=== PATIENT | female | born 1945 | race Caucasian/White ===

== ENCOUNTER → 2017-10-05 07:17 | Outpatient (CLI) | payer OTHER, SELFPAY ==
[2017-10-05 08:33] LABS: Cholesterol 180 mg/dL (200); High Density Lipoprotein 52 mg/dL; Triglycerides 68 mg/dL; Very Low Density Lipoprotein 14 mg/dL (5-40)
[2017-10-05 09:09] LABS: AST(SGOT) 21 U/L (15-37); Alanine Aminotransfer ALT/SGPT 16 U/L (13-56); Albumin, Serum 3.8 g/dL (3.2-5.0); Alkaline Phosphatase 104 U/L (45-117); Globulin 4.2 g/dL (2.2-4.2)
== END ==
PROVIDERS: Physician Assistant Medical; Family Provider Internal Medicine; PCP Internal Medicine; Visit Provider Internal Medicine Cardiovascular Disease
DX: E78.5 Hyperlipidemia, unspecified (principal); Z79.899 Other long term (current) drug therapy
CPT/HCPCS: 36415; 80061; 80076

== ENCOUNTER 2018-03-23 15:45 | Emergency (ER) | payer OTHER, SELFPAY ==
[2018-03-23 15:46] VITALS: BP 153/91; PULSE 90; RESP 18; TEMP 37.1; O2SAT 99; BMI 29.2
--- NOTE | 2018-03-23 16:28 | ED.VISSUMM ---
- ER Visit Summary Date of Service: 03/23/18 Chief Complaint: Laceration History of Present Illness: The patient is a 72 F with left hand laceration that heard when she brushed past the fence while taking care of the horse. No head injury no other injury. Physical Examination: Otherwise unremarkable exam. She is a 2.5 cm dorsum of the hand laceration tendon function is intact no sensory deficit. Emergency Department Course and Treatment: Patient will be sutured and tetanus will be updated. Discharge stable condition Impression: Duration left hand 2.5 cm This note was generated with [employer] dictation software. It may contain incorrect words, spelling, and punctuation that were not noted in review of the chart prior to signing ED Disposition - Plan for ED Patient: Disposition: Home or Assisted Living Chief Complaint: Laceration Instructions: ED Laceration All Referrals: Vero Garcia MD [Primary Care Provider] - 10 Day for suture removal
--- NOTE | 2018-03-23 16:32 | ED.DCSUM_ITS ---
- ER Visit Summary Date of Service: 03/23/18 Chief Complaint: Laceration History of Present Illness: The patient is a 72 F with left hand laceration that heard when she brushed past the fence while taking care of the horse. No head injury no other injury. Physical Examination: Otherwise unremarkable exam. She is a 2.5 cm dorsum of the hand laceration tendon function is intact no sensory deficit. Emergency Department Course and Treatment: Patient will be sutured and tetanus will be updated. Discharge stable condition Impression: Duration left hand 2.5 cm This note was generated with [employer] dictation software. It may contain incorrect words, spelling, and punctuation that were not noted in review of the chart prior to signing ED Disposition - Plan for ED Patient: Disposition: Home or Assisted Living Chief Complaint: Laceration Instructions: ED Laceration All Referrals: Vero Garcia MD [Primary Care Provider] - 10 Day for suture removal
[2018-03-23] MEDS: Diphth,Pertuss(Acell),Tet Vac 0.5 ML Vial IM (17:58)
[2018-03-23 18:00] VITALS: BP 136/89; PULSE 82; RESP 14; O2SAT 98
== END 2018-03-23 18:00 | disposition home or self-care (01) ==
PROVIDERS: Emergency Provider Emergency Medicine; Family Provider Internal Medicine; PCP Internal Medicine
DX: S61.412A Laceration without foreign body of left hand, initial encounter (principal); W45.8XXA Other foreign body or object entering through skin, initial encounter; Y93.89 Activity, other specified; I25.10 Atherosclerotic heart disease of native coronary artery without angina pectoris; Z79.899 Other long term (current) drug therapy
CPT/HCPCS: 12001; 90471; 90715; 99283

== ENCOUNTER → 2018-07-01 07:36 | Outpatient (CLI) | payer OTHER, SELFPAY ==
[2018-07-01 09:34] LABS: AST(SGOT) 25 U/L (15-37); Alanine Aminotransfer ALT/SGPT 26 U/L (13-56); Albumin, Serum 3.7 g/dL (3.2-5.0); Alkaline Phosphatase 93 U/L (45-117); Bilirubin, Direct 0.08 mg/dL (0.00-0.30); Cholesterol 260 mg/dL (200); High Density Lipoprotein 57 mg/dL; Protein, Total 7.7 g/dL (6.4-8.2); Triglycerides 115 mg/dL; Very Low Density Lipoprotein 23 mg/dL (5-40)
== END ==
PROVIDERS: Family Provider Internal Medicine; PCP Internal Medicine; Referring Provider Physician Assistant Medical; Visit Provider Physician Assistant Medical
DX: E78.5 Hyperlipidemia, unspecified (principal)
CPT/HCPCS: 36415; 80061; 80076

== ENCOUNTER → 2019-07-06 08:07 | Outpatient (CLI) | payer MEDICARE, OTHER, SELFPAY ==
[2018-07-13 12:49] VITALS: BMI 29.8
[2019-07-06 08:56] LABS: AST(SGOT) 27 U/L (15-37); Alanine Aminotransfer ALT/SGPT 33 U/L (13-56); Albumin, Serum 3.7 g/dL (3.2-5.0); Alkaline Phosphatase 98 U/L (45-117); Bilirubin, Direct 0.13 mg/dL (0.00-0.30); Cholesterol 187 mg/dL (200); Globulin 4.6 g/dL (2.2-4.2); High Density Lipoprotein 64 mg/dL; Protein, Total 8.3 g/dL (6.4-8.2); Triglycerides 65 mg/dL; Very Low Density Lipoprotein 13 mg/dL (5-40)
== END ==
PROVIDERS: Physician Assistant Medical; PCP Internal Medicine; Referring Provider Internal Medicine Cardiovascular Disease; Visit Provider Internal Medicine Cardiovascular Disease
DX: E78.5 Hyperlipidemia, unspecified (principal)
CPT/HCPCS: 36415; 80061; 80076

== ENCOUNTER → 2020-08-20 07:30 | Outpatient (CLI) | payer MEDICARE, OTHER, SELFPAY ==
[2019-08-19 14:18] VITALS: BMI 26.6
[2020-08-20 08:41] LABS: AST(SGOT) 24 U/L (15-37); Alanine Aminotransfer ALT/SGPT 29 U/L (13-56); Albumin, Serum 3.5 g/dL (3.2-5.0); Alkaline Phosphatase 86 U/L (45-117); Cholesterol 214 mg/dL (200); Globulin 3.9 g/dL (2.2-4.2); High Density Lipoprotein 68 mg/dL; Protein, Total 7.4 g/dL (6.4-8.2); Triglycerides 68 mg/dL; Very Low Density Lipoprotein 14 mg/dL (5-40)
== END ==
PROVIDERS: PCP Internal Medicine; Referring Provider Physician Assistant Medical; Visit Provider Physician Assistant Medical
DX: E78.00 Pure hypercholesterolemia, unspecified (principal)
CPT/HCPCS: 36415; 80061; 80076

== ENCOUNTER 2021-06-22 10:53 | Emergency (ER) | payer MEDICARE, OTHER, SELFPAY ==
[2021-06-22 10:56] VITALS: BP 168/81; PULSE 75; RESP 16; TEMP 36.9; O2SAT 97; BMI 25.9
--- NOTE | 2021-06-22 11:02 | EKG12_ITS ---
Test Reason : CP Blood Pressure : / mmHG Vent. Rate : 073 BPM Atrial Rate : 073 BPM P-R Int : 140 ms QRS Dur : 084 ms QT Int : 374 ms P-R-T Axes : 061 006 015 degrees QTc Int : 412 ms Normal sinus rhythm Normal ECG Confirmed by OSMAR DEAN MD ([id number]), offline editor KIKO DIA ([id number]) on 06/24/2021 10:14:40 AM Referred By: KANG Confirmed By:OSMAR DEAN MD
[2021-06-22 11:03] VITALS: O2SAT 97
[2021-06-22 11:22] LABS: Absolute Lymphocyte Count 2.15 X10^3/uL (0.83-4.51); Absolute Neutrophil Count 4.6 X10^3/uL (2.0-7.7); Basophil# 0.02 X10^3/uL; Basophil% 0.3 % (0-1); Eosinophil# 0.01 X10^3/uL; Eosinophils% 0.1 % (0-5); Hematocrit 37.1 % (37-47); Hemoglobin 12.2 g/dL (12.0-15.0); Lymphocyte # 2.15 X10^3/ul (0.83-4.51); Lymphocyte % 28.6 % (19-41); Mean Corp Hgb Conc 32.9 g/dL (32-36); Mean Corpuscular Hgb 30.7 pg (27.0-32.0); Mean Corpuscular Volume 93.5 fL (81-99); Mean Platelet Vol. 10.6 fl (6.2-12.0); Monocyte% 9.3 % (0-10); NRBC Flagged by Analyzer 0 % (0-5); Neutrophil # 4.61 X10^3/uL (2.7-7.7); Neutrophil % 61.3 % (47-70); Platelet Count 231 K/mm3 (150-450); RBC Distribution Width CV 12.9 % (11.6-14.6); RBC Distribution Width SD 44.5 fl (35.1-43.9); Red Blood Count 3.97 M/mm3 (4.2-5.4); White Blood Count 7.5 K/mm3 (4.4-11.0)
--- NOTE | 2021-06-22 11:26 | EDS_ITS ---
HPI History of Present Illness Chief Complaint: Chest Pain Narrative Narrative: 75-year-old female with history of CAD, hyperlipidemia, GERD, cardiac stents x3 in 2008. She states that she has been having intermittent sensation of palpitations and chest pressure in the left upper chest wall which does not radiate. She states that this lasts about a minute when it comes. She does feel as if she may have some indigestion. She questions whether her omeprazole was not working. She states that her diet has been fairly bland and she has not anything that would trigger her GERD. She also states she has no acid reflux symptoms. Patient does state that she has had some lightheadedness recently this is also intermittent and does not necessarily correlate with chest pain. She states that when she had coronary artery stents placed before 2008 she had similar vague symptoms. She at that time needed to be transferred to [place] because the ability to put in stents here at [facility] was not available. Patient follows with Dr. Rand. No history of DVT/PE and no risk factors. Patient does not have sharp pleuritic chest pain. She does not have worsening pain on deep inspiration. [facility] Medical History Anemia Atherosclerotic heart disease of [place] coronary artery without angina pectoris Former smoker Hyperlipidemia Hypothyroidism Old myocardial infarction Palpitations Home Medications ferrous fumarate 28 mg PO QODAY 03/09/17 [History Last Taken 03/08/17] levothyroxine 112 mcg PO DAILY 03/09/17 [History Last Taken 03/09/17] nitroglycerin 0.4 mg SUBLINGUAL Q5M PRN #1 bottle 03/10/17 [Rx Last Taken Unknown] clopidogrel 75 mg tablet 75 mg PO DAILY #90 tab 08/21/20 [Rx Last Taken Unknown] metoprolol tartrate 25 mg tablet 12.5 mg PO BID #90 tab 08/21/20 [Rx Last Taken Unknown] omeprazole 40 mg capsule,delayed release 40 mg PO DAILY #90 cap 08/21/20 [Rx Last Taken Unknown] simvastatin 40 mg tablet 40 mg PO .QOD #45 tab 11/27/20 [Rx Last Taken Unknown] pyridoxine (vitamin B6) [Vitamin B-6] 100 mg PO DAILY 06/22/21 [History Last Taken Unknown] Allergy/AdvReac Type Severity Reaction Status Date / Time atorvastatin [From Lipitor] AdvReac Severe mylagias Verified 06/22/21 10:54 rosuvastatin [From Crestor] AdvReac Severe mylagias Verified 06/22/21 10:54 lisinopril AdvReac Intermediate Cough Verified 06/22/21 10:54 Family History Sister Heart disease Brother CAD (coronary artery disease) Myocardial infarction Sudden cardiac Daughter Thyroid disorder Surgical History History of coronary artery stent placement (07/2008) History of left heart catheterization (2010) History of nasal surgery (2010) History of open reduction and internal fixation (ORIF) procedure History of tubal ligation Hx of breast surgery Social History Smoking Status: Never smoker alcohol intake: never substance use type: does not use ROS ROS ED ROS Narrative Lightheadedness Constitutional Constitutional ED: Denies chills, fever(s) or sweats Eyes Eyes: Denies blurry vision or change in vision ENT ENT ED: Denies rhinorrhea or sore throat Cardiovascular Cardiovascular: Reports as per HPI Respiratory/Chest Respiratory/Chest: Denies cough or dyspnea Gastrointestinal Gastrointestinal: Denies abdominal pain, nausea or vomiting Genitourinary Genitourinary ED: Denies dysuria or hematuria Musculoskeletal Musculoskeletal: Denies arthralgias or myalgias Integumentary Denies abscess or rash Neurologic Neurologic: Denies headache(s), paresthesias or weakness EXAM Physical Exam Const Vital Signs: 06/22/21 10:56 06/22/21 11:02 06/22/21 11:03 Temperature 98.5 F Temperature Source Oral Pulse Rate 75 Respiratory Rate 16 Respiratory Effort Normal Non-Labored Respiratory Pattern Normal Blood Pressure 168/81 H Blood Pressure Mean 110 Pulse Ox 97 97 Oxygen Delivery Method Room Air Room Air Room Air 06/22/21 13:17 Temperature Temperature Source Pulse Rate 68 Respiratory Rate 12 Respiratory Effort Respiratory Pattern Blood Pressure 130/65 H Blood Pressure Mean 86 Pulse Ox 100 Oxygen Delivery Method Room Air Positive well developed General Appearance ED: well developed and NAD; Negative for pallor HEENT Reports moist mucous membranes normocephalic Eyes PERRL and EOMs intact bilaterally Chest Wall inspection of chest normal and palpation of chest normal Resp normal respiratory effort Effort and Inspection: respiratory distress Cardio regular rate and regular rhythm GI normal to inspection, nondistended, normoactive bowel sounds Extremity normal to inspection General Extremety ED: Negative for edema or tenderness General Extremity: Negative for edema Neuro oriented x3 Sensorium / Orientation: awake and alert Psych mental status grossly normal Skin no wounds General Skin Exam: Negative for jaundice or pallor Heart Score History: Slightly/Non-Suspicious ECG: Normal Age: >/= 65 years Risk Factors: >/= 3 Risk Factors or History of CAD Score: 4 MDM MDM MDM Narrative Medical decision making narrative: Patient presenting with intermittent chest pr essure which sometimes feels like palpitations. She also has lightheadedness which does not correlate with the chest pressure. History of cardiac stents in 2008. She follows with Dr. Rand. Patient concerned because her symptoms were vague and not classic last time. EKG is performed and on my interpretation shows a sinus rhythm with ventricular rate of 73 bpm without sign of ischemic change or dysrhythmia. Chest x-ray my interpretation shows no acute cardiopulmonary process and the radiologist does agree. CBC and BMP are unremarkable. High-sensitivity troponin is 4 initially. Delta count is 8. This was out ACS. I have low suspicion for PE given that she has no pleuritic or sharp chest pain. Her O2 sats 100%. Respirate is 12-16. Pulse is 68. Patient counseled on findings. I did certified alcohol and drug counselor her to follow-up with Dr. Rand she is given return precautions. Impression: 1. Chest pain noncardiac 2. Dyspepsia Lab Data Attestation: I reviewed the patient's lab results. Labs: Laboratory Results - last 24 hr 06/22/21 06/22/21 06/22/21 10:56 10:56 10:56 WBC 7.5 RBC 3.97 L Hgb 12.2 Hct 37.1 MCV 93.5 MCH 30.7 MCHC 32.9 RDW Std Deviation 44.5 H RDW Coeff of Ashia 12.9 Plt Count 231 MPV 10.6 Immature Gran % (Auto) 0.400 Neut % (Auto) 61.3 Lymph % (Auto) 28.6 Boyle % (Auto) 9.3 Eos % (Auto) 0.1 Baso % (Auto) 0.3 Absolute Neuts (auto) 4.6 Absolute Lymphs (auto) 2.15 Nucleated RBC % 0 PT 12.6 INR 1.0 Sodium 136 Potassium 4.0 Chloride 104 Carbon Dioxide 29.0 Anion Gap 3 L BUN 19 H Creatinine 0.90 Estim Creat Clear Calc 46.64 Est GFR (MDRD) Af Amer 78 Est GFR (MDRD) Non-Af 65 BUN/Creatinine Ratio 21.1 H Glucose 84 Calcium 8.4 L Troponin I High Sens 4 06/22/21 13:00 WBC RBC Hgb Hct MCV MCH MCHC RDW Std Deviation RDW Coeff of Ashia Plt Count MPV Immature Gran % (Auto) Neut % (Auto) Lymph % (Auto) Boyle % (Auto) Eos % (Auto) Baso % (Auto) Absolute Neuts (auto) Absolute Lymphs (auto) Nucleated RBC % PT INR Sodium Potassium Chloride Carbon Dioxide Anion Gap BUN Creatinine Estim Creat Clear Calc Est GFR (MDRD) Af Amer Est GFR (MDRD) Non-Af BUN/Creatinine Ratio Glucose Calcium Troponin I High Sens 8 Radiography Diagnostic Testing: Clinical Impression(s) from Imaging Studies Chest X-Ray 06/22/21 11:40 IMPRESSION: Normal x-ray examination of the chest. Electronically Signed: Rasheed Wood MD at 12:07 EST , Discharge Plan Triage Chief Complaint: Chest Pain ED Provider: Isaak Tse Dx/Rx/DC Orders Instructions: ED Chest Pain, Noncardiac Prescriptions: No Action metoprolol tartrate 25 mg tablet 12.5 mg PO BID Qty: 90 RF: 3 clopidogrel 75 mg tablet 75 mg PO DAILY Qty: 90 RF: 3 omeprazole 40 mg capsule,delayed release(DR/EC) 40 mg PO DAILY Qty: 90 RF: 3 levothyroxine 112 MCG tablet 112 mcg PO DAILY RF: 0 ferrous fumarate 89 MG tablet 28 mg PO QODAY RF: 0 nitroglycerin 0.4 MG tablet 0.4 mg SUBLINGUAL Q5M PRN (Reason: Chest Pain) Qty: 1 RF: 0 pyridoxine (vitamin B6) [Vitamin B-6] 100 mg Tablet 100 mg PO DAILY RF: 0 simvastatin 40 mg tablet 40 mg PO .QOD Qty: 45 RF: 3 Primary Care Provider: Vero Garcia Referrals: Cheng Rand MD [STAFF PHYSICIAN] - 3-5 Days Vero Garcia MD [Primary Care Provider] - Disposition Disposition: Home, Self Care
[2021-06-22 11:32] LABS: Prothrombin Time (Protime)PT. 12.6 SECONDS (11.7-14.9)
--- NOTE | 2021-06-22 11:40 | RAD_ITS ---
STUDY: X-RAY CHEST REASON FOR EXAM: Female, 75 years old. chest pain TECHNIQUE: Single AP portable view of the chest. COMPARISON: 03/09/2017 FINDINGS: The lungs are clear and expanded. There is no demonstrated pleural abnormality. Normal size heart. Normal mediastinum and ira. Normal visualized pulmonary arteries. Normal visualized aortic arch and descending thoracic aorta. Normal visualized thoracic spine. Normal visualized ribs, clavicles, and shoulders. There is no demonstrated abnormality of the visualized soft tissue structures of the upper abdomen. RAD/Chest 1 View (Portable) IMPRESSION: Normal x-ray examination of the chest. Electronically Signed: Rasheed Wood MD at 12:07 [facility] ,
[2021-06-22 11:42] LABS: Anion Gap 3 (5-15); BUN 19 mg/dL (7-18); BUN/Creat Ratio 21.1 RATIO (10-20); Calcium,Total 8.4 mg/dL (8.5-10.1); Chloride 104 mmol/L (98-107); EST Glomerular Filtration Rate 65 mL/min (>60); Est Glom Filt Rate - Afr Amer 78 mL/min (>60); Estimated Creatinine Clearance 46.64 ml/min; Glucose 84 mg/dL (74-106); Sodium Level 136 mmol/L (136-145); Troponin-I HS 4 pg/mL (3.0-54.0)
[2021-06-22] MEDS: Aspirin 81 MG TAB.CHEW 324 MG PO (11:49)
[2021-06-22 13:17] VITALS: BP 130/65; PULSE 68; RESP 12; O2SAT 100
[2021-06-22 13:22] LABS: Troponin-I HS 8 pg/mL (3.0-54.0)
[2021-06-22 13:52] VITALS: BP 137/99; PULSE 68; RESP 12; O2SAT 99
== END 2021-06-22 13:53 | disposition home or self-care (01) ==
PROVIDERS: Emergency Provider Student in an Organized Health Care Education/Training Program; PCP Internal Medicine; Visit Provider Student in an Organized Health Care Education/Training Program
DX: R07.89 Other chest pain (principal); R10.13 Epigastric pain; I25.10 Atherosclerotic heart disease of native coronary artery without angina pectoris; I25.2 Old myocardial infarction; D64.9 Anemia, unspecified; E78.5 Hyperlipidemia, unspecified; E03.9 Hypothyroidism, unspecified; K21.9 Gastro-esophageal reflux disease without esophagitis; Z95.5 Presence of coronary angioplasty implant and graft; Z79.02 Long term (current) use of antithrombotics/antiplatelets; Z79.899 Other long term (current) drug therapy; Z82.49 Family history of ischemic heart disease and other diseases of the circulatory system
CPT/HCPCS: 36415; 71045; 80048; 84484; 85025; 85610; 93005; 99285; A4216

== ENCOUNTER 2021-08-20 06:58 | Outpatient (CLI) | payer MEDICARE, OTHER, SELFPAY ==
[2021-08-20 08:04] LABS: AST(SGOT) 24 U/L (15-37); Alanine Aminotransfer ALT/SGPT 25 U/L (13-56); Albumin, Serum 3.4 g/dL (3.2-5.0); Alkaline Phosphatase 68 U/L (45-117); Bilirubin, Direct 0.07 mg/dL (0.00-0.30); Cholesterol 211 mg/dL (200); Globulin 4.1 g/dL (2.2-4.2); High Density Lipoprotein 59 mg/dL; Protein, Total 7.5 g/dL (6.4-8.2); Triglycerides 60 mg/dL; Very Low Density Lipoprotein 12 mg/dL (5-40)
== END 2021-08-20 23:59 | disposition home or self-care (01) ==
LOC: LAB 07:00
PROVIDERS: PCP Internal Medicine; Visit Provider Physician Assistant Medical
DX: E78.00 Pure hypercholesterolemia, unspecified (principal); E78.5 Hyperlipidemia, unspecified
CPT/HCPCS: 36415; 80061; 80076

== ENCOUNTER → 2021-09-17 | Outpatient (CLI) | payer MEDICARE, OTHER, SELFPAY ==
--- NOTE | 2021-09-17 18:56 | STRESSREP ---
Stress Test Report Exercise myocardial perfusion stress test. 75-year-old lady with a history of coronary disease. Stress protocol: Resting EKG demonstrates normal sinus rhythm with a rate of 77 bpm normal intervals are noted. The patient exercised according to regular Tyrese protocol for total duration of 5 minutes and 20 seconds. The maximum heart rate attained was 150 bpm which was 103% of max impact at heart rate the maximum workload was 7 metabolic equivalents. At rest there were no ST or T wave changes noted to suggest ischemia. At peak exercise there was approximately 1.8 to [address] depression noted in leads II, III and aVF and V6. 1.[address] depression was noted in lead V5. During recovery there was return to upsloping changes noted at approximately 50 seconds. No chest pain was noted to shortness of breath was present. The peak blood pressure was 180/62 mmHg. Myocardial perfusion protocol. 11.4 mCi of technetium 99m sestamibi was injected at rest. The patient exercised according to regular Tyrese protocol for total duration of 5 minutes and 20 seconds and at peak exercise 32.9 mCi of technetium 99m sestamibi was injected stress images were obtained stress and rest images were reconstructed and compared in the short axis vertical long and horizontal long axis. Gated images were also obtained per Perfusion SPECT analysis: Review of the stress images demonstrate normal uptake of tracer noted in all areas of the myocardium. The resting images similarly demonstrate normal uptake of tracer noted in all areas of the myocardium. No areas of reversibility are noted to suggest ischemia no previous infarct is noted. Gated SPECT analysis: The gated ejection fraction is noted to be 72%. Conclusion: Normal exercise myocardial perfusion stress test with no nuclear images suggestive of ischemia at a moderate workload. EKG is changes suggestive of ischemia noted at the moderate workload. Preserved ejection fraction. Mild functional aerobic impairment.
== END | disposition home or self-care (01) ==
PROVIDERS: PCP Internal Medicine; Referring Provider Physician Assistant Medical; Visit Provider Physician Assistant Medical
DX: I25.10 Atherosclerotic heart disease of native coronary artery without angina pectoris (principal)
CPT/HCPCS: 78452; 93017; A9500; A4216

== ENCOUNTER 2023-06-17 11:00 | Outpatient (RCR) | payer MEDICARE, OTHER, SELFPAY ==
--- NOTE | 2023-04-24 12:24 | HP.PTEVAL ---
Patient's Visit Information Visit Information Visit Information: OCHOA HILL is a 77 year old F referred to Physical Therapy by Dr. Florence Godfrey MD with a diagnosis of INCONTINENCE. Date of Evaluation: 04/17/23 Physical Therapist: Zoya Teixeira PT, Cert MDT Visit Plan Frequency: 1x/Week Duration: 2-4 Months Plan: PF THERAPY FOR STRENGTHENING, LENGTHENING/RELAXATION AND ENDURANCE TRAINING. URINARY URGE AND FREQUENCY EDUCATION. HEALTHY BLADDER HABIT EDUCATION. TRAINING IN COORDINATION OF PELVIC FLOOR MUSCULATURE WITH HIP AND CORE (TRANSVERSE ABDOMINUS) MUSCULATURE. CORE STRENGTHENING. TRUNG LE ROM, STRETCHING AND STRENGTHENING. TRAINING IN ABDOMINAL CAVITY PRESSURE MGMT WITH ADL'S. Subjective Subjective: Work/Leisure: RETIRED. 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 Present symptoms: URINARY INCONTINECE. Present since: CHRONIC Pain Scale: N/A Is it getting better, worse or staying the same: IMPROVING Commenced as a result of: NO APPARENT REASON Worse: SNEEZING, LIFTING, STRAINING, GRANDCHILD (3 YEAR OLD), RANDOM OCCURANCE, COUGHING Better: GEMTESA Disturbed sleep: GETTING UP 0-1 TIMES A NIGHT TO URINATE Previous history/Previous treatment: NONE Treatment this episode: TRIED A FEW DIFFENT PESSARIES WITHOUT SUCCESS AND PATIENT REPORTS IT EVEN MADE THE INCONTINENCE WORSE. PATIENT REPORTS DR. GODFREY SAID SHE HAD A LITTLE TEARING WITH THE LARGER PESSARY REMOVAL. PATIENT REPORTS IT WAS PAINFUL AT THE TIME OF REMOVAL AND IRRITATED AFTER THAT FOR A FEW DAYS. SHE REPORTS THE IRRITATION AND PAIN HAS GONE AWAY NOW. GEMTESA - STARTED ABOUT 3 WEEKS AGO AND REPORTS SIGNIFICANT IMPROVEMENT. Gait: INDEP GAIT WITHOUT AD. DENIES FALLS. How long can you delay the need to urinate: ABOUT 15 MINUTES TO 30 MINUTES WHEN AT HOME SINCE STARTING THE MEDICINE. Prolapse (Falling out feeling): YES - SINCE TRYING PESSARY. Frequency of Urination: ABOUT EVERY 2-3 HOURS Ability to stop urine flow: UNSURE Ability to initiate urine stream: YES Dyspareunia: N/A Bowel Incontinence: YES - STATES DR. GODFREY IS AWARE. THIS PT RECOMMENDED PT ALSO MAKE HER PCP (DR. RIVERS) AWARE. Accidents: NO Unexplained weight loss: NO Imaging: PATIENT REPORTS RECENT TESTING SHOWING NORMAL BLADDER EMPTYING. PMH/Recent major surgery: HYPOTHYROIDISM, HEART DZ - 3 STENTS YEARS AGO, H/O TRUNG WRIST ORIF'S. OTHER: PATIENT REPORTS DR. GODFREY ORIGINALLY ORDERED PT 02/18/23 WHEN SHE INITIALLY SAW HER BUT SHE DELAYED STARTED WHILE TRYING THE PESSARIES THEN WAS BUSY DEALING WITH ISSUES WITH HER DAUGHTER. PATIENT REPORTS SHE KNOWS WHAT A KEGEL IS AND IS HOPING TO LEARN MORE TO DO AT HOME TO HELP HERSELF WITH HER INCONTINENCE. Objective Objective: Sitting/Standing Posture: FORWARD HEAD. ROUNDED SHOULDERS. Lordosis: REDUCED LORDOSIS. NO RELEVANT LATERAL SHIFT. Other Observations: INDEP GAIT AND TRANSFERS Sensory deficit: TRUNG LE LIGHT TOUCH SENSATION GROSSLY INTACT AND SYMMETRICAL ROM deficit: VERY TIGHT TRUNG LE HIP ADDUCTORS, HIP ROTATORS, HIP FLEXORS AND HIP EXTENSORS. ALSO WITH HS AND CALF TIGHTNESS. Motor deficit: TRUNG LE'S GROSSLY 5/5 WITH MMT'ING EXCEPT HIPS 4/5. PATIENT COMMUNICATES BEING ABLE TO HOLD PELVIC FLOOR CONTRACTION X 10 SEC X 1 REP WITH CUEING. Reflexes: 2/3 TRUNG LE'S. Dural Signs: NEGATIVE TRUNG LE'S. Lumbar mvmt loss: flex - MIN ext - LAUREN R SG - MOD L SG - MOD PATIENT DENIES PAIN WITH LUMBAR ROM TESTING BUT HAS A LOT OF STIFFNESS. Core strength: POOR Palpation: INCREASED MUSCLE TONE TRUNG LUMBAR PARASPINALS. Pelvic Exam: Deferred to next session. Patient agreeable next session but reports limited time today due to and son waiting on her in the care. FUNCTIONAL SCREEN: Incontinence Impact Questionnaire Score: 3 Urogenital Distress Inventory Score: 8 Goals Goal 1:: DECREASE URINARY LEAKAGE EPISODES TO ONE OR LESS PER DAY Goal 2:: PATIENT WILL SUCCESSFULLY DELAY VOIDING LONG NEEDED WHEN URGENCY OCCURS TO SUCCESSFULLY MAKE IT TO THE BATHROOM. Goal 3:: PATIENT WILL DEMONSTRATE/COMMUNICATE 10 CONSISTENT AND CONSECUTIVE 10 SECOND PELVIC FLOOR MUSCLE CONTRACTIONS TO DEMONSTRATE IMPROVED PELVIC FLOOR ENDURANCE. Goal 4:: DEVELOP HEALTHY FLUID INTAKE HABITS WITH FLUID INTAKE OF ? BODY WEIGHT IN OUNCES PER DAY AND 2/3 BEING WATER. Goal 5:: NORMALIZE VOIDING FREQUENCEY TO EVERY 3-4 HOURS. Goal 6:: PATIENT WILL BE INDEP WITH A HEP/HOME INSTRUCTIONS FOR CONTINUED IMPROVEMENT ONCE FORMAL PHYSICAL THERAPY CONCLUDES. Rehabilitation Potential Rehabilitation Potential: Good Anticipated Interventions Patient/Client Instruction: Educate patient on: Condition, Plan of Care and Risk Factors For the Purpose of:: To improve self management Therapeutic Exercise to Include: Strength training, Endurance training, Coordination and Flexibilty training For the Purpose of:: To increase ROM, To improve muscle performance and motor function, To increase tolerance to activity/condition/position and To improve ability of physical actions for home/community/work/leisure Text: Thank you for the opportunity to evaluate your patient. For Medicare and Medicare HMO plans, please review the plan of care and approve it. It will need to be FAXED BACK to us at [phone] for Medicare purposes. For Medicare only, by signing this I certify the plan of care. Please let me know if there are questions or concerns regarding this plan of care. Physician Signature: Date:
--- NOTE | 2023-07-01 11:31 | HP.PTDCSUM ---
Discharge Summary D/C summary: It has been my pleasure to treat OCHOA HILL referred by Dr. Florence Godfrey MD, with the diagnosis of INCONTINENCE for a total of 10 visit(s). Discharge Date: Please see the following information for a summary of their discharge status. Subjective Subjective: PATIENT STATES SHE FEELS LIKE SHE IS STRONGER AND THERRAPY HAS BEEN VERY HELPFUL. SHE REPORTS SHE PLANS TO CONTINUE WHAT SHE HAS LEARNED IN PT MUCH SHE IS ABLE. SHE STATES SHE WISHES SHE WERE ABLE TO PUT MORE TIME INTO IT BUT SHE DOES WHAT SHE CAN. SHE STATES SHE IS DEALING WITH A LOT WITH HER DAUGHTER AND GRANDSON IN ADDITION TO HER HAVING SURGERY TOMORROW. DESPITE THIS PATIENT REPORTS CONTINUED IMPROVEMENT IN HER SYMPTOMS AND STATES SELDOM DO I EVER HAVE A PROBLEM NOW. I ENJOYED LEARNING ABOUT THESE THINGS I NEVER KNEW ABOUT . Overall Improvement % Improvement: 85 Objective Objective/Function: PATIENT WAS SEEN TODAY FOR RE-ASSESSMENT OF PROGRESS TOWARD THE SET PT GOALS AND THE NEED FOR FURTHER PHYSICAL THERAPY VS READINESS FOR DISCHARGE. PATIENT HAS MET OR MADE GOOD PROGRESS TOWARD ALL PT GOALS AND IS INDEP WITH A HEP. SHE HAS ONLY BEEN ABLE TO BE PARTIALLY COMPLIANT WITH HOME INSTRUCTIONS DUE TO HER HOME SITUATION AND NEEDS TO STOP PT AT THIS TIME DUE TO SAME. FUNCTIONAL SCREEN: Incontinence Impact Questionnaire Score: 4 Urogenital Distress Inventory Score: 5 Goals Goal 1:: DECREASE URINARY LEAKAGE EPISODES TO ONE OR LESS PER DAY Goal Progress: Goal Met Goal 2:: PATIENT WILL SUCCESSFULLY DELAY VOIDING LONG NEEDED WHEN URGENCY OCCURS TO SUCCESSFULLY MAKE IT TO THE BATHROOM. Goal Progress: Goal Met Goal 3:: PATIENT WILL DEMONSTRATE/COMMUNICATE 10 CONSISTENT AND CONSECUTIVE 10 SECOND PELVIC FLOOR MUSCLE CONTRACTIONS TO DEMONSTRATE IMPROVED PELVIC FLOOR ENDURANCE. Goal Progress: Progressing Goal 4:: DEVELOP HEALTHY FLUID INTAKE HABITS WITH FLUID INTAKE OF ? BODY WEIGHT IN OUNCES PER DAY AND 2/3 BEING WATER. Goal Progress: Goal Met Goal 5:: NORMALIZE VOIDING FREQUENCEY TO EVERY 3-4 HOURS. Goal Progress: Goal Met Goal 6:: PATIENT WILL BE INDEP WITH A HEP/HOME INSTRUCTIONS FOR CONTINUED IMPROVEMENT ONCE FORMAL PHYSICAL THERAPY CONCLUDES. Goal Progress: Goal Met Plan Plan: D/C TO HEP. D/C Information d/c sentence: If there are questions or concerns regarding this patient's physical therapy, please feel free to call me at [phone]. Thank you for the referral of this patient. Sincerely, Zoya Teixeira, PT, Cert MDT Balance/Gait/Functional tests Improvement % Improvement: 85
== END 2023-06-17 19:00 | disposition home or self-care (01) ==
LOC: PT 11:00
PROVIDERS: PCP Internal Medicine; Referring Provider Urology; Visit Provider Urology
DX: R32 Unspecified urinary incontinence (principal)
CPT/HCPCS: 97162; 97530

== ENCOUNTER → 2023-09-23 | Outpatient (CLI) | payer MEDICARE, OTHER, SELFPAY ==
[2023-09-23 12:13] LABS: AST(SGOT) 37 U/L (15-37); Alanine Aminotransfer ALT/SGPT 29 U/L (13-56); Albumin, Serum 3.7 g/dL (3.2-5.0); Alkaline Phosphatase 69 U/L (45-117); Anion Gap 3 (5-15); BUN 18 mg/dL (7-18); BUN/Creat Ratio 18.1 RATIO (10-20); Calcium,Total 9.2 mg/dL (8.5-10.1); Chloride 107 mmol/L (98-107); Cholesterol 218 mg/dL (200); EST Glomerular Filtration Rate 57 mL/min (>60); Est Glom Filt Rate - Afr Amer 69 mL/min (>60); Globulin 4.2 g/dL (2.2-4.2); Glucose 82 mg/dL (74-106); High Density Lipoprotein 70 mg/dL; Potassium 4.8 mmol/L (3.5-5.1); Protein, Total 7.9 g/dL (6.4-8.2); Sodium Level 139 mmol/L (136-145); Triglycerides 69 mg/dL; Very Low Density Lipoprotein 14 mg/dL (5-40)
== END | disposition home or self-care (01) ==
LOC: LAB 11:12
PROVIDERS: PCP Internal Medicine; Referring Provider Physician Assistant Medical; Visit Provider Physician Assistant Medical
DX: E78.00 Pure hypercholesterolemia, unspecified (principal); Z95.5 Presence of coronary angioplasty implant and graft
CPT/HCPCS: 36415; 80048; 80061; 80076

== ENCOUNTER → 2024-08-26 | Outpatient (CLI) | payer MEDICARE, OTHER, SELFPAY ==
[2024-08-26 07:10] LABS: AST(SGOT) 32 U/L (<=31); Alanine Aminotransfer ALT/SGPT 21 U/L (<=34); Albumin, Serum 3.9 g/dL (3.4-4.8); Alkaline Phosphatase 80 U/L (35-104); Bilirubin, Direct 0.14 mg/dL (0.00-0.30); Cholesterol 147 mg/dL (<=200); Globulin 3.5 g/dL (2.2-4.2); High Density Lipoprotein 72 mg/dL; Low Density Lipoprotein Calc. 66 mg/dL; Protein, Total 7.5 g/dL (5.9-8.4); Total Bilirubin 0.29 mg/dL (0.00-1.30); Triglycerides 45 mg/dL; Very Low Density Lipoprotein 9 mg/dL (5-40); cholesterol:hdl ratio screen 2.04
== END | disposition home or self-care (01) ==
LOC: LAB 06:17
PROVIDERS: PCP Family Medicine; Referring Provider Physician Assistant Medical; Visit Provider Physician Assistant Medical
DX: E78.00 Pure hypercholesterolemia, unspecified (principal)
CPT/HCPCS: 36415; 80061; 80076

== ENCOUNTER → 2024-08-31 | Outpatient (CLI) | payer MEDICARE, OTHER, SELFPAY ==
[2024-08-31 15:26] LABS: Absolute Lymphocyte Count 2.65 X10^3/uL (0.83-4.51); Absolute Neutrophil Count 4.1 X10^3/uL (2.0-7.7); Basophil# 0.07 X10^3/uL; Basophil% 0.9 % (0-1); Eosinophil# 0.21 X10^3/uL; Eosinophils% 2.7 % (0-5); Hematocrit 32.1 % (37-47); Hemoglobin 10.3 g/dL (12.0-15.0); Lymphocyte # 2.65 X10^3/ul (0.83-4.51); Lymphocyte % 34.6 % (19-41); Mean Corp Hgb Conc 32.1 g/dL (32-36); Mean Corpuscular Hgb 30.1 pg (27.0-32.0); Mean Corpuscular Volume 93.9 fL (81-99); Mean Platelet Vol. 11.3 fl (6.2-12.0); Monocyte# 0.63 X10^3/uL; Monocyte% 8.2 % (0-10); NRBC Flagged by Analyzer 0 % (0-5); Neutrophil # 4.08 X10^3/uL (2.7-7.7); Neutrophil % 53.5 % (47-70); Platelet Count 274 K/mm3 (150-450); RBC Distribution Width CV 12.9 % (11.6-14.6); RBC Distribution Width SD 44.1 fl (35.1-43.9); Red Blood Count 3.42 M/mm3 (4.2-5.4); White Blood Count 7.7 K/mm3 (4.4-11.0)
[2024-08-31 16:48] LABS: Vitamin D,25 Hydroxy 23.1 ng/mL (30-100)
== END | disposition home or self-care (01) ==
LOC: LAB 14:12
PROVIDERS: PCP Family Medicine; Referring Provider Student in an Organized Health Care Education/Training Program; Visit Provider Student in an Organized Health Care Education/Training Program
DX: E55.9 Vitamin D deficiency, unspecified (principal); R53.83 Other fatigue
CPT/HCPCS: 36415; 82306; 84443; 85025

== ENCOUNTER → 2024-09-29 | Outpatient (CLI) | payer MEDICARE, OTHER, SELFPAY ==
--- NOTE | 2024-09-29 13:22 | STRESSREP ---
Stress Test Report Exercise myocardial perfusion stress test. 78-year-old lady with a history of chest pain Stress protocol: Resting EKG demonstrates normal sinus rhythm with a rate of 76 bpm resting blood pressure is 132/68 mmHg. The patient exercised according to the regular Tyrese protocol for a total duration of 5 minutes and 15 seconds attaining a maximum heart rate of 151 bpm which was 106% of maximum predicted heart rate; the maximum workload was 7 metabolic equivalents. At rest there were no ST or T wave changes noted to suggest ischemia and at peak exercise [address] depression were noted in leads II, III and aVF and V6 suggestive of ischemia. Upsloping ST changes only were noted which did not meet the criteria for ischemia. No clinical angina was noted the test was terminated due to the target heart rate being achieved/fatigue. The peak blood pressure was 164/70 mmHg. Rate-pressure product was 24,700. Myocardial perfusion protocol. 11.8 mCi of technetium 99m sestamibi was injected at rest. The patient exercised according to regular Tyrese protocol for total duration of 5 minutes and 15 and at peak exercise 34.5 mCi of technetium 99m sestamibi was injected stress images were obtained stress and rest images were reconstructed in comparing the short axis vertical long and horizontal long axis. Gated images were also obtained. Perfusion SPECT analysis: Review of the stress images demonstrate normal uptake of tracer noted in all areas of the myocardium. The resting images similarly demonstrate normal uptake of tracer noted in all areas of the myocardium. No areas of reversibility are noted to suggest ischemia no previous infarct was noted. Gated SPECT analysis: The gated ejection fraction is 77%. Conclusion: Normal exercise myocardial perfusion stress test at a moderate work Preserved ejection fraction. EKG changes suggestive of ischemia but unchanged from the stress test in September 2021.
== END | disposition home or self-care (01) ==
LOC: CVS 07:03
PROVIDERS: PCP Family Medicine; Referring Provider Student in an Organized Health Care Education/Training Program; Visit Provider Student in an Organized Health Care Education/Training Program
DX: I25.10 Atherosclerotic heart disease of native coronary artery without angina pectoris (principal); R94.39 Abnormal result of other cardiovascular function study; R53.83 Other fatigue
CPT/HCPCS: 78452; 93017; A9500

== ENCOUNTER 2024-11-07 07:27 | Day surgery (SDC) | payer MEDICARE, OTHER, SELFPAY ==
--- NOTE | 2024-10-24 14:45 | RAD_ITS ---
PROCEDURE: CHEST PA AND LATERAL 10/24/2024 REASON FOR EXAM: PRE-OPERATIVE FOR [facility] TECHNIQUE: Frontal and lateral views of the chest. COMPARISON: 06/22/2021 FINDINGS: No focal consolidations. No pleural effusion or pneumothorax. Cardiac silhouette is within normal limits. No acute fractures. Atherosclerotic aortic arch. RAD/Chest PA and Lateral IMPRESSION: No focal consolidations. Reading Location: [id number]
[2024-10-24 15:25] LABS: Absolute Lymphocyte Count 2.68 X10^3/uL (0.83-4.51); Absolute Neutrophil Count 3.7 X10^3/uL (2.0-7.7); Basophil# 0.07 X10^3/uL; Basophil% 0.9 % (0-1); Eosinophil# 0.33 X10^3/uL; Eosinophils% 4.4 % (0-5); Hematocrit 31.6 % (37-47); Hemoglobin 10.3 g/dL (12.0-15.0); Lymphocyte # 2.68 X10^3/ul (0.83-4.51); Lymphocyte % 35.8 % (19-41); Mean Corp Hgb Conc 32.6 g/dL (32-36); Mean Corpuscular Hgb 30.7 pg (27.0-32.0); Mean Corpuscular Volume 94.3 fL (81-99); Mean Platelet Vol. 11.8 fl (6.2-12.0); Monocyte# 0.67 X10^3/uL; Monocyte% 8.9 % (0-10); NRBC Flagged by Analyzer 0 % (0-5); Neutrophil # 3.72 X10^3/uL (2.7-7.7); Neutrophil % 49.7 % (47-70); Platelet Count 247 K/mm3 (150-450); RBC Distribution Width CV 13.6 % (11.6-14.6); RBC Distribution Width SD 46.7 fl (35.1-43.9); Red Blood Count 3.35 M/mm3 (4.2-5.4); White Blood Count 7.5 K/mm3 (4.4-11.0)
[2024-10-24 15:36] LABS: International Normalized Ratio 0.9
[2024-10-24 16:33] LABS: Anion Gap 10 (5-15); BUN 19 mg/dL (4-19); BUN/Creat Ratio 19.1 RATIO (10-20); Calcium,Total 9.2 mg/dL (7.6-11.0); Carbon Dioxide 24.7 mmol/L (21.0-32.0); Chloride 105 mmol/L (98-108); Creatinine, Serum 0.98 mg/dL (0.70-1.20); EST Glomerular Filtration Rate 59 (>60); Glucose 120 mg/dL (70-99); Potassium 4.7 mmol/L (3.3-5.1); Sodium Level 139 mmol/L (133-145)
[2024-11-04 09:02] VITALS: BMI 26.6
--- NOTE | 2024-12-26 09:45 | CL.D_ITS ---
Patient Name: OCHOA HILL Study Date: 11/07/2024 Performing: Cheng Rand MD Ht: 64.17 inches 163 cm : 1945 Wt: 156 lbs 70.76 kg Age: 78 Gender: female BSA: 1.76 PROCEDURE(S) PERFORMED DC01-([id number])LHC/COR/LV CLINICAL PROFILE AND INDICATIONS Indications: Suspected CAD Heart Failure: None Stress/Imaging Date: 09/29/24Stress Test with SPECT MPI: Positive Intermediate Risk CAD Presentations: No Sxs, no angina. CONCLUSIONS Severe disease involving the ostial left anterior descending artery prior to the stent in the ostial circumflex artery prior to the stent and disease noted in the mid to distal right coronary artery with a patent stent. There is mild left ventricular systolic dysfunction present. RECOMMENDATIONS Surgery consult for coronary revascularization DESCRIPTION OF PROCEDURE The patient arrived to the procedure lab. The risks and benefits of the procedure as well as a full description of our services here and current unavailability of surgical backup were fully explained to the patient and/or their significant other prior to the catheterization. The Timeout was completed, verifying the correct patient and procedure. The patient's procedural site was prepped and draped in the usual fashion. Local anesthetic was given subcutaneously to right radial region with Lidocaine 2%. Using a modified Seldinger technique, arterial access was obtained via the right radial artery, a 6Fr sheath was inserted. Left Coronary Artery selective angiography was performed in multiple views using a 5 Fr. 4.0 Worthington catheter. Right Coronary Artery selective angiography was then performed in multiple views using a 5 Fr. 4.0 Worthington catheter. Left Ventriculography was performed in RYAN projection using a 5 Fr. Pigtail catheter. LV to AO pullback pressures were then recorded.The arterial sheath was pulled and a TR Band was applied for hemostasis 10 ml of air CORONARY ANGIOGRAPHY DOMINANCE: Right Dominant LEFT HEART ASSESSMENT Left Ventricular Ejection Fraction: by LV Gram 50 % Anterior Hypokinesis - Mild Depressed Left Ventricular systolic function LEFT MAIN: Mild calcification, Ostial 20 to 30% stenosis LEFT ANTERIOR DESCENDING ARTERY: This vessel was previously stented with the stent being patent but there is an ostial 80 to 90% stenosis noted. The mid segment also has a 70% long stenosis followed by another 70% long stenosis present. Diagonal vessel appears to be free of significant disease. CIRCUMFLEX ARTERY: This vessel was also previously stented and there is an ostial 80% stenosis noted at the first large obtuse marginal branch the AV groove branch appears to be free of significant disease. RIGHT CORONARY ARTERY: Dominant right coronary artery previously stented. The proximal area has a 50 to 60% stenosis with a mid area with a 70% stenosis and the distal stent is patent and distal mild luminal irregularities present. COMPLICATIONS No Complications PROCEDURE MEDICATIONS Fentanyl 50 mcg IV Versed 1 mg IV Oxygen: 2 L/min via nasal cannula Aspirin (325mg) 1 Tabs PO @ 11/07/2024 07:45:24 Heparin given IA 11/07/2024 08:14:31 Verapamil 2.5mg, Ntg 100mcgs, 3000 units of Heparin given IA 11/07/2024 08:14:31 SUMMARY OF HEMODYNAMIC DATA Time AIR REST ECG 07:42:52 AO 115/60 (83) SA 08:24:03 LV 118/10, 19 08:31:44 LV 120/10, 19 08:31:52 LV 114/11, 20 08:32:38 LV 117/12, 21 08:32:46 LVp 119/15, 24 08:32:49 AOp 117/58 (84) 08:32:57 Signed By Cheng Rand MD On 11/07/2024 08:58:36 Cheng Rand MD
== END 2024-11-07 10:40 | disposition home or self-care (01) ==
PROVIDERS: Student in an Organized Health Care Education/Training Program; PCP Family Medicine; Referring Provider Internal Medicine Cardiovascular Disease; Visit Provider Internal Medicine Cardiovascular Disease
DX: I25.10 Atherosclerotic heart disease of native coronary artery without angina pectoris (principal); I25.2 Old myocardial infarction; E78.5 Hyperlipidemia, unspecified; E03.9 Hypothyroidism, unspecified; E78.00 Pure hypercholesterolemia, unspecified; Z87.891 Personal history of nicotine dependence; Z79.899 Other long term (current) drug therapy; Z95.5 Presence of coronary angioplasty implant and graft
CPT/HCPCS: 36415; 71046; 80048; 85025; 85610; 93458; 99152; 99153; Q9967; C1769; C1894

== ENCOUNTER → 2024-11-16 | Outpatient (CLI) | payer MEDICARE, OTHER, SELFPAY ==
--- NOTE | 2024-11-16 10:47 | ECHOD_ITS ---
Reason For Study : CAD/ASHD Procedure This was a 2D Doppler, Color Flow transthoracic echocardiogram. Exam performed in department. Left Ventricle Normal LV size. The left ventricular ejection fraction is 70 %. No regional wall motion abnormalities noted. Right Ventricle Normal RV size. Normal systolic function. Atria Normal left atrium. Normal right atrium. Mitral Valve There is mild mitral annular calcification. Mild (1+) eccentric mitral valve insufficiency. Tricuspid Valve Normal tricuspid valve. Mild tricuspid valve insufficiency. Pulmonary artery systolic pressure is 34 mmHg. Aortic Valve Trisinus/trileaflet aortic valve. Mild focal aortic valve thickening. Pulmonic Valve Normal pulmonic valve. Great Vessels Normal aortic root. The pulmonary artery is normal size. Inferior vena cava collapse with respiration. Pericardium/Pleural No pericardial effusion. MMode/2D Measurements & Calculations LVIDd: 4.6 cm IVSd: 1.1 cm LVOT diam: 2.0 cm LVIDs: 3.1 cm LVPWd: 1.1 cm LVOT area: 3.1 cm2 RVDd: 3.1 cm FS: 32.2 % Ao root diam: 3.3 cm LAV(MOD-bp): 73.9 ml LVAd ap4: 25.4 cm2 LAV(MOD-bp) Indexed: 42.1 ml/m2 LVLd ap4: 7.5 cm LAV(MOD-sp2): 68.2 ml EDV(MOD-sp4): 71.4 ml LAV(MOD-sp4): 68.0 ml EDV(sp4-el): 73.5 ml LVAs ap4: 11.9 cm2 LVLs ap4: 5.8 cm ESV(MOD-sp4): 20.2 ml ESV(sp4-el): 20.6 ml EF(MOD-sp4): 71.7 % EF(sp4-el): 71.9 % LVAd ap2: 24.3 cm2 SV(MOD-sp4): 51.2 ml SV(MOD-sp2): 51.4 ml LVLd ap2: 7.0 cm SI(MOD-sp4): 29.2 ml/m2 SI(MOD-sp2): 29.3 ml/m2 EDV(MOD-sp2): 73.9 ml EDV(sp2-el): 71.7 ml LVAs ap2: 12.2 cm2 LVLs ap2: 5.9 cm ESV(MOD-sp2): 22.5 ml ESV(sp2-el): 21.3 ml EF(MOD-sp2): 69.6 % SV(sp4-el): 52.9 ml LA dimension(2D): 3.9 cm LA A4 area: 20.5 cm2 RA A4 area: 14.4 cm2 TAPSE: 2.0 cm Time Measurements MV dec time: 0.19 sec Doppler Measurements & Calculations MV E max vikram: 93.2 cm/sec Lat Peak E' Vkiram: 10.3 cm/sec Med Peak E' Vikram: 8.3 cm/sec MV A max vikram: 73.0 cm/sec E/E' lat: 9.0 E/E' med: 11.3 MV E/A: 1.3 MV V2 max: 92.2 cm/sec MV P1/2t max vikram: 96.0 cm/sec Ao V2 max: 117.5 cm/sec MV max P.4 mmHg MV P1/2t: 62.6 msec Ao max P.5 mmHg MV V2 mean: 55.5 cm/sec Ao V2 mean: 77.2 cm/sec MV mean P.4 mmHg MV dec slope: 448.9 cm/sec2 Ao mean P.7 mmHg MV V2 VTI: 25.6 cm MVA(P1/2t): 3.5 cm2 Ao V2 VTI: 25.1 cm AV (velocity ratio): 0.84 MVA(VTI): 2.5 cm2 TYLOR(I,D): 2.6 cm2 TYLOR(V,D): 2.6 cm2 LV V1 max: 100.0 cm/sec SV(LVOT): 65.3 ml PA V2 max: 72.3 cm/sec LV V1 max P.0 mmHg PA V2 mean: 51.0 cm/sec LV V1 mean P.0 mmHg PA V2 VTI: 15.8 cm LV V1 mean: 67.9 cm/sec LV V1 VTI: 21.0 cm TR max vikram: 268.9 cm/sec TR max P.9 mmHg ECHO/Echo Complete Interpretation Summary Normal LV size. The left ventricular ejection fraction is 70 %. Pulmonary artery systolic pressure is 34 mmHg. There is mild mitral annular calcification. Ordering Physician: Cheng Rand Referring Physician: Juanjo Vick Performed By: Yaima Martínez RVT, RDCS and Student
== END | disposition home or self-care (01) ==
LOC: CVS 10:45
PROVIDERS: PCP Family Medicine; Referring Provider Internal Medicine Cardiovascular Disease; Visit Provider Internal Medicine Cardiovascular Disease
DX: I25.10 Atherosclerotic heart disease of native coronary artery without angina pectoris (principal); R53.83 Other fatigue; Z95.5 Presence of coronary angioplasty implant and graft; E78.00 Pure hypercholesterolemia, unspecified; I10 Essential (primary) hypertension; R94.39 Abnormal result of other cardiovascular function study
CPT/HCPCS: 93306

== ENCOUNTER → 2024-11-24 | Outpatient (CLI) | payer MEDICARE, OTHER, SELFPAY ==
--- NOTE | 2024-11-24 13:22 | CT_ITS ---
PROCEDURE: CHEST WITHOUT CONTRAST 11/24/2024 REASON FOR EXAM: ZULETA Scheduled for triple cardiac bypass surgery. History of breast cancer. TECHNIQUE: Chest CT without contrast. Coronal and Sagittal reconstruction series were provided. One or more dose reduction techniques were used (e.g., Automated exposure control, adjustment of the mA and/or kV according to patient size, use of iterative reconstruction technique RADIATION DOSE SUMMARY: CTDlvol: 6.43 mGy DLP: 218.89 mGycm COMPARISON: Prior chest radiograph dated October 24, 2024. FINDINGS: Hardware: None Lymph nodes: Unremarkable Heart and Vasculature: The heart is nonenlarged. Atherosclerotic calcifications of the thoracic aorta. Thoracic aorta and pulmonary arteries have normal contours; noncontrast technique limits evaluation. Coronary Artery Calcifications: Present Lungs and Airways: Lungs are clear. No mass lesion or nodule seen. Pleura: No evidence of pleural effusion. Upper Abdomen: Unremarkable Bones: Degenerative changes of the thoracic spine. CT/Chest without Contrast IMPRESSION: Coronary artery calcification (CAC) is is present No acute abnormality is seen. Reading Location: [place] [id number]
== END | disposition home or self-care (01) ==
LOC: CT 13:01
PROVIDERS: PCP Family Medicine
DX: Z01.811 Encounter for preprocedural respiratory examination (principal); I25.110 Atherosclerotic heart disease of native coronary artery with unstable angina pectoris; R06.09 Other forms of dyspnea
CPT/HCPCS: 71250

== ENCOUNTER → 2024-12-27 | Outpatient (CLI) | payer MEDICARE, OTHER, SELFPAY ==
--- NOTE | 2024-12-27 13:01 | PCM.CR.HP2 ---
CR - History & Physical General Arrival date:: 12/27/24 Arrival time:: 13:01 Date of Referral:: 12/14/24 Date of CR Evaluation:: 12/27/24 Referring Physician: Dr. Clancy Primary Diagnosis: CABG History of Present Cardiac Event Onset Date Coronary Artery Bypass Graft:: Yes (onset 11/29/2024) Vessel: CHAN-LAD, SVG-OM, SVG-PDA Medications Ambulatory Orders ?Medication ?Instructions ?Recorded levothyroxine 112 mcg tablet 112 mcg PO DAILY thyroid 03/09/17 nitroglycerin 0.4 mg sublingual 0.4 mg sublingual Q5M PRN Chest 03/10/17 tablet Pain #1 BOTTLE pyridoxine (vitamin B6) 100 mg 100 mg PO DAILY 06/22/21 tablet (Vitamin B-6) evolocumab 140 mg/mL subcutaneous 140 mg subcut Q2W #2 mL 02/15/24 pen injector (Sidecar.meatha Revel TouchClick) simvastatin 40 mg tablet 40 mg PO .QOD #45 tabs 08/10/24 omeprazole 40 mg capsule,delayed 40 mg PO DAILY #90 caps 08/11/24 release losartan 25 mg tablet 25 mg PO DAILY #90 tabs 09/13/24 metoprolol tartrate 25 mg tablet See Rx Instructions .Route 09/30/24 .COMPLEX #90 tabs ferrous fumarate 89 mg (29 mg 28 mg PO ONCE anemia 10/24/24 iron) tablet aspirin 81 mg tablet,delayed 81 mg PO QDAY #90 tabs 11/07/24 release (Adult Low Dose Aspirin) Allergies Allergies atorvastatin (From Lipitor) Adverse Reaction (Severe, Verified 10/24/24 13:57) mylagias rosuvastatin (From Crestor) Adverse Reaction (Severe, Verified 10/24/24 13:57) mylagias lisinopril Adverse Reaction (Intermediate, Verified 10/24/24 13:57) Cough Sleep Disorder Evaluation Hx of Sleep Apnea: No Do you snore loudly (louder than talking or can be heard through closed doors)?: No Do you often feel tired/ fatigued/ sleepy during daytime?: No Has anyone observed you stop breathing during sleep?: No History of Hypertension (for STOP score): Yes STOP Results: Negative Advanced Directives Advanced Directives Do you have a Healthcare Power of Landscape [employer]?: Yes Living Will: Yes Advance Directives Information Provided: Yes Advance Directives on File: Yes DNR Order?:: No Past Medical History Covid-19 Screening Physicial Symptoms Other Clinical Concerns Exposure Risk Pertinent Comorbidities 65 years or older:: Yes Has a serious heart condition:: Yes Past Medical Illness Past Medical History Anemia D64.9 Atherosclerotic heart disease of [place] coronary artery without angina pectoris I25.10 Palpitations R00.2 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 [place] Hyperlipidemia E78.5 Hypothyroidism E03.9 Former smoker Z87.891 Quit in 2008 Past Surgical History Past Surgical History History of left heart catheterization (2010) Z98.890 History of nasal surgery (2010) Z98.890 History of tubal ligation Z98.51 Hx of breast surgery Z98.890 mass (benign) removed History of open reduction and internal fixation (ORIF) procedure Z98.890 TRUNG wrist History of coronary artery stent placement (07/2008) Z95.5 RVR-FTL-Lkvh LAD, KOKO-Prox LCx, KOKO-Distal RCA, POBA-OM1 07/2008 Surgical History: - (nasal surgery, repair of a wrist fx, excisional breast bx- benign) Family History Summary Family History Sister Heart disease Brother CAD (coronary artery disease) Myocardial infarction Sudden cardiac Daughter Thyroid disorder Social History Smoking History Smoking Status: Never smoker Alcohol Use Alcohol Usage: No Substance Abuse Hx Substance Use: No Occupation Occupation (List type of work in comments):: Retired Social Environment Status Marital Status: Current Living Arrangements Living Environment:: Family Children How many children do you have?: 5 Do any of your children live nearby?: Yes Safety Do you feel safe in your surroundings?: Yes Assistance Do you need any assistance at home?: no Review of Systems Review of Systems Hints Review of Present Symptoms: Reports Shortness of Breath with Exertion, Dizziness/Lightheadedness, Fatigue, Heart Arrhythmia/Irregularities, Appetite - Normal, Appetite - Special Diet and Sleep - Normal; Denies Shortness of Breath at Rest, PVD, Operative Discomfort, Angina, Wound Healing or Sexual Changes Pain Is Patient Pain Free?: Yes Risk Factor Assessment Chief Complaint Chief Complaint: CABG Vital Signs Pulse Ox: 98 Blood Pressure: 122/68 Pulse Pulse Rate: 72 Hypertension How long have you been treated?: 1 year Blood Pressure Sitting - Right Arm: 122/68 Stress Stress: Home/Family Diabetes Nutrition Referral for Diabetes: No Obesity Height: 5 ft 4 in Weight:: 152 lb Weight in Pounds: 152.0 lbs Body Mass Index (BMI): 26.1 Nutritional Referral for Obesity: No Physical Inactivity Physical Inactivity: Reg Exercise 30 min/day Risk Stratification Risk Guidelines: Lowest Risk: Risk Factor for Smoking, Moderate Risk: Risk Factor for Diabetes, Risk Factor for Obesity, Risk Factor for Sedentary Lifestyle and Risk Factor for Depression and Highest Risk: Risk Factor for Dyslipidemia and Risk Factor for Hypertension For Smoking Smoking Risk Guidelines For Dyslipidemia Dyslipidemia Risk Guidelines For Diabetes Mellitus Diabetes Risk Guidelines For Obesity/Overweight Obesity/Overweight Risk Guidelines For Hypertension Hypertension Risk Guidelines For Sedentary Lifestyle Sedentary Lifestyle Risk Guidelines For Depression Depression Risk Guidelines Family History Family History Sister Heart disease Brother CAD (coronary artery disease) Myocardial infarction Sudden cardiac Daughter Thyroid disorder Motivation Motivation to Participate On a scale of 1 to 10, how prepared are you to commit to attending program?: 8 What do you see as barriers to successfully being able to complete the program?: nothing What do you see as the benefits of succesfully completing the program? In other words, what do you hope to get out of participating in the program?: improved energy Are there issues you are dealing with that will interfere with completing the program?: no Do you have a spouse or signficant other, family or friends who will help support you to complete the program?: yes
[2024-12-27 13:06] VITALS: BP 122/68; PULSE 72; O2SAT 98
--- NOTE | 2024-12-27 13:06 | CR.ITP_ITS ---
Diagnosis General Information Admitting Diagnosis: CABG Personal Learning Style:: Audio/Visual Barriers to Learning: No Barriers Stage of change r/t lifestyle modifications:: Contemplation Gave educational material for:: Treating Heart Disease, How The Heart Works, What it means to have Heart Disease, How Coronary Artery Disease is Diagnosed, Heart Procedures, What Heart Medications Do, Risk Factors & Modifications, Living an Active Life, Nutrition, Emotions & Heart Disease, Stress Management & Relaxation and Sleep Disorders & Heart Disease Education/Goals Cardiac Rehabilitation Goals Personal Goals: Initial Assessment: Improve energy level, Improve muscle strength and endurance and Improve diet and eating habits (eat healthier) Scale for measuring improvement of personal goals Diagnosis & Disease Process Outcomes/Goals: Pt IDs own risk factors & lifestyle modifications by Session 10, Verbalizes symptoms of angina & response by session 3., Pt independently manages and Other Additional Outcomes/Goals: Plan/Interventions: Assist Pt to ID & engage in lifestyle modification to reduce CVD risk, Instruct on individual risk factors, Review symptoms of angina & emergency actions, Review secondary diagnosis & identify educational needs. and Other see comment 30 day Reassessments:: Not Met 30 day Reassessments:: Not Met 30 day Reassessments:: Not Met 30 day Reassessments:: Not Met Final Reassessments:: Not Met Safety Referral to Physical Therapy: No Referral to [facility] Case Management: No Fall Risk Assessed:: Yes Assistive Devices:: None Exercise - Initial Assessment Visit Date of Eval: 12/27/24 (initial eval ) Mets: Pre-: >3 METS for 30 minutes by discharge, >5 METS for 30 minutes by discharge, >7 METS for 30 minutes by discharge and Unable to meet goal due to: (see comment below) Physician Prescribed Exercise Modalities: Treadmill, Schwinn Airdyne AD-7, SciFit Stepper, Beta DashFit Pro-II Ergometer and Beta DashFit Lateral [place] Frequency: 3x/week for 12 weeks [36 sessions] Intensity: 60-80% of age predicted maximum heart rate reserve Duration: 30 - 45 minutes Current METSs:: 3 Target Heart Rate:: 85-106 Resting Blood Pressure: 122/68 EKG Type: NSR Outcomes & Goals Goals:: Verbalizes understanding of THR, RPE & goal METS by session 6, Documents in home exercise log/reports 30 min aerobic 5 day/wk by DC, Demonstrates accurate pulse taking by DC and Other additional outcome/goals: see below Intervention & Plan Exercise Program Goals: Instruct on personal THR & RPE, Instruct on MET level & personal MET goal, Show patient to take own pulse /validate performance until accurate, Instruct on home exercise and Other additional plan/int Physical Activity Home Exercise Physical Activity - Home Exercise: Safe Exercise, Warm-up, Self-monitoring, Cool-Down, Home Exercise > 30 min Daily and Sitting Time <3 hours/daily Outcomes & Goals Outcomes/Goals: Demonstrates correct Warm-up/exercise Cool-Down (S3) if = 2.5 METs, Verbalizes symptoms of exercise intolerance by Session 3 (S3), Demonstrate safe equipment use (S3) & follows exercise prescrition (6) and Other: See below Intervention & Plan Plan/Intervention: Instruct warm-up & cool-down if exercising at > 2 METs, Instruct on symptoms of exercise intolerance & actions to take, Instruct & monitor on saf, Assess intial functional capacity & safety risk and Other See below Nutrition - Initial Assessment Program Goals Nutrition Program Goals Patient has diagnosis of Hyperlipidemia (ICD E78)?: Yes Visit Date of Eval: 12/27/24 (initial eval, Pt's nutrition survey was a 3 however declines nutrition referral) Cholesterol/Lipids (Other Core Measures) Determine presence & major risk factors that modify LDL goal: Hypertension or hypertensive medication, Low HDL cholesterol <40 mg/dL*, Family history of premature CHD in Male < 55 years: female <65 yearsFa and Age men > 45 years; wom en >/= 55 years Outcomes/Goals: Pt IDs own risk factors & lifestyle modifications by Session 10, Verbalizes symptoms of angina & response by session 3., Pt independently manages and Other Additional Outcomes/Goals: Intervention/Plan: Advocate for lipid panel cholesterol medication if applicable, Instruct on personal lipid levels & lipid goals/NCEP guidelines, Instruct on cholesterol and Other additional plan/int Referral to dietitian:: No Diabetes (Other Core Measures) Diabetes Type: Not Applicable Weight Mgt (Other Care) Height: 5 ft 4 in Weight:: 152 lb BMI: 26.1 Diagnosis Overweight/Obesity BMI> 30% ICD-10 E66: No Diagnosis High BMI/Morbid Obesity BMI> 35% ICD-10 Z68: No Outcomes/Goals: Pt sets, maintains & shows weight loss goal & trend during rehab and Other additional outcomes/goals Intervention/Plan: Instruct on ideal BMI & set weight loss goal w/patient, Assist pt to ID & incorporate diet changes for weight loss by S9, Refer to Structured Weight Loss program as appropriate, Encourage goal of using 250- 300dcal per session for weight loss and Other additional plan/interventions Healthy Eating Habits Will attend diet classes:: Yes Outcomes/Goals:: Consume diet rich in vegs,fruits,whole grain/high fiber,fish,lean meat, Limit sat/trans fats,cholesterol & added salts & sugars and Other additional outcome/goals: Intervention/Plan:: Assess current eating habits and Other Additional plan/interventions Education Gave educational materials for:: Signs & symptoms of hypoglycemia, Signs & symptoms of hyperglycemia, Relate diabetes to coronary artery disease and Healthy eating Core - Initial Assessment Visit Date of Eval: 12/27/24 (initial eval ) Medication Compliance Preventative Medication(s):: Aspirin, Statin/lipid, Beta matilde and ARB (Angiotensi Rcap) H/O mental health issues: depression, anxiety, or addiction?: No Doesn?t believe in the benefits of treatment?: No Believes medications are unnecessary or harmful?: No Has a concern about medication side effects?: No Expresses concern over the cost of medications?: No Outcomes/Goals: Verbalizes medications,desired effect & common side effects @ DC, Pt self-reports following medication regimen, Keeps card in wallet w/medications listed by DC and Other additional outcome/goals: Interventions/plans: Instruct on medication effects & side effects, Review medication list w/patient every two weeks, Instruct importance of taking meds as ordered & assist problem solving and Other additional Tobacco Use Tobacco Use: Non-smoker Hypertension Hypertension Diagnosis:: Hypertension ICD-10 I10 Resting Blood Pressure:: 122/68 [place] [employer] Hypertension Guidelines Outcomes/Goals: Able to verbalize/achieve optimal blood pressure <130/80, Incorporates diet changes & exercise for blood pressure control by DC and Other additional outcomes/goals Interventions/plan: Instruct on optimal blood pressure, hypertension & medications, Instruct on effects of sodium, alcohol, stress, exercise &hypertension and Other additional plan/interventions Tobacco Cessation Referral Smoking Cessation Referral:: No Individual Education/Counseling:: No Education Schedule Given:: Yes Psychosocial - Initial Assess VIsit Date of Eval: 12/27/24 (initial eval ) History of previous Mental disease:: No Self-reported stressors: Family (Pt has custody of her 4 year old grandson) Target Goals Target Goals Psychosocial Test phq-9 Severity See PHQ-9 Score: 2 Referral to Behavioral Health PS - Interventions: Yes: Attend Stress Management Classes Outcomes/Goals: See list Psychosocial Outcomes/Goals:: ID's personal stressors & 2 strategies to manage stress by discharge and Other Additional outcome/goals: Intervention/Plan: See List Interventions/Plan:: Assess stressors,coping strategies & signs of derpression on admission, Instruct/assist pt to develop coping & personal stress Mgt strategies, Refer to Behavioral Health if appropriate, Refer to Physician if appropriate, Instruct patient to recognize signs & symptoms of depression, Instruct patient to recog and Other additional plan/intervention Patient Health Questionnaire PHQ-9 Screening Initial Assessment: 1. Little interest or pleasure in doing things: Several days 2. Feeling down, depressed, or hopeless: Not at all 3. Trouble falling or staying asleep, or sleeping too much: Not at all 4. Feeling tired or having little energy: Several days 5. Poor appetite or overeating: Not at all 6. Feeling bad about yourself -- or that you are a failure or have let yourself or your family down: Not at all 7. Trouble concentrating on things, such as reading the newspaper or watching television: Not at all 8. Moving or speaking so slowly that other people could have noticed. Or the opposite - being so fidgety or restless that you have been moving around a lot more than usual: Not at all 9. Thoughts that you would be better off , or of hurting yourself in some way: Not at all Total Score: 2 LARISSA-Q SV Test Statements CAD is a disease of the arteries in the heart: False Examples of risk factors for heart disease: I Don't Know Angina is chest pain or discomfort: I Don't Know The benefits of resistance training include: I Don't Know Eating more meat and dairy products: False Anti-platelet medications such as aspirin are important: True The only effective way to manage stress: False An exercise warm-up slowly increases heart rate: I Don't Know Prepared, processed foods usually have high sodium: True Depression is common after a heart attack: I Don't Know The statin medications lower cholesterol: True To control blood pressure, lower the amount of sodium: I Don't Know If someone gets chest discomfort during walking: False Transfats are partially hydrogenated vegetable oils: I Don't Know Sleep apnea that is not treated increases the risk: I Don't Know To control cholesterol, one should become a vegetarian: I Don't Know Someone knows if he/she is exercising at the right level: True Diabetes cannot be prevented with exercise & health eating: I Don't Know Stress is a large risk for heart attack: I Don't Know A diet that can help lower blood pressure is rich in: I Don't Know Total Score Total Correct Responses: 8 Self-Efficacy 6-Item Scale Initial Assessment: We would like to know how confident you are in doing certain activities. Please select your confidence level for: Fatigue Select Number: 8 Physical Discomfort or Pain Emotional Distress Select Number: 8 Other Symptoms or Health Problems Select Number: 9 Different Tasks and Activities Select Number: 9 Medication Select Number: 9 Nutrition Survey Nutrition Survey Instructions Scoring Instructions Nutrition Survey Initial: Have you lost >10 lbs over the past 2 months without trying?: No Are you following a special diet at home for diabetes, low fat, or low salt?: No Are you interested in meeting with a dietitian for help understanding your diet?: Yes Do you eat less than 3 meals a day?: No Do you eat fatty meats (moyer, sausage, ribs, etc), fried foods, desserts, large amounts of salad dressings, margarine, butter, or cheese most days?: No Do you have food allergies? [Enter types in comment field]: No Do you eat in restaurants more than 3 times a week?: No Do you season food with salt, seasoning salt, or garlic salt?: Yes Do you used canned, boxed, frozen meals, or soups, seasoning packets?: Yes Total Score:: 3 Exercise - 30-day Assessment Physician Prescribed Exercise Modalities: Treadmill, Schwinn Airdyne AD-7, SciFit Stepper, SciFit Pro-II Ergometer and SciFit Lateral Enterprise Resource Planner Exercise - 60-day Assessment Physician Prescribed Exercise Modalities: Treadmill, Schwinn Airdyne AD-7, SciFit Stepper, SciFit Pro-II Ergometer and SciFit Lateral [employer] Resource Planner Exercise - 90-day Assessment Physician Prescribed Exercise Modalities: Treadmill, Schwinn Airdyne AD-7, SciFit Stepper, SciFit Pro-II Ergometer and SciFit Lateral [place] Exercise - Final/Discharge Physician Prescribed Exercise Modalities: Treadmill, Schwinn Airdyne AD-7, SciFit Stepper, SciFit Pro-II Ergometer and SciFit Lateral Enterprise Resource Planner Frequency: 3x/week for 12 weeks [36 sessions] Intensity: 60-80% of age predicted maximum heart rate reserve Current METSs:: 3 Target Heart Rate:: 85-106 Nutrition - 30-Day Assessment Weight Mgt (Other Care) Height: 5 ft 4 in Weight:: 152 lb BMI: 26.1 Nutrition - 60-Day Assessment Weight Mgt (Other Care) Height: 5 ft 4 in Weight:: 152 lb BMI: 26.1 Core - Final Assessment Hypertension Resting Blood Pressure:: 122/68 [place] [employer] Hypertension Guidelines Core - 60-Day Assessment Hypertension Resting Blood Pressure:: 122/68 [place] [employer] Hypertension Guidelines Psychosocial - 30-Day Assess Target Goals Target Goals Referral to Behavioral Health PS - Interventions: Yes: Attend Stress Management Classes Psychosocial - 60-Day Assess Target Goals Target Goals Referral to Behavioral Health PS - Interventions: Yes: Attend Stress Management Classes Psychosocial - 90-Day Assess Target Goals Target Goals Referral to Behavioral Health PS - Interventions: Yes: Attend Stress Management Classes Psychosocial - Final Assessmen Target Goals Target Goals Psychosocial Test phq-9 Severity See PHQ-9 Score: 2 Referral to Behavioral Health PS - Interventions: Yes: Attend Stress Management Classes Nutrition - 90-Day Assessment Weight Mgt (Other Care) Height: 5 ft 4 in Weight:: 152 lb BMI: 26.1 Nutrition - Final Assessment Program Goals Patient has diagnosis of Hyperlipidemia (ICD E78)?: Yes Weight Mgt (Other Care) Height: 5 ft 4 in Weight:: 152 lb BMI: 26.1
[2024-12-27 13:11] VITALS: BP 122/68
[2024-12-27 13:21] VITALS: BMI 26.1
[2024-12-27 13:55] VITALS: BMI 26.1
== END | disposition home or self-care (01) ==
PROVIDERS: PCP Family Medicine; Referring Provider Thoracic Surgery (Cardiothoracic Vascular Surgery); Visit Provider Thoracic Surgery (Cardiothoracic Vascular Surgery)
DX: I25.10 Atherosclerotic heart disease of native coronary artery without angina pectoris (principal); Z95.1 Presence of aortocoronary bypass graft

== ENCOUNTER 2025-02-13 14:15 | Outpatient (RCR) | payer MEDICARE, OTHER, SELFPAY ==
[2024-12-27 13:55] VITALS: BMI 26.1
--- NOTE | 2025-01-24 08:06 | PCM.CR.ITP ---
Exercise - Initial Assessment Visit Session #:: 1 Physician Prescribed Exercise Modalities: Treadmill, SciFit Stepper and SciFit Lateral [place] Nutrition - Initial Assessment Weight Mgt (Other Care) Height: 5 ft 4 in Weight:: 152 lb BMI: 26.1 Psychosocial - Initial Assess Target Goals Target Goals Referral to Behavioral Health PS - Interventions: Yes: Attend Stress Management Classes Patient Health Questionnaire PHQ-9 Screening 30-Day Re-eval Assessment: 1. Little interest or pleasure in doing things: Several days 2. Feeling down, depressed, or hopeless: Not at all 3. Trouble falling or staying asleep, or sleeping too much: Not at all 4. Feeling tired or having little energy: Several days 5. Poor appetite or overeating: Not at all 6. Feeling bad about yourself -- or that you are a failure or have let yourself or your family down: Not at all 7. Trouble concentrating on things, such as reading the newspaper or watching television: Not at all 8. Moving or speaking so slowly that other people could have noticed. Or the opposite - being so fidgety or restless that you have been moving around a lot more than usual: Not at all 9. Thoughts that you would be better off , or of hurting yourself in some way: Not at all How difficult have these problems made it for you to do your work, take care of things at home, or get along with other people?: Somewhat difficult Total Score: 2 Self-Efficacy 6-Item Scale 30-Day Re-eval Assessment: We would like to know how confident you are in doing certain activities. Please select your confidence level for: Fatigue Select Number: 8 Physical Discomfort or Pain Select Number: 8 Emotional Distress Select Number: 8 Other Symptoms or Health Problems Select Number: 9 Different Tasks and Activities Select Number: 9 Medication Select Number: 9 Total Score:: 8 Nutrition Survey Nutrition Survey Instructions Scoring Instructions Exercise - 30-day Assessment Visit Date of Eval: 01/24/25 Session #:: 1 Physician Prescribed Exercise Modalities: Treadmill, SciFit Stepper and SciFit Lateral Finance Effectiveness Manager Frequency: 3x/week for 12 weeks [36 sessions] Intensity: 60-80% of age predicted maximum heart rate reserve Duration: 30 - 45 minutes Current METSs:: 3 Target Heart Rate:: 85-106 Current RPE:: 11-13 Maximum Excercise HR:: 114 Resting Blood Pressure: 138/60 Maximum Exercise Blood Pressure: 140/66 EKG Type: NSR to ST w/ rare PAC, PVC Outcomes & Goals Goals:: Verbalizes understanding of THR, RPE & goal METS by session 6, Documents in home exercise log/reports 30 min aerobic 5 day/wk by DC, Demonstrates accurate pulse taking by DC and Other additional outcome/goals: see below Intervention & Plan Exercise Program Goals: Instruct on personal THR & RPE, Instruct on MET level & personal MET goal, Show patient to take own pulse /validate performance until accurate, Instruct on home exercise and Other additional plan/int Physical Activity Home Exercise Physical Activity - Home Exercise: Safe Exercise, Warm-up, Self-monitoring, Cool-Down, Home Exercise > 30 min Daily and Sitting Time <3 hours/daily Outcomes & Goals Outcomes/Goals: Demonstrates correct Warm-up/exercise Cool-Down (S3) if = 2.5 METs, Verbalizes symptoms of exercise intolerance by Session 3 (S3), Demonstrate safe equipment use (S3) & follows exercise prescrition (6) and Other: See below Intervention & Plan Plan/Intervention: Instruct warm-up & cool-down if exercising at > 2 METs, Instruct on symptoms of exercise intolerance & actions to take, Instruct & monitor on saf, Assess intial functional capacity & safety risk and Other See below 30-day Reassessments 30 day Reassessments:: Progressing Reassessment Notes & Comments:: RPE explained to pt on her first day. Will continue to reinforce and monitor. Exercise - 60-day Assessment Physician Prescribed Exercise Modalities: Treadmill, SciFit Stepper and SciFit Lateral Finance Effectiveness Manager Exercise - 90-day Assessment Physician Prescribed Exercise Modalities: Treadmill, SciFit Stepper and SciFit Lateral Finance Effectiveness Manager Exercise - Final/Discharge Physician Prescribed Exercise Modalities: Treadmill, SciFit Stepper and SciFit Lateral [place] Nutrition - 30-Day Assessment Program Goals Nutrition Program Goals Patient has diagnosis of Hyperlipidemia (ICD E78)?: Yes Visit Date of Eval: 01/24/25 Session #:: 1 Cholesterol/Lipids (Other Core Measures) Determine presence & major risk factors that modify LDL goal: Cigarette smoking, Hypertension or hypertensive medication, Low HDL cholesterol <40 mg/dL*, Family history of premature CHD in Male < 55 years: female <65 yearsFa and Age men > 45 years; women >/= 55 years Outcomes/Goals: Pt IDs own risk factors & lifestyle modifications by Session 10, Verbalizes symptoms of angina & response by session 3., Pt independently manages and Other Additional Outcomes/Goals: Intervention/Plan: Advocate for lipid panel cholesterol medication if applicable, Instruct on personal lipid levels & lipid goals/NCEP guidelines, Instruct on cholesterol and Other additional plan/int Referral to dietitian:: No (Nutrition score of 3 but declines referral ) Diabetes (Other Core Measures) Diabetes Type: Not Applicable Weight Mgt (Other Care) Height: 5 ft 4 in Weight:: 152 lb BMI: 26.1 Diagnosis Overweight/Obesity BMI> 30% ICD-10 E66: No Diagnosis High BMI/Morbid Obesity BMI> 35% ICD-10 Z68: No Outcomes/Goals: Pt sets, maintains & shows weight loss goal & trend during rehab and Other additional outcomes/goals Intervention/Plan: Instruct on ideal BMI & set weight loss goal w/patient, Assist pt to ID & incorporate diet changes for weight loss by S9, Refer to Structured Weight Loss program as appropriate, Encourage goal of using 250-300dcal per session for weight loss and Other additional plan/interventions Healthy Eating Habits Will attend diet classes:: Yes Outcomes/Goals:: Consume diet rich in vegs,fruits,whole grain/high fiber,fish,lean meat, Limit sat/trans fats,cholesterol & added salts & sugars and Other additional outcome/goals: Intervention/Plan:: Assess current eating habits and Other Additional plan/interventions 30-day Reassessments:: Progressing Reassessment Notes & Comments:: Pt is scheduled to attend nutrition class. Low sodium heart healthy diet encouraged. Education Gave educational materials for:: Signs & symptoms of hypoglycemia, Signs & symptoms of hyperglycemia, Relate diabetes to coronary artery disease and Healthy eating Nutrition - 60-Day Assessment Weight Mgt (Other Care) Height: 5 ft 4 in Weight:: 152 lb BMI: 26.1 Core - 30-Day Assessment Visit Date of Eval: 01/24/25 Session #:: 1 Medication Compliance Preventative Medication(s):: Aspirin, Statin/lipid, Beta matilde and ARB (Angiotensi Rcap) H/O mental health issues: depression, anxiety, or addiction?: No Doesn’t believe in the benefits of treatment?: No Believes medications are unnecessary or harmful?: No Has a concern about medication side effects?: No Expresses concern over the cost of medications?: No Outcomes/Goals: Verbalizes medications,desired effect & common side effects @ DC, Pt self-reports following medication regimen, Keeps card in wallet w/medications listed by DC and Other additional outcome/goals: Interventions/plans: Instruct on medication effects & side effects, Review medication list w/patient every two weeks, Instruct importance of taking meds as ordered & assist problem solving and Other additional Tobacco Use Tobacco Use: Non-smoker Hypertension Hypertension Diagnosis:: Hypertension ICD-10 I10 Resting Blood Pressure:: 138/60 [place] [employer] Hypertension Guidelines Peak Exercise Blood Pressure:: 140/66 Outcomes/Goals: Able to verbalize/achieve optimal blood pressure <130/80, Incorporates diet changes & exercise for blood pressure control by DC and Other additional outcomes/goals Interventions/plan: Instruct on optimal blood pressure, hypertension & medications, Instruct on effects of sodium, alcohol, stress, exercise &hypertension and Other additional plan/interventions 30 day Reassessments:: Progressing Reassessment Notes & Comments:: Pt has attended 1 session. Will continue to monitor BP's and report to physician if necessary. Tobacco Cessation Referral Smoking Cessation Referral:: No Individual Education/Counseling:: No Education Schedule Given:: Yes Psychosocial - 30-Day Assess VIsit Date of Eval: 01/24/25 Session #:: 1 History of previous Mental disease:: No Self-reported stressors Other/Comments:: Family (Pt has custody of her 4 year old grandson.) Target Goals Target Goals Psychosocial Test Tool Used:: PHQ-9 Questionnaire phq-9 Severity See PHQ-9 Score: 2 Referral to Behavioral Health PS - Interventions: Yes: Attend Stress Management Classes Outcomes/Goals: See list Psychosocial Outcomes/Goals:: ID's personal stressors & 2 strategies to manage stress by discharge and Other Additional outcome/goals: Intervention/Plan: See List Interventions/Plan:: Assess stressors,coping strategies & signs of derpression on admission, Instruct/assist pt to develop coping & personal stress Mgt strategies, Refer to Behavioral Health if appropriate, Refer to Physician if appropriate, Instruct patient to recognize signs & symptoms of depression, Instruct patient to recog and Other additional plan/intervention 30-day Reassessments: 30 day Reassessments:: Progressing Reassessment Notes & Comments:: Pt denies any psychosocial issues at this time. Pt to attend stress management class. Will continue to monitor. Psychosocial - 60-Day Assess Target Goals Target Goals Referral to Behavioral Health PS - Interventions: Yes: Attend Stress Management Classes Outcomes/Goals: See list Psychosocial Outcomes/Goals:: ID's personal stressors & 2 strategies to manage stress by discharge and Other Additional outcome/goals: Psychosocial - 90-Day Assess Target Goals Target Goals Referral to Behavioral Health PS - Interventions: Yes: Attend Stress Management Classes Psychosocial - Final Assessmen Target Goals Target Goals Referral to Behavioral Health PS - Interventions: Yes: Attend Stress Management Classes Nutrition - 90-Day Assessment Weight Mgt (Other Care) Height: 5 ft 4 in Weight:: 152 lb BMI: 26.1 Nutrition - Final Assessment Weight Mgt (Other Care) Height: 5 ft 4 in Weight:: 152 lb BMI: 26.1
[2025-01-24 08:21] VITALS: BP 138/60; BMI 26.1
== END 2025-02-14 23:59 ==
LOC: CR 14:15
PROVIDERS: PCP Family Medicine; Referring Provider Thoracic Surgery (Cardiothoracic Vascular Surgery); Visit Provider Thoracic Surgery (Cardiothoracic Vascular Surgery)
DX: Z95.1 Presence of aortocoronary bypass graft (principal)
CPT/HCPCS: 93798

== ENCOUNTER 2025-03-17 14:15 | Outpatient (RCR) | payer MEDICARE, OTHER, SELFPAY ==
[2025-01-24 08:21] VITALS: BMI 26.1
--- NOTE | 2025-02-20 08:15 | CR.ITP_ITS ---
Exercise - Initial Assessment Physician Prescribed Exercise Modalities: Treadmill, SciFit Stepper and SciFit Lateral [place] Nutrition - Initial Assessment Weight Mgt (Other Care) Height: 5 ft 4 in Weight:: 152 lb BMI: 26.1 Core - Initial Assessment Hypertension Resting Blood Pressure:: 140/52 [place] [employer] Hypertension Guidelines Psychosocial - Initial Assess Referral to Behavioral Health PS - Interventions: Yes: Attend Stress Management Classes Exercise - 30-day Assessment Physician Prescribed Exercise Modalities: Treadmill, SciFit Stepper and SciFit Lateral Litigation Attorney Associate Exercise - 60-day Assessment Visit Date of Eval: 02/20/25 Session #:: 12 Physician Prescribed Exercise Modalities: Treadmill, SciFit Stepper and SciFit Lateral [place] Frequency: 3x/week for 12 weeks [36 sessions] Intensity: 60-80% of age predicted maximum heart rate reserve Duration: 30 - 45 minutes Current METSs:: 5 Target Heart Rate:: 85-106 Current RPE:: 12 Maximum Excercise HR:: 114 Resting Blood Pressure: 138/78 Maximum Exercise Blood Pressure: 144/64 EKG Type: NSR to ST with a rare PAC, PVC Outcomes & Goals Goals:: Verbalizes understanding of THR, RPE & goal METS by session 6, Documents in home exercise log/reports 30 min aerobic 5 day/wk by DC, Demonstrates accurate pulse taking by DC and Other additional outcome/goals: see below Intervention & Plan Exercise Program Goals: Instruct on personal THR & RPE, Instruct on MET level & personal MET goal, Show patient to take own pulse /validate performance until accurate, Instruct on home exercise and Other additional plan/int Physical Activity Home Exercise Physical Activity - Home Exercise: Safe Exercise, Warm-up, Self-monitoring, Cool-Down, Home Exercise > 30 min Daily and Sitting Time <3 hours/daily Outcomes & Goals Outcomes/Goals: Demonstrates correct Warm-up/exercise Cool-Down (S3) if = 2.5 METs, Verbalizes symptoms of exercise intolerance by Session 3 (S3), Demonstrate safe equipment use (S3) & follows exercise prescrition (6) and Other: See below Intervention & Plan Plan/Intervention: Instruct warm-up & cool-down if exercising at > 2 METs, Instruct on symptoms of exercise intolerance & actions to take, Instruct & monitor on saf, Assess intial functional capacity & safety risk and Other See below 30-day Reassessments 30 day Reassessments:: Progressing Reassessment Notes & Comments:: Proper warm up and cool down demonstrated and explained to pt. Pt is able to return demonstration in their daily sessions. Exercise - 90-day Assessment Physician Prescribed Exercise Modalities: Treadmill, SciFit Stepper and SciFit Lateral Litigation Attorney Associate Exercise - Final/Discharge Physician Prescribed Exercise Modalities: Treadmill, SciFit Stepper and SciFit Lateral [place] Nutrition - 30-Day Assessment Weight Mgt (Other Care) Height: 5 ft 4 in Weight:: 152 lb BMI: 26.1 Nutrition - 60-Day Assessment Program Goals Nutrition Program Goals Patient has diagnosis of Hyperlipidemia (ICD E78)?: Yes Visit Date of Eval: 02/20/25 Session #:: 12 Cholesterol/Lipids (Other Core Measures) Determine presence & major risk factors that modify LDL goal: Cigarette smoking, Hypertension or hypertensive medication, Low HDL cholesterol <40 mg/dL*, Family history of premature CHD in Male < 55 years: female <65 yearsFa and Age men > 45 years; women >/= 55 years Outcomes/Goals: Pt IDs own risk factors & lifestyle modifications by Session 10, Verbalizes symptoms of angina & response by session 3., Pt independently manages and Other Additional Outcomes/Goals: Intervention/Plan: Advocate for lipid panel cholesterol medication if applicable, Instruct on personal lipid levels & lipid goals/NCEP guidelines, Instruct on cholesterol and Other additional plan/int Referral to dietitian:: No (Nutrition survey score of 3. Pt declines referral. ) Diabetes (Other Core Measures) Diabetes Type: Not Applicable Weight Mgt (Other Care) Height: 5 ft 4 in Weight:: 152 lb BMI: 26.1 Diagnosis Overweight/Obesity BMI> 30% ICD-10 E66: No Diagnosis High BMI/Morbid Obesity BMI> 35% ICD-10 Z68: No Outcomes/Goals: Pt sets, maintains & shows weight loss goal & trend during rehab and Other additional outcomes/goals Intervention/Plan: Instruct on ideal BMI & set weight loss goal w/patient, Assist pt to ID & incorporate diet changes for weight loss by S9, Refer to Structured Weight Loss program as appropriate, Encourage goal of using 250- 300dcal per session for weight loss and Other additional plan/interventions Healthy Eating Habits Will attend diet classes:: Yes Outcomes/Goals:: Consume diet rich in vegs,fruits,whole grain/high f iber,fish,lean meat, Limit sat/trans fats,cholesterol & added salts & sugars and Other additional outcome/goals: Intervention/Plan:: Assess current eating habits and Other Additional plan/interventions 30-day Reassessments:: Progressing Reassessment Notes & Comments:: Pt is at a healthy weight. Pt is scheduled to attend nutrition classes with our sharepoint manager. Heart healthy low sodium diet encouraged. Education Gave educational materials for:: Signs & symptoms of hypoglycemia, Signs & symptoms of hyperglycemia, Relate diabetes to coronary artery disease and Healthy eating Core - Final Assessment Hypertension Resting Blood Pressure:: 140/52 [place] [employer] Hypertension Guidelines Core - 60-Day Assessment Visit Date of Eval: 02/20/25 Session #:: 12 Medication Compliance Preventative Medication(s):: Aspirin, Statin/lipid, Beta matilde and ARB (Angiotensi Rcap) H/O mental health issues: depression, anxiety, or addiction?: No Doesn’t believe in the benefits of treatment?: No Believes medications are unnecessary or harmful?: No Has a concern about medication side effects?: No Expresses concern over the cost of medications?: No Outcomes/Goals: Verbalizes medications,desired effect & common side effects @ DC, Pt self-reports following medication regimen, Keeps card in wallet w/medications listed by DC and Other additional outcome/goals: Interventions/plans: Instruct on medication effects & side effects, Review medication list w/patient every two weeks, Instruct importance of taking meds as ordered & assist problem solving and Other additional 30-day Reassessments:: Progressing Reassessment Notes & Comments:: Pt is currently taking meds as prescribed. Pt to attend cardiac meds class. Tobacco Use Tobacco Use: Non-smoker Hypertension Hypertension Diagnosis:: Hypertension ICD-10 I10 Resting Blood Pressure:: 138/78 Resting Blood Pressure:: 140/52 [place] [employer] Hypertension Guidelines Peak Exercise Blood Pressure:: 144/64 Outcomes/Goals: Able to verbalize/achieve optimal blood pressure <130/80, Incorporates diet changes & exercise for blood pressure control by DC and Other additional outcomes/goals Interventions/plan: Instruct on optimal blood pressure, hypertension & medications, Instruct on effects of sodium, alcohol, stress, exercise &hypertension and Other additional plan/interventions 30 day Reassessments:: Progressing Reassessment Notes & Comments:: Pt's BP's are within AHA normal limits on some days. Low sodium heart healthy diet encouraged. Will continue to monitor and report to pt's physician if necessary. Tobacco Cessation Referral Smoking Cessation Referral:: No Individual Education/Counseling:: No Education Schedule Given:: Yes Psychosocial - 30-Day Assess Referral to Behavioral Health PS - Interventions: Yes: Attend Stress Management Classes Outcomes/Goals: See list Psychosocial Outcomes/Goals:: ID's personal stressors & 2 strategies to manage stress by discharge and Other Additional outcome/goals: Psychosocial - 60-Day Assess VIsit Date of Eval: 02/20/25 Session #:: 12 History of previous Mental disease:: No Self-reported stressors Other/Comments:: Family (Pt has custody of her 4 year old grandson.) Psychosocial Test Tool Used:: PHQ-9 Questionnaire phq-9 Severity See PHQ-9 Score: 2 Referral to Behavioral Health PS - Interventions: Yes: Attend Stress Management Classes Outcomes/Goals: See list Psychosocial Outcomes/Goals:: ID's personal stressors & 2 strategies to manage stress by discharge and Other Additional outcome/goals: Intervention/Plan: See List Interventions/Plan:: Assess stressors,coping strategies & signs of derpression on admission, Instruct/assist pt to develop coping & personal stress Mgt strategies, Refer to Behavioral Health if appropriate, Refer to Physician if appropriate, Instruct patient to recognize signs & symptoms of depression, Instruct patient to recog and Other additional plan/intervention 30-day Reassessments: 30 day Reassessments:: Met Reassessment Notes & Comments:: Pt denies any psychosocial issues at this time. Pt to attend stress management class. Will reassess every 30 days. Psychosocial - 90-Day Assess Referral to Behavioral Health PS - Interventions: Yes: Attend Stress Management Classes Psychosocial - Final Assessmen Referral to Behavioral Health PS - Interventions: Yes: Attend Stress Management Classes Nutrition - 90-Day Assessment Weight Mgt (Other Care) Height: 5 ft 4 in Weight:: 152 lb BMI: 26.1 Nutrition - Final Assessment Weight Mgt (Other Care) Height: 5 ft 4 in Weight:: 152 lb BMI: 26.1
[2025-02-20 08:31] VITALS: BP 138/78; BP 140/52; BMI 26.1
== END 2025-03-17 23:59 ==
LOC: CR 14:15
PROVIDERS: PCP Family Medicine; Referring Provider Thoracic Surgery (Cardiothoracic Vascular Surgery); Visit Provider Thoracic Surgery (Cardiothoracic Vascular Surgery)
DX: Z95.1 Presence of aortocoronary bypass graft (principal)
CPT/HCPCS: 93798

== ENCOUNTER 2025-04-10 14:15 | Outpatient (RCR) | payer MEDICARE, OTHER, SELFPAY ==
[2025-02-20 08:31] VITALS: BMI 26.1
--- NOTE | 2025-03-21 07:35 | PCM.CR.ITP ---
Exercise - Initial Assessment Physician Prescribed Exercise Modalities: Treadmill, SciFit Stepper and SciFit Lateral [place] Nutrition - Initial Assessment Weight Mgt (Other Care) Height: 5 ft 4 in Weight:: 154 lb BMI: 26.4 Psychosocial - Initial Assess Referral to Behavioral Health PS - Interventions: Yes: Attend Stress Management Classes Exercise - 30-day Assessment Physician Prescribed Exercise Modalities: Treadmill, SciFit Stepper and SciFit Lateral Business Office Manager Exercise - 60-day Assessment Physician Prescribed Exercise Modalities: Treadmill, SciFit Stepper and SciFit Lateral Business Office Manager Exercise - 90-day Assessment Visit Date of Eval: 03/21/25 Session #:: 25 Physician Prescribed Exercise Modalities: Treadmill, SciFit Stepper and SciFit Lateral [place] Frequency: 3x/week for 12 weeks [36 sessions] Intensity: 60-80% of age predicted maximum heart rate reserve Duration: 30 - 45 minutes Current METSs:: 5.1 Target Heart Rate:: 85-113 Current RPE:: 11-12 Maximum Excercise HR:: 116 Resting Blood Pressure: 156/64 Maximum Exercise Blood Pressure: 134/70 EKG Type: NSR to ST w/ rare PVC Outcomes & Goals Goals:: Verbalizes understanding of THR, RPE & goal METS by session 6, Documents in home exercise log/reports 30 min aerobic 5 day/wk by DC, Demonstrates accurate pulse taking by DC and Other additional outcome/goals: see below Intervention & Plan Exercise Program Goals: Instruct on personal THR & RPE, Instruct on MET level & personal MET goal, Show patient to take own pulse /validate performance until accurate, Instruct on home exercise and Other additional plan/int Physical Activity Home Exercise Physical Activity - Home Exercise: Safe Exercise, Warm-up, Self-monitoring, Cool-Down, Home Exercise > 30 min Daily and Sitting Time <3 hours/daily Outcomes & Goals Outcomes/Goals: Demonstrates correct Warm-up/exercise Cool-Down (S3) if = 2.5 METs, Verbalizes symptoms of exercise intolerance by Session 3 (S3), Demonstrate safe equipment use (S3) & follows exercise prescrition (6) and Other: See below Intervention & Plan Plan/Intervention: Instruct warm-up & cool-down if exercising at > 2 METs, Instruct on symptoms of exercise intolerance & actions to take, Instruct & monitor on saf, Assess intial functional capacity & safety risk and Other See below 30-day Reassessments 30 day Reassessments:: Progressing Reassessment Notes & Comments:: Pt is progressing her exercise intensity. Will continue to encourage and increase intensity as tolerated. THR explained in exercise class. Pt is able to demonstrate understanding. Exercise - Final/Discharge Physician Prescribed Exercise Modalities: Treadmill, SciFit Stepper and SciFit Lateral Business Office Manager Nutrition - 30-Day Assessment Weight Mgt (Other Care) Height: 5 ft 4 in Weight:: 154 lb BMI: 26.4 Nutrition - 60-Day Assessment Weight Mgt (Other Care) Height: 5 ft 4 in Weight:: 154 lb BMI: 26.4 Core - 30-Day Assessment Hypertension [place] Heart [employer] Hypertension Guidelines Reassessment Notes & Comments:: Pt's BP's are within AHA normal limits on some days. Will continue to monitor and report to pt's physician if necessary. Low sodium diet encouraged Core - Final Assessment Hypertension [place] Heart Association Hypertension Guidelines Reassessment Notes & Comments:: Pt's BP's are within AHA normal limits on some days. Will continue to monitor and report to pt's physician if necessary. Low sodium diet encouraged Core - 90 Day Assessment Visit Date of Eval: 03/21/25 Session #:: 25 Medication Compliance Preventative Medication(s):: Aspirin, Statin/lipid, Beta matilde and ARB (Angiotensi Rcap) H/O mental health issues: depression, anxiety, or addiction?: No Doesn’t believe in the benefits of treatment?: No Believes medications are unnecessary or harmful?: No Has a concern about medication side effects?: No Expresses concern over the cost of medications?: No Outcomes/Goals: Verbalizes medications,desired effect & common side effects @ DC, Pt self-reports following medication regimen, Keeps card in wallet w/medications listed by DC and Other additional outcome/goals: Interventions/plans: Instruct on medication effects & side effects, Review medication list w/patient every two weeks, Instruct importance of taking meds as ordered & assist problem solving and Other additional Tobacco Use Tobacco Use: Non-smoker Hypertension Hypertension Diagnosis:: Hypertension ICD-10 I10 Resting Blood Pressure:: 156/64 [place] Heart Association Hypertension Guidelines Peak Exercise Blood Pressure:: 134/70 Outcomes/Goals: Able to verbalize/achieve optimal blood pressure <130/80, Incorporates diet changes & exercise for blood pressure control by DC and Other additional outcomes/goals Interventions/plan: Instruct on optimal blood pressure, hypertension & medications, Instruct on effects of sodium, alcohol, stress, exercise &hypertension and Other additional plan/interventions 30 day Reassessments:: Progressing Reassessment Notes & Comments:: Pt's BP's are within AHA normal limits on some days. Will continue to monitor and report to pt's physician if necessary. Low sodium diet encouraged Tobacco Cessation Referral Smoking Cessation Referral:: No Individual Education/Counseling:: No Education Schedule Given:: Yes Psychosocial - 30-Day Assess Referral to Behavioral Health PS - Interventions: Yes: Attend Stress Management Classes Psychosocial - 60-Day Assess Referral to Behavioral Health PS - Interventions: Yes: Attend Stress Management Classes Psychosocial - 90-Day Assess VIsit Date of Eval: 03/21/25 Session #:: 25 History of previous Mental disease:: No Self-reported stressors Other/Comments:: Family (Pt has custody of her 4 year old grandson) Psychosocial Test Tool Used:: [employer] QOL Cardiac and PHQ-9 Questionnaire phq-9 Severity See PHQ-9 Score: 2 Referral to Behavioral Health PS - Interventions: Yes: Attend Stress Management Classes Outcomes/Goals: See list Psychosocial Outcomes/Goals:: ID's personal stressors & 2 strategies to manage stress by discharge and Other Additional outcome/goals: Intervention/Plan: See List Interventions/Plan:: Assess stressors,coping strategies & signs of derpression on admission, Instruct/assist pt to develop coping & personal stress Mgt strategies, Refer to Behavioral Health if appropriate, Refer to Physician if appropriate, Instruct patient to recognize signs & symptoms of depression, Instruct patient to recog and Other additional plan/intervention 30-day Reassessments: 30 day Reassessments:: Met Reassessment Notes & Comments:: Pt denies any psychosocial issues at this time. Pt to attend stress management class. Will reassess every 30 days. Psychosocial - Final Assessmen Referral to Behavioral Health PS - Interventions: Yes: Attend Stress Management Classes Nutrition - 90-Day Assessment Program Goals Nutrition Program Goals Patient has diagnosis of Hyperlipidemia (ICD E78)?: Yes Visit Date of Eval: 03/21/25 Session #:: 25 Cholesterol/Lipids (Other Core Measures) Determine presence & major risk factors that modify LDL goal: Cigarette smoking, Hypertension or hypertensive medication, Low HDL cholesterol <40 mg/dL*, Family history of premature CHD in Male < 55 years: female <65 yearsFa and Age men > 45 years; women >/= 55 years Outcomes/Goals: Pt IDs own risk factors & lifestyle modifications by Session 10, Verbalizes symptoms of angina & response by session 3., Pt independently manages and Other Additional Outcomes/Goals: Intervention/Plan: Advocate for lipid panel cholesterol medication if applicable, Instruct on personal lipid levels & lipid goals/NCEP guidelines, Instruct on cholesterol and Other additional plan/int Referral to dietitian:: No (Pt declines. Nutrition survey score of 3.) Diabetes (Other Core Measures) Diabetes Type: Not Applicable Weight Mgt (Other Care) Height: 5 ft 4 in Weight:: 154 lb BMI: 26.4 Diagnosis Overweight/Obesity BMI> 30% ICD-10 E66: No Diagnosis High BMI/Morbid Obesity BMI> 35% ICD-10 Z68: No Outcomes/Goals: Pt sets, maintains & shows weight loss goal & trend during rehab and Other additional outcomes/goals Intervention/Plan: Instruct on ideal BMI & set weight loss goal w/patient, Assist pt to ID & incorporate diet changes for weight loss by S9, Refer to Structured Weight Loss program as appropriate, Encourage goal of using 250-300dcal per session for weight loss and Other additional plan/interventions Healthy Eating Habits Will attend diet classes:: Yes Outcomes/Goals:: Consume diet rich in vegs,fruits,whole grain/high fiber,fish,lean meat, Limit sat/trans fats,cholesterol & added salts & sugars and Other additional outcome/goals: Intervention/Plan:: Assess current eating habits and Other Additional plan/interventions 30-day Reassessments:: Progressing Reassessment Notes & Comments:: Pt is scheduled to attend nutrition classes. Low sodium heart healthy diet encouraged. Education Gave educational materials for:: Signs & symptoms of hypoglycemia, Signs & symptoms of hyperglycemia, Relate diabetes to coronary artery disease and Healthy eating Nutrition - Final Assessment Weight Mgt (Other Care) Height: 5 ft 4 in Weight:: 154 lb BMI: 26.4
[2025-03-21 07:45] VITALS: BP 156/64; BMI 26.4
--- NOTE | 2025-04-12 10:33 | PCM.CR.ITP ---
Exercise - Initial Assessment Physician Prescribed Exercise Modalities: Treadmill, SciFit Stepper and SciFit Lateral [place] Nutrition - Initial Assessment Weight Mgt (Other Care) Height: 5 ft 4 in Weight:: 150 lb 8 oz BMI: 25.8 Psychosocial - Initial Assess Referral to Behavioral Health PS - Interventions: Yes: Attend Stress Management Classes Exercise - 30-day Assessment Physician Prescribed Exercise Modalities: Treadmill, SciFit Stepper and SciFit Lateral [place] Exercise - 60-day Assessment Physician Prescribed Exercise Modalities: Treadmill, SciFit Stepper and SciFit Lateral [place] Exercise - 90-day Assessment Visit Date of Eval: 04/12/25 Session #:: 34 Physician Prescribed Exercise Modalities: Treadmill, SciFit Stepper and SciFit Lateral [employer] Frequency: 3x/week for 12 weeks [36 sessions] Intensity: 60-80% of age predicted maximum heart rate reserve Duration: 30 - 45 minutes Current METSs:: 5.7 Target Heart Rate:: 85-113 Target RPE 12-16:: 12-16 Current RPE:: 13 Maximum Excercise HR:: 120 Resting Blood Pressure: 128/56 Maximum Exercise Blood Pressure: 144/80 EKG Type: NSR to sinus tachycardiac rare pvc. Current Physical Activity or Exercising minutes: 30 mins Outcomes & Goals Goals:: Verbalizes understanding of THR, RPE & goal METS by session 6, Documents in home exercise log/reports 30 min aerobic 5 day/wk by DC, Demonstrates accurate pulse taking by DC and Other additional outcome/goals: see below Intervention & Plan Exercise Program Goals: Instruct on personal THR & RPE, Instruct on MET level & personal MET goal, Show patient to take own pulse /validate performance until accurate, Instruct on home exercise and Other additional plan/int 30-day Reassessments 30 day Reassessments:: Met Reassessment Notes & Comments:: pt reaching target heart rate during exercise. accurately rating exercise difficulty using rpe scale. Physical Activity Home Exercise Physical Activity - Home Exercise: Safe Exercise, Warm-up, Self-monitoring, Cool-Down, Home Exercise > 30 min Daily and Sitting Time <3 hours/daily Outcomes & Goals Outcomes/Goals: Demonstrates correct Warm-up/exercise Cool-Down (S3) if = 2.5 METs, Verbalizes symptoms of exercise intolerance by Session 3 (S3), Demonstrate safe equipment use (S3) & follows exercise prescrition (6) and Other: See below Intervention & Plan Plan/Intervention: Instruct warm-up & cool-down if exercising at > 2 METs, Instruct on symptoms of exercise intolerance & actions to take, Instruct & monitor on saf, Assess intial functional capacity & safety risk and Other See below 30-day Reassessments 30 day Reassessments:: Met Reassessment Notes & Comments:: pt demonstrates 5 min warm up and cool down with exercise. asymptomatic with exercise. Exercise - Final/Discharge Physician Prescribed Exercise Modalities: Treadmill, SciFit Stepper and SciFit Lateral [place] Nutrition - 30-Day Assessment Weight Mgt (Other Care) Height: 5 ft 4 in Weight:: 150 lb 8 oz BMI: 25.8 Nutrition - 60-Day Assessment Weight Mgt (Other Care) Height: 5 ft 4 in Weight:: 150 lb 8 oz BMI: 25.8 Core - 30-Day Assessment Hypertension [employer] Hypertension Guidelines Reassessment Notes & Comments:: pt bp occasionally elevated at start of exercise. bp's have a good response to exercise and lower after rest. will continue to monitor bp's and report if necessary. she reports taking her medications as prescribed. Core - Final Assessment Hypertension [employer] Hypertension Guidelines Reassessment Notes & Comments:: pt bp occasionally elevated at start of exercise. bp's have a good response to exercise and lower after rest. will continue to monitor bp's and report if necessary. she reports taking her medications as prescribed. Core - 90 Day Assessment Visit Date of Eval: 04/12/25 Session #:: 34 Medication Compliance Preventative Medication(s):: Aspirin, Statin/lipid, Beta matilde and ARB (Angiotensi Rcap) H/O mental health issues: depression, anxiety, or addiction?: No Doesn’t believe in the benefits of treatment?: No Believes medications are unnecessary or harmful?: No Has a concern about medication side effects?: No Outcomes/Goals: Verbalizes medications,desired effect & common side effects @ DC, Pt self-reports following medication regimen, Keeps card in wallet w/medications listed by DC and Other additional outcome/goals: Interventions/plans: Instruct on medication effects & side effects, Review medication list w/patient every two weeks, Instruct importance of taking meds as ordered & assist problem solving and Other additional 30-day Reassessments:: Progressing Reassessment Notes & Comments:: taking medications as prescribed. no medication concerns at this time. Tobacco Use Tobacco Use: Non-smoker Hypertension Hypertension Diagnosis:: Hypertension ICD-10 I10 Resting Blood Pressure:: 128/56 [employer] Hypertension Guidelines Peak Exercise Blood Pressure:: 144/80 Outcomes/Goals: Able to verbalize/achieve optimal blood pressure <130/80, Incorporates diet changes & exercise for blood pressure control by DC and Other additional outcomes/goals Interventions/plan: Instruct on optimal blood pressure, hypertension & medications, Instruct on effects of sodium, alcohol, stress, exercise &hypertension and Other additional plan/interventions 30 day Reassessments:: Progressing Reassessment Notes & Comments:: pt bp occasionally elevated at start of exercise. bp's have a good response to exercise and lower after rest. will continue to monitor bp's and report if necessary. she reports taking her medications as prescribed. Tobacco Cessation Referral Smoking Cessation Referral:: No Individual Education/Counseling:: No Education Schedule Given:: Yes Psychosocial - 30-Day Assess Referral to Behavioral Health PS - Interventions: Yes: Attend Stress Management Classes Psychosocial - 60-Day Assess Referral to Behavioral Health PS - Interventions: Yes: Attend Stress Management Classes Psychosocial - 90-Day Assess VIsit Date of Eval: 04/12/25 Session #:: 34 History of previous Mental disease:: No Psychosocial Test Tool Used:: PHQ-9 Questionnaire phq-9 Severity See PHQ-9 Score: 2 Referral to Behavioral Health PS - Interventions: Yes: Attend Stress Management Classes Outcomes/Goals: See list Psychosocial Outcomes/Goals:: ID's personal stressors & 2 strategies to manage stress by discharge and Other Additional outcome/goals: Intervention/Plan: See List Interventions/Plan:: Assess stressors,coping strategies & signs of derpression on admission, Instruct/assist pt to develop coping & personal stress Mgt strategies, Refer to Behavioral Health if appropriate, Refer to Physician if appropriate, Instruct patient to recognize signs & symptoms of depression, Instruct patient to recog and Other additional plan/intervention 30-day Reassessments: 30 day Reassessments:: Progressing Reassessment Notes & Comments:: madison is attentive in class and participates in discussion. has family who she spends time with. no psychosocial concerns at this time. Psychosocial - Final Assessmen Referral to Behavioral Health PS - Interventions: Yes: Attend Stress Management Classes Nutrition - 90-Day Assessment Program Goals Nutrition Program Goals Patient has diagnosis of Hyperlipidemia (ICD E78)?: Yes Visit Date of Eval: 04/12/25 (nutrition score 3) Session #:: 34 Cholesterol/Lipids (Other Core Measures) Determine presence & major risk factors that modify LDL goal: Cigarette smoking, Hypertension or hypertensive medication, Low HDL cholesterol <40 mg/dL*, Family history of premature CHD in Male < 55 years: female <65 yearsFa and Age men > 45 years; women >/= 55 years Outcomes/Goals: Pt IDs own risk factors & lifestyle modifications by Session 10, Verbalizes symptoms of angina & response by session 3., Pt independently manages and Other Additional Outcomes/Goals: Intervention/Plan: Advocate for lipid panel cholesterol medication if applicable, Instruct on personal lipid levels & lipid goals/NCEP guidelines, Instruct on cholesterol and Other additional plan/int 30-day Reassessments:: Progressing Reassessment Notes & Comments:: Pt attended all nutrition classes. Diabetes (Other Core Measures) Diabetes Type: Not Applicable Weight Mgt (Other Care) Height: 5 ft 4 in Weight:: 150 lb 8 oz BMI: 25.8 Outcomes/Goals: Pt sets, maintains & shows weight loss goal & trend during rehab and Other additional outcomes/goals Intervention/Plan: Instruct on ideal BMI & set weight loss goal w/patient, Assist pt to ID & incorporate diet changes for weight loss by S9, Refer to Structured Weight Loss program as appropriate, Encourage goal of using 250-300dcal per session for weight loss and Other additional plan/interventions 30 day Reassessments:: Progressing Reassessment Notes & Comments:: pt will continue weighing weekly to monitor progress. Healthy Eating Habits Will attend diet classes:: Yes Outcomes/Goals:: Consume diet rich in vegs,fruits,whole grain/high fiber,fish,lean meat, Limit sat/trans fats,cholesterol & added salts & sugars and Other additional outcome/goals: Intervention/Plan:: Assess current eating habits and Other Additional plan/interventions 30-day Reassessments:: Met Reassessment Notes & Comments:: attended dietary teachings with nutrition. able to identify low sodium diet. educated on reading labels to help maintain low sodium diet Education Gave educational materials for:: Signs & symptoms of hypoglycemia, Signs & symptoms of hyperglycemia, Relate diabetes to coronary artery disease and Healthy eating Nutrition - Final Assessment Weight Mgt (Other Care) Height: 5 ft 4 in Weight:: 150 lb 8 oz BMI: 25.8
[2025-04-12 10:50] VITALS: BP 128/56; BMI 25.8
== END 2025-04-16 23:59 ==
LOC: CR 14:15
PROVIDERS: PCP Family Medicine; Referring Provider Thoracic Surgery (Cardiothoracic Vascular Surgery); Visit Provider Thoracic Surgery (Cardiothoracic Vascular Surgery)
DX: Z95.1 Presence of aortocoronary bypass graft (principal)
CPT/HCPCS: 93798

== ENCOUNTER 2025-04-19 14:15 | Outpatient (RCR) | payer MEDICARE, OTHER, SELFPAY ==
--- NOTE | 2025-05-09 11:29 | PCM.CR.ITP ---
Exercise - Initial Assessment Physician Prescribed Exercise Modalities: Treadmill, SciFit Stepper and SciFit Lateral [place] Intensity: 60-80% of age predicted maximum heart rate reserve Nutrition - Initial Assessment Program Goals Nutrition Program Goals Patient has diagnosis of Hyperlipidemia (ICD E78)?: Yes Weight Mgt (Other Care) Height: 5 ft 4 in Weight:: 151 lb 8 oz BMI: 25.9 Core - Initial Assessment Hypertension Resting Blood Pressure:: 142/70 [place] Hypertension Guidelines Psychosocial - Initial Assess Psychosocial Test phq-9 Severity See PHQ-9 Score: 2 Referral to Behavioral Health PS - Interventions: Yes: Attend Stress Management Classes Exercise - 30-day Assessment Physician Prescribed Exercise Modalities: Treadmill, SciFit Stepper and SciFit Lateral 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 Exercise - 60-day Assessment Physician Prescribed Exercise Modalities: Treadmill, SciFit Stepper and SciFit Lateral [place] Exercise - 90-day Assessment Physician Prescribed Exercise Modalities: Treadmill, SciFit Stepper and SciFit Lateral [place] Exercise - Final/Discharge Visit Date of Eval: 05/09/25 Session #:: 36 Physician Prescribed Exercise Modalities: Treadmill, SciFit Stepper and SciFit Lateral 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 Slight ST depression w/out CP or SOB Outcomes & Goals Goals:: Verbalizes understanding of THR, RPE & goal METS by session 6, Documents in home exercise log/reports 30 min aerobic 5 day/wk by DC, Demonstrates accurate pulse taking by DC and Other additional outcome/goals: see below Intervention & Plan Exercise Program Goals: Instruct on personal THR & RPE, Instruct on MET level & personal MET goal, Show patient to take own pulse /validate performance until accurate, Instruct on home exercise and Other additional plan/int Physical Activity Home Exercise Physical Activity - Home Exercise: Safe Exercise, Warm-up, Self-monitoring, Cool-Down, Home Exercise > 30 min Daily and Sitting Time <3 hours/daily Outcomes & Goals Outcomes/Goals: Demonstrates correct Warm-up/exercise Cool-Down (S3) if = 2.5 METs, Verbalizes symptoms of exercise intolerance by Session 3 (S3), Demonstrate safe equipment use (S3) & follows exercise prescrition (6) and Other: See below Intervention & Plan Plan/Intervention: Instruct warm-up & cool-down if exercising at > 2 METs, Instruct on symptoms of exercise intolerance & actions to take, Instruct & monitor on saf, Assess intial functional capacity & safety risk and Other See below 30-day Reassessments 30 day Reassessments:: Met Reassessment Notes & Comments:: Pt has met his exercise goals. Pt was working at 5.9 METS. Pt will be given her exercise prescription as well as community resources to continue his exercise. Pt understands the importance of warming up and cooling down. Pt also understands symptoms of exercise intolerance and how to exercise safely. Pt has expressed interest in III rehab. Nutrition - 30-Day Assessment Weight Mgt (Other Care) Height: 5 ft 4 in Weight:: 151 lb 8 oz BMI: 25.9 Nutrition - 60-Day Assessment Weight Mgt (Other Care) Height: 5 ft 4 in Weight:: 151 lb 8 oz BMI: 25.9 Core - 30-Day Assessment Hypertension [employer] Hypertension Guidelines Reassessment Notes & Comments:: Pt's BP's are slightly elevated on some days. Pt taking antihypertensive meds as prescribed, pt instructed on optimal BP and effects of sodium on BP. Core - Final Assessment Visit Date of Eval: 05/09/25 Session #:: 36 Medication Compliance Preventative Medication(s):: Aspirin, Statin/lipid, Beta matilde and ARB (Angiotensi Rcap) H/O mental health issues: depression, anxiety, or addiction?: No Doesn?t believe in the benefits of treatment?: No Believes medications are unnecessary or harmful?: No Has a concern about medication side effects?: No Expresses concern over the cost of medications?: No Outcomes/Goals: Verbalizes medications,desired effect & common side effects @ DC, Pt self-reports following medication regimen, Keeps card in wallet w/medications listed by DC and Other additional outcome/goals: Interventions/plans: Instruct on medication effects & side effects, Review medication list w/patient every two weeks, Instruct importance of taking meds as ordered & assist problem solving and Other additional Tobacco Use Tobacco Use: Non-smoker Hypertension Hypertension Diagnosis:: Hypertension ICD-10 I10 Resting Blood Pressure:: 142/70 [place] Hypertension Guidelines Peak Exercise Blood Pressure:: 164/60 Outcomes/Goals: Able to verbalize/achieve optimal blood pressure <130/80, Incorporates diet changes & exercise for blood pressure control by DC and Other additional outcomes/goals Interventions/plan: Instruct on optimal blood pressure, hypertension & medications, Instruct on effects of sodium, alcohol, stress, exercise &hypertension and Other additional plan/interventions 30 day Reassessments:: Progressing Reassessment Notes & Comments:: Pt's BP's are slightly elevated on some days. Pt taking antihypertensive meds as prescribed, pt instructed on optimal BP and effects of sodium on BP. Core - 90 Day Assessment Hypertension [employer] Hypertension Guidelines Reassessment Notes & Comments:: Pt's BP's are slightly elevated on some days. Pt taking antihypertensive meds as prescribed, pt instructed on optimal BP and effects of sodium on BP. Core - 60-Day Assessment Hypertension Resting Blood Pressure:: 142/70 [place] Hypertension Guidelines Psychosocial - 30-Day Assess Referral to Behavioral Health PS - Interventions: Yes: Attend Stress Management Classes Psychosocial - 60-Day Assess Referral to Behavioral Health PS - Interventions: Yes: Attend Stress Management Classes Psychosocial - 90-Day Assess Referral to Behavioral Health PS - Interventions: Yes: Attend Stress Management Classes Psychosocial - Final Assessmen VIsit Date of Eval: 05/09/25 Session #:: 36 History of previous Mental disease:: No Psychosocial Test Tool Used:: [employer] QOL Cardiac and PHQ-9 Questionnaire phq-9 Severity See PHQ-9 Score: 2 Referral to Behavioral Health PS - Interventions: Yes: Attend Stress Management Classes Outcomes/Goals: See list Psychosocial Outcomes/Goals:: ID's personal stressors & 2 strategies to manage stress by discharge and Other Additional outcome/goals: Intervention/Plan: See List Interventions/Plan:: Assess stressors,coping strategies & signs of derpression on admission, Instruct/assist pt to develop coping & personal stress Mgt strategies, Refer to Behavioral Health if appropriate, Refer to Physician if appropriate, Instruct patient to recognize signs & symptoms of depression, Instruct patient to recog and Other additional plan/intervention 30-day Reassessments: 30 day Reassessments:: Met Reassessment Notes & Comments:: Pt denies any psychosocial issues at this time. Pt has attended stress management classes. Nutrition - 90-Day Assessment Weight Mgt (Other Care) Height: 5 ft 4 in Weight:: 151 lb 8 oz BMI: 25.9 Nutrition - Final Assessment Program Goals Patient has diagnosis of Hyperlipidemia (ICD E78)?: Yes Visit Date of Assessment:: 05/09/25 Session #:: 36 (Nutrition score of 3.) Cholesterol/Lipids (Other Core Measures) Determine presence & major risk factors that modify LDL goal: Cigarette smoking, Hypertension or hypertensive medication, Low HDL cholesterol <40 mg/dL*, Family history of premature CHD in Male < 55 years: female <65 yearsFa and Age men > 45 years; women >/= 55 years Outcomes/Goals: Pt IDs own risk factors & lifestyle modifications by Session 10, Verbalizes symptoms of angina & response by session 3., Pt independently manages and Other Additional Outcomes/Goals: Intervention/Plan: Advocate for lipid panel cholesterol medication if applicable, Instruct on personal lipid levels & lipid goals/NCEP guidelines, Instruct on cholesterol and Other additional plan/int Diabetes (Other Core Measures) Diabetes Type: Not Applicable Weight Mgt (Other Care) Height: 5 ft 4 in Weight:: 151 lb 8 oz BMI: 25.9 Diagnosis Overweight/Obesity BMI> 30% ICD-10 E66: No Diagnosis High BMI/Morbid Obesity BMI> 35% ICD-10 Z68: No Outcomes/Goals: Pt sets, maintains & shows weight loss goal & trend during rehab and Other additional outcomes/goals Intervention/Plan: Instruct on ideal BMI & set weight loss goal w/patient, Assist pt to ID & incorporate diet changes for weight loss by S9, Refer to Structured Weight Loss program as appropriate, Encourage goal of using 250-300dcal per session for weight loss and Other additional plan/interventions Healthy Eating Habits Will attend diet classes:: Yes Outcomes/Goals:: Consume diet rich in vegs,fruits,whole grain/high fiber,fish,lean meat, Limit sat/trans fats,cholesterol & added salts & sugars and Other additional outcome/goals: Intervention/Plan:: Assess current eating habits and Other Additional plan/interventions 30-day Reassessments:: Met Reassessment Notes & Comments:: Pt has attended nutrition class. Pt understands the benefits of a hearth healthy low sodium diet. Pt is at a healthy weight. Pt has been given the tools to maintain a healthy diet. Education Gave educational materials for:: Signs & symptoms of hypoglycemia, Signs & symptoms of hyperglycemia, Relate diabetes to coronary artery disease and Healthy eating
[2025-05-09 11:42] VITALS: BP 142/70; BMI 25.9
== END 2025-05-17 23:59 ==
LOC: CR 14:15
PROVIDERS: PCP Family Medicine; Referring Provider Thoracic Surgery (Cardiothoracic Vascular Surgery); Visit Provider Thoracic Surgery (Cardiothoracic Vascular Surgery)
DX: Z95.1 Presence of aortocoronary bypass graft (principal)
CPT/HCPCS: 93798

== ENCOUNTER → 2025-04-27 | Outpatient (CLI) | payer MEDICARE, OTHER, SELFPAY ==
[2025-04-12 10:50] VITALS: BMI 25.8
--- OUTSIDE RECORDS SUMMARY | 2025-04-27 07:24 | XMS RPT_ITS | CCD ---
Author Organization [facility] CliniSyct Care Team Providers Care Cutting Torch Operator Name Role Phone Dr. Vero Garcia Primary Care Provider Dr. Vero Garcia Referring Provider JOAN Rodrigez Attending Provider JOAN Rodrigez Referring Provider JOAN Rodrigez Other Provider Dr. Cheng Rand Attending Provider Vero Garcia MD Primary Care Provider Vero Garcia MD Primary Care Provider Dr. Bora Marie DO Primary Care Provider Allyssa Rodrigez Attending Provider Allyssa Rodrigez Referring Provider Dr. Bora Marie DO Referring Provider Linwood Ward Attending Provider Linwood Ward Referring Provider Linwood Ward Other Provider Dr. Cheng Rand MD Attending Provider Dr. Cheng Rand MD Referring Provider Fabio GREENS PICKER.SCREW MACHINE REPAIRER, Ana Unavailable Giovanny GREENS PICKER.INSURANCE PLAN SPECIALIST, Chano Unavailable Bora Marie DO Primary Care Provider Keyona MD, Mansura S Unavailable Basilio ALMAZAN, Vivian Attending Provider ELY AYOUB Attending Provider Unavailable PISTONE, ELY Referring Provider Unavailable FYOCK, LILA Other Provider Unavailable Kylie YE, Jessie S Unavailable Peter Hayes MD Unavailable Juan Miguel Hunt RN Unavailable Dr. Bora Marie DO Primary Care Provider [phone] Linwood Ward Attending Provider Linwood Ward Referring Provider Dr. Bora Marie DO Referring Provider Epifanio RAM, Dr. Henriquez Attending Provider Aston RAM, Dr. Green Attending Provider Aston RAM, Dr. Green Referring Provider PETER HAYES Attending Unavailable MELANY COOK Admitting Unavailable ANNIE ALVAREZ Consulting Unavailable FRANK, BORA A Primary Care Unavailable PETER HAYES Attending Unavailable FRANK, BORA A Primary Care Unavailable FRANK, BORA A Primary Care Unavailable FRANK, BORA A Primary Care Unavailable FYOCK, LILA Attending Unavailable FRANK, BORA A Primary Care Unavailable FRANK, BORA A Primary Care Unavailable FYOCK, LILA Attending Unavailable FYOCK, LILA Referring Unavailable FRANK, BORA A Primary Care Unavailable FYOCK, LILA Referring Unavailable FRANK, BORA A Primary Care Unavailable FYOCK, LILA Referring Unavailable FRANK, BORA A Primary Care Unavailable LIZZIE HYLTON Attending Unavailable FRANK, BORA A Primary Care Unavailable PISTONE, ELY Referring Unavailable FRANK, BORA A Primary Care Unavailable Fabio GREENS PICKER.SCREW MACHINE REPAIRER, Ana Unavailable Giovanny GREENS PICKER.INSURANCE PLAN SPECIALIST, Chano Unavailable Juan Miguel Hunt RN Unavailable Dr. Bora Marie DO Primary Care Physician Linwood Ward Attending Physician Dr. Cheng Rand MD Attending Physician Epifanio RAM, Dr. Henriquez Attending Physician Basilio JERONIMOC, Vivian Attending Physician ELY AYOUB Attending Physician UnavailLILA Horan Nurse Practitioner Unavailable Aston RAM, Dr. Green Attending Physician Demiter, Linwood Referring Unavailable Demiter, Linwood Attending Unavailable Frank, Bora Primary Care Unavailable Frank, Bora Primary Care Unavailable MONIKA ZAKIYA, BLACK Referring Unavailable MONIKA ZAKIYA, BLACK Attending Unavailable MONIKA ZAKIYA, BLACK Consulting Unavailable Frank, Bora Primary Care Unavailable Keyona, Mansura Referring Unavailable Keyona, Cheng Attending Unavailable Frank, Bora Primary Care Unavailable Demiter, Linwood Attending Unavailable Frank, Bora Referring Unavailable Demiter, Linwood Attending Unavailable Frank, Bora Primary Care Unavailable Frank, Bora Referring Unavailable Frank, Bora Primary Care Unavailable Demiter, Linwood Attending Unavailable Frank, Bora Referring Unavailable Frank, Bora Primary Care Unavailable Keyona, Mansura Attending Unavailable Frank, Bora Primary Care Unavailable Vivian Richmond NP Attending Unavailable Demiter, Linwood Referring Unavailable Frank, Bora Primary Care Unavailable Keyona, Cheng Attending Unavailable Demiter, Linwood Consulting Unavailable Aston Peter Referring Unavailable Lahorra Peter Attending Unavailable Frank, Bora Primary Care Unavailable Frank, Bora Primary Care Unavailable Allyssa Rodrigez Referring Unavail able Allyssa Rodrigez Attending Unavail able Frank, Bora Primary Care Unavailable Keyona, Cheng Attending Unavailable Keyona, Mansura Referring Unavailable Demiter, Linwood Attending Unavailable Frank, Bora Primary Care Unavailable Demiter, Linwood Referring Unavailable Aston Peter Attending Unavailable Kishaa Peter Referring Unavailable Frank, Bora Primary Care Unavailable Lajosea, Peter Referring Unavailable Lalien Peter Attending Unavailable Frank, Bora Primary Care Unavailable Aston Peter Referring Unavailable LaPeter emmanuel Attending Unavailable Frank, Bora Primary Care Unavailable Frank, Bora Primary Care Unavailable MONIKA ZAKIYA, BLACK Referring Unavailable MONIKA ZAKIYA, BLACK Attending Unavailable Allergies Allergy Classification Reported Allergen(s) Allergy Type Date of Onset Reaction(s) Facility (20 sources) atorvastatin; Translations: [ATORVASTATIN] Drug Allergy 03-21-2020 Myalgia [facility] Work Phone: (20 sources) Lisinopril; Translations: [LISINOPRIL] Drug Allergy 08-19-2019 Cough [facility] (20 sources) rosuvastatin; Translations: [ROSUVASTATIN] Drug Allergy 03-21-2020 Myalgia [facility] Work Phone: (1 source) atorvastatin Drug Allergy 01-18-2025 [facility] (1 source) Lisinopril Drug Allergy 01-18-2025 [facility] (1 source) rosuvastatin Drug Allergy 01-18-2025 [facility] Medications Current Medications Medication Drug Class(es) Dates Sig (Normalized) Sig (Original) acetaminophen 500 mg oral tablet (14 sources) Start: 12-14-2024 take 2 tablets by mouth once daily at bedtime acetaminophen (TYLENOL) 500 mg tablet Take 2 tablets by mouth daily at bedtime. 12/14/2024 Active Start: 12-04-2024 End: 12-14-2024 take 2 tablets by mouth every six hours acetaminophen (TYLENOL) 500 mg tablet 2 tablets by ORAL/FEEDING TUBE route every 6 hours. 240 tablet 12/04/2024 12/14/2024 Discontinued (Adjust Sig - Block E-Cancel) 1 ml alirocumab 150 mg/ml au to-injector (15 sources) PCSK9 Inhibitor Start: 01-04-2025 End: 01-10-2025 Start: 01-06-2024 End: 02-15-2024 Alirocumab (Praluent Pen) 75 mg/mL pen injector Discontinued 75 mg SC Q14D 12 3 January 06, 2024 12:00am February 15, 2024 6:08pm ascorbic acid 500 mg oral tablet (15 sources) Vitamin C Start: 11-25-2024 End: 02-23-2025 take 1 tablet by mouth once daily ascorbic acid, vitamin C, (VITAMIN C) 500 mg tablet Indications: Anemia, unspecified type Take 1 tablet by mouth once daily. 30 tablet 2 11/25/2024 02/23/2025 Active aspirin 81 mg delayed release oral tablet (20 sources) Platelet Aggregation Inhibitor, Nonsteroidal Anti-inflammatory Drug Start: 12-05-2024 take 2 tablets by mouth once daily aspirin, enteric coated (ASPIRIN, ENTERIC COATED) 81 mg EC tablet Take 2 tablets by mouth once daily. 60 tablet 3 12/05/2024 Active Start: 11-07-2024 End: 12-04-2024 bifidobacterium infantis 10.5 mg chewable tablet (13 sources) take 1 tablet by mouth once daily Bifidobacterium infantis (ALIGN, B.INFANTIS,) 10.5 mg (10 million cell) chew Take 1 tablet by mouth once daily. Active calcium ascorbate 500 mg oral tablet (2 sources) Start: 01-18-2025 take 1 tablet by mouth once daily ferrous fumarate 89 mg oral tablet (20 sources) Start: 01-18-2025 take 1 tablet by mouth once Start: 10-24-2024 End: 01-18-2025 take 1 tablet by mouth once Ferrous Fumarate 89 mg (29 mg iron) tablet Discontinued 28 mg PO ONCE October 24, 2024 1:57pm January 18, 2025 8:55am anemia Start: 03-09-2017 End: 10-24-2024 Ferrous Fumarate 89 MG table t Discontinued 28 mg PO EVERY OTHER DAY March 09, 2017 12:00am October 24, 2024 1:57pm anemia Start: 03-09-2017 take 28 mg by mouth every other day Ferrous Fumarate Active 28 MG PO EVERY OTHER DAY March 09, 2017 10:40am ferrous sulfate 325 mg oral tablet (15 sources) Start: 11-25-2024 End: 02-23-2025 take 1 tablet by mouth once daily ferrous sulfate 325 mg (65 mg iron) tablet Indications: Anemia, unspecified type Take 1 tablet by mouth once daily. 30 tablet 2 11/25/2024 02/23/2025 Active folic acid 0.4 mg oral tablet (17 sources) Start: 01-18-2025 take 0.4 mg by mouth once daily Start: 01-18-2025 take 0.4 mg by mouth once irish y Folic Acid 400 mcg tablet Active 0.4 mg PO daily January 18, 2025 12:00am Start: 11-25-2024 End: 02-23-2025 take 1 tablet by mouth once daily folic acid 1 mg tablet Indications: Anemia, unspecified type Take 1 tablet by mouth once daily. 30 tablet 2 11/25/2024 02/23/2025 Active furosemide 20 mg oral tablet (16 sources) Loop Diuretic Start: 12-06-2024 furosemide (LA SIX) 20 mg tablet Please take for wt gain of 3# in a day or 5# in a week Patient should start on December 06, 2024. 5 tablet 12/06/2024 Active Start: 12-05-2024 End: 12-04-2024 take 2 tablets by mouth once daily furosemide (LASIX) 20 mg tablet Take 2 tablets by mouth once daily for 3 days, THEN 1 tablet once daily for 3 days. Patient should start on December 05, 2024. 9 tablet 12/05/2024 12/04/2024 Discontinued Start: 12-05-2024 End: 12-04-2024 take 2 tablets by mouth once daily furosemide (LASIX) 20 mg tablet Take 2 tablets by mouth once daily for 3 days, THEN 1 tablet once daily for 3 days. Patient should start on December 05, 2024. 9 tablet 12/05/2024 12/04/2024 Discontinued End: 01-12-2025 take 1 tablet by mouth once daily furosemide (LASIX) 20 mg tablet Take 20 mg by mouth once daily. 2 tabs for 3 days then 1 tab for 3 days 01/12/2025 Discontinued (Course of therapy completed) levothyroxine sodium 0.112 mg oral tablet (20 sources) l-Thyroxine Start: 03-09-2017 End: 11-26-2023 take 1 tablet by mouth once daily Comment on above: TAKE 1 TABLET BY JESSICA TH DAILY ON AN EMPTY STOMACH FOR THYROID losartan potassium 25 mg oral tablet (20 sources) Angiotensin 2 Receptor Matilde Start: 09-23-2023 End: 09-13-2024 take 1 tablet by mouth once daily metoprolol tartrate 25 mg oral tablet (20 sources) beta-Adrenergic Matilde Start: 01-18-2025 take 1 tablet by mouth three times daily Start: 12-04-2024 take 1 tablet by jessica th every eight hours metoprolol tartrate, short acting, (LOPRESSOR) 25 mg tablet Take 1 tablet by mouth every 8 hours. 90 tablet 3 12/04/2024 Active Start: 04-07-2023 End: 12-04-2024 metoprolol tartrate, short a cting, (LOPRESSOR) 25 mg tablet Take 12.5 mg by mouth two times a day. [facility] 04/07/2023 12/04/2024 Discontinued Start: 04-07-2023 metoprolol tar trate, short acting, (LOPRESSOR) 25 mg tablet [facility] 04/07/2023 Active Start: 07-11-2022 End: 01-18-2025 take 0.5 tablet by mouth twice daily Metoprolol Tartrate 25 mg tablet Discontinued 0 .ROUTE .COMPLEX 90 September 30, 2024 3:43pm January 18, 2025 8:55am TAKE 1/2 (ONE-HALF) OF A TABLET BY MOUTH TWICE DAILY for heart/blood pressue Start: 03-09-2017 End: 07-11-2022 Metoprolol Tartrate 25 mg ta blet Discontinued 12.5 mg PO TWICE A DAY 90 July 10, 2021 11:06am August 21, 2021 1:44pm heart/blood pressure Start: 03-09-2017 End: 07-11-2022 take 12.5 mg by mouth twice daily Metoprolol Tartrate Discontinued 12.5 MG PO TWICE A DAY 90 July 10, 2021 10:06am August 21, 2021 12:44pm Start: 12-14-2008 metoprolol suc cinate(TOPROL XL 25 MG 24 HR TAB) Take half tablet twice a day. 0 12/14/2008 Active Comment on above: Take half tablet twi ce a day. nitroglycerin 0.4 mg sublingual tablet (20 sources) Nitrate Vasodilator Start: 03-10-2017 Nitroglycerin Active 0.4 MG SL Q5M March 10, 2017 1:13pm Start: 12-14-2008 End: 12-04-2024 Comment on above: Place one(1) tablet on tongue as needed for chest pain. If no pain relief call 911. potassium chloride 10 meq extended release oral tablet (2 sources) Start: 12-05-2024 End: 12-04-2024 take 1 tablet by mouth every other day potassium chloride (K-TAB) 10 mEq tablet Take 1 tablet by mouth every other day for 6 days. Patient should start on December 05, 2024. 3 tablet 12/05/2024 12/04/2024 Discontinued Start: 12-05-2024 End: 12-04-2024 take 1 tablet by mouth every other day potassium chloride (K-TAB) 10 mEq tablet Take 1 tablet by mouth every other day for 6 days. Patient should start on December 05, 2024. 3 tablet 12/05/2024 12/04/2024 Discontinued tacrolimus 0.001 mg/mg topical ointment (19 sources) Calcineurin Inhibitor Immunosuppressant Start: 04-29-2023 tacrolimus (PROTOPIC) 0.1 % ointment As needed 04/29/2023 Active Start: 04-29-2023 tacrolimus (FL OTOPIC) 0.1 % ointment Apply topically to affected areas on face every evening 04/29/2023 Active vitamin b6 100 mg oral tablet (20 sources) Start: 06-22-2021 take 1 tablet by mouth once daily Comment on above: Take 100 mg by mouth once daily. Completed/Discontinued Medications Medication Drug Class(es) Dates Sig (Normalized) Sig (Original) atorvastatin 40 mg oral tablet (13 sources) HMG-CoA Reductase Inhibitor Start: 03-09-2017 End: 10-06-2017 take 1 tablet by mouth every other day Atorvastatin 40 MG tablet Discontinued 40 mg PO EVERY OTHER DAY March 09, 2017 12:00am October 06, 2017 2:59pm cholesterol clopidogrel 75 mg oral tablet (20 sources) P2Y12 Platelet Inhibitor Start: 12-14-2008 End: 12-04-2024 take 1 tablet by mouth once daily Clopidogrel 75 mg tablet Discontinued 75 mg PO DAILY 90 May 16, 2024 1:12pm November 07, 2024 9:27am antiplatelet/stents Comment on above: Take one(1) tablet d aily. 1 ml evolocumab 140 mg/ml auto-injector (20 sources) PCSK9 Inhibitor Start: 02-15-2024 End: 01-04-2025 Evolocumab (Repatha Sureclick) 140 mg/mL pen injector Discontinued 140 mg SC every 2 weeks 2 February 15, 2024 12:00am January 04, 2025 1:37pm Start: 12-30-2023 End: 01-06-2024 Evolocumab (Repatha Sureclic k) 140 mg/mL pen injector Discontinued 140 mg SC every 2 weeks 2 December 30, 2023 12:00am January 06, 2024 2:16pm ferrous gluconate 256 mg oral tablet (8 sources) Start: 07-07-2016 End: 11-25-2024 take 1 tablet by mouth every other day ferrous gluconate 256 mg (28 mg iron) tab Take 1 tablet by mouth every other day. 07/07/2016 11/25/2024 Discontinued (Changing Therapy/Dosage Form) Comment on above: Take 1 tablet by [facility] every other day. lidocaine 0.04 mg/mg medicated patch (10 sources) Antiarrhythmic, Amide Local Anesthetic Start: 12-04-2024 End: 12-14-2024 apply 1 dose transdermal route once daily lidocaine (SALONPAS) 4 % patch Apply 1 patch as directed once daily. 12/04/2024 12/14/2024 Discontinued (Course of therapy completed) magnesium oxide 400 mg oral tablet (13 sources) Start: 12-05-2024 End: 01-12-2025 take 1 tablet by mouth once daily magnesium oxide (MAG-OX) 400 mg (241.3 mg magnesium) tablet Take 1 tablet by mouth once daily. 30 tablet 12/05/2024 01/12/2025 Discontinued (Course of therapy completed) omeprazole 40 mg delayed release oral capsule (20 sources) Proton Pump Inhibitor Start: 01-01-2016 End: 08-11-2024 take 1 capsule by mouth once daily Omeprazole 40 mg capsule,delayed release(/EC) Discontinued 40 mg PO DAILY 90 3 May 29, 2023 9:19am August 11, 2024 9:27am Comment on above: Take 1 capsule by [facility] once daily. (Dr. Rand) polyethylene glycol 3350 93008 mg powder for oral solution (10 sources) Osmotic Laxative Start: 12-05-2024 End: 12-14-2024 polyethylene glycol 3350 17 gram packet Take 1 packet by mouth once daily. Dissolve dose in 4 - 8 ounces of liquid and take as directed. 12/05/2024 12/14/2024 Discontinued (Course of therapy completed) rosuvastatin calcium 10 mg oral tablet (13 sources) HMG-CoA Reductase Inhibitor Start: 10-06-2017 End: 04-30-2018 take 1 tablet by mouth every other day Rosuvastatin (Crestor) 10 mg tablet Discontinued 10 mg PO .COMPLEX 15 11 October 06, 2017 12:00am April 30, 2018 3:39pm 10 mg PO every other day simvastatin 40 mg oral tablet (20 sources) HMG-CoA Reductase Inhibitor Start: 11-02-2018 End: 08-10-2024 take 1 tablet by mouth every other day Simvastatin 40 mg tablet Discontinued 40 mg PO .QOD 45 3 May 13, 2023 4:53pm August 10, 2024 11:37am Start: 07-07-2018 End: 11-02-2018 take 1 tablet by mouth once daily in the evening Simvastatin 40 mg tablet Discontinued 40 mg PO EVERY EVENING 30 July 07, 2018 1:00am November 02, 2018 11:22am Comment on above: Take 40 mg by mouth once daily. Taking every other day due to leg cramps triamcinolone acetonide 1 mg/ml topical cream (10 sources) Corticosteroid Start: 03-21-20 End: 12-02-19 triamcinolone acetonide (KENALOG) 0.1 % cream Indications: Rash and nonspecific skin eruption Apply 1 application to affected area twice daily. Apply sparingly to area for rash/itching on extremities 30 g 1 03/21/2020 12/01/2024 Discontinued (Adjust Sig - Block E-Cancel) Comment on above: Apply 1 application to affected area twice daily. Apply sparingly to area for rash/itching on extremities vibegron (GEMTESA) 75 mg tablet (6 sources) End: 12-02-19 take 1 tablet by mouth once daily vibegron (GEMTESA) 75 mg tablet Take 75 mg by mouth once daily. 12/01/2024 Discontinued (Adjust Sig - Block E-Cancel) take 1 tablet by mouth once irish y vibegron (GEMTESA) 75 mg tablet Take 75 mg by mouth once daily. Active Problems Active Problems Problem Classification Problem Date Documented Date Episodic/Chronic Acute posthemorrhagic anemia (3 sources) Anemia following acute postoperative blood loss; Translations: [Acute posthemorrhagic anemia] Onset: 01-12-2025 01-12-2025 Episodic Cardiac dysrhythmias (13 sources) Palpitations; Translations: [Palpitations] 08-18-2019 Episodic Coronary atherosclerosis and other heart disease (20 sources) Old myocardial infarction; Translations: [Old myocardial infarction] Onset: 12-14-2008 Chronic Comment on above: Subendocardial PA Deficiency and other anemia (20 sources) Anemia; Translations: [Anemia, unspecified] Onset: 04-06-2009 07-11-2009 Episodic Disorders of lipid metabolism (20 sources) Hyperlipidemia; Translations: [Hyperlipidemia, unspecified] Onset: 03-13-2008 Chronic Essential hypertension (20 sources) Essential hypertension; Translations: [Essential (primary) hypertension] Onset: 2020 Chronic Fluid and electrolyte disorders (1 source) Hypervolemia; Translations: [Fluid overload, unspecified] 12-14-2024 Episodic Genitourinary symptoms and ill-defined conditions (1 source) Urinary catheter in situ; Translations: [Encounter for fitting and adjustment of urinary device] 12-08-2024 Chronic Genitourinary symptoms and ill-defined conditions (5 sources) Retention of urine; Translations: [Retention of urine, unspecified] Onset: 12-08-2024 12-08-2024 Episodic Nonspecific chest pain (14 sources) Chest pain; Translations: [Chest pain, unspecified] Onset: 11-27-2024 08-18-2019 Episodic Nutritional deficiencies (1 source) Vitamin D deficiency, unspecified; Translations: [Vitamin D deficiency, unspecified] Onset: 09-05-2024 Chronic Other aftercare (2 sources) Patient encounter status; Translations: [Other long-term (current) drug therapy] Episodic Other circulatory disease (1 source) Personal history of other diseases of the circulatory system; Translations: [History of hypertension] Onset: 11-27-2024 Episodic Other lower respiratory disease (1 source) Dyspnea; Translations: [Dyspnea, unspecified] 11-09-2024 Episodic Other lower respiratory disease (1 source) Dyspnea, unspecified; Translations: [Dyspnea, unspecified type] Onset: 11-24-2024 Episodic Other nervous system disorders (13 sources) Acute postoperative pain; Translations: [Other acute postprocedural pain] Onset: 12-05-2024 12-05-2024 Episodic Other non-traumatic joint disorders (1 source) Pain in left knee; Translations: [Pain in joint, lower leg] Episodic Thyroid disorders (20 sources) Acquired hypothyroidism; Translations: [Hypothyroidism, unspecified] Chronic Unclassified (1 source) 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, unspecified vessel or lesion type; Translations: [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, unspecified vessel or lesion type] Onset: 11-27-2024 Past or Other Problems Problem Classification Problem Date Documented Da te Episodic/Chronic Coronary atherosclerosis and other heart disease (3 sources) Presence of aortocoronary bypass graft; Translations: [Presence of coronary angioplasty implant and graft] Onset: 10-24-2024 Episodic Deficiency and other anemia (1 source) Anemia, unspecified; Translations: [Anemia, unspecified type] Onset: 07-11-2009 Episodic Malaise and fatigue (20 sources) Fatigue; Translations: [Other fatigue] Onset: 08-31-2024 08-31-2024 Episodic Other circulatory disease (6 sources) Other specified symptoms and signs involving the circulatory and respiratory systems; Translations: [Other symptoms involving cardiovascular system] Onset: 11-08-2024 11-08-2024 Episodic Other nutritional; endocrine; and metabolic disorders (20 sources) Obesity; Translations: [Obesity, unspecified] Onset: 03-13-2006 Resolved: 06-01-2023 03-01-2017 Chronic Other screening for suspected conditions (not mental disorders or infectious disease) (17 sources) Cardiovascular stress test abnormal; Translations: [Abnormal result of other cardiovascular function study] Onset: 10-07-2024 10-24-2024 Episodic Residual codes; unclassified (20 sources) Family history of ischemic heart disease; Translations: [Family history of ischemic heart disease and other diseases of the circulatory system] Onset: 08-31-2007 Resolved: 06-01-2023 08-31-2007 Episodic Residual codes; unclassified (20 sources) FH: Cardiovascular disease; Translations: [Family history of ischemic heart disease and other diseases of the circulatory system] Onset: 02-19-2010 Resolved: 06-01-2023 05-13-2021 Episodic Unclassified (4 sources) Patient encounter status 11-08-2024 Results Test Name Value Interpretation Reference Range Facility No Panel InformationOrdered By: Wilder Cartwright on 01-26-2025 [facility] [address] [place] [address] CR - Individual Treatment Plan MR#: [id number] Acct: [id number] Name: OCHOA DOUGLAS Rep #:[id number] : [id number] From: Wilder MERINO, RVT PCP: Dr. Bora Marie, DOS: 01/25 Exercise - Initial Assessment Visit Session #:: 1 Physician Prescribed Exercise Modalities: Treadmill, SciFit Stepper and SciFit Lateral Want Ad Clerk Nutrition - Initial Assessment Weight Mgt (Other Care) Height: 5 ft 4 in Weight:: 152 lb BMI: 26.1 Psychosocial - Initial Assess Target Goals Target Goals Referral to Behavioral Health PS - Interventions: Yes: Attend Stress Management Classes Patient Health Questionnaire PHQ-9 Screening 30-Day Re-eval Assessment: 1. Little interest or pleasure in doing things: Several days 2. Feeling down, depressed, or hopeless: Not at all 3. Trouble falling or staying asleep, or sleeping too much: Not at all 4. Feeling tired or having little energy: Several days 5. Poor appetite or overeating: Not at all 6. Feeling bad about yourself -- or that you are a failure or have let yourself or your family down: Not at all 7. Trouble concentrating on things, such as reading the newspaper or watching television: Not at all 8. Moving or speaking so slowly that other people could have noticed. Or the opposite - being so fidgety or restless that you have been moving around a lot more than usual: Not at all 9. Thoughts that you would be better off , or of hurting yourself in some way: Not at all How difficult have these problems made it for you to do your work, take care of things at home, or get along with other people?: Somewhat difficult Total Score: 2 Self-Efficacy 6-Item Scale 30-Day Re-eval Assessment: We would like to know how confident you are in doing certain activities. Please select your confidence level for: Fatigue Select Number: 8 Physical Discomfort or Pain Select Number: 8 Emotional Distress Select Number: 8 Other Symptoms or Health Problems Select Number: 9 Different Tasks and Activities Select Number: 9 Medication Select Number: 9 Total Score:: 8 Nutrition Survey Nutrition Survey Instructions Scoring Instructions Exercise - 30-day Assessment Visit Date of Eval: 01/24/25 Session #:: 1 Physician Prescribed Exercise Modalities: Treadmill, SciFit Stepper and SciFit Lateral Hilda Frequency: 3x/week for 12 weeks [36 sessions] Intensity: 60-80% of age predicted maximum heart rate reserve Duration: 30 - 45 minutes Current METSs:: 3 Target Heart Rate:: 85-106 Current RPE:: 11-13 Maximum Excercise HR:: 114 Resting Blood Pressure: 138/60 Maximum Exercise Blood Pressure: 140/66 EKG Type: NSR to ST w/ rare PAC, PVC Outcomes & Goals Goals:: Verbalizes understanding of THR, RPE & goal METS by session 6, Documentsin home exercise log/reports 30 min aerobic 5 day/wk by DC, Demonstrates accurate pulse taking by DC and Other additional outcome/goals: see below Intervention & Plan Exercise Program Goals: Instruct on personal THR & RPE, Instruct on MET level & personal MET goal, Show patient to take own pulse /validate performance until accurate, Instruct on home exercise and Other additional plan/int Physical Activity Home Exercise Physical Activity - Home Exercise: Safe Exercise, Warm-up, Self-monitoring, Cool-Down, Home Exercise > 30 min Daily and Sitting Time <3 hours/daily Outcomes & Goals Outcomes/Goals: Demonstrates correct Warm-up/exercise Cool-Down (S3) if = 2.5 METs, Verbalizes symptoms of exercise intolerance by Session 3 (S3), Demonstratesafe equipment use (S3) & follows exercise prescrition (6) and Other: See below Intervention & Plan Plan/Intervention: Instruct warm-up & cool-down if exercising at > 2 METs, Instruct on symptoms of exercise intolerance & actions to take, Instruct & monitor on saf, Assess intial functional capacity & safety risk and Other See below 30-day Reassessments 30 day Reassessments:: Progressing Reassessment Notes & Comments:: RPE explained to pt on her first day. Will continue to reinforce and monitor. Exercise - 60-day Assessment Physician Prescribed Exercise Modalities: Treadmill, SciFit Stepper and SciFit Lateral Hilda Exercise - 90-day Assessment Physician Prescribed Exercise Modalities: Treadmill, SciFit Stepper and SciFit Lateral Hilda Exercise - Final/Discharge Physician Prescribed Exercise Modalities: Treadmill, SciFit Stepper and SciFit Lateral Hilda Nutrition - 30-Day Assessment Program Goals Nutrition Program Goals Patient has diagnosis of Hyperlipidemia (ICD E78)?: Yes Visit Date of Eval: 01/24/25 Session #:: 1 Cholesterol/Lipids (Other Core Measures) Determine presence & major risk factors that modify LDL goal: Cigarette smoking,Hypertension or hypertensive medication, Low HDL cholesterol <40 mg/dL*, Family history of premature CHD in Male < 55 years: female <65 yearsFa and Age men > 45years; women >/= 55 years Outcomes/Goals: Pt IDs own risk factors & lifestyle modifications by Session 10,Verbalizes sy (more content not included)... [facility] CBC panel Auto (Bld)on 01-18 Erythrocyte distribution width (RBC) [Ratio] 13.2 % Normal 11.5-15.0 [facility] Comment on above: Order Comment: Meche murray Type: BLOOD SPECIMEN Ordering Facility: [facility] Address: [address] [place] [address] Performed By: #### 5 8410-2 #### [facility] CLIA [id number] [address] [place] [address] [place] Hematocrit (Bld) [Volume fraction] 27.4 % Low 36.0-46.0 [facility] Comment on above: Order Comment: Meche murray Type: BLOOD SPECIMEN Ordering Facility: [facility] Address: [address] [place] [address] Performed By: #### 5 8410-2 #### [facility] CLIA [id number] [address] [place] [address] [place] Hemoglobin (Bld) [Mass/Vol] 8.6 g/dL Low 11.5-15.5 [facility] Comment on above: Order Comment: Meche murray Type: BLOOD SPECIMEN Ordering Facility: [facility] Address: [address] [place] [address] Performed By: #### 5 8410-2 #### [facility] CLIA [id number] [address] [place] [address] [place] MCH (RBC) [Entitic mass] 30.7 pg Normal 26.0-34.0 [facility] Comment on above: Order Comment: Meche murray Type: BLOOD SPECIMEN Ordering Facility: [facility] Address: [address] [place] [address] Performed By: #### 5 8410-2 #### [facility] CLIA [id number] [address] [place] [address] [place] MCHC (RBC) [Mass/Vol] 31.4 g/dL Normal 30.5-36.0 [facility] Comment on above: Order Comment: Speci men Type: BLOOD SPECIMEN Ordering Facility: [facility] Address: [address] [place] [address] Performed By: #### 5 8410-2 #### [facility] CLIA [id number] [address] [place] [address] [place] MCV (RBC) [Entitic vol] 97.9 fL Normal 80.0-100.0 [facility] Comment on above: Order Comment: Speci men Type: BLOOD SPECIMEN Ordering Facility: [facility] Address: [address] [place] [address] Performed By: #### 5 8410-2 #### [facility] CLIA [id number] [address] [place] [address] [place] Nucleated RBC (Bld) [#/Vol] 10*3/uL Normal <0.01 [facility] Comment on above: Order Comment: Speci men Type: BLOOD SPECIMEN Ordering Facility: [facility] Address: [address] [place] [address] Performed By: #### 5 8410-2 #### [facility] CLIA [id number] [address] [place] [address] [place] Platelet mean volume (Bld) [Entitic vol] 10.9 fL Normal 9.0-12.7 [facility] Comment on above: Order Comment: Speci men Type: BLOOD SPECIMEN Ordering Facility: [facility] Address: [address] [place] [address] Performed By: #### 5 8410-2 #### [facility] CLIA [id number] [address] [place] [address] [place] Platelets (Bld) [#/Vol] 224 10*3/uL Normal 150-400 [facility] Comment on above: Order Comment: Speci men Type: BLOOD SPECIMEN Ordering Facility: [facility] Address: [address] [place] [address] Performed By: #### 5 8410-2 #### [facility] CLIA [id number] [address] [place] [address] [place] RBC (Bld) [#/Vol] 2.80 10*6/uL Low 3.90-5.20 [facility] Comment on above: Order Comment: Speci men Type: BLOOD SPECIMEN Ordering Facility: [facility] Address: [address] [place] [address] Performed By: #### 5 8410-2 #### [facility] CLIA [id number] [address] [place] [address] [place] WBC (Bld) [#/Vol] 7.63 10*3/uL Normal 3.70-11.00 [facility] Comment on above: Order Comment: Speci men Type: BLOOD SPECIMEN Ordering Facility: [facility] Address: [address] [place] [address] Performed By: #### 5 8410-2 #### [facility] CLIA [id number] [address] [place] [address] [place] Cardiology Visit Reporton Cardiology Visit Report [facility] [address] [place] [address] OFFICE VISIT Date of Service: 01/18/25 MR#: [id number] Acct: [id number] Name: OCHOA DOUGLAS Rep #: [id number] : 1945 Provider: JOAN Azar Age/Sex: 79/F Location: [facility] Status: Signed HPI HPI History of Present Illness Details: Ochoa Douglas is a 79-year-old female who presents to office today for follow-up for monitoring her cardiovascular health. Patient has a history of coronary artery disease, hypertension, hyperlipidemia. Patient underwent angioplasty and stenting to her LAD, circumflex artery and RCA around 2008. Patient presented to the emergency department in June 2021 with chest discomfort and ruled out for myocardial infarction. Patient underwent stress test in September 2021 with EKG changes suggestive of ischemia noted at the moderate workload. At this time patient was managed medically and monitored. Patient was seen in office in August 2024 in which she reported noticing increase in fatigue. Patient underwent stress test 09/29/2024 that demonstrated abnormal EKG changes suggestive of ischemia. She was further evaluated via cardiac catheterization 11/07/2024 that demonstrated multivessel disease and patient was referred for surgery consultation for revascularization. Patient underwent CABG x 3 with CHAN to the LAD, SVG to the OM, SVG to PDA with Dr. Hayes at [facility] on 11/29/2024. Patient was discharged home 12/05/2024 with orders for Lasix 40 mg daily x 3 days, 20 mg daily x 3 days and then as needed following that for weight gain. Upon presentation today, patient reports fatigue has improved. She does find herself becoming fatigued still; however, she reports this is improved from prior to CABG. She reports she is sleeping better at night now. Her palpitations were initially increased after CABG; however, has significantly improved. She reports stable weight and no longer utilizing diuretic. Further ROS below. 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 Accompanied by: Grandson Is patient in pain?: No Allergies atorvastatin (From Lipitor) Adverse Reaction (Severe, Verified 01/18/25 08:56) mylagias rosuvastatin (From Crestor) Adverse Reaction (Severe, Verified 01/18/25 08:56) mylagias lisinopril Adverse Reaction (Intermediate, Verified 01/18/25 08:56) Cough Medications ???Medication ???Instructions ???Recorded ???Confirmed ???Type levothyroxine 112 mcg tablet 112 mcg PO DAILY thyroid 03/09/17 01/18/25 History nitroglycerin 0.4 mg sublingual 0.4 mg sublingual Q5M PRN Chest 01/18/25 Rx tablet Pain #1 BOTTLE pyridoxine (vitamin B6) 100 mg 100 mg PO DAILY 06/22/21 01/18/25 History tablet (Vitamin B-6) simvastatin 40 mg tablet 40 mg PO .QOD #45 tabs 08/10/24 Rx omeprazole 40 mg capsule,delayed 40 mg PO DAILY #90 caps 08/11/24 0 01/18/25 Rx release losartan 25 mg tablet 25 mg PO DAILY #90 tabs 09/13/24 0 01/18/25 Rx aspirin 81 mg tablet,delayed 81 mg PO QDAY #90 tabs 11/07/24 Rx release (Adult Low Dose Aspirin) alirocumab 150 mg/mL subcutaneous 150 mg subcut .COMPLEX #2 mL 12/1701/18/25 Rx pen injector (Praluent Pen) ascorbate calcium (vitamin C) 500 500 mg PO QDAY 01/18/25 01/18/25 History mg tablet ferrous fumarate 89 mg (29 mg 325 mg PO ONCE anemia 01/18/2508/09 History iron) tablet folic acid 400 mcg tablet 0.4 mg PO QDAY 01/18/25 01/18/25 H istory metoprolol tartrate 25 mg tablet 25 mg PO TID 01/18/25 History Ejection fraction %: 70 Have you fallen in the past year?: No PFSH Medical History Anemia Atherosclerotic heart disease of alutiiq coronary artery without angina pectoris Palpitations Old myocardial infarction Hyperlipidemia Hypothyroidism Former smoker Surgical History History of left heart catheterization (2010) History of nasal surgery (2010) History of tubal ligation Hx of breast surgery History of open reduction and internal fixation (ORIF) procedure History of coronary artery stent placement (07/2008) Family History Sister Heart disease Brother CAD (coronary artery disease) Myocardial infarction Sudden cardiac Daughter Thyroid disorder Social History Smoking Status: Never smoker alcohol intake: never (more content not included)... 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 Patient states that developed ongoing chest pain for the past 2 days. Pain was worse w/exertion that has radiated up the left side of her neck. She denies any further associated symptoms. Pain had resolved at rest. States her pain is likely related to her daughter visited and her daughter's current living situation. Currently patient has custody of her daughter's 4 y/o son. Patient was previously seen by Dr. Hayes in the office on 11/08/24 for evaluation for CABG surgery. She was previously worked up by her Cardiologists, Dr. Bailey at [facility]. Patient been c/o exertional fatigue, dyspnea, occasional chest discomfort for some time. Stress test was abnormal which [facility] Mild dz w/ 20-30% ostial stenosis, LAD patent stent w/ 80-90% ostial stenosis, mid segment 70% followed by another long mid segment stenosis, Cx previously stented, ostial stenosis at 80%, 1st OM no dz, RCA previously stented, prox 50%, mid area w/ 70% stenosis and distal stent patent. At that time she was deemed a candidate for surgery pending further work up. Patient underwent CABG x 3 (CHAN-LAD, SVG-OM, SVG-PDA) with Dr. Hayes on 11/29/24. Patient was transferred to CVICU in stable condition on minimal pressor support. Patient was extubated on time per early extubation protocol. She was weaned off jean and became hypertensive on POD#1 requiring BB and nitro gtt. Patient also had episodes of brief hypotension and nausea/emesis on standing up that would immediately self resolve within ~1 minute. Pt had difficulty urinating and required straight cath x 1 for ~340 cc on AM of POD2 and ultimately required ramesh replaced. Cr bump on POD#2 also, which resolved with IV fluids. POD#3 improvement in N/V. POD#4 ramesh removed, patient able to void, does have some PVR ~500s without discomfort, plan to consult urology. On POD5, urology recommended replacement of ramesh given elevated PVRs. US kidney revealed normal kidneys. OK per urology for pt to go home w/ramesh and f/u in office later in the week. Pt discharged home with [facility] POD#6 (12/05/24) with order for lasix 40 mg daily x 3 days then 20 mg daily x 3 days then PRN weight gain. Patient was seen for one week post discharge follow up on 12/14/24 doing well, below pre op weight, appearing quite euvolemic with trace BLE edema, MSI healing. Patient returns to the office today for one month post-discharge follow up. Interval events: On encounter, pt reports the following: Fever/chills: denies Dizziness/lightheaded ness/syncope: denies Chest pain/palpitations: none Incisional pain: none Any drainage from site: none SOB/cough: denies Shortness of Breath, little nonproductive cough Activity/Ambulation/S tairs: tolerating without angina/SOB Appetite: ok N/V/D/C/abdominal pain: none : no issues Leg swelling: none Sleep: good Energy: improving Weights: stable ~ 152# BP AND HR log reviewed: SBP 140s but pt questions accuracy of home cuff; she states when [facility] checks BP is always good in 120s as is today at OV. She also admits to occasionally missing mid-day metoprolol dose; HR 60-70s Subjective: Current Outpatient Medications Medication Sig furosemide (LASIX) 20 mg tablet Take 20 mg by mouth once daily. 2 tabs for 3 days then 1 tab for 3 days acetaminophen (TYLENOL) 500 mg tablet Take 2 tablets by mouth daily at bedtime. furosemide (LASIX) 20 mg tablet Please take for wt gain of 3# in a day or 5# in a week Patient should start on December 06, 2024. magnesium oxide (MAG-OX) 400 mg (241.3 mg magnesium) tablet Take 1 tablet by mouth once daily. metoprolol tartrate, short acting, (LOPRESSOR) 25 mg tablet Take 1 tablet by mouth every 8 hours. aspirin, enteric coated (ASPIRIN, ENTERIC COATED) 81 mg EC tablet Take 2 tablets by mouth once daily. Bifidobacterium infantis (ALIGN, B.INFANTIS,) 10.5 mg (10 million cell) chew Take 1 tablet by mouth once daily. REPATHA SURECLICK 140 mg/mL pen injector Inject 140 mg subcutaneously every 2 weeks. losartan (COZAAR) 25 mg tablet Take 1 tablet by mouth once daily. folic acid 1 mg tablet Take 1 tablet by mouth once daily. ferrous sulfate 325 mg (65 mg iron) tablet Take 1 tablet by mouth once daily. ascorbic acid, vitamin C, (VITAMIN C) 500 mg tablet Take 1 tablet by mouth once daily (more content not included)... Normal [facility] XR CHEST 2V FRONTAL/LATon XR CHEST 2V FRONTAL/LAT * * *Final Repor t* * * DATE OF EXAM: Jan 10 2025 10:03AM [id number] [id number] - XR CHEST 2V FRONTAL/LAT / PROCEDURE REASON: S/P CABG (coronary artery bypass graft) * * * * Physician Interpretation * * * * EXAMINATION: CHEST RADIOGRAPH (2 VIEW FRONTAL and LATERAL) CLINICAL HISTORY: S/P CABG (coronary artery bypass graft) MQ: [id number]_6 EXAM DATE/TIME: 01/10/2025 10:03 AM COMPARISON: 12/03/2024 RESULT: Lines, tubes, and devices: Mediastinal wires are noted. Lungs and pleura: No consolidation. No lung mass. Pleural effusions have resolved .No pneumothorax. Cardiomediastinal silhouette: Normal cardiomediastinal silhouette. Bones and soft tissues: Degenerative changes throughout the spine. IMPRESSION: No acute radiographic abnormality. Prep Room Supervisor: PSCB Transcribe Date/Time: Jan 11 2025 3:15P Dictated by : CHANDLER HENDRICKSON MD This examination was interpreted and the report reviewed and electronically signed by: CHANDLER HENDRICKSON MD on Jan 11 2025 3:16PM EST [id number] Normal [facility] Cardiac rehabilitation evalu ation reportOrdered By: Wilder Cartwright on 12-28-2024 Study report [facility] [address] [place] [address] CR - History & Physical MR#: [id number] Acct: [id number] Name: OCHOA DOUGLAS Rep #:[id number] : 1945 79 From: Wilder Bradford BS, RVT PCP: Dr. Bora Marie, DO DOS: 12/27 CR - History & Physical General Arrival date:: 12/27/24 Arrival time:: 13:01 Date of Referral:: 12/14/24 Date of CR Evaluation:: 12/27/24 Referring Physician: Dr. Hayes Primary Diagnosis: CABG History of Present Cardiac Event Onset Date Coronary Artery Bypass Graft:: Yes (onset 11/29/2024) Vessel: CHAN-LAD, SVG-OM, SVG-PDA Medications Ambulatory Orders ?Medication ?Instructions ?Recorded levothyroxine 112 mcg tablet 112 mcg PO DAILY thyroid 03/09/17 nitroglycerin 0.4 mg sublingual 0.4 mg sublingual Q5M PRN Chest 03/10/17 tablet Pain #1 BOTTLE pyridoxine (vitamin B6) 100 mg 100 mg PO DAILY 2 tablet (Vitamin B-6) evolocumab 140 mg/mL subcutaneous 140 mg subcut Q2W #2 mL 02/15/24 pen injector (Regine Saab) simvastatin 40 mg tablet 40 mg PO .QOD #45 tabs 08/10 omeprazole 40 mg capsule,delayed 40 mg PO DAILY #90 ca ps 08/11/24 release losartan 25 mg tablet 25 mg PO DAILY #90 tabs 08/17 02/09 metoprolol tartrate 25 mg tablet See Rx Instructions . Route 09/30/24 .COMPLEX #90 tabs ferrous fumarate 89 mg (29 mg 28 mg PO ONCE anemia 02/09 iron) tablet aspirin 81 mg tablet,delayed 81 mg PO QDAY #90 tabs release (Adult Low Dose Aspirin) Allergies Allergies atorvastatin (From Lipitor) Adverse Reaction (Severe, Verified 10/24/24 13:57) mylagias rosuvastatin (From Crestor) Adverse Reaction (Severe, Verified 10/24/24 13:57) mylagias lisinopril Adverse Reaction (Intermediate, Verified 10/24/24 13:57) Cough Sleep Disorder Evaluation Hx of Sleep Apnea: No Do you snore loudly (louder than talking or can be heard through closed doors)?:No Do you often feel tired/ fatigued/ sleepy during daytime?: No Has anyone observed you stop breathing during sleep?: No History of Hypertension (for STOP score): Yes STOP Results: Negative Advanced Directives Advanced Directives Do you have a Healthcare Power of Pals Specialist?: Yes Living Will: Yes Advance Directives Information Provided: Yes Advance Directives on File: Yes DNR Order?:: No Past Medical History Covid-19 Screening Physicial Symptoms Other Clinical Concerns Exposure Risk Pertinent Comorbidities 65 years or older:: Yes Has a serious heart condition:: Yes Past Medical Illness Past Medical History Anemia D64.9 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 Palpitations R00.2 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 Hyperlipidemia E78.5 Hypothyroidism E03.9 Former smoker Z87.891 Quit in 2008 Past Surgical History Past Surgical History History of left heart catheterization (2010) Z98.890 History of nasal surgery (2010) Z98.890 History of tubal ligation Z98.51 Hx of breast surgery Z98.890 mass (benign) removed History of open reduction and internal fixation (ORIF) procedure Z98.890 TRUNG wrist History of coronary artery stent placement (07/2008) Z95.5 [id number] LAD, KOKO-Prox LCx, KOKO-Distal RCA, POBA-OM1 07/2008 Surgical History: - (nasal surgery, repair of a wrist fx, excisional breast bx- benign) Family History Summary Family History Sister Heart disease Brother CAD (coronary artery disease) Myocardial infarction Sudden cardiac Daughter Thyroid disorder Social History Smoking History Smoking Status: Never smoker Alcohol Use Alcohol Usage: No Substance Abuse Hx Substance Use: No Occupation Occupation (List type of work in comments):: Retired Social Environment Status Marital Status: Current Living Arrangements Living Environment:: Family Children How many children do you have?: 5 Do any of your children live nearby?: Yes Safety Do you feel safe in your surroundings?: Yes Assistance Do you need any assistance at home?: no Review of Systems Review of Systems Hints Review of Present Symptoms: Reports Shortness of Breath with Exertion, Dizziness/Lightheaded ness, Fatigue, Heart Arrhythmia/Irregulari ties, Appetite - Normal, Appetite - Special Diet and Sleep - Normal; Denies Shortness of Breath at Rest, PVD, Operative Discomfort, Angina, Wound Healing or Sexual Changes Pain Is Patient Pain Free?: Yes Risk Factor Assessment Chief Complaint Chief Complaint: CABG Vital Signs Pulse Ox: 98 Blood Pressure: 122/68 Pulse Pulse Rate: 72 Hypertension How long have you been treated?: 1 year Blood Pressure Sitting - Right Arm: 122/68 Stress Stress: Home/Family Diabetes Nutrition Referral for Diabetes: No Obesity Height: 5 ft 4 in Weight:: 152 lb Weight in Pounds: 152.0 lbs Body Mass Index (BMI): 26.1 Nutritional Referral for Obesity: No Physical Inactivity Physical Inactivity: Reg Exercise 30 min/day Risk Stratification Risk Guidelines: Lowest Risk: (more content not included)... [facility] No Panel InformationOrdered By: Wilder Cartwright on 12-28-2024 [facility] [address] [place] [address] CR - Individual Treatment Plan MR#: [id number] Acct: [id number] Name: OCHOA DOUGLAS Rep #:[id number] : 1945 79 From: Wilder Bradford BS, RVT PCP: Dr. Bora Marie, DO DOS: 12/27 Diagnosis General Information Admitting Diagnosis: CABG Personal Learning Style:: Audio/Visual Barriers to Learning: No Barriers Stage of change r/t lifestyle modifications:: Contemplation Gave educational material for:: Treating Heart Disease, How The Heart Works, What it means to have Heart Disease, How Coronary Artery Disease is Diagnosed, Heart Procedures, What Heart Medications Do, Risk Factors & Modifications, Living an Active Life, Nutrition, Emotions & Heart Disease, Stress Management & Relaxation and Sleep Disorders & Heart Disease Education/Goals Cardiac Rehabilitation Goals Personal Goals: Initial Assessment: Improve energy level, Improve muscle strength and endurance and Improve diet and eating habits (eat healthier) Scale for measuring improvement of personal goals Diagnosis & Disease Process Outcomes/Goals: Pt IDs own risk factors & lifestyle modifications by Session 10,Verbalizes symptoms of angina & response by session 3., Pt independently managesand Other Additional Outcomes/Goals: Plan/Interventions: Assist Pt to ID & engage in lifestyle modification to reduceCVD risk, Instruct on individual risk factors, Review symptoms of angina & emergency actions, Review secondary diagnosis & identify educational needs. and Other see comment 30 day Reassessments:: Not Met 30 day Reassessments:: Not Met 30 day Reassessments:: Not Met 30 day Reassessments:: Not Met Final Reassessments:: Not Met Safety Referral to Physical Therapy: No Referral to [facility] Case Management: No Fall Risk Assessed:: Yes Assistive Devices:: None Exercise - Initial Assessment Visit Date of Eval: 12/27/24 (initial eval ) Mets: Pre-: >3 METS for 30 minutes by discharge, >5 METS for 30 minutes by discharge, >7 METS for 30 minutes by discharge and Unable to meet goal due to: (see comment below) Physician Prescribed Exercise Modalities: Treadmill, [employer] AD-7, [employer] Stepper, [employer] Pro-II Ergometer and [employer] Lateral Hilda Frequency: 3x/week for 12 weeks [36 sessions] Intensity: 60-80% of age predicted maximum heart rate reserve Duration: 30 - 45 minutes Current METSs:: 3 Target Heart Rate:: 85-106 Resting Blood Pressure: 122/68 EKG Type: NSR Outcomes & Goals Goals:: Verbalizes understanding of THR, RPE & goal METS by session 6, Documentsin home exercise log/reports 30 min aerobic 5 day/wk by DC, Demonstrates accurate pulse taking by DC and Other additional outcome/goals: see below Intervention & Plan Exercise Program Goals: Instruct on personal THR & RPE, Instruct on MET level & personal MET goal, Show patient to take own pulse /validate performance until accurate, Instruct on home exercise and Other additional plan/int Physical Activity Home Exercise Physical Activity - Home Exercise: Safe Exercise, Warm-up, Self-monitoring, Cool-Down, Home Exercise > 30 min Daily and Sitting Time <3 hours/daily Outcomes & Goals Outcomes/Goals: Demonstrates correct Warm-up/exercise Cool-Down (S3) if = 2.5 METs, Verbalizes symptoms of exercise intolerance by Session 3 (S3), Demonstratesafe equipment use (S3) & follows exercise prescrition (6) and Other: See below Intervention & Plan Plan/Intervention: Instruct warm-up & cool-down if exercising at > 2 METs, Instruct on symptoms of exercise intolerance & actions to take, Instruct & monitor on saf, Assess intial functional capacity & safety risk and Other See below Nutrition - Initial Assessment Program Goals Nutrition Program Goals Patient has diagnosis of Hyperlipidemia (ICD E78)?: Yes Visit Date of Eval: 12/27/24 (initial eval, Pt's nutrition survey was a 3 however declines nutrition referral) Cholesterol/Lipids (Other Core Measures) Determine presence & major risk factors that modify LDL goal: Hypertension or hypertensive medication, Low HDL cholesterol <40 mg/dL*, Family history of premature CHD in Male < 55 years: female <65 yearsFa and Age men > 45 years; women >/= 55 years Outcomes/Goals: Pt IDs own risk factors & lifestyle modifications by Session 10,Verbalizes symptoms of angina & response by session 3., Pt independently managesand Other Additional Outcomes/Goals: Intervention/Plan: Advocate for lipid panel cholesterol medication if applicable, Instruct on personal lipid levels & lipid goals/NCEP guidelines, Instruct on cholesterol and Other additional plan/int Referral to dietitian:: No Diabetes (Other Core Measures) Diabetes Type: Not Applicable Weight Mgt (Other Care) Height: 5 ft 4 in Weight:: 152 lb BMI: 26.1 Diagnosis Overweight/Obesity BMI> 30% ICD-10 E66: No Diagnosis High BMI/Morbid Obesity BMI> 35% ICD-10 Z68: No Outcomes/Goals: Pt sets, maintains & shows weight loss goal & trend during rehaband Other additional outcomes/goals Intervention/Plan: Instruct on ideal BMI & set weight lo (more content not included)... [facility] CR - History AND Physicalon 12-27-2024 CR - History & Physical [facility] Cardiac Rehab [address] [place] [address] CR - History Physical MR#: [id number] Acct: [id number] Name: OCHOA DOUGLAS Rep #: [id number] : 1945 79 From: Wilder Bradford BS, RVT PCP: Dr. Bora Marie, DO DOS: 12/27/24 CR - History Physical General Arrival date:: 12/27/24 Arrival time:: 13:01 Date of Referral:: 12/14/24 Date of CR Evaluation:: 12/27/24 Referring Physician: Dr. Hayes Primary Diagnosis: CABG History of Present Cardiac Event Onset Date Coronary Artery Bypass Graft:: Yes (onset 11/29/2024) Vessel: CHAN-LAD, SVG-OM, SVG-PDA Medications Ambulatory Orders ???Medication ???Instructions ???Recorded levothyroxine 112 mcg tablet 112 mcg PO DAILY thyroid 03/09/17 nitroglycerin 0.4 mg sublingual 0.4 mg sublingual Q5M PRN Chest tablet Pain #1 BOTTLE pyridoxine (vitamin B6) 100 mg 100 mg PO DAILY 06/22/21 tablet (Vitamin B-6) evolocumab 140 mg/mL subcutaneous 140 mg subcut Q2W #2 mL 02/15/24 pen injector (Regine Saab) simvastatin 40 mg tablet 40 mg PO .QOD #45 tabs 08/10/24 omeprazole 40 mg capsule,delayed 40 mg PO DAILY #90 caps 08/11/24 release losartan 25 mg tablet 25 mg PO DAILY #90 tabs 09/13/24 metoprolol tartrate 25 mg tablet See Rx Instructions .Route 5 .COMPLEX #90 tabs ferrous fumarate 89 mg (29 mg 28 mg PO ONCE anemia 10/24/24 iron) tablet aspirin 81 mg tablet,delayed 81 mg PO QDAY #90 tabs 11/07/24 release (Adult Low Dose Aspirin) Allergies Allergies atorvastatin (From Lipitor) Adverse Reaction (Severe, Verified 10/24/24 13:57) mylagias rosuvastatin (From Crestor) Adverse Reaction (Severe, Verified 10/24/24 13:57) mylagias lisinopril Adverse Reaction (Intermediate, Verified 10/24/24 13:57) Cough Sleep Disorder Evaluation Hx of Sleep Apnea: No Do you snore loudly (louder than talking or can be heard through closed doors)?: No Do you often feel tired/ fatigued/ sleepy during daytime?: No Has anyone observed you stop breathing during sleep?: No History of Hypertension (for STOP score): Yes STOP Results: Negative Advanced Directives Advanced Directives Do you have a Healthcare Power of Pals Specialist?: Yes Living Will: Yes Advance Directives Information Provided: Yes Advance Directives on File: Yes DNR Order?:: No Past Medical History Covid-19 Screening Physicial Symptoms Other Clinical Concerns Exposure Risk Pertinent Comorbidities 65 years or older:: Yes Has a serious heart condition:: Yes Past Medical Illness Past Medical History Anemia D64.9 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 Palpitations R00.2 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 Hyperlipidemia E78.5 Hypothyroidism E03.9 Former smoker Z87.891 Quit in 2008 Past Surgical History Past Surgical History History of left heart catheterization (2010) Z98.890 History of nasal surgery (2010) Z98.890 History of tubal ligation Z98.51 Hx of breast surgery Z98.890 mass (benign) removed History of open reduction and internal fixation (ORIF) procedure Z98.890 TRUNG wrist History of coronary artery stent placement (07/2008) Z95.5 NBR-DSE-Ctox LAD, KOKO-Prox LCx, KOKO-Distal RCA, POBA-OM1 07/2008 Surgical History: - (nasal surgery, repair of a wrist fx, excisional breast bx- benign) Family History Summary Family History Sister Heart disease Brother CAD (coronary artery disease) Myocardial infarction Sudden cardiac Daughter Thyroid disorder Social History Smoking History Smoking Status: Never smoker Alcohol Use Alcohol Usage: No Substance Abuse Hx Substance Use: No Occupation Occupation (List type of work in comments):: Retired Social Environment Status Marital Status: Current Living Arrangements Living Environment:: Family Children How many children do you have?: 5 Do any of your children live nearby?: Yes Safety Do you feel safe in your surroundings?: Yes Assistance Do you need any assistance at home?: no Review of Systems Review of Systems Hints Review of Present Symptoms: Reports Shortness of Breath with Exertion, Dizziness/Lightheaded ness, Fatigue, Heart Arrhythmia/Irregulari ties, Appetite - Normal, Appetite - Special Diet and Sleep - Normal; Denies Shortness of Breath at Rest, PVD, Operative Discomfort, Angina, Wound Healing or Sexual Changes Pain Is Patient Pain Free?: Yes Risk Factor Assessment Chief Complaint Chief Complaint: CABG Vital Signs Pulse Ox: 98 Blood Pressure: 122/68 Pulse Pulse Rate: 72 Hypertension How long have you been treated?: 1 year Blood Pressure Sitting - Right Arm: 122/68 Stress Stress: Home/Family Diabetes Nutr (more content not included)... Normal [facility] Cardiac Cath [facility] Cardiac Cath Diagnostic [facility] Imaging Services [address] [place] [id number] Cardiac Cath Diagnostic MR#: [id number] Acct: [id number] Name: OCHOA DOUGLAS Rep #: [id number] : 1945 78 From: Cheng Rand MD PCP: Dr. Bora Marie, DO Status:DEP [facility] Patient Name: OCHOA DOUGLAS Study Date: 11/07/2024 Performing: Cheng Rand MD Ht: 64.17 inches 163 cm : 1945 Wt: 156 lbs 70.76 kg Age: 78 Gender: female BSA: 1.76 PROCEDURE(S) PERFORMED DC01-(90765)LHC/COR/L V CLINICAL PROFILE AND INDICATIONS Indications: Suspected CAD Heart Failure: None Stress/Imaging Date: 09/29/24Stress Test with SPECT MPI: Positive Intermediate Risk CAD Presentations: No Sxs, no angina. CONCLUSIONS Severe disease involving the ostial left anterior descending artery prior to the stent in the ostial circumflex artery prior to the stent and disease noted in the mid to distal right coronary artery with a patent stent. There is mild left ventricular systolic dysfunction present. RECOMMENDATIONS Surgery consult for coronary revascularization DESCRIPTION OF PROCEDURE The patient arrived to the procedure lab. The risks and benefits of the procedure as well as a full description of our services here and current unavailability of surgical backup were fully explained to the patient and/or their significant other prior to the catheterization. The Timeout was completed, verifying the correct patient and procedure. The patient's procedural site was prepped and draped in the usual fashion. Local anesthetic was given subcutaneously to right radial region with Lidocaine 2%. Using a modified Seldinger technique, arterial access was obtained via the right radial artery, a 6Fr sheath was inserted. Left Coronary Artery selective angiography was performed in multiple views using a 5 Fr. 4.0 [employer] catheter. Right Coronary Artery selective angiography was then performed in multiple views using a 5 Fr. 4.0 [employer] catheter. Left Ventriculography was performed in RYAN projection using a 5 Fr. Pigtail catheter. LV to AO pullback pressures were then recorded.The arterial sheath was pulled and a TR Band was applied for hemostasis 10 ml of air CORONARY ANGIOGRAPHY DOMINANCE: Right Dominant LEFT HEART ASSESSMENT Left Ventricular Ejection Fraction: by LV Gram 50 % Anterior Hypokinesis - Mild Depressed Left Ventricular systolic function LEFT MAIN: Mild calcification, Ostial 20 to 30% stenosis LEFT ANTERIOR DESCENDING ARTERY: This vessel was previously stented with the stent being patent but there is an ostial 80 to 90% stenosis noted. The mid segment also has a 70% long stenosis followed by another 70% long stenosis present. Diagonal vessel appears to be free of significant disease. CIRCUMFLEX ARTERY: This vessel was also previously stented and there is an ostial 80% stenosis noted at the first large obtuse marginal branch the AV groove branch appears to be free of significant disease. RIGHT CORONARY ARTERY: Dominant right coronary artery previously stented. The proximal area has a 50 to 60% stenosis with a mid area with a 70% stenosis and the distal stent is patent and distal mild luminal irregularities present. COMPLICATIONS No Complications PROCEDURE MEDICATIONS Fentanyl 50 mcg IV Versed 1 mg IV Oxygen: 2 L/min via nasal cannula Aspirin (325mg) 1 Tabs PO @ 11/07/2024 07:45:24 Heparin given IA 11/07/2024 08:14:31 Verapamil 2.5mg, Ntg 100mcgs, 3000 units of Heparin given IA 11/07/2024 08:14:31 SUMMARY OF HEMODYNAMIC DATA Time AIR REST ECG 07:42:52 AO 115/60 (83) SA 08:24:03 LV 118/10, 19 08:31:44 LV 120/10, 19 08:31:52 LV 114/11, 20 08:32:38 LV 117/12, 21 08:32:46 LVp 119/15, 24 08:32:49 AOp 117/58 (84) 08:32:57 Signed By Cheng Rand MD On 11/07/2024 08:58:36 Cheng Rand MD 12/26/24 0945 Date Cheng Rand MD Cosigner Signature: Date (if indicated) CC: Dr. Cheng Rand MD; Dr. Bora Marie DO Date Dictated: 11/07/24811 Date Transcribed: 11/07/24 0858 Prep Room Supervisor: [place] Signed Normal [facility] Basic metabolic 2000 panelon 12-16-2024 Anion gap [Moles/Vol] 11 mmol/L Normal 8-15 [facility] Comment on above: Order Comment: Speci men Type: BLOOD SPECIMEN Ordering Facility: [facility] Address: [address] [place] [address] Performed By: #### 2 4321-2 #### [facility] CLIA [id number] [address] [place] [address] [place] Calcium [Mass/Vol] 9.4 mg/dL Normal 8.5-10.2 [facility] Comment on above: Order Comment: Speci men Type: BLOOD SPECIMEN Ordering Facility: [facility] Address: [address] [place] [address] Performed By: #### 2 4321-2 #### [facility] CLIA [id number] [address] [place] [address] [place] Chloride [Moles/Vol] 102 mmol/L Normal 98-107 [facility] Comment on above: Order Comment: Lathai terri Type: BLOOD SPECIMEN Ordering Facility: [facility] Address: [address] [place] [address] Performed By: #### 2 4321-2 #### [facility] CLIA [id number] [address] [place] [address] [place] CO2 [Moles/Vol] 25 mmol/L Normal 22-30 [facility] Comment on above: Order Comment: Lathai men Type: BLOOD SPECIMEN Ordering Facility: [facility] Address: [address] [place] [address] Performed By: #### 2 4321-2 #### [facility] [id number] [address] [place] [address] [place] Creatinine [Mass/Vol] 1.05 mg/dL High 0.58-0.96 [facility] Comment on above: Order Comment: Speci men Type: BLOOD SPECIMEN Ordering Facility: [facility] Address: [address] [place] [address] Performed By: #### 2 4321-2 #### [facility] [id number] [address] [place] [address] [place] eGFRcr SerPlBld CKD-EPI 2020 54 mL/min/1.73m??? Low >=60 [facility] Comment on above: Order Comment: Speci men Type: BLOOD SPECIMEN Ordering Facility: [facility] Address: [address] [place] [address] Result Comment: Zully mated Glomerular Filtration Rate (eGFR) is calculated using the 2020 CKD-EPI creatinine equation. This equation utilizes serum creatinine, sex, and age as parameters. The creatinine assay has traceable calibration to isotope dilution-mass spectrometry. Refer to KDIGO guidelines for clinical interpretation. In patients with unstable renal function, e.g. those with acute kidney injury, the eGFR may not accurately reflect actual GFR. Performed By: #### 2 4321-2 #### [facility] [id number] [address] [place] [address] [place] Glucose [Mass/Vol] 110 mg/dL High 74-99 [facility] Comment on above: Order Comment: Meche murray Type: BLOOD SPECIMEN Ordering Facility: [facility] Address: [address] [place], [place] [address] Result Comment: The [place] Diabetes Association (ADA) provides guidance for cutoff values for fasting glucose and random glucose. The ADA defines fasting as no caloric intake for at least 8 hours. Fasting plasma glucose results between 100 to 125 mg/dL indicate increased risk for diabetes (prediabetes). Fasting plasma glucose results greater than or equal to 126 mg/dL meet the criteria for diagnosis of diabetes. In the absence of unequivocal hyperglycemia, results should be confirmed by repeat testing. In a patient with classic symptoms of hyperglycemia or hyperglycemic crisis, random plasma glucose results greater than or equal to 200 mg/dL meet the criteria for diagnosis of diabetes. Reference: Standards of Medical Care in Diabetes 2016, [place] [employer] Association. Diabetes Care. 2016.39(Suppl 1). Performed By: #### 2 4321-2 #### [facility] [id number] [address] [place] [address] [place] Potassium [Moles/Vol] 5.0 mmol/L Normal 3.7-5.1 [facility] Comment on above: Order Comment: Meche murray Type: BLOOD SPECIMEN Ordering Facility: [facility] Address: [address] [place] [address] Performed By: #### 2 4321-2 #### [facility] [id number] [address] [place] [address] [place] Sodium [Moles/Vol] 138 mmol/L Normal 136-144 [facility] Comment on above: Order Comment: Meche murray Type: BLOOD SPECIMEN Ordering Facility: [facility] Address: [address] [place] [address] Performed By: #### 2 4321-2 #### [facility] CLIA [id number] [address] [place] [address] [place] Urea nitrogen [Mass/Vol] 21 mg/dL Normal 7-21 [facility] Comment on above: Order Comment: Speci men Type: BLOOD SPECIMEN Ordering Facility: [facility] Address: [address] [place] [address] Performed By: #### 2 4321-2 #### [facility] CLIA [id number] [address] [place] [address] [place] CBC panel Auto (Bld)on 12-16 Erythrocyte distribution width (RBC) [Ratio] 14.7 % Normal 11.5-15.0 [facility] Comment on above: Order Comment: Speci men Type: BLOOD SPECIMEN Ordering Facility: [facility] Address: [address] [place] [address] Performed By: #### 5 8410-2 #### [facility] [id number] [address] [place] [address] [place] Hematocrit (Bld) [Volume fraction] 24.2 % Low 36.0-46.0 [facility] Comment on above: Order Comment: Speci men Type: BLOOD SPECIMEN Ordering Facility: [facility] Address: [address] [place], [place] [address] Performed By: #### 5 8410-2 #### [facility] CLIA [id number] [address] [place] [address] [place] Hemoglobin (Bld) [Mass/Vol] 7.6 g/dL Low 11.5-15.5 [facility] Comment on above: Order Comment: Speci men Type: BLOOD SPECIMEN Ordering Facility: [facility] Address: [address] [place], [place] [address] Performed By: #### 5 8410-2 #### [facility] CLIA [id number] [address] [place] [address] [place] MCH (RBC) [Entitic mass] 31.0 pg Normal 26.0-34.0 [facility] Comment on above: Order Comment: Speci men Type: BLOOD SPECIMEN Ordering Facility: [facility] Address: [address] [place] [address] Performed By: #### 5 8410-2 #### [facility] CLIA [id number] [address] [place] [address] [place] MCHC (RBC) [Mass/Vol] 31.4 g/dL Normal 30.5-36.0 [facility] Comment on above: Order Comment: Speci men Type: BLOOD SPECIMEN Ordering Facility: [facility] Address: [address] [place] [address] Performed By: #### 5 8410-2 #### [facility] CLIA [id number] [address] [place] [address] [place] MCV (RBC) [Entitic vol] 98.8 fL Normal 80.0-100.0 [facility] Comment on above: Order Comment: Speci men Type: BLOOD SPECIMEN Ordering Facility: [facility] Address: [address] [place] [address] Performed By: #### 5 8410-2 #### [facility] CLIA [id number] [address] [place] [address] [place] Nucleated RBC (Bld) [#/Vol] 10*3/uL Normal <0.01 [facility] Comment on above: Order Comment: Speci men Type: BLOOD SPECIMEN Ordering Facility: [facility] Address: [address] [place] [address] Performed By: #### 5 8410-2 #### [facility] CLIA [id number] [address] [place] [address] [place] Platelet mean volume (Bld) [Entitic vol] 9.5 fL Normal 9.0-12.7 [facility] Comment on above: Order Comment: Speci men Type: BLOOD SPECIMEN Ordering Facility: [facility] Address: [address] [place] [address] Performed By: #### 5 8410-2 #### [facility] CLIA [id number] [address] [place] [address] [place] Platelets (Bld) [#/Vol] 536 10*3/uL High 150-400 [facility] Comment on above: Order Comment: Speci men Type: BLOOD SPECIMEN Ordering Facility: [facility] Address: [address] [place] [address] Performed By: #### 5 8410-2 #### [facility] CLIA [id number] [address] [place] [address] [place] RBC (Bld) [#/Vol] 2.45 10*6/uL Low 3.90-5.20 [facility] Comment on above: Order Comment: Speci men Type: BLOOD SPECIMEN Ordering Facility: [facility] Address: [address] [place] [address] Performed By: #### 5 8410-2 #### [facility] CLIA [id number] [address] [place] [address] [place] WBC (Bld) [#/Vol] 7.99 10*3/uL Normal 3.70-11.00 [facility] Comment on above: Order Comment: Speci men Type: BLOOD SPECIMEN Ordering Facility: [facility] Address: [address] [place], [place] [address] Performed By: #### 5 8410-2 #### [facility] CLIA [id number] [address] [place] [address] [place] FERRITINon 12-16-2024 Ferritin [Mass/Vol] 386.0 ng/mL High 14.7 - 2 05.1 ng/mL [facility] Ferritin SerPl-mCncon 2024 Ferritin [Mass/Vol] 386.0 ng/mL High 14.7-205.1 [facility] Comment on above: Order Comment: Speci men Type: BLOOD SPECIMEN Ordering Facility: [facility] Address: [address] [place] [address] Performed By: #### T SCR30 #### [facility] CLIA [id number] [address] [place] [address] [place] [address] [place] Ferritin [Mass/Vol]on 2024 Interpretation and review of laboratory results Abnormal [facility] Iron and Iron binding capaci ty panelon 12-16-2024 Iron [Mass/Vol] 32 ug/dL Low 41 - 186 ug/dL [facility] Iron binding capacity [Mass/Vol] 236 ug/dL 232 - 386 ug/dL [facility] Iron/TIBC [Molar ratio] 13.6 % Low 15.0 - 57.0 % [facility] Iron [Mass/Vol] 32 ug/dL Low 41-186 [facility] Comment on above: Order Comment: Speci men Type: BLOOD SPECIMEN Ordering Facility: [facility] Address: [address] [place] [address] Performed By: #### 5 8410-2 #### [facility] CLIA [id number] [address] [place] [address] [place] Iron binding capacity [Mass/Vol] 236 ug/dL Normal 232-386 [facility] Comment on above: Order Comment: Speci men Type: BLOOD SPECIMEN Ordering Facility: [facility] Address: [address] [place] [address] Performed By: #### 5 8410-2 #### [facility] CLIA [id number] [address] [place] [address] [place] Iron/TIBC [Molar ratio] 13.6 % Low 15.0-57.0 [facility] Comment on above: Order Comment: Speci men Type: BLOOD SPECIMEN Ordering Facility: [facility] Address: [address] [place] [address] Performed By: #### 5 8410-2 #### [facility] CLIA [id number] [address] No Panel Informationon 12-16 Interpretation and review of laboratory results Abnormal [facility] TRANSFERRINon 12-16-2024 Transferrin [Mass/Vol] 186 mg/dL Low 200 - 360 mg/dL [facility] Transferrin SerPl-mCncon Transferrin [Mass/Vol] 186 mg/dL Low 200-360 Cl [facility] Comment on above: Order Comment: Speci men Type: BLOOD SPECIMEN Ordering Facility: [facility] Address: [facility] [place] [address] Performed By: #### 5 [id number] #### [facility] CLIA [id number] [address] [place] [address] CNNURSEon 12-14-2024 CNNURSE Nurse Visit (UROLAE) OCHOA DOUGLAS ([id number]) 1945 F Date Time Provider Department 12/14/24 11:00 AM NURSE UROL EXCHANGE UROLAE During your visit today, we recorded the following information about you: Suzie Conway RN 12/14/2024 11:42 AM Signed Patient is voiding well without any difficulty. Straight cath using a 12 azerbaijani catheter done using sterile technique. Drained 10 ml of clear urine. Patient was started on Lasix by her cardiac team. She states that she has not noticed a difference in the amount that she urinates. Told her to let her doctor know. She knows that she needs to let us know in the future if she is having any difficulties emptying or thinks she may be retaining urine. Verbalized understanding. Suzie Conway RN Allergies As of Date: 12/14/2024 Noted Allergy Reaction LISINOPRIL 08/19/2019 3 - Cough CRESTOR (ROSUVASTATIN) 03/21/2020 17 - Myalgia Comments: muscle aches LIPITOR (ATORVASTATIN) 03/21/2020 17 - Myalgia Comments: muscle aches Date Reviewed: 12/14/2024 Reviewed by: Suzie Conway RN - Fully Assessed Reason for Visit: Post Void Residual [355] Primary Visit Diagnosis:Urine retention [R33.9] Prescriptions as of 12/14/2024 - furosemide (LASIX) 20 mg tablet Please take for wt gain of 3# in a day or 5# in a week Patient should start on December 06, 2024. - polyethylene glycol 3350 17 gram packet Take 1 packet by mouth once daily. Dissolve dose in 4 - 8 ounces of liquid and take as directed. - lidocaine (SALONPAS) 4 % patch Apply 1 patch as directed once daily. - acetaminophen (TYLENOL) 500 mg tablet 2 tablets by ORAL/FEEDING TUBE route every 6 hours. - magnesium oxide (MAG-OX) 400 mg (241.3 mg magnesium) tablet Take 1 tablet by mouth once daily. - metoprolol tartrate, short acting, (LOPRESSOR) 25 mg tablet Take 1 tablet by mouth every 8 hours. - aspirin, enteric coated (ASPIRIN, ENTERIC COATED) 81 mg EC tablet Take 2 tablets by mouth once daily. - Bifidobacterium infantis (ALIGN, B.INFANTIS,) 10.5 mg (10 million cell) chew Take 1 tablet by mouth once daily. - REPATHA SURECLICK 140 mg/mL pen injector Inject 140 mg subcutaneously every 2 weeks. - losartan (COZAAR) 25 mg tablet Take 1 tablet by mouth once daily. - folic acid 1 mg tablet Take 1 tablet by mouth once daily. - ferrous sulfate 325 mg (65 mg iron) tablet Take 1 tablet by mouth once daily. - ascorbic acid, vitamin C, (VITAMIN C) 500 mg tablet Take 1 tablet by mouth once daily. - tacrolimus (PROTOPIC) 0.1 % ointment As needed - levothyroxine (SYNTHROID) 112 mcg tablet TAKE 1 TABLET BY MOUTH DAILY ON AN EMPTY STOMACH FOR THYROID - simvastatin (ZOCOR) 40 mg tablet Take 40 mg by mouth once daily. Taking every other day due to leg cramps - pyridoxine, vitamin B6, (VITAMIN B6) 100 mg tablet Take 100 mg by mouth once daily. - Omeprazole 40 mg capsule Take 1 capsule by mouth once daily. (Dr. Rand) Problem List As Of Date 12/14/2024 Noted Resolved Hypothyroidism [E03.9] Obesity [E66.9] 03/13/2006 06/01/2023 Family history of ischemic heart disease [Z82.4*08/31/2007 06/01/2023 Mixed hyperlipidemia [E78.2] 03/13/2008 Cardiovascular disease [I25.10] 12/14/2008 Anemia [D64.9] 04/06/2009 Myocardial infarction, old [I25.2] 02/19/2010 Family history of cardiovascular disease [Z82.4*02/19/2010 06/01/2023 Essential hypertension [I10] 2020 Angina pectoris [I20.9] 11/27/2024 CAD (coronary artery disease) [I25.10] 11/27/2024 S/P CABG (coronary artery bypass graft) [Z95.1] 12/04/2024 Acute post-operative pain [G89.18] 12/05/2024 Encounter Status:Closed by SUZIE CONWAY on 12/14/24 [facility] BELLE[place]ie 12-14-2024 CNOV Office Visit (AGWILTONACC) OCHOA DOUGLAS ([id number]) 1945 F Date Time Provider Department 12/14/24 1:00 PM LILA BUSTOS During your visit today, we recorded the following information about you: Pulse Respiration Blood pressure Weight 72/minute 16/minute 122/68 69.3 kg Height 1.613 m Lila Bustos APRN.CNP 12/14/2024 1:57 PM Signed HPI: Ochoa Douglas is a 79 year old female w/ PMHx of CAD, PA w/PCI in 2008, hypothyroidism, anemia and GERD who presented to [facility] on 11/28/24 w/ active chest pain. Patient states that developed ongoing chest pain for the past 2 days. Pain was worse w/exertion that has radiated up the left side of her neck. She denies any further associated symptoms. Pain had resolved at rest. States her pain is likely related to her daughter visited and her daughter's current living situation. Currently patient has custody of her daughter's 4 y/o son. Patient was previously seen by Dr. Hayes in the office on 11/08/24 for evaluation for CABG surgery. She was previously worked up by her Cardiologists, Dr. Bailey at [facility]. Patient been c/o exertional fatigue, dyspnea, occasional chest discomfort for some time. Stress test was abnormal which prompted [facility] Mild dz w/ 20-30% ostial stenosis, LAD patent stent w/ 80-90% ostial stenosis, mid segment 70% followed by another long mid segment stenosis, Cx previously stented, ostial stenosis at 80%, 1st OM no dz, RCA previously stented, prox 50%, mid area w/ 70% stenosis and distal stent patent. At that time she was deemed a candidate for surgery pending further work up. Patient underwent CABG x 3 (CHAN-LAD, SVG-OM, SVG-PDA) with Dr. Hayes on 11/29/24. Patient was transferred to CVICU in stable condition on minimal pressor support. Patient was extubated on time per early extubation protocol. She was weaned off jean and became hypertensive on POD#1 requiring BB and nitro gtt. Patient also had episodes of brief hypotension and nausea/emesis on standing up that would immediately self resolve within ~1 minute. Pt had difficulty urinating and required straight cath x 1 for ~340 cc on AM of POD2 and ultimately required ramesh replaced. Cr bump on POD#2 also, which resolved with IV fluids. POD#3 improvement in N/V. POD#4 ramesh removed, patient able to void, does have some PVR ~500s without discomfort, plan to consult urology. On POD5, urology recommended replacement of ramesh given elevated PVRs. US kidney revealed normal kidneys. OK per urology for pt to go home w/ramesh and f/u in office later in the week. Pt discharged home with [facility] POD#6 (12/05/24) with order for lasix 40 mg daily x 3 days then 20 mg daily x 3 days then PRN weight gain. Patient returns to the office today for one week post-discharge follow up. Interval events: On encounter, pt reports the following: Fever/chills: denies Dizziness/lightheaded ness/syncope: denies Chest pain/palpitations: denies Incisional pain: starting to get itchy Any drainage from site: none SOB/cough: no Shortness of Breath, + little nonproductive cough every morning but thinks it's from losartan Activity/Ambulation/S tairs: tolerating Appetite: good N/V/D/C/abdominal pain: none : no issues, reports voiding ok, feels like she's emptying bladder Leg swelling: none; initially had some swelling, didn't take the prn lasix, start lasix 40 mg daily x 3 days then 20 mg daily on 12/11/24 Sleep: wonderfully in a recliner Energy: getting better Weights: below pre op weight and stable for few days BP AND HR log reviewed: SBP 120s, HR 90-low 100s Subjective: Current Outpatient Medications Medication Sig furosemide (LASIX) 20 mg tablet Please take for wt gain of 3# in a day or 5# in a week Patient should start on December 06, 2024. polyethylene glycol 3350 17 gram packet Take 1 packet by mouth once daily. Dissolve dose in 4 - 8 ounces of liquid and take as directed. lidocaine (SALONPAS) 4 % patch Apply 1 patch as directed once daily. acetaminophen (TYLENOL) 500 mg tablet 2 tablets by ORAL/FEEDING TUBE route every 6 hours. magnesium oxide (MAG-OX) 400 mg (241.3 mg magnesium) tablet Take 1 tablet by mouth once daily. metoprolol tartrate, short acting, (LOPRESSOR) 25 mg tablet Take 1 tablet by mouth every 8 hours. aspirin, enteric coated (ASPIRIN, ENTERIC COATED) 81 mg EC tablet Take 2 tablets by mouth once daily. Bifidobacterium infantis (ALIGN, B.INFANTIS,) 10.5 mg (10 million cell) chew Take 1 tablet by mouth once daily. REPATHA SURECLICK 140 mg/mL pen injector Inject 140 mg subcutaneously every 2 weeks. losartan (COZAAR) 25 mg tablet Take 1 tablet by mouth once daily. folic acid 1 mg tablet Take 1 tablet by mouth once daily. ferrous sulfate 325 mg (65 mg iron) tablet Take 1 tablet by mouth once daily. ascorbic acid, vitamin C, (VITAMIN C (more content not included)... Normal [facility]CHO[facility] DOUGL[facility] ([id number]) 1945 F Date Time Provider Department 12/14/24 PETER HAYES TOMÁS During your visit today, we recorded the following information about you: Rikki Garcia MA 12/14/2024 3:42 PM Signed [facility] phone [phone] fax [phone] Faxed order, 12/14/24 office encounter and 11/29/24 operative report on 12/14/24. They'll contact pt for scheduling. Allergies As of Date: 12/14/2024 Noted Allergy Reaction LISINOPRIL 08/19/2019 3 - Cough CRESTOR (ROSUVASTATIN) 03/21/2020 17 - Myalgia Comments: muscle aches LIPITOR (ATORVASTATIN) 03/21/2020 17 - Myalgia Comments: muscle aches Date Reviewed: 12/14/2024 Reviewed by: Ochoa Hamilton LPN - Fully Assessed Reason for Visit: Cardiac Rehab [9717] Cmt: Referral info Prescriptions as of 12/14/2024 - furosemide (LASIX) 20 mg tablet Take 20 mg by mouth once daily. 2 tabs for 3 days then 1 tab for 3 days - acetaminophen (TYLENOL) 500 mg tablet Take 2 tablets by mouth daily at bedtime. - furosemide (LASIX) 20 mg tablet Please take for wt gain of 3# in a day or 5# in a week Patient should start on December 06, 2024. - magnesium oxide (MAG-OX) 400 mg (241.3 mg magnesium) tablet Take 1 tablet by mouth once daily. - metoprolol tartrate, short acting, (LOPRESSOR) 25 mg tablet Take 1 tablet by mouth every 8 hours. - aspirin, enteric coated (ASPIRIN, ENTERIC COATED) 81 mg EC tablet Take 2 tablets by mouth once daily. - Bifidobacterium infantis (ALIGN, B.INFANTIS,) 10.5 mg (10 million cell) chew Take 1 tablet by mouth once daily. - REPATHA SURECLICK 140 mg/mL pen injector Inject 140 mg subcutaneously every 2 weeks. - losartan (COZAAR) 25 mg tablet Take 1 tablet by mouth once daily. - folic acid 1 mg tablet Take 1 tablet by mouth once daily. - ferrous sulfate 325 mg (65 mg iron) tablet Take 1 tablet by mouth once daily. - ascorbic acid, vitamin C, (VITAMIN C) 500 mg tablet Take 1 tablet by mouth once daily. - tacrolimus (PROTOPIC) 0.1 % ointment As needed - levothyroxine (SYNTHROID) 112 mcg tablet TAKE 1 TABLET BY MOUTH DAILY ON AN EMPTY STOMACH FOR THYROID - simvastatin (ZOCOR) 40 mg tablet Take 40 mg by mouth once daily. Taking every other day due to leg cramps - pyridoxine, vitamin B6, (VITAMIN B6) 100 mg tablet Take 100 mg by mouth once daily. - Omeprazole 40 mg capsule Take 1 capsule by mouth once daily. (Dr. Rand) Problem List As Of Date 12/14/2024 Noted Resolved Hypothyroidism [E03.9] Obesity [E66.9] 03/13/2006 06/01/2023 Family history of ischemic heart disease [Z82.4*08/31/2007 06/01/2023 Mixed hyperlipidemia [E78.2] 03/13/2008 Cardiovascular disease [I25.10] 12/14/2008 Anemia [D64.9] 04/06/2009 Myocardial infarction, old [I25.2] 02/19/2010 Family history of cardiovascular disease [Z82.4*02/19/2010 06/01/2023 Essential hypertension [I10] 2020 Angina pectoris [I20.9] 11/27/2024 CAD (coronary artery disease) [I25.10] 11/27/2024 S/P CABG (coronary artery bypass graft) [Z95.1] 12/04/2024 Acute post-operative pain [G89.18] 12/05/2024 Encounter Status:Closed by ESTELLE GARCIA on 12/14/24 [facility] [place] 12-09-2024 [place] Telephone (UROLAE) OCHOA DOUGLAS ([id number]) 1945 F Date Time Provider Department 12/09/24 LIZZIE HYLTON During your visit today, we recorded the following information about you: Suzie Conway RN 12/09/2024 11:14 AM Signed Spoke with patient today. : she is voiding without difficulty and does not feel any discomfort or fullness. She will let us know if she has any difficulty. She has to check her schedule and call back to schedule a PVR. The PVR needs to be done by straight cath. Patient seems to have fluid in her abdomen that is showing up on the bladder scan. Suzie Conway RN Allergies As of Date: 12/09/2024 Noted Allergy Reaction LISINOPRIL 08/19/2019 3 - Cough CRESTOR (ROSUVASTATIN) 03/21/2020 17 - Myalgia Comments: muscle aches LIPITOR (ATORVASTATIN) 03/21/2020 17 - Myalgia Comments: muscle aches Date Reviewed: 12/09/2024 Reviewed by: Suzie Conway, RN - Fully Assessed Reason for Visit: Patient Update [1234] Prescriptions as of 12/13/2024 - furosemide (LASIX) 20 mg tablet Please take for wt gain of 3# in a day or 5# in a week Patient should start on December 06, 2024. - polyethylene glycol 3350 17 gram packet Take 1 packet by mouth once daily. Dissolve dose in 4 - 8 ounces of liquid and take as directed. - lidocaine (SALONPAS) 4 % patch Apply 1 patch as directed once daily. - acetaminophen (TYLENOL) 500 mg tablet 2 tablets by ORAL/FEEDING TUBE route every 6 hours. - magnesium oxide (MAG-OX) 400 mg (241.3 mg magnesium) tablet Take 1 tablet by mouth once daily. - metoprolol tartrate, short acting, (LOPRESSOR) 25 mg tablet Take 1 tablet by mouth every 8 hours. - aspirin, enteric coated (ASPIRIN, ENTERIC COATED) 81 mg EC tablet Take 2 tablets by mouth once daily. - Bifidobacterium infantis (ALIGN, B.INFANTIS,) 10.5 mg (10 million cell) chew Take 1 tablet by mouth once daily. - REPATHA SURECLICK 140 mg/mL pen injector Inject 140 mg subcutaneously every 2 weeks. - losartan (COZAAR) 25 mg tablet Take 1 tablet by mouth once daily. - folic acid 1 mg tablet Take 1 tablet by mouth once daily. - ferrous sulfate 325 mg (65 mg iron) tablet Take 1 tablet by mouth once daily. - ascorbic acid, vitamin C, (VITAMIN C) 500 mg tablet Take 1 tablet by mouth once daily. - tacrolimus (PROTOPIC) 0.1 % ointment As needed - levothyroxine (SYNTHROID) 112 mcg tablet TAKE 1 TABLET BY MOUTH DAILY ON AN EMPTY STOMACH FOR THYROID - simvastatin (ZOCOR) 40 mg tablet Take 40 mg by mouth once daily. Taking every other day due to leg cramps - pyridoxine, vitamin B6, (VITAMIN B6) 100 mg tablet Take 100 mg by mouth once daily. - Omeprazole 40 mg capsule Take 1 capsule by mouth once daily. (Dr. Rand) Problem List As Of Date 12/09/2024 Noted Resolved Hypothyroidism [E03.9] Obesity [E66.9] 03/13/2006 06/01/2023 Family history of ischemic heart disease [Z82.4*08/31/2007 06/01/2023 Mixed hyperlipidemia [E78.2] 03/13/2008 Cardiovascular disease [I25.10] 12/14/2008 Anemia [D64.9] 04/06/2009 Myocardial infarction, old [I25.2] 02/19/2010 Family history of cardiovascular disease [Z82.4*02/19/2010 06/01/2023 Essential hypertension [I10] 2020 Angina pectoris [I20.9] 11/27/2024 CAD (coronary artery disease) [I25.10] 11/27/2024 S/P CABG (coronary artery bypass graft) [Z95.1] 12/04/2024 Acute post-operative pain [G89.18] 12/05/2024 Encounter Status:Closed [facility] SU[facility] Nurse Visit (UROLAE) OCHOA DOUGLAS ([id number]) 1945 F Date Time Provider Department 12/08/24 2:00 PM NURSE UROL EXCHANGE UROLAE During your visit today, we recorded the following information about you: Suzie Conway RN 12/09/2024 11:29 AM Signed Patient in for pvr. Patient states that she is urinating without difficulty and does not feel any retention. PVR per bladder scan is 556 ml. Placed a 16 azerbaijani ramesh using sterile technique. Immediate return of clear light yellow urine. Only 40 cc. Attempted to reposition the catheter and flushed and checked but no other fluid out. Spoke with Dr. Young and he stated that if urine is clear than the ultrasound is picking up other fluid. Recommended a straight cath pvr next week. Removed ramesh without difficulty. Instructed patient if she has issues urinating or becomes uncomfortable to let us know. Patient's sister and niece are RN's and could cath her if she can't go at all. Sent home straight cath supplies with patient in case of an issue but told her this is to avoid the ED and we need to know if she is having issues. Verbalized understanding. Need to set up PVR appointment. Check with patient tomorrow to see how she did. Suzie Conway RN Discussed with Irma Hylton this morning. Allergies As of Date: 12/08/2024 Noted Allergy Reaction LISINOPRIL 08/19/2019 3 - Cough CRESTOR (ROSUVASTATIN) 03/21/2020 17 - Myalgia Comments: muscle aches LIPITOR (ATORVASTATIN) 03/21/2020 17 - Myalgia Comments: muscle aches Date Reviewed: 12/08/2024 Reviewed by: Lizzie Hylton APRN.SCREW MACHINE REPAIRER - Fully Assessed Reason for Visit: Post Void Residual [355] Primary Visit Diagnosis:Urine retention [R33.9] Prescriptions as of 12/09/2024 - furosemide (LASIX) 20 mg tablet Please take for wt gain of 3# in a day or 5# in a week Patient should start on December 06, 2024. - polyethylene glycol 3350 17 gram packet Take 1 packet by mouth once daily. Dissolve dose in 4 - 8 ounces of liquid and take as directed. - lidocaine (SALONPAS) 4 % patch Apply 1 patch as directed once daily. - acetaminophen (TYLENOL) 500 mg tablet 2 tablets by ORAL/FEEDING TUBE route every 6 hours. - magnesium oxide (MAG-OX) 400 mg (241.3 mg magnesium) tablet Take 1 tablet by mouth once daily. - metoprolol tartrate, short acting, (LOPRESSOR) 25 mg tablet Take 1 tablet by mouth every 8 hours. - aspirin, enteric coated (ASPIRIN, ENTERIC COATED) 81 mg EC tablet Take 2 tablets by mouth once daily. - Bifidobacterium infantis (ALIGN, B.INFANTIS,) 10.5 mg (10 million cell) chew Take 1 tablet by mouth once daily. - REPATHA SURECLICK 140 mg/mL pen injector Inject 140 mg subcutaneously every 2 weeks. - losartan (COZAAR) 25 mg tablet Take 1 tablet by mouth once daily. - folic acid 1 mg tablet Take 1 tablet by mouth once daily. - ferrous sulfate 325 mg (65 mg iron) tablet Take 1 tablet by mouth once daily. - ascorbic acid, vitamin C, (VITAMIN C) 500 mg tablet Take 1 tablet by mouth once daily. - tacrolimus (PROTOPIC) 0.1 % ointment As needed - levothyroxine (SYNTHROID) 112 mcg tablet TAKE 1 TABLET BY MOUTH DAILY ON AN EMPTY STOMACH FOR THYROID - simvastatin (ZOCOR) 40 mg tablet Take 40 mg by mouth once daily. Taking every other day due to leg cramps - pyridoxine, vitamin B6, (VITAMIN B6) 100 mg tablet Take 100 mg by mouth once daily. - Omeprazole 40 mg capsule Take 1 capsule by mouth once daily. (Dr. Keyona) Problem List As Of Date 12/08/2024 Noted Resolved Hypothyroidism [E03.9] Obesity [E66.9] 03/13/2006 06/01/2023 Family history of ischemic heart disease [Z82.4*08/31/2007 06/01/2023 Mixed hyperlipidemia [E78.2] 03/13/2008 Cardiovascular disease [I25.10] 12/14/2008 Anemia [D64.9] 04/06/2009 Myocardial infarction, old [I25.2] 02/19/2010 Family history of cardiovascular disease [Z82.4*02/19/2010 06/01/2023 Essential hypertension [I10] 2020 Angina pectoris [I20.9] 11/27/2024 CAD (coronary artery disease) [I25.10] 11/27/2024 S/P CABG (coronary artery bypass graft) [Z95.1] 12/04/2024 Acute post-operative pain [G89.18] 12/05/2024 Encounter Status:Closed by SUZIE CONWAY on 12/09/24 [facility] CNOVon 12-08-2024 CNOV Office Visit (UROLSF ) OCHOA DOUGLAS ([id number]) 1945 F Date Time Provider Department 12/08/24 7:30 AM LIZZIE HYLTON During your visit today, we recorded the following information about you: Height 1.6 m Lizzie Hylton APRN.SCREW MACHINE REPAIRER 12/08/2024 8:22 AM Signed [facility] NEW PATIENT UROLOGY VISIT 12/08/2024 7:31 AM PATIENT NAME: Ochoa Douglas DATE OF : 1945 TODAY'S DATE: 12/08/2024 Referring Provider: No Chief Complaint: urinary retention History of Present Illness: Ms. Stella is a 79 year old female who presents to the office regarding urinary retention, ramesh catheter in place. Patient went to [facility] ER regarding chest pain, was inpatient 11/27 - 12/05/2024 Underwent CABG x3 on 11/29 In the course of her care, was found to be in urinary retention, ramesh catheter placed She is here today for TOV. She has not had problems with the catheter. Patient has seen Urology before [facility], sees Dr Ireland Was previously taking Gemtessa but stopped about a year ago Also went to [facility]PT, which helped her symptoms Patient plans to follow up there for continuing care after her TOV today Review of Systems Constitutional: Negative for fever. Genitourinary: Positive for difficulty urinating. Negative for dysuria, flank pain, frequency, hematuria and urgency. See HPI Past Medical History: PAST MEDICAL HISTORY Diagnosis Date ASCVD (arteriosclerotic cardiovascular disease) Coronary artery disease Family history of cardiovascular disease 02/19/2010 Family history of ischemic heart disease 08/31/2007 Hypertension Myocardial infarction, old 02/19/2010 Dr. Rand manages Obesity 03/13/2006 S/P CABG x 3 11/29/2024 CABG x 3 (CHAN-LAD, SVG-OM, SVG-PDA) with Dr. Hayes on 11/29/24. S/P drug eluting coronary stent placement 3 vessesl Unspecified hypothyroidism Past Surgical History: PAST SURGICAL HISTORY Procedure Laterality Date CABG (3) VEIN GRAFTS AND ARTERIAL GRAFT(S) 11/29/2024 CABG x 3 (CHAN-LAD, SVG-OM, SVG-PDA) with Dr. Hayes on 11/29/24. COLONOSCOPY FLX DX W/COLLJ SPEC WHEN PFRMD 05/18/1994 Colonoscopy--PATIENT DOES NOT RECALL HAVING ONE DONE LEFT HEART CATH,PERCUTANEOUS 11/07/2024 [facility] LIG/TRNSXJ FLP TUBE ABDL/VAG APPR UNI/BI 05/18/1987 Tubal ligation PAST SURGICAL HISTORY OF breast lumpectomy PAST SURGICAL HISTORY OF 04/15/2010 left septal mass excision (Brayan Lizzy) Social History: Social History Tobacco Use Smoking status: Never Smokeless tobacco: Never Vaping Use Vaping status: Never Used Substance Use Topics Alcohol use: No Drug use: No Medications: Prior to Admission medications : Medication furosemide (LASIX) 20 mg tablet, Sig Please take for wt gain of 3# in a day or 5# in a week Patient should start on December 06, 2024., Start Date 12/06/24, End Date , Taking? , Authorizing Provider Ely Ayoub APRN.SCREW MACHINE REPAIRER Medication polyethylene glycol 3350 17 gram packet, Sig Take 1 packet by mouth once daily. Dissolve dose in 4 - 8 ounces of liquid and take as directed., Start Date 12/05/24, End Date , Taking? , Authorizing Provider Jessie Díaz PA-C Medication lidocaine (SALONPAS) 4 % patch, Sig Apply 1 patch as directed once daily., Start Date 12/04/24, End Date , Taking? , Authorizing Provider Jessie Díaz PA-C Medication acetaminophen (TYLENOL) 500 mg tablet, Sig 2 tablets by ORAL/FEEDING TUBE route every 6 hours., Start Date 12/04/24, End Date , Taking? , Authorizing Provider Jessie Díaz PA-C Medication magnesium oxide (MAG-OX) 400 mg (241.3 mg magnesium) tablet, Sig Take 1 tablet by mouth once daily., Start Date 12/05/24, End Date , Taking? , Authorizing Provider Jessie Díaz PA-C Medication metoprolol tartrate, short acting, (LOPRESSOR) 25 mg tablet, Sig Take 1 tablet by mouth every 8 hours., Start Date 12/04/24, End Date , Taking? , Authorizing Provider Jessie Díaz PA-C Medication aspirin, enteric coated (ASPIRIN, ENTERIC COATED) 81 mg EC tablet, Sig Take 2 tablets by mouth once daily., Start Date 12/05/24, End Date , Taking? , Authorizing Provider Jessie Díaz PA-C Medication Bifidobacterium infantis (ALIGN, B.INFANTIS,) 10.5 mg (10 million cell) chew, Sig Take 1 tablet by mouth once daily., Start Date , End Date , Taking? , Authorizing Provider Elisabeth Jimenez Medication REPATHA SURECLICK 140 mg/mL pen injector, Sig Inject 140 mg subcutaneously every 2 weeks., Start Date 10/31/24, End Date , Taking? , Authorizing Provider Provider, [facility] Medication losartan (COZAAR) 25 mg tablet, Sig Take 1 tablet by mouth once daily., Start Date 09/13/24, End Date , Taking? , Authorizing Provider Provider, [facility] Medication folic acid 1 mg tablet, Sig Take 1 tablet by mouth once daily., Start Date 11/25/24, End Date 02/23/25, Taking? , Autho (more content not included)... Normal [facility] CNCOon 12-06-2024 CNCO Letter Text Normal [facility] CNPNon 12-06-2024 CNPN Telephone (HCSIND) OCHOA DOUGLAS ([id number]) 1945 F Date Time Provider Department 12/06/24 DOLLY BUCKLEY HCSIND During your visit today, we recorded the following information about you: Dolly Buckley RN 12/06/2024 5:42 PM Signed Patient declined home health start of care (SOC) for 12/07/24. Patient declined all home health visits Allergies As of Date: 12/06/2024 Noted Allergy Reaction LISINOPRIL 08/19/2019 3 - Cough CRESTOR (ROSUVASTATIN) 03/21/2020 17 - Myalgia Comments: muscle aches LIPITOR (ATORVASTATIN) 03/21/2020 17 - Myalgia Comments: muscle aches Date Reviewed: 12/04/2024 Reviewed by: Irina Perez, RN - Fully Assessed Reason for Visit: Home Care [4073] Prescriptions as of 12/06/2024 - furosemide (LASIX) 20 mg tablet Please take for wt gain of 3# in a day or 5# in a week Patient should start on December 06, 2024. - polyethylene glycol 3350 17 gram packet Take 1 packet by mouth once daily. Dissolve dose in 4 - 8 ounces of liquid and take as directed. - lidocaine (SALONPAS) 4 % patch Apply 1 patch as directed once daily. - acetaminophen (TYLENOL) 500 mg tablet 2 tablets by ORAL/FEEDING TUBE route every 6 hours. - magnesium oxide (MAG-OX) 400 mg (241.3 mg magnesium) tablet Take 1 tablet by mouth once daily. - metoprolol tartrate, short acting, (LOPRESSOR) 25 mg tablet Take 1 tablet by mouth every 8 hours. - aspirin, enteric coated (ASPIRIN, ENTERIC COATED) 81 mg EC tablet Take 2 tablets by mouth once daily. - Bifidobacterium infantis (ALIGN, B.INFANTIS,) 10.5 mg (10 million cell) chew Take 1 tablet by mouth once daily. - REPATHA SURECLICK 140 mg/mL pen injector Inject 140 mg subcutaneously every 2 weeks. - losartan (COZAAR) 25 mg tablet Take 1 tablet by mouth once daily. - folic acid 1 mg tablet Take 1 tablet by mouth once daily. - ferrous sulfate 325 mg (65 mg iron) tablet Take 1 tablet by mouth once daily. - ascorbic acid, vitamin C, (VITAMIN C) 500 mg tablet Take 1 tablet by mouth once daily. - tacrolimus (PROTOPIC) 0.1 % ointment As needed - levothyroxine (SYNTHROID) 112 mcg tablet TAKE 1 TABLET BY MOUTH DAILY ON AN EMPTY STOMACH FOR THYROID - simvastatin (ZOCOR) 40 mg tablet Take 40 mg by mouth once daily. Taking every other day due to leg cramps - pyridoxine, vitamin B6, (VITAMIN B6) 100 mg tablet Take 100 mg by mouth once daily. - Omeprazole 40 mg capsule Take 1 capsule by mouth once daily. (Dr. Rand) Problem List As Of Date 12/06/2024 Noted Resolved Hypothyroidism [E03.9] Obesity [E66.9] 03/13/2006 06/01/2023 Family history of ischemic heart disease [Z82.4*08/31/2007 06/01/2023 Mixed hyperlipidemia [E78.2] 03/13/2008 Cardiovascular disease [I25.10] 12/14/2008 Anemia [D64.9] 04/06/2009 Myocardial infarction, old [I25.2] 02/19/2010 Family history of cardiovascular disease [Z82.4*02/19/2010 06/01/2023 Essential hypertension [I10] 2020 Angina pectoris [I20.9] 11/27/2024 CAD (coronary artery disease) [I25.10] 11/27/2024 S/P CABG (coronary artery bypass graft) [Z95.1] 12/04/2024 Acute post-operative pain [G89.18] 12/05/2024 Encounter Status:Closed by DOLLY BUCKLEY on 12/06/24 [facility] ([id number]) 1945 F Date Time Provider Department 12/06/24 DOLLY BUCKLEY HCSIND During your visit today, we recorded the following information about you: Allergies As of Date: 12/06/2024 Noted Allergy Reaction LISINOPRIL 08/19/2019 3 - Cough CRESTOR (ROSUVASTATIN) 03/21/2020 17 - Myalgia Comments: muscle aches LIPITOR (ATORVASTATIN) 03/21/2020 17 - Myalgia Comments: muscle aches Date Reviewed: 12/04/2024 Reviewed by: Irina Perez, RN - Fully Assessed Reason for Visit: Home Care [9643] Cmt: FYI: Pt refused Home care with [facility] she is going with a different company Prescriptions as of 12/06/2024 - furosemide (LASIX) 20 mg tablet Please take for wt gain of 3# in a day or 5# in a week Patient should start on December 06, 2024. - polyethylene glycol 3350 17 gram packet Take 1 packet by mouth once daily. Dissolve dose in 4 - 8 ounces of liquid and take as directed. - lidocaine (SALONPAS) 4 % patch Apply 1 patch as directed once daily. - acetaminophen (TYLENOL) 500 mg tablet 2 tablets by ORAL/FEEDING TUBE route every 6 hours. - magnesium oxide (MAG-OX) 400 mg (241.3 mg magnesium) tablet Take 1 tablet by mouth once daily. - metoprolol tartrate, short acting, (LOPRESSOR) 25 mg tablet Take 1 tablet by mouth every 8 hours. - aspirin, enteric coated (ASPIRIN, ENTERIC COATED) 81 mg EC tablet Take 2 tablets by mouth once daily. - Bifidobacterium infantis (SHUN, B.INFANTIS,) 10.5 mg (10 million cell) chew Take 1 tablet by mouth once daily. - REPATHA SURECLICK 140 mg/mL pen injector Inject 140 mg subcutaneously every 2 weeks. - losartan (COZAAR) 25 mg tablet Take 1 tablet by mouth once daily. - folic acid 1 mg tablet Take 1 tablet by mouth once daily. - ferrous sulfate 325 mg (65 mg iron) tablet Take 1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 daily. - REPATHA SURECLICK 140 mg/mL pen injector Inject 140 mg subcutaneously every 2 weeks. - losartan (COZAAR) 25 mg tablet Take 1 tablet by mouth once daily. - folic acid 1 mg tablet Take 1 tablet by mouth once daily. - ferrous sulfate 325 mg (65 mg iron) tablet Take 1 tablet by mouth once daily. - ascorbic acid, vitamin C, (VITAMIN C) 500 mg tablet Take 1 tablet by mouth once daily. - tacrolimus (PROTOPIC) 0.1 % ointment As needed - levothyroxine (SYNTHROID) 112 mcg tablet TAKE 1 TABLET BY MOUTH DAILY ON AN EMPTY STOMACH FOR THYROID - simvastatin (ZOCOR) 40 mg tablet Take 40 mg by mouth once daily. Taking every other day due to leg cramps - pyridoxine, vitamin B6, (VITAMIN B6) 100 mg tablet Take 100 mg by mouth once daily. - Omeprazole 40 mg capsule Take 1 capsule by mouth once daily. (Dr. Rand) Facility-Administered Medications as of 12/05/2024 - losartan 25 mg tab(s) (COZAAR) - melatonin 3 mg tab(s) - prochlorperazine 5 mg injection (COMPAZINE) - metoprolol tartrate (short acting) 25 mg tab(s) (LOPRESSOR) - heparin 5,000 Units injection - ondansetron (PF) 4 mg injection (ZOFRAN) - pantoprazole DR 40 mg tab(s) (PROTONIX) - senna-docusate 8.6-50 mg 1 tablet (SENNA-S) - polyethylene glycol 3350 17 g packet - bisacodyl 10 mg suppository (DULCOLAX) - aspirin, enteric coated 162 mg tab(s) - lidocaine 4 % 1 patch (SALONPAS) - lidocaine patch - REMOVE - lidocaine - VERIFY PATCH - folic acid 1 mg tab(s) - ascorbic acid (vitamin C) 500 mg tab(s) (VITAMIN C) - ferrous sulfate 325 mg tab(s) - acetaminophen 1,000 mg tab(s) (TYLENOL) - magnesium oxide 400 mg tab(s) (MAG-OX) - simvastatin 40 mg tab(s) (ZOCOR) - levothyroxine 112 mcg tab(s) (SYNTHROID) - NaCl 0.9% iv flush bag Problem List As Of Date 12/04/2024 Noted Resolved Hypothyroidism [E03.9] Obesity [E66.9] 03/13/2006 06/01/2023 Family history of ischemic heart disease [Z82.4*08/31/2007 06/01/2023 Mixed hyperlipidemia [E78.2] 03/13/2008 Cardiovascular disease [I25.10] 12/14/2008 Anemia [D64.9] 04/06/2009 Myocardial infarction, old [I25.2] 02/19/2010 Family history of cardiovascular disease [Z82.4*02/19/2010 06/01/2023 Essential hypertension [I10] 2020 Angina pectoris [I20.9] 11/27/2024 CAD (coronary artery disease) [I25.10] 11/27/2024 S/P CABG (coronary artery bypass graft) [Z95.1] 12/04/2024 Encounter Status:Closed by VIK COBURN on 12/05/24 [facility] CNPN Telephone (HCSIND) OCHOA DOUGLAS ([id number]) 1945 F Date Time Provider Department 12/04/24 ELY DÍAZ During your visit today, we recorded the following information about you: Ely Díaz LPN 12/04/2024 2:06 PM Signed Date/Time: 12/04/2024 2:02 PM Spoke with Susan @ phone #: [phone] - Preferred # for contact: [phone] Have you received help from a home care company in the last 60 days? No Are you agreeable to [facility] services? Yes What address will we be seeing you at? [address] [place] [id number] Do you have any upcoming appointments or things we need to schedule around? No Do you have a teachable CG or can you manage your care independently? Yes Who? Spouse Allergies As of Date: 12/04/2024 Noted Allergy Reaction LISINOPRIL 08/19/2019 3 - Cough CRESTOR (ROSUVASTATIN) 03/21/2020 17 - Myalgia Comments: muscle aches LIPITOR (ATORVASTATIN) 03/21/2020 17 - Myalgia Comments: muscle aches Date Reviewed: 12/02/2024 Reviewed by: Heather Vincent RN - Fully Assessed Reason for Visit: Home Care [4073] Cmt: Confirmation Call Prescriptions as of 12/04/2024 - polyethylene glycol 3350 17 gram packet Take 1 packet by mouth once daily. Dissolve dose in 4 - 8 ounces of liquid and take as directed. - lidocaine (SALONPAS) 4 % patch Apply 1 patch as directed once daily. - acetaminophen (TYLENOL) 500 mg tablet 2 tablets by ORAL/FEEDING TUBE route every 6 hours. - magnesium oxide (MAG-OX) 400 mg (241.3 mg magnesium) tablet Take 1 tablet by mouth once daily. - metoprolol tartrate, short acting, (LOPRESSOR) 25 mg tablet Take 1 tablet by mouth every 8 hours. - aspirin, enteric coated (ASPIRIN, ENTERIC COATED) 81 mg EC tablet Take 2 tablets by mouth once daily. - furosemide (LASIX) 20 mg tablet Take 2 tablets by mouth once daily for 3 days, THEN 1 tablet once daily for 3 days. Patient should start on December 05, 2024. - potassium chloride (K-TAB) 10 mEq tablet Take 1 tablet by mouth every other day for 6 days. Patient should start on December 05, 2024. - Bifidobacterium infantis (ALIGN, B.INFANTIS,) 10.5 mg (10 million cell) chew Take 1 tablet by mouth once daily. - REPATHA SURECLICK 140 mg/mL pen injector Inject 140 mg subcutaneously every 2 weeks. - losartan (COZAAR) 25 mg tablet Take 1 tablet by mouth once daily. - folic acid 1 mg tablet Take 1 tablet by mouth once daily. - ferrous sulfate 325 mg (65 mg iron) tablet Take 1 tablet by mouth once daily. - ascorbic acid, vitamin C, (VITAMIN C) 500 mg tablet Take 1 tablet by mouth once daily. - tacrolimus (PROTOPIC) 0.1 % ointment As needed - levothyroxine (SYNTHROID) 112 mcg tablet TAKE 1 TABLET BY MOUTH DAILY ON AN EMPTY STOMACH FOR THYROID - simvastatin (ZOCOR) 40 mg tablet Take 40 mg by mouth once daily. Taking every other day due to leg cramps - pyridoxine, vitamin B6, (VITAMIN B6) 100 mg tablet Take 100 mg by mouth once daily. - Omeprazole 40 mg capsule Take 1 capsule by mouth once daily. (Dr. Rand) Facility-Administered Medications as of 12/04/2024 - losartan 25 mg tab(s) (COZAAR) - melatonin 3 mg tab(s) - prochlorperazine 5 mg injection (COMPAZINE) - metoprolol tartrate (short acting) 25 mg tab(s) (LOPRESSOR) - heparin 5,000 Units injection - ondansetron (PF) 4 mg injection (ZOFRAN) - pantoprazole DR 40 mg tab(s) (PROTONIX) - senna-docusate 8.6-50 mg 1 tablet (SENNA-S) - polyethylene glycol 3350 17 g packet - bisacodyl 10 mg suppository (DULCOLAX) - aspirin, enteric coated 162 mg tab(s) - lidocaine 4 % 1 patch (SALONPAS) - lidocaine patch - REMOVE - lidocaine - VERIFY PATCH - folic acid 1 mg tab(s) - ascorbic acid (vitamin C) 500 mg tab(s) (VITAMIN C) - ferrous sulfate 325 mg tab(s) - acetaminophen 1,000 mg tab(s) (TYLENOL) - magnesium oxide 400 mg tab(s) (MAG-OX) - simvastatin 40 mg tab(s) (ZOCOR) - levothyroxine 112 mcg tab(s) (SYNTHROID) - NaCl 0.9% iv flush bag Problem List As Of Date 12/04/2024 Noted Resolved Hypothyroidism [E03.9] Obesity [E66.9] 03/13/2006 06/01/2023 Family history of ischemic heart disease [Z82.4*08/31/2007 06/01/2023 Mixed hyperlipidemia [E78.2] 03/13/2008 Cardiovascular disease [I25.10] 12/14/2008 Anemia [D64.9] 04/06/2009 Myocardial infarction, old [I25.2] 02/19/2010 Family history of cardiovascular disease [Z82.4*02/19/2010 06/01/2023 Essential hypertension [I10] 2020 Angina pectoris [I20.9] 11/27/2024 CAD (coronary artery disease) [I25.10] 11/27/2024 S/P CABG (coronary artery bypass graft) [Z95.1] 12/04/2024 Encounter Status:Closed by ELY DÍAZ on 12/04/24 Normal [facility] Telephone (HCSIND) OCHOA DOUGLAS ([id number]) 1945 F Date Time Provider Department 12/04/24 ELY DÍAZ During your visit today, we recorded the following information about you: Ely Díaz LPN 12/04/2024 1:54 PM Signed Please advise if you are agreeable to signing and following for HHC services? Our Clinicians will be sending the Plan of Care to you for review and approval. They will reach out for any appropriate orders required to provide home care services for the patient. We are not able to initiate HHC services without a following provider. Home care clinicians may also obtain orders from [facility] Providers Thank you and we would be happy to answer any questions. Ely Díaz LPN 12/04/2024 1:51 PM Susanna Bennett LPN 12/05/2024 10:31 AM Signed Per secure epic chat with Jessie Díaz PA-C, will follow for home care services. Susanna Bennett LPN Allergies As of Date: 12/04/2024 Noted Allergy Reaction LISINOPRIL 08/19/2019 3 - Cough CRESTOR (ROSUVASTATIN) 03/21/2020 17 - Myalgia Comments: muscle aches LIPITOR (ATORVASTATIN) 03/21/2020 17 - Myalgia Comments: muscle aches Date Reviewed: 12/04/2024 Reviewed by: Irina Perez, RN - Fully Assessed Reason for Visit: Home Care [4073] Cmt: to Follow Prescriptions as of 12/05/2024 - polyethylene glycol 3350 17 gram packet Take 1 packet by mouth once daily. Dissolve dose in 4 - 8 ounces of liquid and take as directed. - lidocaine (SALONPAS) 4 % patch Apply 1 patch as directed once daily. - acetaminophen (TYLENOL) 500 mg tablet 2 tablets by ORAL/FEEDING TUBE route every 6 hours. - magnesium oxide (MAG-OX) 400 mg (241.3 mg magnesium) tablet Take 1 tablet by mouth once daily. - metoprolol tartrate, short acting, (LOPRESSOR) 25 mg tablet Take 1 tablet by mouth every 8 hours. - aspirin, enteric coated (ASPIRIN, ENTERIC COATED) 81 mg EC tablet Take 2 tablets by mouth once daily. - furosemide (LASIX) 20 mg tablet Take 1 tablet by mouth once daily for 5 days. Patient should start on December 06, 2024. - Bifidobacterium infantis (ALIGN, B.INFANTSONJA,) 10.5 mg (10 million cell) chew Take 1 tablet by mouth once daily. - REPATHA SURECLICK 140 mg/mL pen injector Inject 140 mg subcutaneously every 2 weeks. - losartan (COZAAR) 25 mg tablet Take 1 tablet by mouth once daily. - folic acid 1 mg tablet Take 1 tablet by mouth once daily. - ferrous sulfate 325 mg (65 mg iron) tablet Take 1 tablet by mouth once daily. - ascorbic acid, vitamin C, (VITAMIN C) 500 mg tablet Take 1 tablet by mouth once daily. - tacrolimus (PROTOPIC) 0.1 % ointment As needed - levothyroxine (SYNTHROID) 112 mcg tablet TAKE 1 TABLET BY MOUTH DAILY ON AN EMPTY STOMACH FOR THYROID - simvastatin (ZOCOR) 40 mg tablet Take 40 mg by mouth once daily. Taking every other day due to leg cramps - pyridoxine, vitamin B6, (VITAMIN B6) 100 mg tablet Take 100 mg by mouth once daily. - Omeprazole 40 mg capsule Take 1 capsule by mouth once daily. (Dr. Rand) Facility-Administered Medications as of 12/05/2024 - losartan 25 mg tab(s) (COZAAR) - melatonin 3 mg tab(s) - prochlorperazine 5 mg injection (COMPAZINE) - metoprolol tartrate (short acting) 25 mg tab(s) (LOPRESSOR) - heparin 5,000 Units injection - ondansetron (PF) 4 mg injection (ZOFRAN) - pantoprazole DR 40 mg tab(s) (PROTONIX) - senna-docusate 8.6-50 mg 1 tablet (SENNA-S) - polyethylene glycol 3350 17 g packet - bisacodyl 10 mg suppository (DULCOLAX) - aspirin, enteric coated 162 mg tab(s) - lidocaine 4 % 1 patch (SALONPAS) - lidocaine patch - REMOVE - lidocaine - VERIFY PATCH - folic acid 1 mg tab(s) - ascorbic acid (vitamin C) 500 mg tab(s) (VITAMIN C) - ferrous sulfate 325 mg tab(s) - acetaminophen 1,000 mg tab(s) (TYLENOL) - magnesium oxide 400 mg tab(s) (MAG-OX) - simvastatin 40 mg tab(s) (ZOCOR) - levothyroxine 112 mcg tab(s) (SYNTHROID) - NaCl 0.9% iv flush bag Problem List As Of Date 12/04/2024 Noted Resolved Hypothyroidism [E03.9] Obesity [E66.9] 03/13/2006 06/01/2023 Family history of ischemic heart disease [Z82.4*08/31/2007 06/01/2023 Mixed hyperlipidemia [E78.2] 03/13/2008 Cardiovascular disease [I25.10] 12/14/2008 Anemia [D64.9] 04/06/2009 Myocardial infarction, old [I25.2] 02/19/2010 Family history of cardiovascular disease [Z82.4*02/19/2010 06/01/2023 Essential hypertension [I10] 2020 Angina pectoris [I20.9] 11/27/2024 CAD (coronary artery disease) [I25.10] 11/27/2024 S/P CABG (coronary artery bypass graft) [Z95.1] 12/04/2024 Encounter Status:Closed by ELY DÍAZ on 12/04/24 [facility] NURSING PROGon 12-04-2024 NURSING PROG HNO ID: [id number] Author: IRINA PEREZ, OFELIA Service: ? Author Type: Registered Nurse Type: Nursing Progress Note Filed: 12/04/2024 05:36 Note Text: 12/03/242049: Pt had ramesh removed during day per day shift nursing. Pt voided 125mL before bladder scan. Bladder scan shows 620mL in bladder. This RN communicated this with JOAN Campbell of CT surgery via [facility]. New orders for Q4 bladder scans and if pt starting to feel uncomfortable and starting to have symptoms to have ramesh placed. Pt currently does not endorse any pain or discomfort. 12/04/24 0120: Pt voided 600mL before bladder scan. Bladder scan shows 560mL in bladder. Pt currently does not endorse any pain or discomfort. This RN communicated with JOAN Campbell of CT surgery via [facility]. No intervention necessary at this time. 0508: Pt voided 650mL before bladder scan. Bladder scan shows 527mL in bladder. Pt currently does not endorse any pain or discomfort. This RN communicated with JOAN Campbell of CT surgery via [facility]. No intervention necessary at this time. Normal [facility] US KIDNEY/BLADDERon 12-05-19 US KIDNEY/BLADDER * * *Final Report* * * DATE OF EXAM: Dec 04 2024 5:38PM [facility] 1055 - US KIDNEY/BLADDER / PROCEDURE REASON: Urinary retention * * * * Physician Interpretation * * * * EXAMINATION: RENAL ULTRASOUND CLINICAL HISTORY: Urinary retention TECHNIQUE: Sonography of the kidneys and urinary bladder was performed. Images were obtained and stored in a permanent archive. MQ: [id number] COMPARISON: None RESULT: Right Kidney: -Renal length: 10.3 cm -Parenchyma: Normal parenchymal echogenicity. Normal parenchymal thickness. -Collecting system: No hydronephrosis. -Calculus: No echogenic, shadowing calculus. -Lesion: None. Left Kidney: -Renal length: 10.1 cm -Parenchyma: Normal parenchymal echogenicity. Normal parenchymal thickness. -Collecting system: No hydronephrosis. -Calculus: No echogenic, shadowing calculus. -Lesion: None. Bladder: Normal sonographic appearance. Prevoid volume 130 to cc. Patient attempted to void but was unable. IMPRESSION: 1. Normal appearance of both kidneys. 2. Urinary bladder was initially distended with 132 cc. Patient attempted to void but was unable. Prep Room Supervisor: PSCB Transcribe Date/Time: Dec 04 2024 6:07P Dictated by : JOSSELIN CARROLL MD This examination was interpreted and the report reviewed and electronically signed by: JOSSELIN CARROLL MD on Dec 04 2024 6:08PM EST [id number] Normal [facility] Basic metabolic 2000 panelon 12-03-2024 Anion gap [Moles/Vol] 12 mmol/L Normal 8-15 [facility] Comment on above: Order Comment: Speci men Type: BLOOD SPECIMENOrdering Facility: [facility] Address: [address] [place] [address] Performed By: #### 2 4321-2 ####[facility] LABORATORYCLIA [id number] [place] [address] [place] Calcium [Mass/Vol] 8.5 mg/dL Normal 8.5-10.2 [facility] Comment on above: Order Comment: Speci men Type: BLOOD SPECIMENOrdering Facility: [facility] Address: [address] [place] [address] Performed By: #### 2 4321-2 ####[facility] LABORATORYCLIA [id number] [place] [address] [place] Chloride [Moles/Vol] 99 mmol/L Normal 98-107 [facility] Comment on above: Order Comment: Speci men Type: BLOOD SPECIMENOrdering Facility: [facility] Address: [address] [place] [address] Performed By: #### 2 4321-2 ####[facility] LABORATORYCLIA [id number] [place] [address] [place] CO2 [Moles/Vol] 23 mmol/L Normal 22-30 [facility] Comment on above: Order Comment: Speci men Type: BLOOD SPECIMENOrdering Facility: [facility] Address: [address] [place] [address] Performed By: #### 2 4321-2 ####[facility] LABORATORYCLIA [id number] [place] [address] [place] Creatinine [Mass/Vol] 1.07 mg/dL High 0.58-0.96 [facility] Comment on above: Order Comment: Speci men Type: BLOOD SPECIMENOrdering Facility: [facility] Address: [address] [place] [address] Performed By: #### 2 4321-2 ####[facility] LABORATORYCLIA [id number] [place] [address] [place] eGFRcr SerPlBld CKD-EPI 2020 53 mL/min/1.73m??? Low >=60 [facility] Comment on above: Order Comment: Meche murray Type: BLOOD SPECIMENOrdering Facility: [facility] Address: [address] [place] [address] Result Comment: Zully mated Glomerular Filtration Rate (eGFR) is calculated using the 2020 CKD-EPI creatinine equation. This equation utilizes serum creatinine, sex, and age as parameters. The creatinine assay has traceable calibration to isotope dilution-mass spectrometry. Refer to KDIGO guidelines for clinical interpretation. In patients with unstable renal function, e.g. those with acute kidney injury, the eGFR may not accurately reflect actual GFR. Performed By: #### 2 4321-2 ####[facility] LABORATORYCLIA [id number] [place] [address] [place] Glucose [Mass/Vol] 78 mg/dL Normal 74-99 [facility] Comment on above: Order Comment: Meche murray Type: BLOOD SPECIMENOrdering Facility: [facility] Address: [address] [place] [address] Result Comment: The [place] Diabetes Association (ADA) provides guidance for cutoff values for fasting glucose and random glucose. The ADA defines fasting as no caloric intake for at least 8 hours. Fasting plasma glucose results between 100 to 125 mg/dL indicate increased risk for diabetes (prediabetes). Fasting plasma glucose results greater than or equal to 126 mg/dL meet the criteria for diagnosis of diabetes. In the absence of unequivocal hyperglycemia, results should be confirmed by repeat testing. In a patient with classic symptoms of hyperglycemia or hyperglycemic crisis, random plasma glucose results greater than or equal to 200 mg/dL meet the criteria for diagnosis of diabetes. Reference: Standards of Medical Care in Diabetes 2016, [place] [employer]. Diabetes Care. 2016.39(Suppl 1). Performed By: #### 2 4321-2 ####[facility] LABORATORYCLIA [id number] [place] [address] [place] Potassium [Moles/Vol] 4.2 mmol/L Normal 3.7-5.1 [facility] Comment on above: Order Comment: Meche murray Type: BLOOD SPECIMENOrdering Facility: [facility] Address: [address] [place] [address] Performed By: #### 2 4321-2 ####[facility] LABORATORYCLIA [id number] [address] Sodium [Moles/Vol] 134 mmol/L Low 136-144 [facility] Comment on above: Order Comment: Speci men Type: BLOOD SPECIMENOrdering Facility: [facility] Address: [address] [place] [address] Performed By: #### 2 4321-2 ####[facility] LABORATORYCLIA [id number] [address] STATES [facility] Urea nitrogen [Mass/Vol] 26 mg/dL High 7-21 [facility] Comment on above: Order Comment: Speci men Type: BLOOD SPECIMENOrdering Facility: [facility] Address: [address] [place] [address] Performed By: #### 2 4321-2 ####[facility] LABORATORYCLIA [id number] [address] CBC panel Auto (Bld)on 12-03 Erythrocyte distribution width (RBC) [Ratio] 13.7 % Normal 11.5-15.0 [facility] Comment on above: Order Comment: Speci men Type: BLOOD SPECIMENOrdering Facility: [facility] Address: [address] [place] [address] Performed By: #### 5 8410-2 ####[facility] LABORATORYCLIA [id number] [address] [place] [facility] Hematocrit (Bld) [Volume fraction] 23.2 % Low 36.0-46.0 [facility] Comment on above: Order Comment: Speci men Type: BLOOD SPECIMENOrdering Facility: [facility] Address: [address] [place] [address] Performed By: #### 5 8410-2 ####[facility] LABORATORYCLIA [id number] [address] Hemoglobin (Bld) [Mass/Vol] 7.6 g/dL Low 11.5-15.5 [facility] Comment on above: Order Comment: Speci men Type: BLOOD SPECIMENOrdering Facility: [facility] Address: [address] [place] [address] Performed By: #### 5 8410-2 ####[facility] LABORATORYCLIA [id number] [address] MCH (RBC) [Entitic mass] 31.1 pg Normal 26.0-34.0 [facility] Comment on above: Order Comment: Speci men Type: BLOOD SPECIMENOrdering Facility: [facility] Address: [address] [place] [address] Performed By: #### 5 8410-2 ####[facility] LABORATORYCLIA [id number] [address] MCHC (RBC) [Mass/Vol] 32.8 g/dL Normal 30.5-36.0 [facility] Comment on above: Order Comment: Speci men Type: BLOOD SPECIMENOrdering Facility: [facility] Address: [address] [place] [address] Performed By: #### 5 8410-2 ####[facility] LABORATORYCLIA [id number] [address] MCV (RBC) [Entitic vol] 95.1 fL Normal 80.0-100.0 [facility] Comment on above: Order Comment: Speci men Type: BLOOD SPECIMENOrdering Facility: [facility] Address: [address] [place] [address] Performed By: #### 5 8410-2 ####[facility] LABORATORYCLIA [id number] [address] Nucleated RBC (Bld) [#/Vol] 10*3/uL Normal <0.01 [facility] Comment on above: Order Comment: Speci men Type: BLOOD SPECIMENOrdering Facility: [facility] Address: [address] [place] [address] Performed By: #### 5 8410-2 ####[facility]ORATORYCLIA [id number] [address] [place] Platelet mean volume (Bld) [Entitic vol] 11.8 fL Normal 9.0-12.7 [facility] Comment on above: Order Comment: Speci men Type: BLOOD SPECIMENOrdering Facility: [facility] Address: [address] [place] [address] Performed By: #### 5 8410-2 ####[facility] LABORATORYCLIA [id number] [address] [place] Platelets (Bld) [#/Vol] 220 10*3/uL Normal 150-400 [facility] Comment on above: Order Comment: Speci men Type: BLOOD SPECIMENOrdering Facility: [facility] Address: [address] [place] [address] Performed By: #### 5 8410-2 ####[facility]ITALCL[facility] [id number] [address] OF [facility] RBC (Bld) [#/Vol] 2.44 10*6/uL Low 3.90-5.20 [facility] Comment on above: Order Comment: Speci men Type: BLOOD SPECIMENOrdering Facility: [facility] Address: [address] [place] [address] Performed By: #### 5 8410-2 ####[facility] LABORATORYCLIA [id number] [address] [place] WBC (Bld) [#/Vol] 10.87 10*3/uL Normal 3.70-11.00 [facility] Comment on above: Order Comment: Speci men Type: BLOOD SPECIMENOrdering Facility: [facility] Address: [address] [place] [address] Performed By: #### 5 8410-2 ####[facility] LABORATORYCLIA [id number] [address] CONSULTon 12-03-2024 CONSULT HNO ID: [id number] Author: ANNIE ALVAREZ MD Service: Urology Author Type: Resident Type: Consults Filed: 12/19/2024 21:11 Note Text: Attestation signed by Annie Alvarez MD at 12/19/2024 9:11 PM [facility] STAFF PHYSICIAN NOTE OF PERSONAL INVOLVEMENT IN CARE I personally saw and examined the patient. I have reviewed the progress note obtained and documented by the resident and I personally participated in the haque components. I have discussed the case and management of the patient's care. Patient desires outpatient follow-up with her local urology provider in the [facility]. Annie Alvarez MD Associate Staff Urogynecology and Reconstructive Pelvic surgery [facility] Urology Urology Consult 11/27/2024 HISTORY OF PRESENT ILLNESS: The patient is a 79 year old female with past medical history as listed below to include CABG x 3 on 11/29 now with concern for questionable acute urinary retention. Per report from primary team: Pt had ramesh discontinued on POD1 from surgery. She had poor UOP with only ~50 ccs out at a time and LAMAR, Ramesh reinserted at that time (POD2). Their team proceded with void trial yesterday (pod4) after bm and ambulating routinely. believe. However after considerable time, was bladder scanned for 680cc in her bladder without discomfort. Discussed with CV BLAYNE to insert ramesh if she begins endorsing suprapubic discomfort. According to the patient she has been voiding well overnight. States she was unable to void well, requiring indwelling catheter and a few straight caths. Has a history of overactive bladder. Has not been ambulating at baseline. Did have a bowel movement yesterday. On evaluation, she is AF and HDS. Labs and imaging are outlined below. Urology consulted for evaluation and management. ED/Hospital workup Cr 1.07 WBC 11 HGB 7.6 7/4 UA neg SQH PAST MEDICAL HISTORY: PAST MEDICAL HISTORY Diagnosis Date ASCVD (arteriosclerotic cardiovascular disease) Coronary artery disease Family history of cardiovascular disease 02/19/2010 Family history of ischemic heart disease 08/31/2007 Hypertension Myocardial infarction, old 02/19/2010 Dr. Rand manages Obesity 03/13/2006 S/P drug eluting coronary stent placement 3 vessesl Unspecified hypothyroidism PAST SURGICAL HISTORY: PAST SURGICAL HISTORY Procedure Laterality Date COLONOSCOPY FLX DX W/COLLJ SPEC WHEN PFRMD 05/18/1994 Colonoscopy--PATIENT DOES NOT RECALL HAVING ONE DONE LEFT HEART CATH,PERCUTANEOUS 11/07/2024 [facility] LIG/TRNSXJ FLP TUBE ABDL/VAG APPR UNI/BI 05/18/1987 Tubal ligation PAST SURGICAL HISTORY OF breast lumpectomy PAST SURGICAL HISTORY OF 04/15/2010 left septal mass excision (Brayan Ball) ALLERGIES: ALLERGIES Allergen Reactions Lisinopril Cough Crestor [Rosuvastat* Myalgia muscle aches Lipitor [Atorvastat* Myalgia muscle aches HOME MEDICATIONS: Bifidobacterium infantis (ALIGN, B.INFANTIS,) 10.5 mg (10 million cell) chew, Take 1 tablet by mouth once daily., Disp: , Rfl: , Taking REPATHA SURECLICK 140 mg/mL pen injector, Inject 140 mg subcutaneously every 2 weeks., Disp: , Rfl: , Taking losartan (COZAAR) 25 mg tablet, Take 1 tablet by mouth once daily., Disp: , Rfl: , Taking folic acid 1 mg tablet, Take 1 tablet by mouth once daily., Disp: 30 tablet, Rfl: 2, Taking ferrous sulfate 325 mg (65 mg iron) tablet, Take 1 tablet by mouth once daily., Disp: 30 tablet, Rfl: 2, Taking ascorbic acid, vitamin C, (VITAMIN C) 500 mg tablet, Take 1 tablet by mouth once daily., Disp: 30 tablet, Rfl: 2, Taking aspirin, enteric coated (ASPIRIN, ENTERIC COATED) 81 mg EC tablet, Take 81 mg by mouth once daily., Disp: , Rfl: , Taking metoprolol tartrate, short acting, (LOPRESSOR) 25 mg tablet, Take 12.5 mg by mouth two times a day. [facility], Disp: , Rfl: , Taking tacrolimus (PROTOPIC) 0.1 % ointment, As needed, Disp: , Rfl: , Taking levothyroxine (SYNTHROID) 112 mcg tablet, TAKE 1 TABLET BY MOUTH DAILY ON AN EMPTY STOMACH FOR THYROID, Disp: 90 tablet, Rfl: 3, Taking simvastatin (ZOCOR) 40 mg tablet, Take 40 mg by mouth once daily. Taking every other day due to leg cramps , Disp: , Rfl: , Taking pyridoxine, vitamin B6, (VITAMIN B6) 100 mg tablet, Take 100 mg by mouth once daily., Disp: , Rfl: , Taking Omeprazole 40 mg capsule, Take 1 capsule by mouth once daily. (Dr. Rand), Disp: , Rfl: , Taking nitroglycerin(NITROST AT 0.4 MG SUBLINGUAL TAB), Place one(1) tablet on tongue as needed for chest pain. If no pain relief call 911., Disp: , Rfl: 0, Taking clopidogrel bisulfate(PLAVIX 75 MG TAB), Take 75 mg by mouth once daily., Disp: , Rfl: 0, 11/07/2024 FAMILY HISTORY: Family History Problem Relation Age of Onset Thyroid Sister 2 sisters and one broth (more content not included)... Normal [facility] XR CHEST 2V FRONTAL/LATon XR CHEST 2V FRONTAL/LAT * * *Final Repor t* * * DATE OF EXAM: Dec 03 2024 8:22AM AKX [id number] - XR CHEST 2V FRONTAL/LAT / PROCEDURE REASON: Shortness of breath * * * * Physician Interpretation * * * * EXAMINATION: CHEST RADIOGRAPH (2 VIEW FRONTAL and LATERAL) CLINICAL HISTORY: Shortness of breath MQ: XC2_6 EXAM DATE/TIME: 12/03/2024 8:22 AM COMPARISON: 12/02/2024. RESULT: Lines, tubes, and devices: Interval removal of right internal jugular vein central venous catheter. Lungs and pleura: No significant change in minimal patchy opacities at the lung bases, coarse lung markings at the upper lobes and small bilateral pleural effusions. Cardiomediastinal silhouette: Status post midline sternotomy. Stable cardiomediastinal silhouette. Bones and soft tissues: Unremarkable. IMPRESSION: Status post removal of right-sided central venous catheter. Otherwise, no significant change since 12/02/2024. Prep Room Supervisor: PSCB Transcribe Date/Time: Dec 03 2024 8:52A Dictated by : RONNY MAKI MD This examination was interpreted and the report reviewed and electronically signed by: RONNY MAKI MD on Dec 03 2024 8:54AM EST [id number] N Normal [facility] Basic metabolic 2000 panelon 12-02-2024 Anion gap [Moles/Vol] 11 mmol/L Normal 8-15 [facility] Comment on above: Order Comment: Speci men Type: BLOOD SPECIMENOrdering Facility: [facility] Address: [address] [place] [address] Performed By: #### 2 4321-2 ####[facility] LABORATORYCLIA [id number] [place] [address] [place] Calcium [Mass/Vol] 8.1 mg/dL Low 8.5-10.2 [facility] Comment on above: Order Comment: Speci men Type: BLOOD SPECIMENOrdering Facility: [facility] Address: [address] [place] [address] Performed By: #### 2 4321-2 ####[facility] LABORATORYCLIA [id number] [place] [address] [place] Chloride [Moles/Vol] 94 mmol/L Low 98-107 [facility] Comment on above: Order Comment: Speci men Type: BLOOD SPECIMENOrdering Facility: [facility] Address: [address] [place] [address] Performed By: #### 2 4321-2 ####[facility] LABORATORYCLIA [id number] [place] [address] [place] CO2 [Moles/Vol] 21 mmol/L Low 22-30 [facility] Comment on above: Order Comment: Speci men Type: BLOOD SPECIMENOrdering Facility: [facility] Address: [address] [place] [address] Performed By: #### 2 4321-2 ####[facility] HOSPITALIA [id number] [place] [address] [place] [facility] Creatinine [Mass/Vol] 1.18 mg/dL High 0.58-0.96 [facility] Comment on above: Order Comment: Meche murray Type: BLOOD SPECIMENOrdering Facility: [facility] Address: [address] [place] [address] Performed By: #### 2 4321-2 ####[facility] HOSPITALIA [id number] [address] OF [facility] eGFRcr SerPlBld CKD-EPI 2020 47 mL/min/1.73m??? Low >=60 [facility] Comment on above: Order Comment: Meche murray Type: BLOOD SPECIMENOrdering Facility: [facility] Address: [address] [place] [address] Result Comment: Zully mated Glomerular Filtration Rate (eGFR) is calculated using the 2020 CKD-EPI creatinine equation. This equation utilizes serum creatinine, sex, and age as parameters. The creatinine assay has traceable calibration to isotope dilution-mass spectrometry. Refer to KDIGO guidelines for clinical interpretation. In patients with unstable renal function, e.g. those with acute kidney injury, the eGFR may not accurately reflect actual GFR. Performed By: #### 2 4321-2 ####[facility] HOSPITALIA [id number] [address] [place] Glucose [Mass/Vol] 112 mg/dL High 74-99 [facility] Comment on above: Order Comment: Meche terri Type: BLOOD SPECIMENOrdering Facility: [facility] Address: [address] [place] [address] Result Comment: The [place] Diabetes Association (ADA) provides guidance for cutoff values for fasting glucose and random glucose. The ADA defines fasting as no caloric intake for at least 8 hours. Fasting plasma glucose results between 100 to 125 mg/dL indicate increased risk for diabetes (prediabetes). Fasting plasma glucose results greater than or equal to 126 mg/dL meet the criteria for diagnosis of diabetes. In the absence of unequivocal hyperglycemia, results should be confirmed by repeat testing. In a patient with classic symptoms of hyperglycemia or hyperglycemic crisis, random plasma glucose results greater than or equal to 200 mg/dL meet the criteria for diagnosis of diabetes. Reference: Standards of Medical Care in Diabetes 2016, [place] [employer]. Diabetes Care. 2016.39(Suppl 1). Performed By: #### 2 4321-2 ####[facility] LABORATORYCLIA [id number] [address] STATES OF [facility] Potassium [Moles/Vol] 5.0 mmol/L Normal 3.7-5.1 [facility] Comment on above: Order Comment: Speci men Type: BLOOD SPECIMENOrdering Facility: [facility] Address: [address] [place] [address] Performed By: #### 2 4321-2 ####[facility] LABORATORYCLIA [id number] [address] Sodium [Moles/Vol] 126 mmol/L Low 136-144 [facility] Comment on above: Order Comment: Speci men Type: BLOOD SPECIMENOrdering Facility: [facility] Address: [address] [place] [address] Performed By: #### 2 4321-2 ####[facility] LABORATORYCLIA [id number] [address] Urea nitrogen [Mass/Vol] 31 mg/dL High 7-21 [facility] Comment on above: Order Comment: Speci men Type: BLOOD SPECIMENOrdering Facility: [facility] Address: [address] [place] [address] Performed By: #### 2 4321-2 ####[facility] LABORATORYCLIA [id number] [address] [place] CBC panel Auto (Bld)on 12-02 Erythrocyte distribution width (RBC) [Ratio] 13.6 % Normal 11.5-15.0 [facility] Comment on above: Order Comment: Speci men Type: BLOOD SPECIMENOrdering Facility: [facility] Address: [address] [place] [address] Performed By: #### 5 8410-2 ####[facility] LABORATORYCLIA [id number] [address] OF [facility] Hematocrit (Bld) [Volume fraction] 21.3 % Low 36.0-46.0 [facility] Comment on above: Order Comment: Speci men Type: BLOOD SPECIMENOrdering Facility: [facility] Address: [address] [place] [address] Performed By: #### 5 8410-2 ####[facility] LABORATORYCLIA [id number] [address] OF [facility] Hemoglobin (Bld) [Mass/Vol] 7.0 g/dL Low 11.5-15.5 [facility] Comment on above: Order Comment: Speci men Type: BLOOD SPECIMENOrdering Facility: [facility] Address: [address] [place] [address] Performed By: #### 5 8410-2 ####[facility] LABORATORYCLIA [id number] [address] MCH (RBC) [Entitic mass] 31.4 pg Normal 26.0-34.0 [facility] Comment on above: Order Comment: Speci men Type: BLOOD SPECIMENOrdering Facility: [facility] Address: [address] [place] [address] Performed By: #### 5 8410-2 ####[facility] LABORATORYCLIA [id number] [address] [place] MCHC (RBC) [Mass/Vol] 32.9 g/dL Normal 30.5-36.0 [facility] Comment on above: Order Comment: Speci men Type: BLOOD SPECIMENOrdering Facility: [facility] Address: [address] [place] [address] Performed By: #### 5 8410-2 ####[facility] LABORATORYCLIA [id number] [address] MCV (RBC) [Entitic vol] 95.5 fL Normal 80.0-100.0 [facility] Comment on above: Order Comment: Speci men Type: BLOOD SPECIMENOrdering Facility: [facility] Address: [address] [place] [address] Performed By: #### 5 8410-2 ####[facility] LABORATORYCLIA [id number] [address] [place] Nucleated RBC (Bld) [#/Vol] 10*3/uL Normal <0.01 [facility] Comment on above: Order Comment: Speci men Type: BLOOD SPECIMENOrdering Facility: [facility] Address: [address] [place] [address] Performed By: #### 5 8410-2 ####[facility] LABORATORYCLIA [id number] [address] [place] Platelet mean volume (Bld) [Entitic vol] 11.8 fL Normal 9.0-12.7 [facility] Comment on above: Order Comment: Speci men Type: BLOOD SPECIMENOrdering Facility: [facility] Address: [address] [place] [address] Performed By: #### 5 8410-2 ####[facility] LABORATORYCLIA [id number] [address] [place] Platelets (Bld) [#/Vol] 150 10*3/uL Normal 150-400 [facility] Comment on above: Order Comment: Speci men Type: BLOOD SPECIMENOrdering Facility: [facility] Address: [address] [place] [address] Performed By: #### 5 8410-2 ####[facility] LABORATORYCLIA [id number] [address] RBC (Bld) [#/Vol] 2.23 10*6/uL Low 3.90-5.20 [facility] Comment on above: Order Comment: Speci men Type: BLOOD SPECIMENOrdering Facility: [facility] Address: [address] [place] [address] Performed By: #### 5 8410-2 ####[facility] LABORATORYCLIA [id number] [address] [place] WBC (Bld) [#/Vol] 12.26 10*3/uL High 3.70-11.00 [facility] Comment on above: Order Comment: Speci men Type: BLOOD SPECIMENOrdering Facility: [facility] Address: [address] [place] [address] Performed By: #### 5 8410-2 ####[facility] LABORATORYCLIA [id number] [place] [id number] Hgb Bld-mCncon 12-02-2024 Hemoglobin (Bld) [Mass/Vol] 7.4 g/dL Low 11.5-15.5 [facility] Comment on above: Order Comment: Speci men Type: BLOOD SPECIMENOrdering Facility: [facility] Address: [address] [place] [address] Performed By: #### 7 18-7 ####[facility] LABORATORYCLIA [id number] [address] OF [facility] PT EDon 12-02-2024 PT ED HNO ID: [id number] Author: QUIRINO JARRELL DTR Service: Nutrition Therapy Author Type: Commissary Steward Type: Patient Education Filed: 12/02/2024 16:16 Note Text: NUTRITION THERAPY PATIENT EDUCATION SERVICE DATE: 12/02/2024 SERVICE TIME: 1218 TOPIC: Diet: Heart Healthy LEARNING ASSESSMENT Individuals Assessed: Patient and Spouse Preferred Learning Method: No Preference Barriers to Learning: None Evident LEARNING RESPONSE Instruction Provided to: Patient and Spouse Patient / Family Response: Verbalizes Understanding Method of Instruction: Teach Back . Individual instruction Written instruction/Handouts Verbal instruction Material(s) Provided to Patient: Education Materials Provided Nutrition Education CCHS: Your Sodium Controlled Mediterranean MNT Billing: $ Routine Care : 1 unit SIGNATURE: Quirino Jarrell DTR PATIENT NAME: Ochoa Douglas DATE: December 02, 2024 TIME: 4:16 PM PAGER: Normal [facility] XR CHEST 1V FRONTALon 2024 XR CHEST 1V FRONTAL * * *Final Report* * * DATE OF EXAM: Dec 02 2024 4:27AM AKX [id number] - XR CHEST 1V FRONTAL / PROCEDURE REASON: Post-operative / post-procedure assessment, asymptomatic * * * * Physician Interpretation * * * * EXAMINATION: CHEST RADIOGRAPH (SINGLE VIEW AP OR PA) CLINICAL HISTORY: Post-operative / post-procedure assessment, asymptomatic, Post-operative/post-p rocedure assessment MQ: XC1_5 Comparison: 12/01/2024 RESULT: Lines, tubes, and devices: Status post removal of bilateral chest tubes Stable positioning right internal jugular central line. child monitor leads. Intact median sternotomy wires and sternal plate. Lungs and pleura: Patchy diminished aeration at both lung bases Small bilateral pleural effusions. No pneumothorax. Cardiomediastinal silhouette: Stable. Other: No significant additional findings. IMPRESSION: 1. Status post removal of bilateral chest tubes. No pneumothorax. 2. Patchy diminished aeration at the lung bases most likely atelectasis and small effusions. Prep Room Supervisor: LARRY Transcribe Date/Time: Dec 02 2024 7:19A Dictated by : JOSSELIN CARROLL MD This examination was interpreted and the report reviewed and electronically signed by: JOSSELIN CARROLL MD on Dec 02 2024 7:21AM EST [id number] N Normal [facility] Basic metabolic 2000 panelon 12-01-2024 Anion gap [Moles/Vol] 11 mmol/L Normal 8-15 [facility] Comment on above: Order Comment: Speci men Type: BLOOD SPECIMENOrdering Facility: [facility] Address: [address] [place] [address] Performed By: #### 2 4321-2 ####[facility] LABORATORYCLIA [id number] [place] [address] [place] Calcium [Mass/Vol] 8.3 mg/dL Low 8.5-10.2 [facility] Comment on above: Order Comment: Speci men Type: BLOOD SPECIMENOrdering Facility: [facility] Address: [address] [place] [address] Performed By: #### 2 4321-2 ####[facility] LABORATORYCLIA [id number] [place] [address] [place] Chloride [Moles/Vol] 95 mmol/L Low 98-107 [facility] Comment on above: Order Comment: Speci men Type: BLOOD SPECIMENOrdering Facility: [facility] Address: [address] [place] [address] Performed By: #### 2 4321-2 ####[facility] LABORATORYCLIA [id number] [place] [id number] [place] CO2 [Moles/Vol] 21 mmol/L Low 22-30 [facility] Comment on above: Order Comment: Speci men Type: BLOOD SPECIMENOrdering Facility: [facility] Address: [address] [place] [address] Performed By: #### 2 4321-2 ####[facility] LABORATORYCLIA [id number] [place] [address] [place] Creatinine [Mass/Vol] 1.31 mg/dL High 0.58-0.96 [facility] Comment on above: Order Comment: Speci men Type: BLOOD SPECIMENOrdering Facility: [facility] Address: [address] [place] [address] Performed By: #### 2 4321-2 ####[facility] LABORATORYCLIA [id number] [place] [address] [place] eGFRcr SerPlBld CKD-EPI 2020 42 mL/min/1.73m??? Low >=60 [facility] Comment on above: Order Comment: Speci men Type: BLOOD SPECIMENOrdering Facility: [facility] Address: [address] [place] [address] Result Comment: Zully mated Glomerular Filtration Rate (eGFR) is calculated using the 2020 CKD-EPI creatinine equation. This equation utilizes serum creatinine, sex, and age as parameters. The creatinine assay has traceable calibration to isotope dilution-mass spectrometry. Refer to KDIGO guidelines for clinical interpretation. In patients with unstable renal function, e.g. those with acute kidney injury, the eGFR may not accurately reflect actual GFR. Performed By: #### 2 4321-2 ####[facility] LABORATORYCLIA [id number] [place] [address] [place] Glucose [Mass/Vol] 111 mg/dL High 74-99 [facility] Comment on above: Order Comment: Meche men Type: BLOOD SPECIMENOrdering Facility: [facility] Address: [address] [place] [address] Result Comment: The [place] [employer] (ADA) provides guidance for cutoff values for fasting glucose and random glucose. The ADA defines fasting as no caloric intake for at least 8 hours. Fasting plasma glucose results between 100 to 125 mg/dL indicate increased risk for diabetes (prediabetes). Fasting plasma glucose results greater than or equal to 126 mg/dL meet the criteria for diagnosis of diabetes. In the absence of unequivocal hyperglycemia, results should be confirmed by repeat testing. In a patient with classic symptoms of hyperglycemia or hyperglycemic crisis, random plasma glucose results greater than or equal to 200 mg/dL meet the criteria for diagnosis of diabetes. Reference: Standards of Medical Care in Diabetes 2016, [place] [employer]. Diabetes Care. 2016.39(Suppl 1). Performed By: #### 2 4321-2 ####[facility] LABORATORYCLIA [id number] [place] [address] [place] Potassium [Moles/Vol] 5.0 mmol/L Normal 3.7-5.1 [facility] Comment on above: Order Comment: Meche terri Type: BLOOD SPECIMENOrdering Facility: [facility] Address: [address] [place] [address] Performed By: #### 2 4321-2 ####[facility] LABORATORYCLIA [id number] [place] [address] [place] Sodium [Moles/Vol] 127 mmol/L Low 136-144 [facility] Comment on above: Order Comment: Lathai men Type: BLOOD SPECIMENOrdering Facility: [facility] Address: [address] [id number] Performed By: #### 2 4321-2 ####[facility] LABORATORYCLIA [id number] [place] [address] [place] Urea nitrogen [Mass/Vol] 34 mg/dL High 7-21 [facility] Comment on above: Order Comment: Lathai men Type: BLOOD SPECIMENOrdering Facility: [facility] Address: [address] [place] [address] Performed By: #### 2 4321-2 ####[facility] LABORATORYCLIA [id number] [place] [address] [place] Anion gap [Moles/Vol] 7 mmol/L Low 8-15 [facility] Comment on above: Order Comment: Speci men Type: BLOOD SPECIMENOrdering Facility: [facility] Address: [address] [place] [address] Performed By: #### 2 4321-2 ####[facility] LABORATORYCLIA [id number] [place] [address] [place] Calcium [Mass/Vol] 8.5 mg/dL Normal 8.5-10.2 [facility] Comment on above: Order Comment: Speci men Type: BLOOD SPECIMENOrdering Facility: [facility] Address: [address] [place] [address] Performed By: #### 2 4321-2 ####[facility] LABORATORYCLIA [id number] [place] [address] [place] Chloride [Moles/Vol] 98 mmol/L Normal 98-107 [facility] Comment on above: Order Comment: Speci men Type: BLOOD SPECIMENOrdering Facility: [facility] Address: [address] [place] [address] Performed By: #### 2 4321-2 ####[facility]ORATORYCLIA [id number] [place] [address] [place] CO2 [Moles/Vol] 22 mmol/L Normal 22-30 [facility] Comment on above: Order Comment: Speci men Type: BLOOD SPECIMENOrdering Facility: [facility] Address: [address] [place] [address] Performed By: #### 2 4321-2 ####[facility]ORATORYCLIA [id number] [place] [address] [place] Creatinine [Mass/Vol] 1.41 mg/dL High 0.58-0.96 [facility] Comment on above: Order Comment: Speci men Type: BLOOD SPECIMENOrdering Facility: [facility] Address: [address] [place] [address] Performed By: #### 2 4321-2 ####[facility]ITALCLIA [id number] [place] [id number] [facility] eGFRcr SerPlBld CKD-EPI 2020 38 mL/min/1.73m??? Low >=60 [facility] Comment on above: Order Comment: Meche murray Type: BLOOD SPECIMENOrdering Facility: [facility] Address: [address] [place] [address] Result Comment: Zully mated Glomerular Filtration Rate (eGFR) is calculated using the 2020 CKD-EPI creatinine equation. This equation utilizes serum creatinine, sex, and age as parameters. The creatinine assay has traceable calibration to isotope dilution-mass spectrometry. Refer to KDIGO guidelines for clinical interpretation. In patients with unstable renal function, e.g. those with acute kidney injury, the eGFR may not accurately reflect actual GFR. Performed By: #### 2 4321-2 ####[facility] HOSPITALIA [id number] [place] [id number] [place] [facility] Glucose [Mass/Vol] 120 mg/dL High 74-99 [facility] Comment on above: Order Comment: Meche murray Type: BLOOD SPECIMENOrdering Facility: [facility] Address: [address] [place] [address] Result Comment: The [place] Diabetes Association (ADA) provides guidance for cutoff values for fasting glucose and random glucose. The ADA defines fasting as no caloric intake for at least 8 hours. Fasting plasma glucose results between 100 to 125 mg/dL indicate increased risk for diabetes (prediabetes). Fasting plasma glucose results greater than or equal to 126 mg/dL meet the criteria for diagnosis of diabetes. In the absence of unequivocal hyperglycemia, results should be confirmed by repeat testing. In a patient with classic symptoms of hyperglycemia or hyperglycemic crisis, random plasma glucose results greater than or equal to 200 mg/dL meet the criteria for diagnosis of diabetes. Reference: Standards of Medical Care in Diabetes 2016, [place] [employer]. Diabetes Care. 2016.39(Suppl 1). Performed By: #### 2 4321-2 ####[facility] HOSPITALIA [id number] [place] [id number] [place] Potassium [Moles/Vol] 4.9 mmol/L Normal 3.7-5.1 [facility] Comment on above: Order Comment: Speci men Type: BLOOD SPECIMENOrdering Facility: [facility] Address: [address] [place] [address] Performed By: #### 2 4321-2 ####[facility] LABORATORYCLIA [id number] [address] STATES OF [facility] Sodium [Moles/Vol] 127 mmol/L Low 136-144 [facility] Comment on above: Order Comment: Speci men Type: BLOOD SPECIMENOrdering Facility: [facility] Address: [address] [place] [address] Performed By: #### 2 4321-2 ####[facility] LABORATORYCLIA [id number] [address] Urea nitrogen [Mass/Vol] 33 mg/dL High 7-21 [facility] Comment on above: Order Comment: Speci men Type: BLOOD SPECIMENOrdering Facility: [facility] Address: [address] [place] [address] Performed By: #### 2 4321-2 ####[facility] LABORATORYCLIA [id number] [address] CBC panel Auto (Bld)on 12-01 Erythrocyte distribution width (RBC) [Ratio] 13.6 % Normal 11.5-15.0 [facility] Comment on above: Order Comment: Speci men Type: BLOOD SPECIMENOrdering Facility: [facility] Address: [address] [place] [address] Performed By: #### 5 8410-2 ####[facility] LABORATORYCLIA [id number] [address] Hematocrit (Bld) [Volume fraction] 22.3 % Low 36.0-46.0 [facility] Comment on above: Order Comment: Speci men Type: BLOOD SPECIMENOrdering Facility: [facility] Address: [address] [place] [address] Performed By: #### 5 8410-2 ####[facility] LABORATORYCLIA [id number] [address] OF [facility] Hemoglobin (Bld) [Mass/Vol] 7.1 g/dL Low 11.5-15.5 [facility] Comment on above: Order Comment: Speci men Type: BLOOD SPECIMENOrdering Facility: [facility] Address: [address] [place] [address] Performed By: #### 5 8410-2 ####[facility] LABORATORYCLIA [id number] [address] MCH (RBC) [Entitic mass] 30.6 pg Normal 26.0-34.0 [facility] Comment on above: Order Comment: Speci men Type: BLOOD SPECIMENOrdering Facility: [facility] Address: [address] [place] [address] Performed By: #### 5 8410-2 ####[facility] LABORATORYCLIA [id number] [address] MCHC (RBC) [Mass/Vol] 31.8 g/dL Normal 30.5-36.0 [facility] Comment on above: Order Comment: Speci men Type: BLOOD SPECIMENOrdering Facility: [facility] Address: [address] [place] [address] Performed By: #### 5 8410-2 ####[facility] LABORATORYCLIA [id number] [address] MCV (RBC) [Entitic vol] 96.1 fL Normal 80.0-100.0 [facility] Comment on above: Order Comment: Speci men Type: BLOOD SPECIMENOrdering Facility: [facility] Address: [address] [place] [address] Performed By: #### 5 8410-2 ####[facility] LABORATORYCLIA [id number] [address] Nucleated RBC (Bld) [#/Vol] 10*3/uL Normal <0.01 [facility] Comment on above: Order Comment: Speci men Type: BLOOD SPECIMENOrdering Facility: [facility] Address: [address] [place] [address] Performed By: #### 5 8410-2 ####[facility] LABORATORYCLIA [id number] [address] [place] Platelet mean volume (Bld) [Entitic vol] 11.5 fL Normal 9.0-12.7 [facility] Comment on above: Order Comment: Speci men Type: BLOOD SPECIMENOrdering Facility: [facility] Address: [address] [place] [address] Performed By: #### 5 8410-2 ####[facility] LABORATORYCLIA [id number] [address] [place] Platelets (Bld) [#/Vol] 147 10*3/uL Low 150-400 [facility] Comment on above: Order Comment: Speci men Type: BLOOD SPECIMENOrdering Facility: [facility] Address: [address] [place] [address] Performed By: #### 5 8410-2 ####[facility] LABORATORYCLIA [id number] [place] [address] [place] RBC (Bld) [#/Vol] 2.32 10*6/uL Low 3.90-5.20 [facility] Comment on above: Order Comment: Speci men Type: BLOOD SPECIMENOrdering Facility: [facility] Address: [address] [place] [address] Performed By: #### 5 8410-2 ####[facility] LABORATORYCLIA [id number] [address] [place] WBC (Bld) [#/Vol] 15.23 10*3/uL High 3.70-11.00 [facility] Comment on above: Order Comment: Speci men Type: BLOOD SPECIMENOrdering Facility: [facility] Address: [address] [place] [address] Performed By: #### 5 8410-2 ####[facility] LABORATORYCLIA [id number] [place] [address] [place] Creatinine Unsp time (U) [Ma ss/Vol]on 12-01-2024 Creatinine (U) [Mass/Vol] 126.1 mg/dL Normal 42.2-237.9 [facility] Comment on above: Order Comment: Speci men Type: URINE SPECIMENOrdering Facility: [facility] Address: [address] [place] [address] Performed By: #### 3 5678-2, 24777-0 ####[facility]ORATORYCLIA [id number] [address] [place] Hgb Bld-mCncon 12-01-2024 Hemoglobin (Bld) [Mass/Vol] 7.3 g/dL Low 11.5-15.5 [facility] Comment on above: Order Comment: Speci men Type: BLOOD SPECIMENOrdering Facility: [facility] Address: [address] [place] [address] Performed By: #### 7 18-7 ####[facility]ORATORYCLIA [id number] [address] [place] Lactate (Bld) [Moles/Vol]on 12-01-2024 Lactate [Moles/Vol] 1.1 mmol/L Normal 0.5-2.2 [facility] Comment on above: Order Comment: Speci men Type: BLOOD SPECIMENOrdering Facility: [facility] Address: [address] [place] [address] Performed By: #### 3 2693-4 ####[facility]ORATORYCLIA [id number] [address] [place] POTASSIUMon 12-01-2024 Potassium [Moles/Vol] 5.2 mmol/L High 3.7-5.1 [facility] Comment on above: Order Comment: Speci men Type: BLOOD SPECIMENOrdering Facility: [facility] Address: [address] [place] [address] Performed By: #### K 1 ####[facility] LABORATORYCLIA [id number] [address] STATES OF [facility] Sodium ?Tm Ur-sCncon 025 Sodium Unsp time (U) [Moles/Vol] <20 Normal 14-216 [facility] Comment on above: Order Comment: Speci men Type: URINE SPECIMENOrdering Facility: [facility] Address: [address] [place] [address] Performed By: #### 3 5678-2, 82590-7 ####[facility] LABORATORYCLIA [id number] [place] [id number] [facility] XR ABDOMEN 1V SUPINEon 12-01 XR ABDOMEN 1V SUPINE * * *Final Report* * * DATE OF EXAM: Dec 01 2024 12:11PM [id number] [id number] - XR ABDOMEN 1V SUPINE / PROCEDURE REASON: Nausea/Vomiting * * * * Physician Interpretation * * * * EXAM TITLE: XR ABDOMEN 1V SUPINE DATE: 12/01/2024 COMPARISON: None. CLINICAL INDICATION/HISTORY: Nausea and vomiting TECHNIQUE: Supine KUB FINDINGS: Nonspecific bowel gas pattern. No significant bowel dilatation. No masses or unusual calcifications. Thoracostomy tubes are noted. Degenerative changes lumbar spine. IMPRESSION: Nonspecific abdomen. Prep Room Supervisor: PSCB Transcribe Date/Time: Dec 01 2024 1:26P Dictated by : SASHA ROWELL MD This examination was interpreted and the report reviewed and electronically signed by: SASHA ROWELL MD on Dec 01 2024 1:27PM EST [id number] N Normal [facility] XR CHEST 1V FRONTALon 2024 XR CHEST 1V FRONTAL * * *Final Report* * * DATE OF EXAM: Dec 01 2024 4:53AM [id number] [id number] - XR CHEST 1V FRONTAL / PROCEDURE REASON: Post-operative/post-p rocedure assessment * * * * Physician Interpretation * * * * EXAMINATION: CHEST RADIOGRAPH (SINGLE VIEW AP OR PA) CLINICAL HISTORY: Post-operative/post-p rocedure assessment, Evaluate tube, line, or lead position MQ: XC1_5 Comparison: 11/30/2024 RESULT: Lines, tubes, and devices: Stable positioning right internal jugular central line with tip in the right atrium. Stable positioning of bilateral chest tubes. Mediastinal drain has been removed. Intact median sternotomy wires and sternal plate. Overlying bus driver/monitor leads. Lungs and pleura: Trace bilateral pneumothoraces. Improving aeration at the lung bases with residual atelectasis. Cardiomediastinal silhouette: Normal cardiomediastinal silhouette. Other: No significant additional findings. IMPRESSION: 1. Status post removal of mediastinal drain. 2. Improving aeration at the lung bases. 3. Trace bilateral pneumothoraces. Prep Room Supervisor: PSCPallavi Transcribe Date/Time: Dec 01 2024 6:05A Dictated by : JOSSELIN CARROLL MD This examination was interpreted and the report reviewed and electronically signed by: JOSSELIN CARROLL MD on Dec 01 2024 6:07AM EST [id number] N Normal [facility] ANES POSTPROC EVALon 025 ANES POSTPROC EVAL HNO ID: [id number] Author: TYRESE CAMPOVERDE MD Service: Anesthesiology Author Type: Physician Type: Anesthesia Postprocedure Evaluation Filed: 12/19/2024 09:28 Note Text: POST ANESTHESIA EVALUATION NOTE : 1945 Procedure Summary Date: 11/29/24 Room / Location: [place] OR 05 / [place] OR Anesthesia Start: 1304 Anesthesia Stop: 1824 Procedures: BYPASS GRAFT ARTERY CORONARY OFF PUMP SINGLE CORONARY VENOUS GRAFT (Chest) BYPASS GRAFT ARTERY CORONARY OFF PUMP VENOUS GRAFT(S) AND ARTERIAL GRAFT(S) TWO VENOUS GRAFTS (Cardiac) ENDOSCOPIC HARVEST VEIN FOR CORONARY ARTERY BYPASS PROCEDURE (Cardiac) Diagnosis: 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 Anticipated Disposition: ICU planned admission. Intraoperative Events: no significant anesthesia events Anesthesia Observations No Documentation SIGNATURE: Tyrese Campoverde MD PATIENT NAME: Ochoa Douglas DATE: December 19, 2024 TIME: 9:26 AM CSN: [id number] Normal [facility] ARTERIAL BLOOD GASESon 11-30 Base deficit (BldA) [Moles/Vol] -4 mmol/L Low -2-0 [facility] Comment on above: Order Comment: Speci men Type: ARTERIAL BLOOD SPECIMENOrdering Facility: [facility] Address: [address] [place] [address] Performed By: #### A LLBG ####[facility] LABORATORYCLIA [id number] [address] [place] Body temperature 99.14 [degF] Normal [facility] Comment on above: Order Comment: Speci men Type: ARTERIAL BLOOD SPECIMENOrdering Facility: [facility] Address: [address] [place] [address] Performed By: #### A LLBG ####[facility]ORATORYCLIA [id number] [address] [place] Calcium.ionized (BldV) [Mass/Vol] 1.29 mmol/L Normal 1.08-1.30 [facility] Comment on above: Order Comment: Speci men Type: ARTERIAL BLOOD SPECIMENOrdering Facility: [facility] Address: [address] [place] [address] Performed By: #### A LLBG ####[facility]ORATORYCLIA [id number] [address] [place] Calcium.ionized adjusted to pH 7.4 (BldA) [Moles/Vol] 1.24 mmol/L Normal 1.08-1.30 [facility] Comment on above: Order Comment: Speci men Type: ARTERIAL BLOOD SPECIMENOrdering Facility: [facility] Address: [address] [place] [address] Performed By: #### A LLBG ####[facility]ORATORYCLIA [id number] [address] [place] Carboxyhemoglobin (BldA) [Mass fraction] 0.4 % Normal 0.0-2.0 [facility] Comment on above: Order Comment: Speci men Type: ARTERIAL BLOOD SPECIMENOrdering Facility: [facility] Address: [address] [place] [address] Result Comment: Carb oxyhemoglobin Reference Range for Smokers: 2.0-8.0% Performed By: #### A LLBG ####[facility]ORATORYCLIA [id number] [address] [place] Chloride [Moles/Vol] 109 mmol/L High 97-105 [facility] Comment on above: Order Comment: Speci men Type: ARTERIAL BLOOD SPECIMENOrdering Facility: [facility] Address: [address] [place] [address] Performed By: #### A LLBG ####[facility] LABORATORYCLIA [id number] [address] [place] CO2 (Bld) [Partial pressure] 42 mm Hg Normal 36-46 [facility] Comment on above: Order Comment: Speci men Type: ARTERIAL BLOOD SPECIMENOrdering Facility: [facility] Address: [address] [place] [address] Performed By: #### A LLBG ####[facility] LABORATORYCLIA [id number] [address] CO2 adjusted to patient's actual temperature (Bld) [Partial pressure] 43 mmHg Normal 36-46 [facility] Comment on above: Order Comment: Speci men Type: ARTERIAL BLOOD SPECIMENOrdering Facility: [facility] Address: [address] [place] [address] Performed By: #### A LLBG ####[facility]ATORYCLIA [id number] [address] [place] Glucose [Mass/Vol] 122 mg/dL High 60-105 [facility] Comment on above: Order Comment: Speci men Type: ARTERIAL BLOOD SPECIMENOrdering Facility: [facility] Address: [address] [place] [address] Performed By: #### A LLBG ####[facility]ORATORYCLIA [id number] [address] [place] HCO3 (Bld) [Moles/Vol] 21 mmol/L Low 22-26 [facility] Comment on above: Order Comment: Speci men Type: ARTERIAL BLOOD SPECIMENOrdering Facility: [facility] Address: [address] [place] [address] Performed By: #### A LLBG ####[facility] LABORATORYCLIA [id number] [place] [address] [place] Hematocrit (Bld) [Volume fraction] 27.5 % Low 36.0-46.0 [facility] Comment on above: Order Comment: Speci men Type: ARTERIAL BLOOD SPECIMENOrdering Facility: [facility] Address: [address] [place] [address] Performed By: #### A LLBG ####[facility]ORATORYCLIA [id number] [address] [place] Hemoglobin (Bld) [Mass/Vol] 8.8 g/dL Low 11.5-15.5 [facility] Comment on above: Order Comment: Speci men Type: ARTERIAL BLOOD SPECIMENOrdering Facility: [facility] Address: [address] [place] [address] Performed By: #### A LLBG ####[facility] LABORATORYCLIA [id number] [address] [place] Lactate [Moles/Vol] 1.3 mmol/L Normal 0.5-2.2 [facility] Comment on above: Order Comment: Speci men Type: ARTERIAL BLOOD SPECIMENOrdering Facility: [facility] Address: [address] [place] [address] Performed By: #### A LLBG ####[facility] LABORATORYCLIA [id number] [address] [place] Methemoglobin (Bld) [Mass fraction] 1.0 % Normal 0.0-1.5 [facility] Comment on above: Order Comment: Speci men Type: ARTERIAL BLOOD SPECIMENOrdering Facility: [facility] Address: [address] [place] [address] Performed By: #### A LLBG ####[facility] LABORATORYCLIA [id number] [address] O2 THERAPY NC = Nasal Cannula Normal [facility] Comment on above: Order Comment: Speci men Type: ARTERIAL BLOOD SPECIMENOrdering Facility: [facility] Address: [address] [place] [address] Performed By: #### A LLBG ####[facility] LABORATORYCLIA [id number] [address] [place] Oxygen (Bld) [Partial pressure] 135 mm Hg High 85-95 [facility] Comment on above: Order Comment: Speci men Type: ARTERIAL BLOOD SPECIMENOrdering Facility: [facility] Address: [facility] [place] [address] Performed By: #### A LLBG ####[facility] LABORATORYCLIA [id number] [address] Oxygen adjusted to patient's actual temperature (Bld) [Partial pressure] 137 mmHg High 85-95 [facility] Comment on above: Order Comment: Speci men Type: ARTERIAL BLOOD SPECIMENOrdering Facility: [facility] Address: [address] [place] [address] Performed By: #### A LLBG ####[facility] LABORATORYCLIA [id number] [address] [place] Oxyhemoglobin (BldA) [Mass fraction] 97 % Normal 95-98 [facility] Comment on above: Order Comment: Speci men Type: ARTERIAL BLOOD SPECIMENOrdering Facility: [facility] Address: [address] [place] [address] Performed By: #### A LLBG ####[facility] LABORATORYCLIA [id number] [address] [place] pH (Bld) 7.32 [pH] Low 7.35-7.45 [facility] Comment on above: Order Comment: Speci men Type: ARTERIAL BLOOD SPECIMENOrdering Facility: [facility] Address: [address] [place], [place] [address] Performed By: #### A LLBG ####[facility]ATORYCLIA [id number] [address] STATES OF [facility] pH adjusted to patient's actual temperature (Bld) 7.32 Low 7.35-7.45 [facility] Comment on above: Order Comment: Speci men Type: ARTERIAL BLOOD SPECIMENOrdering Facility: [facility] Address: [address] [place] [address] Performed By: #### A LLBG ####[facility]ATORYCLIA [id number] [address] [place] Potassium [Moles/Vol] 4.7 mmol/L Normal 3.5-5.0 [facility] Comment on above: Order Comment: Speci men Type: ARTERIAL BLOOD SPECIMENOrdering Facility: [facility] Address: [address] [place] [address] Performed By: #### A LLBG ####[facility] LABORATORYCLIA [id number] [place] [address] [place] Sodium [Moles/Vol] 140 mmol/L Normal 136-144 [facility] Comment on above: Order Comment: Speci men Type: ARTERIAL BLOOD SPECIMENOrdering Facility: [facility] Address: [address] [place] [address] Performed By: #### A LLBG ####[facility]ATORYCLIA [id number] [place] [address] [place] Basic metabolic 2000 panelon 11-30-2024 Anion gap [Moles/Vol] 9 mmol/L Normal 8-15 [facility] Comment on above: Order Comment: Speci men Type: BLOOD SPECIMENOrdering Facility: [facility] Address: [address] [place] [address] Performed By: #### 2 4321-2 ####[facility]ATORYCLIA [id number] [place] [address] [place] Calcium [Mass/Vol] 8.5 mg/dL Normal 8.5-10.2 [facility] Comment on above: Order Comment: Speci men Type: BLOOD SPECIMENOrdering Facility: [facility] Address: [address] [place] [address] Performed By: #### 2 4321-2 ####[facility] LABORATORYCLIA [id number] [place] [address] [place] Chloride [Moles/Vol] 108 mmol/L High 98-107 [facility] Comment on above: Order Comment: Speci men Type: BLOOD SPECIMENOrdering Facility: [facility] Address: [address] [place] [address] Performed By: #### 2 4321-2 ####[facility] LABORATORYCLIA [id number] [place] [address] [place] CO2 [Moles/Vol] 21 mmol/L Low 22-30 [facility] Comment on above: Order Comment: Speci men Type: BLOOD SPECIMENOrdering Facility: [facility] Address: [address] [place] [address] Performed By: #### 2 4321-2 ####[facility] LABORATORYCLIA [id number] [place] [address] [place] Creatinine [Mass/Vol] 0.79 mg/dL Normal 0.58-0.96 [facility] Comment on above: Order Comment: Speci men Type: BLOOD SPECIMENOrdering Facility: [facility] Address: [address] [place] [address] Performed By: #### 2 4321-2 ####[facility] LABORATORYCLIA [id number] [place] [address] [place] eGFRcr SerPlBld CKD-EPI 2020 76 mL/min/1.73m??? Normal >=60 [facility] Comment on above: Order Comment: Speci men Type: BLOOD SPECIMENOrdering Facility: [facility] Address: [address] [place] [address] Result Comment: Zully mated Glomerular Filtration Rate (eGFR) is calculated using the 2020 CKD-EPI creatinine equation. This equation utilizes serum creatinine, sex, and age as parameters. The creatinine assay has traceable calibration to isotope dilution-mass spectrometry. Refer to KDIGO guidelines for clinical interpretation. In patients with unstable renal function, e.g. those with acute kidney injury, the eGFR may not accurately reflect actual GFR. Performed By: #### 2 4321-2 ####[facility] LABORATORYCLIA [id number] [place] [address] [place] Glucose [Mass/Vol] 130 mg/dL High 74-99 [facility] Comment on above: Order Comment: Meche murray Type: BLOOD SPECIMENOrdering Facility: [facility] Address: [address] [place] [address] Result Comment: The [place] [employer] (ADA) provides guidance for cutoff values for fasting glucose and random glucose. The ADA defines fasting as no caloric intake for at least 8 hours. Fasting plasma glucose results between 100 to 125 mg/dL indicate increased risk for diabetes (prediabetes). Fasting plasma glucose results greater than or equal to 126 mg/dL meet the criteria for diagnosis of diabetes. In the absence of unequivocal hyperglycemia, results should be confirmed by repeat testing. In a patient with classic symptoms of hyperglycemia or hyperglycemic crisis, random plasma glucose results greater than or equal to 200 mg/dL meet the criteria for diagnosis of diabetes. Reference: Standards of Medical Care in Diabetes 2016, [place] [employer] Association. Diabetes Care. 2016.39(Suppl 1). Performed By: #### 2 4321-2 ####[facility] LABORATORYCLIA [id number] [place] [address] [place] Potassium [Moles/Vol] 4.8 mmol/L Normal 3.7-5.1 [facility] Comment on above: Order Comment: Meche murray Type: BLOOD SPECIMENOrdering Facility: [facility] Address: [address] [place] [id number] Performed By: #### 2 4321-2 ####[facility] LABORATORYCLIA [id number] [place] [address] [place] Sodium [Moles/Vol] 138 mmol/L Normal 136-144 [facility] Comment on above: Order Comment: Meche murray Type: BLOOD SPECIMENOrdering Facility: [facility] Address: [address] [place] [address] Performed By: #### 2 4321-2 ####[facility] LABORATORYCLIA [id number] [address] STATES [facility] Urea nitrogen [Mass/Vol] 17 mg/dL Normal 7-21 [facility] Comment on above: Order Comment: Speci men Type: BLOOD SPECIMENOrdering Facility: [facility] Address: [address] [place] [address] Performed By: #### 2 4321-2 ####[facility] LABORATORYCLIA [id number] [address] CBC panel Auto (Bld)on 11-30 Erythrocyte distribution width (RBC) [Ratio] 13.3 % Normal 11.5-15.0 [facility] Comment on above: Order Comment: Speci men Type: BLOOD SPECIMENOrdering Facility: [facility] Address: [address] [place] [address] Performed By: #### 5 8410-2 ####[facility] [id number] [address] OF [facility] Hematocrit (Bld) [Volume fraction] 27.3 % Low 36.0-46.0 [facility] Comment on above: Order Comment: Speci men Type: BLOOD SPECIMENOrdering Facility: [facility] Address: [address] [place] [address] Performed By: #### 5 8410-2 ####[facility] LABORATORYCLIA [id number] [address] STATES OF [facility] Hemoglobin (Bld) [Mass/Vol] 8.7 g/dL Low 11.5-15.5 [facility] Comment on above: Order Comment: Speci men Type: BLOOD SPECIMENOrdering Facility: [facility] Address: [address] [place] [address] Performed By: #### 5 8410-2 ####[facility] LABORATORYCLIA [id number] [address] MCH (RBC) [Entitic mass] 30.5 pg Normal 26.0-34.0 [facility] Comment on above: Order Comment: Speci men Type: BLOOD SPECIMENOrdering Facility: [facility] Address: [address] [place] [address] Performed By: #### 5 8410-2 ####[facility] LABORATORYCLIA [id number] [address] MCHC (RBC) [Mass/Vol] 31.9 g/dL Normal 30.5-36.0 [facility] Comment on above: Order Comment: Speci men Type: BLOOD SPECIMENOrdering Facility: [facility] Address: [address] [place] [address] Performed By: #### 5 8410-2 ####[facility] LABORATORYCLIA [id number] [address] OF [facility] MCV (RBC) [Entitic vol] 95.8 fL Normal 80.0-100.0 [facility] Comment on above: Order Comment: Speci men Type: BLOOD SPECIMENOrdering Facility: [facility] Address: [address] [place] [address] Performed By: #### 5 8410-2 ####[facility] LABORATORYCLIA [id number] [address] Nucleated RBC (Bld) [#/Vol] 10*3/uL Normal <0.01 [facility] Comment on above: Order Comment: Speci men Type: BLOOD SPECIMENOrdering Facility: [facility] Address: [address] [place] [address] Performed By: #### 5 8410-2 ####[facility] LABORATORYCLIA [id number] [address] Platelet mean volume (Bld) [Entitic vol] 11.4 fL Normal 9.0-12.7 [facility] Comment on above: Order Comment: Speci men Type: BLOOD SPECIMENOrdering Facility: [facility] Address: [address] [place] [address] Performed By: #### 5 8410-2 ####[facility] LABORATORYCLIA [id number] [address] OF [facility] Platelets (Bld) [#/Vol] 153 10*3/uL Normal 150-400 [facility] Comment on above: Order Comment: Speci men Type: BLOOD SPECIMENOrdering Facility: [facility] Address: [address] [place] [address] Performed By: #### 5 8410-2 ####[facility] LABORATORYCLIA [id number] [address] OF [facility] RBC (Bld) [#/Vol] 2.85 10*6/uL Low 3.90-5.20 [facility] Comment on above: Order Comment: Speci men Type: BLOOD SPECIMENOrdering Facility: [facility] Address: [address] [place] [address] Performed By: #### 5 8410-2 ####[facility] LABORATORYCLIA [id number] [address] WBC (Bld) [#/Vol] 13.95 10*3/uL High 3.70-11.00 [facility] Comment on above: Order Comment: Speci men Type: BLOOD SPECIMENOrdering Facility: [facility] Address: [address] [place] [address] Performed By: #### 5 8410-2 ####[facility] LABORATORYCLIA [id number] [address] ECG COMPLETEon 11-30-2024 ECG COMPLETE Ventricular Rate : 9 2 BPM Atrial Rate : 92 BPM P-R Interval : 142 ms QRS Duration : 86 ms Q-T Interval : 352 ms QTC Calculation(Bazett) : 435 ms Calculated P [place] : 35 degrees Calculated R [place] : -2 degrees Calculated T [place] : 29 degrees NORMAL SINUS RHYTHM POSSIBLE LEFT ATRIAL ENLARGEMENT BORDERLINE ECG WHEN COMPARED WITH ECG OF 27-Nov-2024 15:23, NO SIGNIFICANT CHANGE WAS FOUND Confirmed by MD YAHIR, WATSON ([id number]) on 12/02/2024 9:18:04 AM NAME : OCHOA DOUGLAS PID : [id number] : 1945 Gender : Female Race : ORD : [id number] Procedure Date : Nov 30 2024 05:02:12 Edit Date : Dec 02 2024 09:18:08 Diagnosis: NORMAL SINUS RHYTHM POSSIBLE LEFT ATRIAL ENLARGEMENT BORDERLINE ECG WHEN COMPARED WITH ECG OF 27-Nov-2024 15:23, NO SIGNIFICANT CHANGE WAS FOUND Confirmed by MD SINCLAIR YASSAR ([id number]) on 12/02/2024 9:18:04 AM Test Reason : Post-OP Location : [address] : [place] [address] Overread By : MD SINCLAIR YASSAR Edited By : MD SINCLAIR YASSAR Referred By : , Acquired by : JOIE PERDUE [facility] PT panel Coag (PPP)on 2024 INR Coag (PPP) [Relative time] 1.0 {INR} Normal 0.9-1.3 [facility] Comment on above: Order Comment: Speci men Type: BLOOD SPECIMENOrdering Facility: [facility] Address: [address] [place] [address] Result Comment: [place] min K Antagonist (VKA) Therapeutic Range: INR 2 to 3 (Target INR of 2.5) Note: For patients treated with VKA drugs, such as warfarin, the [place] [employer] 2012 Guideline recommends a therapeutic INR range of 2 to 3 (target INR of 2.5). This recommendation includes high-risk patients with antiphospholipid syndrome with previous arterial or venous thromboembolism, current-generation mechanical or bioprosthetic aortic heart valve replacement. Note: Patients with mechanical aortic valve replacement and additional risk factors for thromboembolic events (atrial fibrillation, previous thromboembolism, LV dysfunction, hypercoagulable conditions) or an older generation mechanical AVR (i.e., ball in-Cage) or any mechanical MVR should have a INR therapeutic range of 2.5 to 3.5 (target INR of 3). Guyatt GH, et al. Chest 2012, 141:7S-47S Jose RA, et al. JACC 2017, 70: 252-289 Performed By: #### 3 4528-0, 58498-0 ####[facility] LABORATORYCLIA [id number] [address] OF [facility] PT Coag (PPP) [Time] 10.9 s Normal 9.7-13.0 [facility] Comment on above: Order Comment: Speci men Type: BLOOD SPECIMENOrdering Facility: [facility] Address: [facility] [place] [address] Performed By: #### 3 4528-0, 01046-7 ####[facility] LABORATORYCLIA [id number] [place], [place] [address] [place] [address] [place] THERAPY NTon 11-30-2024 THERAPY NT HNO ID: [id number] Author: DENITA PEREZ, OTR/L Service: ? Author Type: Occupational Therapist Type: Therapy (PT/OT/Speech/Resp) Filed: 11/30/2024 15:33 Note Text: Occupational Therapy Evaluation Summary SERVICE DATE: 11/30/2024 SERVICE TIME: 1437 to 1503 ROOM: [id number] OT 6 Clicks Score: 18 DISCHARGE RECOMMENDATIONS Home Recommended Discharge Disposition Comments: Pt is functioning close to her baseline and when medically stable can be d/c home. NO further skilled OT anticipated post-discharge. ASSESSMENT Response to Therapy Interventions: Good Participation in Activities Educated on the role of OT in the acute care setting. Instructed in post-op instructions during ADLs after CABG. Discussed sternal precautions during ADLs and functional transfers. Instructed in energy conservation throughout, provided rest breaks as needed. Provided instruction, cuing and facilitation for upper body dressing using effective technique with sternal precaution. Advised on the importance of NOT reaching back for coat/shirt/vest. Provided instruction, cuing and facilitation for lower body dressing using the figure four technique to avoid excessive leaning/reaching forward. Education in proper don/doff technique and wear schedule of sternal vest. Provided verbal and demonstrative instruction on proper sequence for getting in and out of the car and shower within sternal restrictions. Discussed the benefit and value of using a shower seat to complete bathing activities in a safe manner after surgery. Also instructed on how to wash hair within given restrictions. Facilitated sit to stand transfer with min A. Pt felt nauseas and vomited when transfer was complete. After a break, pt walked a lap around the unit with CGA. Educated on hand and body placement and the importance of hold a pillow and/or sternal vest with stand to sit transfer with min A. PRECAUTIONS Sternal CURRENT HOSPITAL COURSE presents with chest tightness for past 2 days. 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 Relevant Past Medical History: CAD, Hypothyroid, HLP HOME LIVING Patient Lives With: Spouse Assistance Available: 24-Hour Entry To Home: Stairs Number Of Stairs Into Home: 1 Number Of Stairs To Bed/Bath: 0 Tub/Shower Type: Walk in Laundry: Family can help complete Equipment Owned: (nne) PRIOR FUNCTIONAL LEVEL Within Functional Limits Patient is normally fully independent Baseline Cognition: Oriented to self, Oriented to time, Oriented to situation, Oriented to place SUBJECTIVE Pt was pleasant and agreeable to OT COGNITION Responsiveness: Alert, Awake Follows Commands: 3-step Commands, Cueing Needed Cueing to Follow Commands: Minimum THERAPY DIAGNOSIS Reduced mobility-other, Decreased activities of daily living (ADL) TREATMENT INTERVENTIONS Evaluation, Self Usp Management (66534) Timed Code Treatment (minutes): 11 Skilled Treatment Time (minutes): 26 $ Evaluation - Moderate (22040) Billed Units: 1 unit Self Usp Management (97843) Treatment Minutes: 11 $ Self Usp Management (91293) Billed Units: 1 unit TRAINING AND EDUCATION PROVIDED Activity Adaptation/Compensato ry Strategies, Assistive Device Use, Benefits of In-Hospital Mobility, Command Following, Discharge Planning, Disease Specific Education, Home Set-up/Modifications, IADLs/Home Management, Insight into Deficits, Orientation, Memory/Attention, Pain Management, Positioning, Precautions/Restricti ons, Role of Occupational Therapy, Safety/Judgment, Sitting Balance to Improve [place] with ADLs/Self-Care, Standing Balance to Improve [place] with ADLs/Self-Care, Transfer - Sit to Stand THERAPEUTIC SKILLS USED Activity Dosing, Cuing Verbal, Movement Facilitation, Physical Assist, Teach-Back for Education, Therapeutic Use of Self FUNCTIONAL STATUS Activities of Daily Living Assist Level Additional Information Feeding Set Up Grooming Contact Guard Assistance Bathing Upper Body Contact Guard Assistance Bathing Lower Body Contact Guard Assistance Dressing Upper Body Contact Guard Assistance Dressing Lower Body Contact Guard Assistance Toileting Contact Guard Assistance Mobility Assist Level Additional Information Bed Mobility Sit to Stand Minimal Assistance Assist with UB and min vcing to follow sternal precautions. Stand to Sit Minimal Assistance Min A to help with lowering back in to chair. Bed to Chair Toilet/Commode Shower Functional Mobility Contact Guard Assistance Functional Mobility Device: IV Pole Hand Dominance: Right Range of Motion: Functional ROM Within Precautions Strength: WFL GOALS Feeding with: Independent Grooming with: Independent Upper Body Bathing with: Supervision Upper Body Dressing with: Supervision Lower Body Bathing with: Supervision Lower Body Dressing with: Supervision Toilet Hygiene with: Supervision Tolerate (minutes of functional activity): (more content not included)... Normal [facility] THERAPY NT HNO ID: [id number] Author: PATRICK COLEMAN, PT Service: Physical Therapy Author Type: Physical Therapist Type: Therapy (PT/OT/Speech/Resp) Filed: 11/30/2024 13:35 Note Text: Physical Therapy Evaluation Summary SERVICE DATE: 11/30/2024 SERVICE TIME: 1030 to 1055 ROOM: [place] [address] PT 6 Clicks Score: 19 DISCHARGE RECOMMENDATIONS Home Recommended Discharge Disposition Comments: Anticipate home at d/c with no ongoing PT needs ASSESSMENT Response to Therapy Interventions: Good Participation in Activities Patient did very well with initial session. Patient is on track to return to home at d/c. PRECAUTIONS Sternal CURRENT HOSPITAL COURSE presents with chest tightness for past 2 days. 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 Relevant Past Medical History: CAD, Hypothyroid, HLP HOME LIVING Patient Lives With: Spouse (and 4 yo grand daughter) Assistance Available: 24-Hour Entry To Home: Stairs Number Of Stairs Into Home: 1 Number Of Stairs To Bed/Bath: 0 Equipment Owned: (nne) PRIOR FUNCTIONAL LEVEL Within Functional Limits Patient is normally fully independent SUBJECTIVE pleasant and willing to participate THERAPY DIAGNOSIS General symptoms and signs-other TREATMENT INTERVENTIONS Evaluation, Therapeutic Activity (09283) Timed Code Treatment (minutes): 10 Skilled Treatment Time (minutes): 25 $ Evaluation-Moderate (58505) Billed Units: 1 unit Therapeutic Activity (75612) Treatment Minutes: 10 $ Therapeutic Activity (77582) Billed Units: 1 unit Education on sternal precautions - no pushing, no pulling, no lifting more than 5-10lbs, no overhead motion, no reaching back. Education on sternal precautions during functional mobility - no pushing, reaching forward or behind with upper extremities, use cough pillow to brace sternum when moving or coughing. Education and cues for appropriate transfers. Instructed patient to cross arms over chest and initiate standing by pushing through bilateral lower extremities and utilizing momentum and forward weight shift as needed TRAINING AND EDUCATION PROVIDED Anatomy and Impact on Deficits, Assistive Device Use, Benefits of In-Hospital Mobility, Disease Specific Education, Exercise Program, Role of Physical Therapy THERAPEUTIC SKILLS USED Activity Dosing, Cues for Sequencing/Proper Technique for Activity, Cuing Verbal, Movement Facilitation, Physical Assist FUNCTIONAL STATUS Bed Mobility Scooting: Verbal Cues Only Transfers Sit To Stand: Verbal Cues Only, Additional Information to follow sternal precautions Stand To Sit: Contact Guard Assistance, Verbal Cues Only Bed to Chair Gait Contact Guard Assistance Gait Device: (cardiac cart) General Deviations/Observatio ns: Moon decreased Gait Distance (feet): 200' Stairs Range of Motion: Functional ROM Within Precautions Strength: WFL GOALS Able to Perform HEP with: Independent Rolling with: Independent Transfer Supine to/from Sit with: Independent Transfer Sit to/from Stand with: Independent Ambulate with: Stand By Assistance Distance: 300' Device: No Device Rehab Potential: Good Good Rehab Potential Due To: Current objective clinical presentation ACUTE CARE TREATMENT PLAN PT Frequency: 2 Times Per Week (2-3) Treatment Interventions: Education, Functional Mobility Training Plan for Next Visit: Bed Mobility, Sit to Stand Transfers, Gait Training, Exercise Instruction/Handout SIGNATURE: Patrick Coleman PT PATIENT NAME: Ochoa Douglas DATE: November 30, 2024 TIME: 1:35 PM Normal [facility] XR CHEST 1V FRONTALon 2024 XR CHEST 1V FRONTAL * * *Final Report* * * DATE OF EXAM: Nov 30 2024 5:18AM AKX [id number] - XR CHEST 1V FRONTAL / PROCEDURE REASON: Post-operative/post-p rocedure assessment * * * * Physician Interpretation * * * * EXAMINATION: CHEST RADIOGRAPH (SINGLE VIEW AP OR PA) CLINICAL HISTORY: Post-operative/post-p rocedure assessment, Evaluate tube, line, or lead position MQ: XC1_5 Comparison: 11/29/2024 at 1853 RESULT: Lines, tubes, and devices: Endotracheal tube and enteric tube have been removed. Right internal jugular central line with tip at the level of the cavoatrial junction. Stable positioning of mediastinal drain and bilateral chest tubes. Intact median sternotomy wires and sternal plate. Overlying bus driver/monitor leads. Lungs and pleura: Patchy diminished aeration left lung base most likely atelectasis. Trace right apical pneumothorax. Cardiomediastinal silhouette: Normal cardiomediastinal silhouette. Other: No significant additional findings. IMPRESSION: 1. Status post extubation. 2. Trace right apical pneumothorax. Prep Room Supervisor: PSCPallavi Transcribe Date/Time: Nov 30 2024 6:38A Dictated by : OJSSELIN CARROLL MD This examination was interpreted and the report reviewed and electronically signed by: JOSSELIN CARROLL MD on Nov 30 2024 6:39AM EST [id number] N Normal [facility] aPTT PPPon 11-30-2024 aPTT Coag (PPP) [Time] 24.5 s Normal 23.0-32.4 [facility] Comment on above: Order Comment: Speci men Type: BLOOD SPECIMENOrdering Facility: [facility] Address: [address] [place] [address] Performed By: #### 3 4528-0, 79917-1 ####[facility] LABORATORYCLIA [id number] [address] OF [facility] ANES PRE-OPon 11-29-2024 ANES PRE-OP HNO ID: [id number] Author: BRITNI FONTAINE MD Service: Anesthesiology Author Type: Anesthesiologist Type: Anesthesia Preprocedure Evaluation Filed: 11/29/2024 13:06 Note Text: ANESTHESIOLOGY DAY OF SURGERY NOTE : 1945 Procedure Information Date/Time: 11/29/24 1330 Procedure: BYPASS GRAFT ARTERY CORONARY ON-PUMP THREE CORONARY VENOUS GRAFTS (Chest) Location: HI OR / HI OR Surgeons: Peter Hayes MD Estimated body mass index is 25.76 kg/m? as calculated from the following: Height as of this encounter: 162.6 cm (5' 4.02). Weight as of this encounter: 68.1 kg (150 lb 2.1 oz). Most recent hematocrit and potassium results: Hematocrit 31.2 11/28/2024 Potassium 4.4 11/28/2024 Relevant Problems CARDIO (+) Angina pectoris (+) CAD (coronary artery disease) (+) Essential hypertension (+) Myocardial infarction, old ENDO (+) Hypothyroidism - presented w/ angina - LHC with LAD with 90% ostial stenosis, Lcx with 80% ostial stenosis, RCA with mid 70% stenosis - stress test 09/2024 - nl EF - TTE pending I - PHYSICAL EVALUATION AIRWAY Patient intubated: No. Tracheostomy tube not present Mallampati: III. TM distance: >3 FB. Neck ROM: full ROM without neurological symptoms. Mouth opening: adequate. Short neck: no. Thick neck: no DENTAL Dental findings: missing tooth/teeth. II - ANESTHESIA PLAN ASA Score: 4 Anesthetic Plan: general Airway type: ETT The patient is not a current smoker. NPO Status: adequate Beta Matilde Monitoring Plan Monitoring plan: standard ASA and invasive hemodynamic monitoring. Monitoring method: arterial Line, CVL and LIZBETH LIZBETH details: patient denies history of stricture or varices Post Procedure Analgesic Plan Postoperative analgesic plan: parenteral or oral opioids, multimodal analgesia, go to ICU and remain intubated. Informed Consent Anesthetic risks, benefits, alternatives, personnel and consent discussed: yes. Patient / Responsible Alliance Party agrees to proceed: yes Patient / Surrogate agrees to blood products: Yes Potential Anesthesia issues that may suggest increased risk of complications or contraindication to planned procedure: none. No vitals data found for the desired time range. Facility-Administered Medications as of 11/29/2024 Medication Dose Route Frequency sodium chloride 0.9 % (flush) 2-10 mL (BD POSIFLUSH) 2-10 mL INTRAVENOUS DIRECTED PRN And perflutren lipid microspheres 1.1 mg/mL 1.3 mL injection (DEFINITY) 1.3 mL INTRAVENOUS DIRECTED PRN [Order Held by LIP] aspirin, enteric coated 81 mg tab(s) 81 mg ORAL DAILY [Order Held by LIP] metoprolol tartrate (short acting) 12.5 mg tab(s) (LOPRESSOR) 12.5 mg ORAL BID simvastatin 40 mg tab(s) (ZOCOR) 40 mg ORAL q 48 HR [Order Held by LIP] pantoprazole DR 40 mg tab(s) (PROTONIX) 40 mg ORAL DAILY (6 AM) levothyroxine 112 mcg tab(s) (SYNTHROID) 112 mcg ORAL DAILY (6 AM) [Order Held by LIP] ferrous sulfate 325 mg tab(s) 325 mg ORAL DAILY NaCl 0.9% iv flush bag 20 mL INTRAVENOUS PRN nitroglycerin sublingual 0.4 mg tab(s) (NITROQUICK) 0.4 mg SUBLINGUAL q 5 MIN PRN Chlorhexidine Gluconate 0.12 % 15 mL (PERIDEX) 15 mL ORAL q 12 H mupirocin 2 % 0.5 g nasal ointment (BACTROBAN) 0.5 g NASAL BID acetaminophen 1,000 mg tab(s) (TYLENOL) 1,000 mg ORAL ONCE aspirin 81 mg chewable tab(s) 81 mg ORAL ONCE metoprolol tartrate (short acting) 12.5 mg tab(s) (LOPRESSOR) 12.5 mg ORAL ONCE dextrose 5% in NaCl 0.45% iv infusion 75 mL/hr INTRAVENOUS CONTINUOUS [COMPLETED] fentaNYL 50 mcg/mL 50 mcg injection (SUBLIMAZE) 50 mcg INTRAVENOUS ONCE Outpatient Medications as of 11/29/2024 Medication Sig REPATHA SURECLICK 140 mg/mL pen injector Inject 140 mg subcutaneously every 2 weeks. losartan (COZAAR) 25 mg tablet Take 1 tablet by mouth once daily. ferrous sulfate 325 mg (65 mg iron) tablet Take 1 tablet by mouth once daily. aspirin, enteric coated (ASPIRIN, ENTERIC COATED) 81 mg EC tablet Take 81 mg by mouth once daily. metoprolol tartrate, short acting, (LOPRESSOR) 25 mg tablet Take 12.5 mg by mouth two times a day. [facility] levothyroxine (SYNTHROID) 112 mcg tablet TAKE 1 TABLET BY MOUTH DAILY ON AN EMPTY STOMACH FOR THYROID simvastatin (ZOCOR) 40 mg tablet Take 40 mg by mouth once daily. Taking every other day due to leg cramps Omeprazole 40 mg capsule Take 1 capsule by mouth once daily. (Dr. Rand) nitroglycerin(NITROST AT 0.4 MG SUBLINGUAL TAB) Place one(1) tablet on tongue as needed for chest pain. If no pain relief call 911. folic acid 1 mg tablet Take 1 tablet by mouth once daily. ascorbic acid, vitamin C, (VITAMIN C) 500 mg tablet Take 1 tablet by mouth once daily. tacrolimus (PROTOPIC) 0.1 % ointment Apply topically to affected areas on face every evening vibegron (GEMTESA) 75 mg tablet Take 75 mg by mouth once daily. triamcinolone acetonide (KENALOG) 0.1 % cream Apply 1 application to affected area twice daily. Appl (more content not included)... Normal [facility] ARTERIAL BLOOD GASESon 11-29 Base deficit (BldA) [Moles/Vol] -2 mmol/L Normal -2-0 [facility] Comment on above: Order Comment: Speci men Type: ARTERIAL BLOOD SPECIMENOrdering Facility: [facility] Address: [address] [place] [address] Performed By: #### A LLBG ####[facility] LABORATORYCLIA [id number] [address] [place] [facility] Body temperature 96.44 [degF] Normal [facility] Comment on above: Order Comment: Speci men Type: ARTERIAL BLOOD SPECIMENOrdering Facility: [facility] Address: [address] [place] [address] Performed By: #### A LLBG ####[facility] LABORATORYCLIA [id number] [address] [place] Calcium.ionized (BldV) [Mass/Vol] 1.29 mmol/L Normal 1.08-1.30 [facility] Comment on above: Order Comment: Speci men Type: ARTERIAL BLOOD SPECIMENOrdering Facility: [facility] Address: [address] [place] [address] Performed By: #### A LLBG ####[facility] LABORATORYCLIA [id number] [address] Calcium.ionized adjusted to pH 7.4 (BldA) [Moles/Vol] 1.28 mmol/L Normal 1.08-1.30 [facility] Comment on above: Order Comment: Speci men Type: ARTERIAL BLOOD SPECIMENOrdering Facility: [facility] Address: [address] [place] [address] Performed By: #### A LLBG ####[facility] LABORATORYCLIA [id number] [address] Carboxyhemoglobin (BldA) [Mass fraction] 0.5 % Normal 0.0-2.0 [facility] Comment on above: Order Comment: Speci men Type: ARTERIAL BLOOD SPECIMENOrdering Facility: [facility] Address: [address] [place] [address] Result Comment: Carb oxyhemoglobin Reference Range for Smokers: 2.0-8.0% Performed By: #### A LLBG ####[facility]ORATORYCLIA [id number] [address] [place] Chloride [Moles/Vol] 110 mmol/L High 97-105 [facility] Comment on above: Order Comment: Speci men Type: ARTERIAL BLOOD SPECIMENOrdering Facility: [facility] Address: [address] [place] [address] Performed By: #### A LLBG ####[facility]ORATORYCLIA [id number] [address] [place] CO2 (Bld) [Partial pressure] 38 mm Hg Normal 36-46 [facility] Comment on above: Order Comment: Speci men Type: ARTERIAL BLOOD SPECIMENOrdering Facility: [facility] Address: [address] [place] [address] Performed By: #### A LLBG ####[facility] LABORATORYCLIA [id number] [address] [place] CO2 adjusted to patient's actual temperature (Bld) [Partial pressure] 36 mmHg Normal 36-46 [facility] Comment on above: Order Comment: Speci men Type: ARTERIAL BLOOD SPECIMENOrdering Facility: [facility] Address: [address] [place] [address] Performed By: #### A LLBG ####[facility]ORATORYCLIA [id number] [place] [address] [place] Glucose [Mass/Vol] 83 mg/dL Normal 60-105 [facility] Comment on above: Order Comment: Speci men Type: ARTERIAL BLOOD SPECIMENOrdering Facility: [facility] Address: [address] [place] [address] Performed By: #### A LLBG ####[facility]ORATORYCLIA [id number] [place] [address] [place] HCO3 (Bld) [Moles/Vol] 22 mmol/L Normal 22-26 [facility] Comment on above: Order Comment: Speci men Type: ARTERIAL BLOOD SPECIMENOrdering Facility: [facility] Address: [address] [place] [address] Performed By: #### A LLBG ####[facility] LABORATORYCLIA [id number] [address] Hematocrit (Bld) [Volume fraction] 25.0 % Low 36.0-46.0 [facility] Comment on above: Order Comment: Speci men Type: ARTERIAL BLOOD SPECIMENOrdering Facility: [facility] Address: [address] [place] [address] Performed By: #### A LLBG ####[facility] LABORATORYCLIA [id number] [address] [place] Hemoglobin (Bld) [Mass/Vol] 8.0 g/dL Low 11.5-15.5 [facility] Comment on above: Order Comment: Speci men Type: ARTERIAL BLOOD SPECIMENOrdering Facility: [facility] Address: [address] [place] [address] Performed By: #### A LLBG ####[facility] LABORATORYCLIA [id number] [address] [place] Lactate [Moles/Vol] 1.3 mmol/L Normal 0.5-2.2 [facility] Comment on above: Order Comment: Speci men Type: ARTERIAL BLOOD SPECIMENOrdering Facility: [facility] Address: [address] [place] [address] Performed By: #### A LLBG ####[facility] LABORATORYCLIA [id number] [address] [place] Methemoglobin (Bld) [Mass fraction] 1.1 % Normal 0.0-1.5 [facility] Comment on above: Order Comment: Speci men Type: ARTERIAL BLOOD SPECIMENOrdering Facility: [facility] Address: [address] [place] [address] Performed By: #### A LLBG ####[facility] LABORATORYCLIA [id number] [address] [place] O2 THERAPY VENT=Ventilator Normal [facility] Comment on above: Order Comment: Speci men Type: ARTERIAL BLOOD SPECIMENOrdering Facility: [facility] Address: [address] [place] [address] Performed By: #### A LLBG ####[facility] LABORATORYCLIA [id number] [address] [place] Oxygen (Bld) [Partial pressure] 203 mm Hg High 85-95 [facility] Comment on above: Order Comment: Speci men Type: ARTERIAL BLOOD SPECIMENOrdering Facility: [facility] Address: [address] [place] [address] Performed By: #### A LLBG ####[facility] LABORATORYCLIA [id number] [address] Oxygen adjusted to patient's actual temperature (Bld) [Partial pressure] 199 mmHg High 85-95 [facility] Comment on above: Order Comment: Speci men Type: ARTERIAL BLOOD SPECIMENOrdering Facility: [facility] Address: [address] [place] [address] Performed By: #### A LLBG ####[facility] LABORATORYCLIA [id number] [address] [place] Oxyhemoglobin (BldA) [Mass fraction] 98 % Normal 95-98 [facility] Comment on above: Order Comment: Speci men Type: ARTERIAL BLOOD SPECIMENOrdering Facility: [facility] Address: [address] [place] [address] Performed By: #### A LLBG ####[facility] LABORATORYCLIA [id number] [address] [place] pH (Bld) 7.38 [pH] Normal 7.35-7.45 [facility] Comment on above: Order Comment: Speci men Type: ARTERIAL BLOOD SPECIMENOrdering Facility: [facility] Address: [address] [place] [address] Performed By: #### A LLBG ####[facility] LABORATORYCLIA [id number] [address] pH adjusted to patient's actual temperature (Bld) 7.40 Normal 7.35-7.45 [facility] Comment on above: Order Comment: Speci men Type: ARTERIAL BLOOD SPECIMENOrdering Facility: [facility] Address: [address] [place] [address] Performed By: #### A LLBG ####[facility] LABORATORYCLIA [id number] [address] Potassium [Moles/Vol] 4.0 mmol/L Normal 3.7-5.1 [facility] Comment on above: Order Comment: Speci men Type: ARTERIAL BLOOD SPECIMENOrdering Facility: [facility] Address: [address] [place] [address] Performed By: #### A LLBG ####[facility] LABORATORYCLIA [id number] [address] Order Comment: Speci men Type: BLOOD SPECIMENOrdering Facility: [facility] Address: [address] [place] [address] Performed By: #### 1 9123-9, 86342-0, 2777-1 ####[facility] LABORATORYCLIA [id number] [address] [place] [facility] Sodium [Moles/Vol] 138 mmol/L Normal 136-144 [facility] Comment on above: Order Comment: Speci men Type: ARTERIAL BLOOD SPECIMENOrdering Facility: [facility] Address: [address] [place] [address] Performed By: #### A LLBG ####[facility] LABORATORYCLIA [id number] [address] CBC W Auto Differential pane l (Bld)on 11-29-2024 Basophils (Bld) [#/Vol] 0.03 10*3/uL Normal <0.11 [facility] Comment on above: Order Comment: Speci men Type: BLOOD SPECIMENOrdering Facility: [facility] Address: [address] [place] [address] Performed By: #### 5 7021-8 ####[facility] LABORATORYCLIA [id number] [address] [place] Basophils/100 WBC (Bld) 0.2 % Normal [facility] Comment on above: Order Comment: Speci men Type: BLOOD SPECIMENOrdering Facility: [facility] Address: [facility] [place] [address] Performed By: #### 5 7021-8 ####[facility] LABORATORYCLIA [id number] [address] [place] Differential cell count method Nom (Bld) Auto Normal [facility] Comment on above: Order Comment: Speci men Type: BLOOD SPECIMENOrdering Facility: [facility] Address: [address] [place] [address] Performed By: #### 5 7021-8 ####[facility] LABORATORYCLIA [id number] [address] [place] Eosinophils (Bld) [#/Vol] 0.24 10*3/uL Normal <0.46 [facility] Comment on above: Order Comment: Speci men Type: BLOOD SPECIMENOrdering Facility: [facility] Address: [address] [place] [address] Performed By: #### 5 7021-8 ####[facility] LABORATORYCLIA [id number] [address] Eosinophils/100 WBC (Bld) 1.9 % Normal [facility] Comment on above: Order Comment: Speci men Type: BLOOD SPECIMENOrdering Facility: [facility] Address: [address] [place] [address] Performed By: #### 5 7021-8 ####[facility] LABORATORYCLIA [id number] [address] Erythrocyte distribution width (RBC) [Ratio] 13.2 % Normal 11.5-15.0 [facility] Comment on above: Order Comment: Speci men Type: BLOOD SPECIMENOrdering Facility: [facility] Address: [address] [place] [address] Performed By: #### 5 7021-8 ####[facility] LABORATORYCLIA [id number] [address] [place] Hematocrit (Bld) [Volume fraction] 24.1 % Low 36.0-46.0 [facility] Comment on above: Order Comment: Speci men Type: BLOOD SPECIMENOrdering Facility: [facility] Address: [address] [place] [address] Performed By: #### 5 7021-8 ####[facility] LABORATORYCLIA [id number] [address] [place] Hemoglobin (Bld) [Mass/Vol] 7.8 g/dL Low 11.5-15.5 [facility] Comment on above: Order Comment: Speci men Type: BLOOD SPECIMENOrdering Facility: [facility] Address: [address] [place] [address] Performed By: #### 5 7021-8 ####[facility] LABORATORYCLIA [id number] [address] [place] Immature granulocytes (Bld) [#/Vol] 0.07 10*3/uL Normal <0.10 [facility] Comment on above: Order Comment: Speci men Type: BLOOD SPECIMENOrdering Facility: [facility] Address: [address] [place] [address] Performed By: #### 5 7021-8 ####[facility] LABORATORYCLIA [id number] [address] [place] Immature granulocytes/100 WBC (Bld) 0.5 % Normal [facility] Comment on above: Order Comment: Speci men Type: BLOOD SPECIMENOrdering Facility: [facility] Address: [address] [place] [address] Performed By: #### 5 7021-8 ####[facility] LABORATORYCLIA [id number] [address] [place] Lymphocytes (Bld) [#/Vol] 1.25 10*3/uL Normal 1.00-4.00 [facility] Comment on above: Order Comment: Speci men Type: BLOOD SPECIMENOrdering Facility: [facility] Address: [address] [place] [address] Performed By: #### 5 7021-8 ####[facility] LABORATORYCLIA [id number] [address] Lymphocytes/100 WBC (Bld) 9.7 % Normal [facility] Comment on above: Order Comment: Speci men Type: BLOOD SPECIMENOrdering Facility: [facility] Address: [address] [place] [address] Performed By: #### 5 7021-8 ####[facility] LABORATORYCLIA [id number] [address] MCH (RBC) [Entitic mass] 30.7 pg Normal 26.0-34.0 [facility] Comment on above: Order Comment: Speci men Type: BLOOD SPECIMENOrdering Facility: [facility] Address: [address] [place] [address] Performed By: #### 5 7021-8 ####[facility] LABORATORYCLIA [id number] [address] MCHC (RBC) [Mass/Vol] 32.4 g/dL Normal 30.5-36.0 [facility] Comment on above: Order Comment: Speci men Type: BLOOD SPECIMENOrdering Facility: [facility] Address: [address] [place] [address] Performed By: #### 5 7021-8 ####[facility] LABORATORYCLIA [id number] [address] MCV (RBC) [Entitic vol] 94.9 fL Normal 80.0-100.0 [facility] Comment on above: Order Comment: Speci men Type: BLOOD SPECIMENOrdering Facility: [facility] Address: [address] [place] [address] Performed By: #### 5 7021-8 ####[facility] LABORATORYCLIA [id number] [address] Monocytes (Bld) [#/Vol] 0.76 10*3/uL Normal <0.87 [facility] Comment on above: Order Comment: Speci men Type: BLOOD SPECIMENOrdering Facility: [facility] Address: [address] [place] [address] Performed By: #### 5 7021-8 ####[facility] LABORATORYCLIA [id number] [address] [place] Monocytes/100 WBC (Bld) 5.9 % Normal [facility] Comment on above: Order Comment: Speci men Type: BLOOD SPECIMENOrdering Facility: [facility] Address: [address] [place] [address] Performed By: #### 5 7021-8 ####[facility] LABORATORYCLIA [id number] [address] Neutrophils (Bld) [#/Vol] 10.55 10*3/uL High 1.45-7.50 [facility] Comment on above: Order Comment: Speci men Type: BLOOD SPECIMENOrdering Facility: [facility] Address: [address] [place] [address] Performed By: #### 5 7021-8 ####[facility] LABORATORYCLIA [id number] [address] Neutrophils/100 WBC (Bld) 81.8 % Normal [facility] Comment on above: Order Comment: Speci men Type: BLOOD SPECIMENOrdering Facility: [facility] Address: [address] [place] [address] Performed By: #### 5 7021-8 ####[facility] LABORATORYCLIA [id number] [address] [place] Nucleated RBC (Bld) [#/Vol] 10*3/uL Normal <0.01 [facility] Comment on above: Order Comment: Speci men Type: BLOOD SPECIMENOrdering Facility: [facility] Address: [address] [place] [address] Performed By: #### 5 7021-8 ####[facility]ORATORYCLIA [id number] [place] [address] [place] Nucleated RBC/100 WBC (Bld) [Ratio] 0.0 /100 WBC Normal [facility] Comment on above: Order Comment: Speci men Type: BLOOD SPECIMENOrdering Facility: [facility] Address: [address] [place] [address] Performed By: #### 5 7021-8 ####[facility] LABORATORYCLIA [id number] [place] [address] [place] Platelet mean volume (Bld) [Entitic vol] 11.3 fL Normal 9.0-12.7 [facility] Comment on above: Order Comment: Speci men Type: BLOOD SPECIMENOrdering Facility: [facility] Address: [address] [place] [address] Performed By: #### 5 7021-8 ####[facility] LABORATORYCLIA [id number] [address] [place] Platelets (Bld) [#/Vol] 141 10*3/uL Low 150-400 [facility] Comment on above: Order Comment: Speci men Type: BLOOD SPECIMENOrdering Facility: [facility] Address: [address] [place] [address] Performed By: #### 5 7021-8 ####[facility] LABORATORYCLIA [id number] [place] [address] [place] RBC (Bld) [#/Vol] 2.54 10*6/uL Low 3.90-5.20 [facility] Comment on above: Order Comment: Speci men Type: BLOOD SPECIMENOrdering Facility: [facility] Address: [address] [place] [address] Performed By: #### 5 7021-8 ####[facility] LABORATORYCLIA [id number] [address] [place] WBC (Bld) [#/Vol] 12.90 10*3/uL High 3.70-11.00 [facility] Comment on above: Order Comment: Speci men Type: BLOOD SPECIMENOrdering Facility: [facility] Address: [address] [place] [address] Performed By: #### 5 7021-8 ####[facility] LABORATORYCLIA [id number] [address] CONFIRM BLOOD TYPEon 025 ABO A Normal [facility] Comment on above: Order Comment: Speci men Type: BLOOD SPECIMENOrdering Facility: [facility] Address: [address] [place] [address] Performed By: #### C ONABO ####[facility] BLOOD BANKCLIA [id number] [address] OF [facility] Rh Nom (Bld) Positive Normal [facility] Comment on above: Order Comment: Speci men Type: BLOOD SPECIMENOrdering Facility: [facility] Address: [address] [place] [address] Performed By: #### C ONABO ####[facility] BLOOD BANKCLIA [id number] [address] Comprehensive metabolic 2000 panelon 11-29-2024 Albumin [Mass/Vol] 3.2 g/dL Low 3.9-4.9 [facility] Comment on above: Order Comment: Speci men Type: BLOOD SPECIMENOrdering Facility: [facility] Address: [address] [place] [address] Performed By: #### 1 9123-9, 72887-3, 2777-1 ####[facility] LABORATORYCLIA [id number] [address] STATES OF [facility] ALP [Catalytic activity/Vol] 40 U/L Normal 34-123 [facility] Comment on above: Order Comment: Speci men Type: BLOOD SPECIMENOrdering Facility: [facility] Address: [address] [place] [address] Performed By: #### 1 9123-9, 04498-9, 2777-1 ####[facility] LABORATORYCLIA [id number] [address] ALT With P-5'-P [Catalytic activity/Vol] 11 U/L Normal 7-38 [facility] Comment on above: Order Comment: Speci men Type: BLOOD SPECIMENOrdering Facility: [facility] Address: [address] [place] [address] Performed By: #### 1 9123-9, 37502-1, 2776- ####[facility] LABORATORYCLIA [id number] [place] [address] [place] Anion gap [Moles/Vol] 9 mmol/L Normal 8-15 [facility] Comment on above: Order Comment: Speci men Type: BLOOD SPECIMENOrdering Facility: [facility] Address: [address] [place] [address] Performed By: #### 1 9123-9, 21450-8, 2776-05 ####[facility] LABORATORYCLIA [id number] [place] [address] [place] AST With P-5'-P [Catalytic activity/Vol] 26 U/L Normal 13-35 [facility] Comment on above: Order Comment: Speci men Type: BLOOD SPECIMENOrdering Facility: [facility] Address: [address] [place] [address] Performed By: #### 1 9123-9, 22614-1, 2776-05 ####[facility] LABORATORYCLIA [id number] [place] [address] [place] Bilirubin [Mass/Vol] 0.3 mg/dL Normal 0.2-1.3 [facility] Comment on above: Order Comment: Speci men Type: BLOOD SPECIMENOrdering Facility: [facility] Address: [address] [place] [address] Performed By: #### 1 9123-9, 74986-4, 27711-15 ####[facility] LABORATORYCLIA [id number] [address] [place] Calcium [Mass/Vol] 8.4 mg/dL Low 8.5-10.2 [facility] Comment on above: Order Comment: Speci men Type: BLOOD SPECIMENOrdering Facility: [facility] Address: [address] [place], [place] [address] Performed By: #### 1 9123-9, 18466-3, 2777-1 ####[facility] LABORATORYCLIA [id number] [place] [address] [place] Chloride [Moles/Vol] 109 mmol/L High 98-107 [facility] Comment on above: Order Comment: Speci men Type: BLOOD SPECIMENOrdering Facility: [facility] Address: [address] [place] [address] Performed By: #### 1 9123-9, 11468-6, 2777- ####[facility] LABORATORYCLIA [id number] [address] STATES OF [facility] CO2 [Moles/Vol] 21 mmol/L Low 22-30 [facility] Comment on above: Order Comment: Speci men Type: BLOOD SPECIMENOrdering Facility: [facility] Address: [address] [place] [address] Performed By: #### 1 9123-9, 53915-0, 2777-1 ####[facility] LABORATORYCLIA [id number] [address] [place] Creatinine [Mass/Vol] 0.95 mg/dL Normal 0.58-0.96 [facility] Comment on above: Order Comment: Speci men Type: BLOOD SPECIMENOrdering Facility: [facility] Address: [address] [place] [address] Performed By: #### 1 9123-9, 15575-3, 2777- ####[facility] LABORATORYCLIA [id number] [address] [place] eGFRcr SerPlBld CKD-EPI 2020 61 mL/min/1.73m??? Normal >=60 [facility] Comment on above: Order Comment: Speci men Type: BLOOD SPECIMENOrdering Facility: [facility] Address: [address] [place] [address] Result Comment: Zully mated Glomerular Filtration Rate (eGFR) is calculated using the 2020 CKD-EPI creatinine equation. This equation utilizes serum creatinine, sex, and age as parameters. The creatinine assay has traceable calibration to isotope dilution-mass spectrometry. Refer to KDIGO guidelines for clinical interpretation. In patients with unstable renal function, e.g. those with acute kidney injury, the eGFR may not accurately reflect actual GFR. Performed By: #### 1 9123-9, 43138-9, 2776-05 ####[facility] LABORATORYCLIA [id number] [place] [address] [place] Glucose [Mass/Vol] 86 mg/dL Normal 74-99 [facility] Comment on above: Order Comment: Specisamar murray Type: BLOOD SPECIMENOrdering Facility: [facility] Address: [address] [place] [address] Result Comment: The [place] Diabetes Association (ADA) provides guidance for cutoff values for fasting glucose and random glucose. The ADA defines fasting as no caloric intake for at least 8 hours. Fasting plasma glucose results between 100 to 125 mg/dL indicate increased risk for diabetes (prediabetes). Fasting plasma glucose results greater than or equal to 126 mg/dL meet the criteria for diagnosis of diabetes. In the absence of unequivocal hyperglycemia, results should be confirmed by repeat testing. In a patient with classic symptoms of hyperglycemia or hyperglycemic crisis, random plasma glucose results greater than or equal to 200 mg/dL meet the criteria for diagnosis of diabetes. Reference: Standards of Medical Care in Diabetes 2016, [place] [employer] Association. Diabetes Care. 2016.39(Suppl 1). Performed By: #### 1 9123-9, 63807-3, 2776-05 ####[facility] LABORATORYCLIA [id number] [place] [id number] [place] Protein [Mass/Vol] 5.1 g/dL Low 6.3-8.0 [facility] Comment on above: Order Comment: Specisamar murray Type: BLOOD SPECIMENOrdering Facility: [facility] Address: [address] [place] [address] Performed By: #### 1 9123-9, 26163-2, 2776-05 ####[facility] LABORATORYCLIA [id number] [place] [address] [place] Sodium [Moles/Vol] 139 mmol/L Normal 136-144 [facility] Comment on above: Order Comment: Speci men Type: BLOOD SPECIMENOrdering Facility: [facility] Address: [address] [place], [place] [address] Performed By: #### 1 9123-9, 41612-2, 2777-1 ####[facility] LABORATORYCLIA [id number] [place] [address] [place] Urea nitrogen [Mass/Vol] 13 mg/dL Normal - [facility] Comment on above: Order Comment: Speci men Type: BLOOD SPECIMENOrdering Facility: [facility] Address: [address] [place], [place] [address] Performed By: #### 1 9123-9, 14660-2, 2777-1 ####[facility] LABORATORYCLIA [id number] [place] [id number] [place] ECG COMPLETEon 11-29-2024 ECG COMPLETE Ventricular Rate : 6 4 BPM Atrial Rate : 64 BPM P-R Interval : 150 ms QRS Duration : 80 ms Q-T Interval : 442 ms QTC Calculation(Bazett) : 455 ms Calculated P [place] : 23 degrees Calculated R [place] : 13 degrees Calculated T [place] : 55 degrees NORMAL SINUS RHYTHM NORMAL ECG WHEN COMPARED WITH ECG OF 27-Nov-2024 15:23, NO SIGNIFICANT CHANGE WAS FOUND Confirmed by MD SINCLAIR YASSAR ([id number]) on 12/02/2024 9:15:08 AM NAME : OCHOA DOUGLAS PID : [id number] : 1945 Gender : Female Race : ORD : [id number] Procedure Date : Nov 29 2024 18:21:24 Edit Date : Dec 02 2024 09:15:11 Diagnosis: NORMAL SINUS RHYTHM NORMAL ECG WHEN COMPARED WITH ECG OF 27-Nov-2024 15:23, NO SIGNIFICANT CHANGE WAS FOUND Confirmed by MD SINCLAIR YASSAR ([id number]) on 12/02/2024 9:15:08 AM Test Reason : Post-OP Location : 6 : [place] [address] Overread By : MD SINCLAIR YASSAR Edited By : MD SINCLAIR YASSAR Referred By : , Acquired by : ISAAC KNOX [facility] ECHOon 11-29-2024 Echocardiography Echocardiography Report: Transthoracic Echo [facility] Date of service: 11/29/2024 10:45:58 [facility] Ordering physician: ELY AYOUB Exam indication: Evaluation of ventricular function following ACS Technologist: Sarah Galvan Interpreting physician: Iron Alfonso MD PATIENT: Name: MS. OCHOA DOUGLAS : 1945 Age: 79 years Gender: F History of coronary artery disease. Previous cardiovascular interventions: PCI Primary rhythm: sinus. Height: 162.60 cm BSA: 1.75 m Weight: 68.10 kg BMI: 25.8 kg/m Heart rate 68 bpm Blood pressure 144/63 mmHg Color Doppler was utilized to interrogate the cardiac valves assessed and spectral Doppler was utilized to determine the flow velocities and pressure gradients reported in this exam. MEASUREMENTS: Value Indexed Normal Max aortic dimension 3.5 cm Ao < 3.8 Left atrial volume 94 ml (biplane A-L) 54 ml/m Gonzalez <= 34 LV ID (diastole) 4.7 cm (2D) 2.68 cm/m LV ID (systole) 2.8 cm (2D) 1.60 cm/m IVS, leaflet tips 1.0 cm (2D) Posterior wall thickness 0.8 cm (2D) Left ventricular mass 143 g (2D) 81 g/m LV stroke volume 53 ml (2D biplane) LV end diastolic volume 79 ml (2D biplane) 45.3 ml/m 29<=EDVi<62 LV end systolic volume 27 ml (2D biplane) 15.2 ml/m Ejection Fraction 66 % (2D biplane) EF > 54 FINDINGS: LEFT VENTRICLE The left ventricle is normal in size. There is no left ventricular hypertrophy. Left ventricular systolic function is normal globally. Normal left ventricular diastolic function. Mitral annular lateral E/e': 8.6. Mitral annular septal E/e': 12.8. Wall Motion: All scored segments are normal. RIGHT VENTRICLE The right ventricle is normal in size. Right ventricular systolic function is normal. RV systolic tissue Doppler velocity is 11.0 cm/s. Tricuspid annular displacement is 1.9 cm. Estimated right ventricular systolic pressure is 28 mmHg consistent with normal pulmonary artery pressures. Estimated right atrial pressure is 3 mmHg based on IVC assessment. LEFT ATRIUM The left atrial cavity is severely dilated. Pulmonary Veins: The pulmonary venous pattern showed normal systolic flow. RIGHT ATRIUM The right atrial cavity is normal in size. Inferior Vena Cava: The inferior vena cava appears normal measuring 1.2 cm. The vessel decreases greater than 50 percent with inspiration. MITRAL VALVE The mitral valve leaflets are structurally normal. There is trace mitral valve regurgitation. The pressure half time is 63 msec. The peak mitral E/A ratio is 0.72. The average mitral E/e' ratio is 10.7. The mitral flow deceleration time is 218 msec. TRICUSPID VALVE The tricuspid valve leaflets are structurally normal. There is trace (trace - 1+) tricuspid valve regurgitation. The hepatic venous pattern showed normal systolic flow. AORTIC VALVE There is trace aortic valve regurgitation. Tricuspid aortic valve. There is mild thickening. PULMONIC VALVE There is trace pulmonic valve regurgitation. There is no thickening. AORTA The visualized aorta is normal in size. Measurements - Mid ascending aorta 3.5 cm. PULMONARY ARTERIES The pulmonary arteries are unseen or not interrogated. INTERATRIAL SEPTUM There is no evidence of intracardiac shunting as detected by Doppler. INTERVENTRICULAR SEPTUM There is no flow through the interventricular septum as detected by Doppler. PERICARDIUM There is no pericardial effusion. There is an epicardial fat pad. CONCLUSIONS: - Exam indication: Evaluation of ventricular function following ACS - The left ventricle is normal in size. There is no left ventricular hypertrophy. Left ventricular systolic function is normal. EF = 66 5% (2D biplane) Normal left ventricular diastolic function. - The right ventricle is normal in size. Right ventricular systolic function is normal. - The left atrial cavity is severely dilated. - The patient has not had a prior CC echocardiographic exam for comparison. * * * Final * * * CC [employer] [facility] : [id number] amicsSISUID Normal [facility] INTRAOPERATIVE ECHO PREon INTRAOPERATIVE ECHO PRE Echocardiography Report: Intraoperative Echo Pre (LIZBETH) [facility] OR Date of service: 11/29/2024 1:03:56 PM [facility] Exam indication: intraop Technologist: staff Interpreting physician: Tyrese Campoverde MD PATIENT: Name: MS. OCHOA DOUGLAS : 1945 Age: 79 years Gender: F Height: 162.60 cm BSA: 1.75 m Weight: 68.10 kg BMI: 25.8 kg/m (PRE PROCEDURE) MEASUREMENTS: (PRE PROCEDURE) FINDINGS: (PRE PROCEDURE) LEFT VENTRICLE RIGHT VENTRICLE MITRAL VALVE TRICUSPID VALVE AORTIC VALVE PULMONIC VALVE CONCLUSIONS: (PRE PROCEDURE) - Exam indication: intraop not compared Final [facility] [employer] [facility] : [id number] amicsSISUID See Link below for Image Normal [facility] Magnesium SerPl-mCncon 11-29 Magnesium [Mass/Vol] 2.8 mg/dL High 1.7-2.3 [facility] Comment on above: Order Comment: Speci men Type: BLOOD SPECIMENOrdering Facility: [facility] Address: [address] [place] [address] Performed By: #### 1 9123-9, 75219-0, 2777-1 ####[facility] LABORATORYCLIA [id number] [place] [address] [place] OPERATIVE NOon 11-29-2024 OPERATIVE NO HNO ID: [id number] Author: PETER HAYES MD Service: Cardiac Surgery Author Type: Physician Type: Operative Report Filed: 11/29/2024 19:46 Note Text: [facility] CARDIO-THORACICSURGER Y OPERATIVE/PROCEDURE REPORT LOG ID: [id number] SURGERY/PROCEDURE DATE: 11/29/2024 INCISION/PROCEDURE START TIME: 2:23 PM INCISION CLOSE/PROCEDURE END TIME: 6:06 PM SURGEON(S)/PROCEDURAL IST(S) AND MOBILE THERAPIST(S): Surgeons and Role: * Peter Hayes MD - Primary Physician Lead Vulcanizing Operator: Camille Pratt PA-C; Jluis Mon PA-C; Alondra Byrd PA-C ANESTHESIA: General CTS OP REPORTS Procedure(s): Coronary Artery Bypass Graft Preop Diagnosis: Complex Vessel Coronary Artery Disease Unstable Angina Post-Operative Diagnosis: Same as preop Findings/Additional Details: Pre: Normal LVEF Post: normal LVEF and excellent graft flows Description Of Procedure: Patient Status: Urgent Reoperation: No previous surgerie(s) Operative Approach: Open approach Open Approach Type: Median sternotomy PUMP: On cardiopulmonary bypass Arterial Cannulation: Ascending Aorta Venous Cannulation: Right Atrial Epiaortic Ultrasound Used: No CARDIOPLEGIA: Buckberg Cardioplegia Delivery: Antegrade and Retrograde, Indirect Coronary Artery Bypass Graft (CABG): Conduit Quality: Normal caliber with excellent flow Aorta Quality: Normal Coronary Artery Quality: Normal Proximal Technique: Single cross clamp GRAFTS: CHAN in situ mammary end to side mid LAD Vein graft ascending aorta end to side posterior descending (PDA) Vein graft ascending aorta end to side obtuse marginal 1 Left GABI: Skeletonized [place] Technique: Direct vision (open) Vein(s) Harvested: Left leg greater saphenous [place] Technique: Endoscopic Post-Bypass: Aortic Occlusion: Aortic cross clamp PACING WIRES: None CHEST TUBES/DRAINS: Left chest tube, Right chest tube and Mediastinal chest tube CLOSURE: Routine with sternal wires plate x 1 Post Procedure Details: Patient Tolerance of Procedure: Tolerated well, no immediate complications Sponge/Instrument/Nee dle Counts: Final Counts Correct Estimated Blood Loss: 250 mL of shed blood was preserved by cardiopulmonary bypass pump and the cell saver. Specimens: None Complex Surgery: No Surgeon/Lead Vulcanizing Operator Participation: The primary Surgeon/Proceduralist performed the procedure with assistance. No qualified Resident/Fellow was available. Apparel Pattern Maker: opened and closed Second Assist: opened, closed and harvested grafts Grafts Harvested: left greater saphenous SPECIMENS: COMPLETED BY: Peter Hayes MD PATIENT NAME: Ochoa Douglas DATE: November 29, 2024 TIME: 7:44 PM AGE: [age] year old Normal [facility] Phosphate SerPl-mCncon 11-29 Phosphate [Mass/Vol] 2.7 mg/dL Normal 2.7-4.8 [facility] Comment on above: Order Comment: Speci men Type: BLOOD SPECIMENOrdering Facility: [facility] Address: [address] [place] [address] Performed By: #### 1 9123-9, 02116-2, 2777-1 ####[facility] LABORATORYCLIA [id number] [address] STATES OF [facility] XR CHEST 1V FRONTALon 2024 XR CHEST 1V FRONTAL * * *Final Report* * * DATE OF EXAM: Nov 29 2024 6:53PM AKX [id number] - XR CHEST 1V FRONTAL / PROCEDURE REASON: Post-operative/post-p rocedure assessment * * * * Physician Interpretation * * * * EXAMINATION: CHEST RADIOGRAPH (SINGLE VIEW AP OR PA) CLINICAL HISTORY: Post-operative/post-p rocedure assessment, Evaluate tube, line, or lead position MQ: XC1_5 Comparison: 11/27/2024 RESULT: Lines, tubes, and devices: Right IJ central venous catheter in place with the tip projecting over the SVC. Right-sided chest tube in place projecting over the right midlung. Left-sided chest tube in place with the tip near the left costophrenic angle. Enteric tube in place with the tip projecting over the stomach. Endotracheal tube in place with the tip projecting approximately 7 cm proximal to the tali. Lungs and pleura: No consolidation. No lung mass. No pleural effusion. Cardiomediastinal silhouette: Normal cardiomediastinal silhouette. Other: Median sternotomy. IMPRESSION: No acute radiographic abnormality. Prep Room Supervisor: LARRY Transcribe Date/Time: Nov 29 2024 8:07P Dictated by : JERARDO MURILLO MD This examination was interpreted and the report reviewed and electronically signed by: JERARDO MURILLO MD on Nov 29 2024 8:09PM EST [id number] Normal [facility] aPTT PPPon 11-29-2024 aPTT Coag (PPP) [Time] 28.0 s Normal 23.0-32.4 [facility] Comment on above: Order Comment: Speci men Type: BLOOD SPECIMENOrdering Facility: [facility] Address: [address] [place] [address] Performed By: #### 1 4979-9 ####[facility] LABORATORYCLIA [id number] [place] [address] [place] CBC W Auto Differential pane l (Bld)on 11-28-2024 Basophils (Bld) [#/Vol] 0.12 10*3/uL High <0.11 [facility] Comment on above: Order Comment: Speci men Type: BLOOD SPECIMENOrdering Facility: [facility] Address: [address] [place] [address] Performed By: #### 5 7021-8 ####[facility]ORATORYCLIA [id number] [address] [place] Basophils/100 WBC (Bld) 2.0 % Normal [facility] Comment on above: Order Comment: Speci men Type: BLOOD SPECIMENOrdering Facility: [facility] Address: [address] [place] [address] Performed By: #### 5 7021-8 ####[facility] LABORATORYCLIA [id number] [address] Differential cell count method Nom (Bld) Manual Normal [facility] Comment on above: Order Comment: Speci men Type: BLOOD SPECIMENOrdering Facility: [facility] Address: [address] [place] [address] Performed By: #### 5 7021-8 ####[facility] LABORATORYCLIA [id number] [address] [place] Eosinophils (Bld) [#/Vol] 0.48 10*3/uL High <0.46 [facility] Comment on above: Order Comment: Speci men Type: BLOOD SPECIMENOrdering Facility: [facility] Address: [address] [place] [address] Performed By: #### 5 7021-8 ####[facility] LABORATORYCLIA [id number] [address] Eosinophils/100 WBC (Bld) 8.0 % Normal [facility] Comment on above: Order Comment: Speci men Type: BLOOD SPECIMENOrdering Facility: [facility] Address: [address] [place] [address] Performed By: #### 5 7021-8 ####[facility] LABORATORYCLIA [id number] [address] [place] Erythrocyte distribution width (RBC) [Ratio] 13.2 % Normal 11.5-15.0 [facility] Comment on above: Order Comment: Speci men Type: BLOOD SPECIMENOrdering Facility: [facility] Address: [address] [place] [address] Performed By: #### 5 7021-8 ####[facility] LABORATORYCLIA [id number] [address] [place] Hematocrit (Bld) [Volume fraction] 31.2 % Low 36.0-46.0 [facility] Comment on above: Order Comment: Speci men Type: BLOOD SPECIMENOrdering Facility: [facility] Address: [address] [place] [address] Performed By: #### 5 7021-8 ####[facility] LABORATORYCLIA [id number] [address] [place] Hemoglobin (Bld) [Mass/Vol] 9.8 g/dL Low 11.5-15.5 [facility] Comment on above: Order Comment: Speci men Type: BLOOD SPECIMENOrdering Facility: [facility] Address: [address] [place] [address] Performed By: #### 5 7021-8 ####[facility] LABORATORYCLIA [id number] [address] [place] Lymphocytes (Bld) [#/Vol] 2.35 10*3/uL Normal 1.00-4.00 [facility] Comment on above: Order Comment: Speci men Type: BLOOD SPECIMENOrdering Facility: [facility] Address: [address] [place] [address] Performed By: #### 5 7021-8 ####[facility] LABORATORYCLIA [id number] [address] [place] Lymphocytes/100 WBC (Bld) 39.0 % Normal [facility] Comment on above: Order Comment: Speci men Type: BLOOD SPECIMENOrdering Facility: [facility] Address: [address] [place] [address] Performed By: #### 5 7021-8 ####[facility] LABORATORYCLIA [id number] [address] MCH (RBC) [Entitic mass] 30.1 pg Normal 26.0-34.0 [facility] Comment on above: Order Comment: Speci men Type: BLOOD SPECIMENOrdering Facility: [facility] Address: [address] [place] [address] Performed By: #### 5 7021-8 ####[facility] LABORATORYCLIA [id number] [address] MCHC (RBC) [Mass/Vol] 31.4 g/dL Normal 30.5-36.0 [facility] Comment on above: Order Comment: Speci men Type: BLOOD SPECIMENOrdering Facility: [facility] Address: [address] [place] [address] Performed By: #### 5 7021-8 ####[facility] LABORATORYCLIA [id number] [address] MCV (RBC) [Entitic vol] 95.7 fL Normal 80.0-100.0 [facility] Comment on above: Order Comment: Speci men Type: BLOOD SPECIMENOrdering Facility: [facility] Address: [address] [place] [address] Performed By: #### 5 7021-8 ####[facility] LABORATORYCLIA [id number] [address] Monocytes (Bld) [#/Vol] 0.36 10*3/uL Normal <0.87 [facility] Comment on above: Order Comment: Speci men Type: BLOOD SPECIMENOrdering Facility: [facility] Address: [address] [place] [address] Performed By: #### 5 7021-8 ####[facility] LABORATORYCLIA [id number] [place] [address] [place] Monocytes/100 WBC (Bld) 6.0 % Normal [facility] Comment on above: Order Comment: Speci men Type: BLOOD SPECIMENOrdering Facility: [facility] Address: [address] [place] [address] Performed By: #### 5 7021-8 ####[facility]ORATORYCLIA [id number] [place] [address] [place] Neutrophils (Bld) [#/Vol] 2.71 10*3/uL Normal 1.45-7.50 [facility] Comment on above: Order Comment: Speci men Type: BLOOD SPECIMENOrdering Facility: [facility] Address: [address] [place] [address] Performed By: #### 5 7021-8 ####[facility]ATORYCLIA [id number] [address] [place] Neutrophils/100 WBC (Bld) 45.0 % Normal [facility] Comment on above: Order Comment: Speci men Type: BLOOD SPECIMENOrdering Facility: [facility] Address: [address] [place] [address] Performed By: #### 5 7021-8 ####[facility]ORATORYCLIA [id number] [address] [place] Nucleated RBC (Bld) [#/Vol] 10*3/uL Normal <0.01 [facility] Comment on above: Order Comment: Speci men Type: BLOOD SPECIMENOrdering Facility: [facility] Address: [address] [place] [address] Performed By: #### 5 7021-8 ####[facility]ORATORYCLIA [id number] [address] [place] Nucleated RBC/100 WBC (Bld) [Ratio] 0.0 /100 WBC Normal [facility] Comment on above: Order Comment: Speci men Type: BLOOD SPECIMENOrdering Facility: [facility] Address: [address] [place] [address] Performed By: #### 5 7021-8 ####[facility] [facility]ORATORYCLIA [id number] [address] [place] Ovalocytes LM Ql (Bld) Few Normal [facility] Comment on above: Order Comment: Speci men Type: BLOOD SPECIMENOrdering Facility: [facility] Address: [address] [place] [address] Performed By: #### 5 7021-8 ####[facility] LABORATORYCLIA [id number] [address] [place] Platelet mean volume (Bld) [Entitic vol] 11.3 fL Normal 9.0-12.7 [facility] Hospital Comment on above: Order Comment: Speci men Type: BLOOD SPECIMENOrdering Facility: [facility] Address: [address] [place] [address] Performed By: #### 5 7021-8 ####[facility] LABORATORYCLIA [id number] [address] Platelets (Bld) [#/Vol] 224 10*3/uL Normal 150-400 [facility] Comment on above: Order Comment: Speci men Type: BLOOD SPECIMENOrdering Facility: [facility] Address: [address] [place] [address] Result Comment: No c lot detected. Performed By: #### 5 7021-8 ####[facility] LABORATORYCLIA [id number] [address] Platelets Estimate (Bld) [#/Vol] Adequate Normal [facility] Comment on above: Order Comment: Speci men Type: BLOOD SPECIMENOrdering Facility: [facility] Address: [address] [place] [address] Performed By: #### 5 7021-8 ####[facility] LABORATORYCLIA [id number] [address] [place] RBC (Bld) [#/Vol] 3.26 10*6/uL Low 3.90-5.20 [facility] Comment on above: Order Comment: Speci men Type: BLOOD SPECIMENOrdering Facility: [facility] Address: [address] [place] [address] Performed By: #### 5 7021-8 ####[facility] LABORATORYCLIA [id number] [place] [id number] [facility]ORPH Reviewed: see result s of individual morphologies Normal [facility] Comment on above: Order Comment: Speci men Type: BLOOD SPECIMENOrdering Facility: [facility] Address: [address] [place] [address] Performed By: #### 5 7021-8 ####[facility] LABORATORYCLIA [id number] [address] WBC (Bld) [#/Vol] 6.02 10*3/uL Normal 3.70-11.00 [facility] Comment on above: Order Comment: Speci men Type: BLOOD SPECIMENOrdering Facility: [facility] Address: [address] [place] [address] Performed By: #### 5 7021-8 ####[facility] LABORATORYCLIA [id number] [address] CNPNon 11-28-2024 CNPN Telephone (AGVASACC) OCHOA DOUGLAS ([id number]) 1945 F Date Time Provider Department 11/28/24 PETER HAYES AGVASACC During your visit today, we recorded the following information about you: Rikki Garcia MA 11/28/2024 9:11 AM Signed [facility] medical records fax [phone] Faxed request for recent carotid ultrasound results. Rikki Garcia MA 11/28/2024 2:54 PM Signed Received fax back from [facility] stating no carotid ultrasound found Allergies As of Date: 11/28/2024 Noted Allergy Reaction LISINOPRIL 08/19/2019 3 - Cough CRESTOR (ROSUVASTATIN) 03/21/2020 17 - Myalgia Comments: muscle aches LIPITOR (ATORVASTATIN) 03/21/2020 17 - Myalgia Comments: muscle aches Date Reviewed: 11/27/2024 Reviewed by: Melany Cook DO - Fully Assessed Reason for Visit: Request Outside Medical Records [[id number]] Prescriptions as of 11/28/2024 - REPATHA SURECLICK 140 mg/mL pen injector Inject 140 mg subcutaneously every 2 weeks. - losartan (COZAAR) 25 mg tablet Take 1 tablet by mouth once daily. - folic acid 1 mg tablet Take 1 tablet by mouth once daily. - ferrous sulfate 325 mg (65 mg iron) tablet Take 1 tablet by mouth once daily. - ascorbic acid, vitamin C, (VITAMIN C) 500 mg tablet Take 1 tablet by mouth once daily. - aspirin, enteric coated (ASPIRIN, ENTERIC COATED) 81 mg EC tablet Take 81 mg by mouth once daily. - metoprolol tartrate, short acting, (LOPRESSOR) 25 mg tablet Take 12.5 mg by mouth two times a day. [facility] - tacrolimus (PROTOPIC) 0.1 % ointment Apply topically to affected areas on face every evening - vibegron (GEMTESA) 75 mg tablet Take 75 mg by mouth once daily. - levothyroxine (SYNTHROID) 112 mcg tablet TAKE 1 TABLET BY MOUTH DAILY ON AN EMPTY STOMACH FOR THYROID - triamcinolone acetonide (KENALOG) 0.1 % cream Apply 1 application to affected area twice daily. Apply sparingly to area for rash/itching on extremities - simvastatin (ZOCOR) 40 mg tablet Take 40 mg by mouth once daily. Taking every other day due to leg cramps - pyridoxine, vitamin B6, (VITAMIN B6) 100 mg tablet Take 100 mg by mouth once daily. - Omeprazole 40 mg capsule Take 1 capsule by mouth once daily. (Dr. Rand) - clopidogrel bisulfate(PLAVIX 75 MG TAB) Take one(1) tablet daily. - nitroglycerin(NITROST AT 0.4 MG SUBLINGUAL TAB) Place one(1) tablet on tongue as needed for chest pain. If no pain relief call 911. Facility-Administered Medications as of 11/28/2024 - aspirin, enteric coated 81 mg tab(s) - metoprolol tartrate (short acting) 12.5 mg tab(s) (LOPRESSOR) - simvastatin 40 mg tab(s) (ZOCOR) - pantoprazole DR 40 mg tab(s) (PROTONIX) - levothyroxine 112 mcg tab(s) (SYNTHROID) - ferrous sulfate 325 mg tab(s) - heparin 5,000 Units injection - NaCl 0.9% iv flush bag - nitroglycerin sublingual 0.4 mg tab(s) (NITROQUICK) - Chlorhexidine Gluconate 0.12 % 15 mL (PERIDEX) - mupirocin 2 % 0.5 g nasal ointment (BACTROBAN) Problem List As Of Date 11/28/2024 Noted Resolved Hypothyroidism [E03.9] Obesity [E66.9] 03/13/2006 06/01/2023 Family history of ischemic heart disease [Z82.4*08/31/2007 06/01/2023 Mixed hyperlipidemia [E78.2] 03/13/2008 Cardiovascular disease [I25.10] 12/14/2008 Anemia [D64.9] 04/06/2009 Myocardial infarction, old [I25.2] 02/19/2010 Family history of cardiovascular disease [Z82.4*02/19/2010 06/01/2023 Essential hypertension [I10] 2020 Angina pectoris [I20.9] 11/27/2024 CAD (coronary artery disease) [I25.10] 11/27/2024 Encounter Status:Closed by ESTELLE GARCIA on 11/28/24 [facility] CONSULTon 11-28-2024 CONSULT HNO ID: [id number] Author: PETER HAYES MD Service: Cardiovascular Surgery Author Type: Nurse Practitioner Type: Consults Filed: 11/29/2024 12:19 Note Text: Attestation signed by Peter Hayes MD at 11/29/2024 12:19 PM Attending Note I have personally performed a face to face assessment of the patient and have reviewed the BLAYNE note. I performed a substantive portion of the visit including all aspects of the following. My haque findings include: as above recommend proceeding to CABG The risks, benefits, and anticipated outcomes of the procedure; the risks and benefits of the alternatives to the procedure; and the roles and tasks of the personnel to be involved were discussed with the patient and she consents to the procedure and agrees to proceed. Other additions or changes: None Signature: Peter Hayes MD Date: 11/29/2024 Time: 12:18 PM CARDIOTHORACIC SURGERY CONSULT / HANDP SERVICE DATE: 11/28/2024 SERVICE TIME: 1:13 PM Subjective PRIMARY SERVICE: Cardiothoracic Surgery CHIEF COMPLAINT: Angina HPI: Ochoa Douglas is a 79 year old female w/ PMHx of CAD, PA w/PCI in 2008, hypothyroidism, anemia and GERD who presented to [facility] on 11/28/24 w/ active chest pain. Patient states that developed ongoing chest pain for the past 2 days. Pain was worse w/exertion that has radiated up the left side of her neck. She denies any further associated symptoms. Pain had resolved at rest. States her pain is likely related to her daughter visited and her daughter's current living situation. Currently patient has custody of her daughter's 4 y/o son. Patient was previously seen by Dr. Hayes in the office on 11/08/24 for evaluation for CABG surgery. She was previously worked up by her Cardiologists, Dr. Bailey at [facility]. Patient been c/o exertional fatigue, dyspnea, occasional chest discomfort for some time. Stress test was abnormal which prompted LHC. LHC from [facility]: LM Mild dz w/ 20-30% ostial stenosis, LAD patent stent w/ 80-90% ostial stenosis, mid segment 70% followed by another long mid segment stenosis, Cx previously stented, ostial stenosis at 80%, 1st OM no dz, RCA previously stented, prox 50%, mid area w/ 70% stenosis and distal stent patent. At that time she was deemed a candidate for surgery pending further work up. He had requested images and reports from [facility]. He also wanted her to completed carotid ultrasound, chest ct scan and echo prior to scheduling for surgery. Patient remains in ED with admitting orders. CTS has been consulted given her symptoms and plan for upcoming surgery. Patient is Able to Perform the Following Physical Activity: Climb a flight of stairs or walk up a hill (5.50 METs) Patient has the following medical comorbidities which might affect the perioperative course: Previous PA w/stents CAD HTN HLD PAST MEDICAL HISTORY Diagnosis Date ASCVD (arteriosclerotic cardiovascular disease) Family history of cardiovascular disease 02/19/2010 Family history of ischemic heart disease 08/31/2007 Myocardial infarction, old 02/19/2010 Dr. Rand manages Obesity 03/13/2006 S/P drug eluting coronary stent placement 3 vessesl Unspecified hypothyroidism PAST SURGICAL HISTORY Procedure Laterality Date COLONOSCOPY FLX DX W/COLLJ SPEC WHEN PFRMD 05/18/1994 Colonoscopy--PATIENT DOES NOT RECALL HAVING ONE DONE LEFT HEART CATH,PERCUTANEOUS 11/07/2024 [facility] LIG/TRNSXJ FLP TUBE ABDL/VAG APPR UNI/BI 05/18/1987 Tubal ligation PAST SURGICAL HISTORY OF breast lumpectomy PAST SURGICAL HISTORY OF 04/15/2010 left septal mass excision (Brayan Lizzy) FAMILY HISTORY Problem Relation Age of Onset Thyroid Sister 2 sisters and one brother Coronary Artery Disease Sister Coronary Artery Disease Brother Social History Tobacco Use Smoking status: Never Smokeless tobacco: Never Vaping Use Vaping status: Never Used Substance Use Topics Alcohol use: No Drug use: No (Not in a hospital admission) REPATHA SURECLICK 140 mg/mL pen injectorInject 140 mg subcutaneously every 2 weeks.Disp: Rfl: losartan (COZAAR) 25 mg tabletTake 1 tablet by mouth once daily.Disp: Rfl: ferrous sulfate 325 mg (65 mg iron) tabletTake 1 tablet by mouth once daily.Disp: 30 tabletRfl: 2 aspirin, enteric coated (ASPIRIN, ENTERIC COATED) 81 mg EC tabletTake 81 mg by mouth once daily.Disp: Rfl: metoprolol tartrate, short acting, (LOPRESSOR) 25 mg tabletTake 12.5 mg by mouth two times a day. [facility] GroupDisp: Rfl: levothyroxine (SYNTHROID) 112 mcg tabletTAKE 1 TABLET BY MOUTH DAILY ON AN EMPTY STOMACH FOR THYROIDDisp: 90 tabletRfl: 3 simvastatin (ZOCOR) 40 mg tabletTake 40 mg by mouth once daily. Taking every other day due to leg cramps Disp: (more content not included)... Normal [facility] CONSULT HNO ID: [id number] Author: SUSAN ISAAC MD Service: Clinical Cardiology Author Type: Physician Type: Consults Filed: 12/04/2024 07:48 Note Text: CONSULT: CARDIOLOGY SERVICE SERVICE DATE: 11/28/2024 SERVICE TIME: CONSULTING PHYSICIAN: Susan Isaac PCP: Bora Marie DO ATTENDING: Elda Payne DO REASON FOR CONSULT: Chest Pain Subjective CHIEF COMPLAINT: Angina pectoris [I20.9] HISTORY OF PRESENT ILLNESS: Ms. Douglas is a 79 year old female who presents for chest tightness for 2 days. Patient already evaluater for CABG by Dr Hayes. No need for General Cardiology consult at this time Orders reviewed and I agree with the cardiac orders. Additional orders include: Cardiology consult will take place if Dr. Hayes wishes SIGNATURE: Susan Isaac MD PATIENT NAME: Ochoa Douglas DATE: November 28, 2024 TIME: 8:50 AM Normal [facility] CONSULT PROGon 11-28-2024 CONSULT PROG HNO ID: [id number] Author: SUSAN ISAAC MD Service: Clinical Cardiology Author Type: Physician Type: Consult Progress Note Filed: 11/28/2024 14:17 Note Text: Patient is to be seen by Dr. Hayes. Dr. Hayes has met her as an outpatient and does have her scheduled in the near future for coronary artery bypass graft surgery. I will be happy to do the consult if Dr. Hayes needs assistance. Normal [facility] Comprehensive metabolic 2000 panelon 11-28-2024 Albumin [Mass/Vol] 3.7 g/dL Low 3.9-4.9 [facility] Comment on above: Order Comment: Speci men Type: BLOOD SPECIMENOrdering Facility: [facility] Address: [address] [place] [address] Performed By: #### 1 9123-9, 55151-8, 2276-4, 52478-2, 3034-6 ####[facility] LABORATORYCLIA [id number] [place] [address] [place] [facility] ALP [Catalytic activity/Vol] 61 U/L Normal 34-123 [facility] Comment on above: Order Comment: Speci men Type: BLOOD SPECIMENOrdering Facility: [facility] Address: [address] [place] [address] Performed By: #### 1 9123-9, 16351-7, 6-4, 00571-2, 3034-6 ####[facility] LABORATORYCLIA [id number] [place], [place] [address] [place] [address] [place] [facility] ALT With P-5'-P [Catalytic activity/Vol] 14 U/L Normal 7-38 [facility] Comment on above: Order Comment: Speci men Type: BLOOD SPECIMENOrdering Facility: [facility] Address: [address] [place] [address] Performed By: #### 1 9123-9, 77868-8, 6-4, 82925-6, 3034-6 ####[facility] LABORATORYCLIA [id number] [place] [address] [place] [facility] Anion gap [Moles/Vol] 8 mmol/L Normal 8-15 [facility] Comment on above: Order Comment: Speci men Type: BLOOD SPECIMENOrdering Facility: [facility] Address: [address] [place] [address] Performed By: #### 1 9123-9, 15585-9, 6-4, 54719-6, 3034-6 ####[facility] LABORATORYCLIA [id number] [place] [address] [place] [facility] AST With P-5'-P [Catalytic activity/Vol] 33 U/L Normal 13-35 [facility] Comment on above: Order Comment: Speci men Type: BLOOD SPECIMENOrdering Facility: [facility] Address: [address] [place] [address] Performed By: #### 1 9123-9, 97438-5, 2276-4, 19746-3, 3034-6 ####[facility] LABORATORYCLIA [id number] [place] [address] [place] Bilirubin [Mass/Vol] 0.3 mg/dL Normal 0.2-1.3 [facility] Comment on above: Order Comment: Speci men Type: BLOOD SPECIMENOrdering Facility: [facility] Address: [address] [place] [address] Performed By: #### 1 9123-9, 81223-4, 6-4, 44023-8, 3034-6 ####[facility] LABORATORYCLIA [id number] [place] [address] [place] Calcium [Mass/Vol] 8.8 mg/dL Normal 8.5-10.2 [facility] Comment on above: Order Comment: Speci men Type: BLOOD SPECIMENOrdering Facility: [facility] Address: [address] [place] [address] Performed By: #### 1 9123-9, 21535-7, 6-4, 92365-4, 3034-6 ####[facility] LABORATORYCLIA [id number] [place] [address] [place] Chloride [Moles/Vol] 106 mmol/L Normal 98-107 [facility] Comment on above: Order Comment: Speci men Type: BLOOD SPECIMENOrdering Facility: [facility] Address: [address] [place] [address] Performed By: #### 1 9123-9, 88096-2, 6-4, 01850-2, 3034-6 ####[facility] LABORATORYCLIA [id number] [place] [address] [place] CO2 [Moles/Vol] 26 mmol/L Normal 22-30 [facility] Comment on above: Order Comment: Speci men Type: BLOOD SPECIMENOrdering Facility: [facility] Address: [address] [place] [address] Performed By: #### 1 9123-9, 46537-9, 2276-4, 13036-3, 3034-6 ####[facility]ITALCL[facility] [id number] [place] [address] [place] Creatinine [Mass/Vol] 0.93 mg/dL Normal 0.58-0.96 [facility] Comment on above: Order Comment: Speci men Type: BLOOD SPECIMENOrdering Facility: [facility] Address: [address] [place] [address] Performed By: #### 1 9123-9, 35111-7, 6-4, 33116-5, 3034-6 ####[facility] HOSPITALIA [id number] [address] STATES OF [facility] Creatinine and Glomerular filtration rate.predicted panel (S/P/Bld) 63 mL/min/1.73m??? Normal >=60 [facility] Comment on above: Order Comment: Meche murray Type: BLOOD SPECIMENOrdering Facility: [facility] Address: [address] [place] [address] Result Comment: Zully mated Glomerular Filtration Rate (eGFR) is calculated using the 2020 CKD-EPI creatinine equation. This equation utilizes serum creatinine, sex, and age as parameters. The creatinine assay has traceable calibration to isotope dilution-mass spectrometry. Refer to KDIGO guidelines for clinical interpretation. In patients with unstable renal function, e.g. those with acute kidney injury, the eGFR may not accurately reflect actual GFR. Performed By: #### 1 9123-9, 25230-3, 6-4, 21638-2, 3034-6 ####[facility] LABORATORYCLIA [id number] [place] [address] [place] Glucose [Mass/Vol] 79 mg/dL Normal 74-99 [facility] Comment on above: Order Comment: Lathai men Type: BLOOD SPECIMENOrdering Facility: [facility] Address: [address] [place], [place] [address] Result Comment: The [place] Diabetes Association (ADA) provides guidance for cutoff values for fasting glucose and random glucose. The ADA defines fasting as no caloric intake for at least 8 hours. Fasting plasma glucose results between 100 to 125 mg/dL indicate increased risk for diabetes (prediabetes). Fasting plasma glucose results greater than or equal to 126 mg/dL meet the criteria for diagnosis of diabetes. In the absence of unequivocal hyperglycemia, results should be confirmed by repeat testing. In a patient with classic symptoms of hyperglycemia or hyperglycemic crisis, random plasma glucose results greater than or equal to 200 mg/dL meet the criteria for diagnosis of diabetes. Reference: Standards of Medical Care in Diabetes 2016, [place] [employer] Association. Diabetes Care. 2016.39(Suppl 1). Performed By: #### 1 9123-9, 26657-3, 6-4, 37417-3, 3034-6 ####[facility] LABORATORYCLIA [id number] [place] [address] [place] Potassium [Moles/Vol] 4.4 mmol/L Normal 3.7-5.1 [facility] Comment on above: Order Comment: Speci men Type: BLOOD SPECIMENOrdering Facility: [facility] Address: [address] [place] [address] Performed By: #### 1 9123-9, 79610-2, 6-4, 53185-6, 4-6 ####[facility] HOSPITALIA [id number] [place] [address] [place] Protein [Mass/Vol] 6.5 g/dL Normal 6.3-8.0 [facility] Comment on above: Order Comment: Speci men Type: BLOOD SPECIMENOrdering Facility: [facility] Address: [address] [place] [id number] Performed By: #### 1 9123-9, 60849-0, 6-4, 19181-4, 3034-6 ####[facility] LABORATORYCLIA [id number] [place] [id number] [place] Sodium [Moles/Vol] 140 mmol/L Normal 136-144 [facility] Comment on above: Order Comment: Speci men Type: BLOOD SPECIMENOrdering Facility: [facility] Address: [address] [place], [place] [address] Performed By: #### 1 9123-9, 21624-2, 2276-4, 33709-7, 3034-6 ####[facility] LABORATORYCLIA [id number] [place] [address] [place] Urea nitrogen [Mass/Vol] 18 mg/dL Normal 7- [facility] Comment on above: Order Comment: Speci men Type: BLOOD SPECIMENOrdering Facility: [facility] Address: [address] [place], [place] [address] Performed By: #### 1 9123-9, 65236-5, 2276-4, 73301-1, 3034-6 ####[facility] LABORATORYCLIA [id number] [address] OF [facility] ED NOTEon 11-28-2024 ED NOTE HNO ID: [id number] Author: JOSÉ MIGUEL GAYTAN, OFELIA Service: Nursing Author Type: Registered Nurse Type: ED Notes Filed: 11/28/2024 17:45 Note Text: Patient provided with dinner tray. Passed swallow screen. [facility] ED NOTE HNO ID: [id number] Author: JOSÉ MIGUEL GAYTAN, OFELIA Service: Nursing Author Type: Registered Nurse Type: ED Notes Filed: 11/28/2024 15:52 Note Text: Patient placed on bus driver/monitor for clinical monitoring. Bed locked and lowered. Call light within reach. [facility] ED NOTE HNO ID: [id number] Author: LARY GO, OFELIA Service: Emergency Medicine Author Type: Registered Nurse Type: ED Notes Filed: 11/28/2024 14:17 Note Text: US notified. [facility] ED NOTE HNO ID: [id number] Author: JOSÉ MIGUEL GAYTAN, OFELIA Service: Nursing Author Type: Registered Nurse Type: ED Notes Filed: 11/28/2024 13:20 Note Text: Patient provided with lunch tray. Passed swallow screen. [facility] ED NOTE HNO ID: [id number] Author: JOSÉ MIGUEL GAYTAN, RN Service: Nursing Author Type: Registered Nurse Type: ED Notes Filed: 11/28/2024 09:10 Note Text: Patient provided with breakfast tray. Passed swallow screen. Normal [facility] ED NOTE HNO ID: [id number] Author: JOSÉ MIGUEL GAYTAN, RN Service: Nursing Author Type: Registered Nurse Type: ED Notes Filed: 11/28/2024 07:25 Note Text: Verified patient on bus driver/monitor, BP cuff, and pulse ox for clinical monitoring. Bed locked and lowered. Call light within reach. Normal [facility] ED NOTE HNO ID: [id number] Author: YAIMA VENCES RN Service: ? Author Type: Registered Nurse Type: ED Notes Filed: 11/28/2024 02:53 Note Text: Bed: 20-ED Expected date: Expected time: Means of arrival: Comments: Back assignment [facility] Ferritin SerPl-mCncon 2024 Ferritin [Mass/Vol] 251.0 ng/mL High 14.7-205.1 [facility] Comment on above: Order Comment: Speci men Type: BLOOD SPECIMENOrdering Facility: [facility] Address: [address] [place] [address] Performed By: #### 1 9123-9, 99523-8, 2276-4, 83679-5, 3034-6 ####[facility] LABORATORYCLIA [id number] [address] [place] HIGH SENSITIVITY TROPONIN To n 11-28-2024 Troponin T.cardiac High sensitivity method [Mass/Vol] 10 ng/L Normal <12 [facility] Comment on above: Order Comment: Speci men Type: BLOOD SPECIMENOrdering Facility: [facility] Address: [address] [place] [address] Performed By: #### H STNT ####[facility] LABORATORYCLIA [id number] [place] [address] [place] Iron and Iron binding capaci ty panelon 11-28-2024 Iron [Mass/Vol] 63 ug/dL Normal 41-186 [facility] Comment on above: Order Comment: Speci men Type: BLOOD SPECIMENOrdering Facility: [facility] Address: [address] [place], [place] [address] Performed By: #### 1 9123-9, 74545-6, 6-4, 49378-3, 6 ####[facility] LABORATORYCLIA [id number] [place] [address] [place] Iron binding capacity [Mass/Vol] 188 ug/dL Low 232-386 [facility] Comment on above: Order Comment: Speci men Type: BLOOD SPECIMENOrdering Facility: [facility] Address: [address] [place] [address] Performed By: #### 1 9123-9, 39810-0, 6-4, 16972-1, 6 ####[facility] LABORATORYCLIA [id number] [address] STATES OF [facility] Iron saturation [Mass fraction] 33.5 % Normal 15.0-57.0 [facility] Comment on above: Order Comment: Speci men Type: BLOOD SPECIMENOrdering Facility: [facility] Address: [address] [place] [address] Performed By: #### 1 9123-9, 78612-3, 6-4, 30472-2, 3033-10 ####[facility] LABORATORYCLIA [id number] [place] [address] [place] Magnesium SerPl-mCncon 11-28 Magnesium [Mass/Vol] 2.0 mg/dL Normal 1.7-2.3 [facility] Comment on above: Order Comment: Speci men Type: BLOOD SPECIMENOrdering Facility: [facility] Address: [address] [place] [address] Performed By: #### 1 9123-9, 36906-4, 6-4, 97206-9, 6 ####[facility] LABORATORYCLIA [id number] [place] [address] [place] STAPHYLOCOCCUS AUREUS AND MR SA SCREEN, PCR, NASALon 11-28-2024 S. aureus and MRSA panel TOYIN+probe (Nose) Not detected Normal Not Detected [facility] Comment on above: Order Comment: Speci men Type: SWABOrdering Facility: [facility] Address: [address] [place] [address] Performed By: #### S APCR ####[facility] LABORATORYCLIA [id number] [place] [address] [id number] [facility] Transferrin SerPl-mCncon Transferrin [Mass/Vol] 156 mg/dL Low 200-360 [facility] Comment on above: Order Comment: Speci men Type: BLOOD SPECIMENOrdering Facility: [facility] Address: [address] [place], [place] [address] Performed By: #### 1 9123-9, 74961-2, 2276-4, 52867-8, 3034-6 ####[facility] LABORATORYCLIA [id number] [place] [id number] [place] US CAROTID BILon 11-28-2024 US CAROTID TRUNG * * *Final Report* * * DATE OF EXAM: Nov 28 2024 3:25PM A2U 1077 - US CAROTID TRUNG / PROCEDURE REASON: pre-op * * * * Physician Interpretation * * * * Non-Invasive Vascular Laboratory [facility] Carotid Duplex Bilateral/Complete Date of service/time: 11/28/2024 3:03:43 PM [facility] MS. OCHOA DOUGLAS Date of : 1945 Age: 79 years Gender: F Medical History Tobacco: No Clinical Indication Pre op for cardiac surgery. TECHNIQUE -------- A carotid duplex ultrasound examination was performed, including grayscale imaging and color Doppler and spectral Doppler examination of the below mentioned arteries. FINDINGS -------- RIGHT SIDE Common carotid artery: Origin: PSV: 83 cm/s. EDV: 23 cm/s. Proximal: PSV: 107 cm/s. EDV: 22 cm/s. Mid: PSV: 111 cm/s. EDV: 25 cm/s. Distal: PSV: 82 cm/s. EDV: 21 cm/s. Mild heterogeneous laminated, irregular and calcified plaque throughout. Internal carotid artery: Origin: PSV: 69 cm/s. EDV: 20 cm/s. Proximal: PSV: 71 cm/s. EDV: 22 cm/s. Mid: PSV: 71 cm/s. EDV: 21 cm/s. Distal: PSV: 54 cm/s. EDV: 17 cm/s. Mild heterogeneous irregular, calcified and laminated plaque from origin to proximal. ICA/CCA Ratio: 0.9 External carotid artery: Proximal: PSV: 49 cm/s. EDV: 0 cm/s. Subclavian artery: Proximal: PSV: 149 cm/s. EDV: 13 cm/s. Innominate artery: PSV: 82 cm/s. EDV: 18 cm/s. Mild heterogeneous irregular and calcified plaque at origin. Vertebral artery: Proximal: PSV: 74 cm/s. EDV: 23 cm/s. LEFT SIDE Common carotid artery: Proximal: PSV: 72 cm/s. EDV: 18 cm/s. Mid: PSV: 98 cm/s. EDV: 24 cm/s. Distal: PSV: 91 cm/s. EDV: 27 cm/s. Mild heterogeneous irregular, calcified and laminated plaque throughout. Internal carotid artery: Origin: PSV: 96 cm/s. EDV: 23 cm/s. Proximal: PSV: 67 cm/s. EDV: 19 cm/s. Mid: PSV: 81 cm/s. EDV: 28 cm/s. Distal: PSV: 77 cm/s. EDV: 24 cm/s. Mild heterogeneous irregular and calcified plaque from origin to proximal. ICA/CCA Ratio: 1.1 External carotid artery: Proximal: PSV: 74 cm/s. EDV: 0 cm/s. Mild heterogeneous irregular and calcified plaque at origin. Subclavian artery: Proximal: PSV: 98 cm/s. EDV: 0 cm/s. Vertebral artery: Proximal: PSV: 30 cm/s. EDV: 8 cm/s. IMPRESSION Please note: the new carotid interpretation criteria are used as recommended by [employer] Commission. Compared to prior study, No prior exams. RIGHT SIDE Common carotid artery: Patent. Internal carotid artery: <50% stenosis consistent with mild carotid artery disease. External carotid artery: Patent. Vertebral artery: Patent and antegrade flow noted. Innominate artery: Plaque visualized without evidence of hemodynamically significant stenosis. LEFT SIDE Common carotid artery: Patent. Internal carotid artery: <50% stenosis consistent with mild carotid artery disease. External carotid artery: Patent. Vertebral artery: Patent and antegrade flow noted. Technologist: Leidy Christian Ordering physician: ELDA PAYNE Interpreting physician: Jake Valdes DO * * * Final * * * RP Prep Room Supervisor: KARLENE Transcrichristiano Date/Time: Nov 28 2024 3:03P Dictated by : JAKE VALDES DO This examination was interpreted and the report reviewed and electronically signed by: JAKE VALDES DO on Nov 28 2024 4:16PM EST [id number] N Normal [facility] Urinalysis complete panel (U )on 11-28-2024 Bilirubin Ql (U) Negative Normal Negative [facility] Comment on above: Order Comment: Speci men Type: URINE SPECIMENOrdering Facility: [facility] Address: [address] [place] [address] Performed By: #### 2 4356-8 ####[facility] LABORATORYCLIA [id number] [place] [address] [place] Clarity (Unsp spec) Clear Normal Clear [facility] Comment on above: Order Comment: Speci men Type: URINE SPECIMENOrdering Facility: [facility] Address: [address] [place] [address] Performed By: #### 2 4356-8 ####[facility] LABORATORYCLIA [id number] [address] [place] Color (U) Colorless Normal yellow [facility] Comment on above: Order Comment: Speci men Type: URINE SPECIMENOrdering Facility: [facility] Address: [address] [place] [address] Performed By: #### 2 4356-8 ####[facility]ORATORYCLIA [id number] [address] [place] Glucose Test strip (U) [Mass/Vol] Negative Normal Trace, Negative [facility] Comment on above: Order Comment: Speci men Type: URINE SPECIMENOrdering Facility: [facility] Address: [address] [place] [address] Performed By: #### 2 4356-8 ####[facility]ORATORYCLIA [id number] [place] [address] [place] Hemoglobin Ql (U) Negative Normal Negative, Trace [facility] Comment on above: Order Comment: Speci men Type: URINE SPECIMENOrdering Facility: [facility] Address: [address] [place] [address] Performed By: #### 2 4356-8 ####[facility] LABORATORYCLIA [id number] [address] [place] Ketones Ql (U) Negative Normal Negative, Trace [facility] Comment on above: Order Comment: Speci men Type: URINE SPECIMENOrdering Facility: [facility] Address: [address] [place] [address] Performed By: #### 2 4356-8 ####[facility]ORATORYCLIA [id number] [address] [place] Leukocyte esterase Test strip Ql (U) Negative Normal Negative, 25 Dimitry/uL [facility] Comment on above: Order Comment: Speci men Type: URINE SPECIMENOrdering Facility: [facility] Address: [address] [place] [address] Performed By: #### 2 4356-8 ####[facility]ORATORYCLIA [id number] [address] [place] Nitrite Ql (U) Negative Normal Negative [facility] Comment on above: Order Comment: Speci men Type: URINE SPECIMENOrdering Facility: [facility] Address: [address] [place] [address] Performed By: #### 2 4356-8 ####[facility]ORATORYCLIA [id number] [address] [place] pH (U) 5.5 [pH] Normal 5.0-8.0 [facility] Comment on above: Order Comment: Speci men Type: URINE SPECIMENOrdering Facility: [facility] Address: [address] [place] [address] Performed By: #### 2 4356-8 ####[facility] LABORATORYCLIA [id number] [place] [address] [place] Protein (U) [Mass/Vol] Negative Normal Trace , Negative [facility] Comment on above: Order Comment: Speci men Type: URINE SPECIMENOrdering Facility: [facility] Address: [address] [place] [address] Performed By: #### 2 4356-8 ####[facility]PITALIA [id number] [address] [place] RBC LM.HPF (Urine sed) [#/Area] 0-3 /HPF Normal 0-3 /HPF [facility] Comment on above: Order Comment: Speci men Type: URINE SPECIMENOrdering Facility: [facility] Address: [address] [place] [address] Performed By: #### 2 4356-8 ####[facility]PITALIA [id number] [address] [place] Specific gravity (U) [Rel density] 1.008 Normal 1.005-1.030 [facility] Comment on above: Order Comment: Speci men Type: URINE SPECIMENOrdering Facility: [facility] Address: [address] [place] [address] Performed By: #### 2 4356-8 ####[facility] LABORATORYCLIA [id number] [address] [place] Urobilinogen Ql (U) Normal Normal Normal [facility] Comment on above: Order Comment: Speci men Type: URINE SPECIMENOrdering Facility: [facility] Address: [address] [place] [address] Performed By: #### 2 4356-8 ####[facility] LABORATORYCLIA [id number] [place] [address] [place] WBC LM.HPF (Urine sed) [#/Area] 0-5 /HPF Normal 0-5 /HPF [facility] Comment on above: Order Comment: Speci men Type: URINE SPECIMENOrdering Facility: [facility] Address: [address] [place] [address] Performed By: #### 2 4356-8 ####[facility] LABORATORYCLIA [id number] [place] [address] [place] Basic metabolic 2000 panelon 11-27-2024 Anion gap [Moles/Vol] 11 mmol/L Normal 8-15 [facility] Comment on above: Order Comment: Speci men Type: BLOOD SPECIMENOrdering Facility: [facility] Address: [address] [place] [address] Performed By: #### 2 4321-2 ####[facility] LABORATORYCLIA [id number] [place] [address] [place] Calcium [Mass/Vol] 9.2 mg/dL Normal 8.5-10.2 [facility] Comment on above: Order Comment: Speci men Type: BLOOD SPECIMENOrdering Facility: [facility] Address: [address] [place] [address] Performed By: #### 2 4321-2 ####[facility] LABORATORYCLIA [id number] [place] [address] [place] Chloride [Moles/Vol] 105 mmol/L Normal 98-107 [facility] Comment on above: Order Comment: Speci men Type: BLOOD SPECIMENOrdering Facility: [facility] Address: [address] [place] [address] Performed By: #### 2 4321-2 ####[facility] LABORATORYCLIA [id number] [place] [address] [place] CO2 [Moles/Vol] 25 mmol/L Normal 22-30 [facility] Comment on above: Order Comment: Speci men Type: BLOOD SPECIMENOrdering Facility: [facility] Address: [place] [address] Performed By: #### 2 4321-2 ####[facility]ITALCLIA [id number] [place] [id number] [facility] Creatinine [Mass/Vol] 0.90 mg/dL Normal 0.58-0.96 [facility] Comment on above: Order Comment: Speci men Type: BLOOD SPECIMENOrdering Facility: [facility] Address: [address] [place] [address] Performed By: #### 2 4321-2 ####[facility]ITALCLIA [id number] [address] Creatinine and Glomerular filtration rate.predicted panel (S/P/Bld) 65 mL/min/1.73m??? Normal >=60 [facility] Comment on above: Order Comment: Speci men Type: BLOOD SPECIMENOrdering Facility: [facility] Address: [address] [place] [address] Result Comment: Zully mated Glomerular Filtration Rate (eGFR) is calculated using the 2020 CKD-EPI creatinine equation. This equation utilizes serum creatinine, sex, and age as parameters. The creatinine assay has traceable calibration to isotope dilution-mass spectrometry. Refer to KDIGO guidelines for clinical interpretation. In patients with unstable renal function, e.g. those with acute kidney injury, the eGFR may not accurately reflect actual GFR. Performed By: #### 2 4321-2 ####[facility] LABORATORYCLIA [id number] [address] STATES OF [facility] Glucose [Mass/Vol] 88 mg/dL Normal 74-99 [facility] Comment on above: Order Comment: Speci men Type: BLOOD SPECIMENOrdering Facility: [facility] Address: [address] [place] [address] Result Comment: The [place] Diabetes Association (ADA) provides guidance for cutoff values for fasting glucose and random glucose. The ADA defines fasting as no caloric intake for at least 8 hours. Fasting plasma glucose results between 100 to 125 mg/dL indicate increased risk for diabetes (prediabetes). Fasting plasma glucose results greater than or equal to 126 mg/dL meet the criteria for diagnosis of diabetes. In the absence of unequivocal hyperglycemia, results should be confirmed by repeat testing. In a patient with classic symptoms of hyperglycemia or hyperglycemic crisis, random plasma glucose results greater than or equal to 200 mg/dL meet the criteria for diagnosis of diabetes. Reference: Standards of Medical Care in Diabetes 2016, [place] [employer] Association. Diabetes Care. 2016.39(Suppl 1). Performed By: #### 2 4321-2 ####[facility] LABORATORYCLIA [id number] [address] STATES OF [facility] Potassium [Moles/Vol] 4.5 mmol/L Normal 3.7-5.1 [facility] Comment on above: Order Comment: Meche murray Type: BLOOD SPECIMENOrdering Facility: [facility] Address: [address] [place] [address] Performed By: #### 2 4321-2 ####[facility] LABORATORYCLIA [id number] [address] Sodium [Moles/Vol] 141 mmol/L Normal 136-144 [facility] Comment on above: Order Comment: Meche murray Type: BLOOD SPECIMENOrdering Facility: [facility] Address: [address] [place] [address] Performed By: #### 2 4321-2 ####[facility] LABORATORYCLIA [id number] [address] STATES [facility] Urea nitrogen [Mass/Vol] 22 mg/dL High 7-21 [facility] Comment on above: Order Comment: Meche murray Type: BLOOD SPECIMENOrdering Facility: [facility] Address: [address] [place] [address] Performed By: #### 2 4321-2 ####[facility] LABORATORYCLIA [id number] [address] [place] CBC panel Auto (Bld)on 11-27 Erythrocyte distribution width (RBC) [Ratio] 13.3 % Normal 11.5-15.0 [facility] Comment on above: Order Comment: Meche murray Type: BLOOD SPECIMENOrdering Facility: [facility] Address: [address] [place] [id number] Performed By: #### 5 8410-2 ####[facility] LABORATORYCLIA [id number] [address] Hematocrit (Bld) [Volume fraction] 33.0 % Low 36.0-46.0 [facility] Comment on above: Order Comment: Speci men Type: BLOOD SPECIMENOrdering Facility: [facility] Address: [address] [place] [address] Performed By: #### 5 8410-2 ####[facility] LABORATORYCLIA [id number] [address] OF [facility] Hemoglobin (Bld) [Mass/Vol] 10.3 g/dL Low 11.5-15.5 [facility] Comment on above: Order Comment: Speci men Type: BLOOD SPECIMENOrdering Facility: [facility] Address: [address] [place] [address] Performed By: #### 5 8410-2 ####[facility] LABORATORYCLIA [id number] [address] STATES OF [facility] MCH (RBC) [Entitic mass] 30.6 pg Normal 26.0-34.0 [facility] Comment on above: Order Comment: Speci men Type: BLOOD SPECIMENOrdering Facility: [facility] Address: [address] [place] [address] Performed By: #### 5 8410-2 ####[facility] LABORATORYCLIA [id number] [address] [place] MCHC (RBC) [Mass/Vol] 31.2 g/dL Normal 30.5-36.0 [facility] Comment on above: Order Comment: Speci men Type: BLOOD SPECIMENOrdering Facility: [facility] Address: [address] [place] [address] Performed By: #### 5 8410-2 ####[facility] LABORATORYCLIA [id number] [address] [place] MCV (RBC) [Entitic vol] 97.9 fL Normal 80.0-100.0 [facility] Comment on above: Order Comment: Speci men Type: BLOOD SPECIMENOrdering Facility: [facility] Address: [address] [place] [address] Performed By: #### 5 8410-2 ####[facility] LABORATORYCLIA [id number] [address] [place] Nucleated RBC (Bld) [#/Vol] 10*3/uL Normal <0.01 [facility] Comment on above: Order Comment: Speci men Type: BLOOD SPECIMENOrdering Facility: [facility] Address: [address] [place] [address] Performed By: #### 5 8410-2 ####[facility] LABORATORYCLIA [id number] [address] [place] Platelet mean volume (Bld) [Entitic vol] 11.1 fL Normal 9.0-12.7 [facility] Comment on above: Order Comment: Speci men Type: BLOOD SPECIMENOrdering Facility: [facility] Address: [address] [place] [address] Performed By: #### 5 8410-2 ####[facility] LABORATORYCLIA [id number] [address] [place] Platelets (Bld) [#/Vol] 254 10*3/uL Normal 150-400 [facility] Comment on above: Order Comment: Speci men Type: BLOOD SPECIMENOrdering Facility: [facility] Address: [address] [place] [address] Performed By: #### 5 8410-2 ####[facility] LABORATORYCLIA [id number] [address] [place] RBC (Bld) [#/Vol] 3.37 10*6/uL Low 3.90-5.20 [facility] Comment on above: Order Comment: Speci men Type: BLOOD SPECIMENOrdering Facility: [facility] Address: [address] [place] [address] Performed By: #### 5 8410-2 ####[facility] LABORATORYCLIA [id number] [place] [address] [place] WBC (Bld) [#/Vol] 7.83 10*3/uL Normal 3.70-11.00 [facility] Comment on above: Order Comment: Speci men Type: BLOOD SPECIMENOrdering Facility: [facility] Address: [address] [place] [address] Performed By: #### 5 8410-2 ####[facility] LABORATORYCLIA [id number] [place] [address] [facility] ECG COMPLETEon 11-27-2024 ECG COMPLETE Ventricular Rate : 7 1 BPM Atrial Rate : 71 BPM P-R Interval : 146 ms QRS Duration : 78 ms Q-T Interval : 396 ms QTC Calculation(Bazett) : 430 ms Calculated P [place] : 55 degrees Calculated R [place] : 7 degrees Calculated T [place] : 12 degrees NORMAL SINUS RHYTHM POSSIBLE LEFT ATRIAL ENLARGEMENT NONSPECIFIC ST ABNORMALITY ABNORMAL ECG WHEN COMPARED WITH ECG OF 19-Aug-2008 04:42, ST NO LONGER DEPRESSED IN LATERAL LEADS NONSPECIFIC T WAVE ABNORMALITY NO LONGER EVIDENT IN LATERAL LEADS Confirmed by MD CORMIER AMY ([id number]) on 11/28/2024 12:15:27 AM NAME : OCHOA DOUGLAS PID : [id number] : 1945 Gender : Female Race : ORD : [id number] Procedure Date : Nov 27 2024 15:23:19 Edit Date : Nov 28 2024 00:15:30 Diagnosis: NORMAL SINUS RHYTHM POSSIBLE LEFT ATRIAL ENLARGEMENT NONSPECIFIC ST ABNORMALITY ABNORMAL ECG WHEN COMPARED WITH ECG OF 19-Aug-2008 04:42, ST NO LONGER DEPRESSED IN LATERAL LEADS NONSPECIFIC T WAVE ABNORMALITY NO LONGER EVIDENT IN LATERAL LEADS Confirmed by MD CORMIER AMY ([id number]) on 11/28/2024 12:15:27 AM Test Reason : Chest Pain Location : 4 : AKED EM Overread By : MD CORMIER AMY Edited By : MD CORMIER AMY Referred By : , Acquired by : GERARDO MCKEE [facility] ED NOTEon 11-27-2024 ED NOTE HNO ID: [id number] Author: IRMA ARRIOLA RN Service: ? Author Type: Registered Nurse Type: ED Notes Filed: 11/27/2024 15:37 Note Text: Pt independently ambulatory to room, steady gait Normal [facility] ED NOTE HNO ID: [id number] Author: CECILIA HOWLEL RN Service: ? Author Type: Registered Nurse Type: ED Notes Filed: 11/27/2024 15:33 Note Text: Bed: 42-ED Expected date: Expected time: Means of arrival: Comments: triage Normal [facility] ED NOTE HNO ID: [id number] Author: GERARDO MCKEE RN Service: Emergency Medicine Author Type: Registered Nurse Type: ED Notes Filed: 11/27/2024 15:27 Note Text: Xray called Normal [facility] ED PROV NOTEon 11-27-2024 ED PROV NOTE HNO ID: [id number] Author: CHUYITA HENSLEY MD Service: Emergency Medicine Author Type: Physician Type: ED Provider Notes Filed: 11/27/2024 22:26 Note Text: Attending Note: I performed a history and physical examination of the patient and discussed the management with the resident. I reviewed the resident's note and agree with the documented findings and plan of care. HPI: 79-year-old female with a past medical history of CAD, hypertension, hypothyroidism, presents with chest pain. States been ongoing intermittently for the past month, sometimes associated with exertion. Patient states that she did have a heart catheterization that showed multivessel disease, occlusions in the LAD, RCA and circumflex. Patient has a CABG scheduled for next month, states for the past 2 days chest pain has continued to worsen and is constant. This patient had a normal cardiac exam. The patient has a normal S1-S2, a regular rate and rhythm, and no murmurs, rubs or gallops. Lungs were clear bilaterally, no rales, rhonchi, crackles, or wheezes. Abdomen is soft. Nondistended. No abdominal tenderness to palpation. Normal bowel sounds in all 4 quadrants. No rebound tenderness or guarding. No hepatosplenomegaly appreciated or masses, or pulsatile masses. Patient is a and O ?3. No focal neurologic deficits appreciated. Patient had 5/5 strength in all 4 extremities. Patient had normal sensation throughout. The patient had normal coordination as tested via finger to nose and heel to falk testing. Patient's reflexes were intact throughout. PE: BP 123/57 Pulse 78 Temp (Src) 97.9 (Oral) Resp 18 Ht 5' 4 (1.63m) Wt 155 lb (70.3kg) SpO2 97% BMI 26.59 kg/(m2). GEN: Alert, no distress HEENT: Normal cephalic atraumatic, GERMÁN, Moist mucus membranes RESP: Clear to auscultation, no distress CV: Regular rate and rhythm no murmur ABD: Nontender, nondistended MUSC: No edema, distal pulses intact NEURO: Alert, oriented, no appreciable deficits, moves all extremities spontaneously EKG: Normal sinus rhythm, no acute ischemic changes MDM: Initial troponin was 12, second troponin 13, third troponin 10, CBC shows a hemoglobin of 10.3 and metabolic panel is unremarkable chest x-ray is unremarkable. We have the patient admitted for consultation from cardiology since he has the CABG scheduled for this coming month he needs to be evaluated by cardiology to see if they want to pump this schedule up or continue to wait. CHUYITA HENSLEY 11/27/24 2226 Normal [facility] ED PROV NOTE HNO ID: [id number] Author: CHUYITA HENSLEY MD Service: Emergency Medicine Author Type: Resident Type: ED Provider Notes Filed: 11/28/2024 23:04 Note Text: Attestation signed by Chuyita Hensley MD at 11/28/2024 11:04 PM Attending Note I evaluated the patient and personally participated in the haque components. I agree with the resident's findings and plan as documented and have discussed the case and management of the patient's care with the resident. Signature: Chuyita Hensley MD Date: 11/28/2024 Time: 11:04 PM ED Provider Note Patient Name: Ochoa Douglas : 1945 SERVICE DATE: 11/27/24 History No chief complaint on file. Patient is 79-year-old female with a past medical history of hypertension, hypothyroidism, multivessel coronary artery disease presenting with chest pain. Patient states this has been ongoing for the last month. It was initially intermittent. She had a heart cath done which showed multivessel disease. Patient is scheduled for a CABG in December. Patient states in the last 2 days, her chest pain has continued to worsen and is constant. It is in her lower chest and left chest. It radiates to her neck. Denies shortness of breath. No nausea, vomiting, abdominal pain, constipation, diarrhea, dysuria. No fevers, chills, congestion. Denies history of PE/DVT. History provided by: Patient application support intern used: No PAST MEDICAL HISTORY Diagnosis Date ASCVD (arteriosclerotic cardiovascular disease) Family history of cardiovascular disease 02/19/2010 Family history of ischemic heart disease 08/31/2007 Myocardial infarction, old 02/19/2010 Dr. Rand manages Obesity 03/13/2006 S/P drug eluting coronary stent placement 3 vessesl Unspecified hypothyroidism PAST SURGICAL HISTORY Procedure Laterality Date COLONOSCOPY FLX DX W/COLLJ SPEC WHEN PFRMD 05/18/1994 Colonoscopy--PATIENT DOES NOT RECALL HAVING ONE DONE LEFT HEART CATH,PERCUTANEOUS 11/07/2024 [facility] LIG/TRNSXJ FLP TUBE ABDL/VAG APPR UNI/BI 05/18/1987 Tubal ligation PAST SURGICAL HISTORY OF breast lumpectomy PAST SURGICAL HISTORY OF 04/15/2010 left septal mass excision (Brayan Ball) FAMILY HISTORY Problem Relation Age of Onset Thyroid Sister 2 sisters and one brother Coronary Artery Disease Sister Coronary Artery Disease Brother Social History Tobacco Use Smoking status: Never Smokeless tobacco: Never Vaping Use Vaping status: Never Used Substance and Sexual Activity Alcohol use: No Drug use: No Sexual activity: Not on file ALLERGIES Allergen Reactions Lisinopril Cough Crestor [Rosuvastat* Myalgia muscle aches Lipitor [Atorvastat* Myalgia muscle aches Review of Systems Constitutional: Negative for chills, fatigue and fever. Respiratory: Negative for shortness of breath. Cardiovascular: Positive for chest pain. Gastrointestinal: Negative for abdominal pain, constipation, diarrhea, nausea and vomiting. Genitourinary: Negative for dysuria and hematuria. Neurological: Negative for light-headedness. Psychiatric/Behaviora l: Negative for confusion. Physical Exam Vitals BP Pulse Temp Temp src Resp SpO2 Weight Height 11/27/24 1512 11/27/24 1512 11/27/24 1512 11/27/24 1512 11/27/24 1512 11/27/24 1512 11/27/24 1520 11/27/24 1520 160/64 83 36.6 ?C (97.9 ?F) Oral 18 100 % 70.3 kg (155 lb) 1.626 m (5' 4) Physical Exam Vitals and nursing note reviewed. Constitutional: General: She is not in acute distress. HENT: Head: Normocephalic and atraumatic. Cardiovascular: Rate and Rhythm: Normal rate and regular rhythm. Pulmonary: Effort: Pulmonary effort is normal. Breath sounds: Normal breath sounds. No wheezing, rhonchi or rales. Abdominal: General: Abdomen is flat. There is no distension. Palpations: Abdomen is soft. Tenderness: There is no abdominal tenderness. There is no guarding or rebound. Skin: General: Skin is warm and dry. Neurological: General: No focal deficit present. Mental Status: She is alert and oriented to person, place, and time. Cranial Nerves: No cranial nerve deficit. Sensory: No sensory deficit. Motor: No weakness. Coordination: Coordination normal. Diagnostic Testing ED Labs Ordered and Reviewed BASIC METABOLIC PANEL - Abnormal; Notable for the following components: Result Value Ref Range BUN 22 (*) 7 - 21 mg/dL All other components within normal limits HIGH SENSITIVITY TROPONIN T (INITIAL) - Abnormal; Notable for the following components: ARNAUD High Sensitivity 12 (*) <12 ng/L All other components within normal limits COMPLETE BLOOD COUNT - Abnormal; Notable for the following components: RBC 3.37 (*) 3.90 - 5.20 m/uL Hemoglobin 10.3 (*) 11.5 - 15.5 g/dL Hematocrit 33.0 (*) 36.0 - 46.0 % All other (more content not included)... Normal [facility] ED Triage Noteon 11-27-2024 ED Triage Note HNO ID: [id number] Author: PARISA LARES APRN.SCREW MACHINE REPAIRER Service: Emergency Medicine Author Type: Nurse Practitioner Type: ED Triage Notes Filed: 11/27/2024 15:25 Note Text: ED TRIAGE PROVIDER NOTE Patient Name: Ochoa Douglas Service Date: 11/27/24 BRIEF HPI: This is a 79 year old female who presents to the ED with: chest pain today that goes along lower ribs and into her left chest. PT scheduled for triple bypass surgery in the beginning of December due to blockages found on a heart cath. Pt has had previous PA that she had no symptoms with. BRIEF EXAM: NAD Awake and Alert Non labored breathing CV RRR INITIAL WORKUP AND DECISION MAKING: Orders Placed This Encounter XR CHEST 2V FRONTAL/LAT BASIC METABOLIC PNL High Sensitivity Troponin T with Reflex for ED Chest Pain CBC EKG STAT SIGNATURE: Parisa Lares APRN.SCREW MACHINE REPAIRER Normal [facility] HIGH SENSITIVITY TROPONIN T (INITIAL)on 11-27-2024 Troponin T.cardiac High sensitivity method [Mass/Vol] 12 ng/L High <12 [facility] Comment on above: Order Comment: Speci men Type: BLOOD SPECIMENOrdering Facility: [facility] Address: [address] [place] [address] Performed By: #### L [id number] ####[facility] LABORATORYCLIA [id number] [address] STATES OF [facility] HIGH SENSITIVITY TROPONIN T (SECOND)on 11-27-2024 Troponin T.cardiac High sensitivity method [Mass/Vol] 13 ng/L High <12 [facility] Comment on above: Order Comment: Speci men Type: BLOOD SPECIMENOrdering Facility: [facility] Address: [address] [place] [address] Performed By: #### L [id number] ####[facility] LABORATORYCLIA [id number] [address] [place] HIGH SENSITIVITY TROPONIN T (THIRD) 3 HRS AFTER INITIALon 11-27-2024 Troponin T.cardiac High sensitivity method [Mass/Vol] 10 ng/L Normal <12 [facility] Comment on above: Order Comment: Speci men Type: BLOOD SPECIMENOrdering Facility: [facility] Address: [facility] [place] [address] Performed By: #### L [id number] ####[facility] LABORATORYCLIA [id number] [place] [address] [place] HISTORY PHYSICALon HISTORY PHYSICAL HNO ID: [id number] Author: MELANY COOK DO Service: Hospital Medicine Author Type: Physician Type: H&P Filed: 11/27/2024 21:10 Note Text: DEPARTMENT OF HOSPITAL MEDICINE HISTORY AND PHYSICAL EXAM SERVICE DATE: 11/27/2024 SERVICE TIME: 8:45 PM Primary Care Physician: Bora Marie DO NIGHT AND WEEKEND COVERAGE: [place] COVERAGE: After 7pm, please call cross cover pager #[phone] Subjective CHIEF COMPLAINT: chest tightness HPI: This is a 79 year old female who presents with chest tightness for past 2 days pretty constant with intermittent radiation up to left neck with exertion. No sob. No nausea or diaphoresis. Did not take any ntg. Has known vessel disease and was sent for CABG eval. To have done in December. Given fentanyl in ED and pain is improved to about 2. PAST MEDICAL HISTORY Diagnosis Date ASCVD (arteriosclerotic cardiovascular disease) Family history of cardiovascular disease 02/19/2010 Family history of ischemic heart disease 08/31/2007 Myocardial infarction, old 02/19/2010 Dr. Rand manages Obesity 03/13/2006 S/P drug eluting coronary stent placement 3 vessesl Unspecified hypothyroidism PAST SURGICAL HISTORY Procedure Laterality Date COLONOSCOPY FLX DX W/COLLJ SPEC WHEN PFRMD 05/18/1994 Colonoscopy--PATIENT DOES NOT RECALL HAVING ONE DONE LEFT HEART CATH,PERCUTANEOUS 11/07/2024 [facility] LIG/TRNSXJ FLP TUBE ABDL/VAG APPR UNI/BI 05/18/1987 Tubal ligation PAST SURGICAL HISTORY OF breast lumpectomy PAST SURGICAL HISTORY OF 04/15/2010 left septal mass excision (Brayan Ball) FAMILY HISTORY Problem Relation Age of Onset Thyroid Sister 2 sisters and one brother Coronary Artery Disease Sister Coronary Artery Disease Brother Social History Tobacco Use Smoking status: Never Smokeless tobacco: Never Vaping Use Vaping status: Never Used Substance Use Topics Alcohol use: No Drug use: No MEDICATIONS: Reviewed Prior to Admission Medications Prescriptions Last Dose Informant Patient Reported? Taking? Omeprazole 40 mg capsule No Yes Sig: Take 1 capsule by mouth once daily. (Dr. Rand) REGINE CHAPINICK 140 mg/mL pen injector Yes Yes Sig: Inject 140 mg subcutaneously every 2 weeks. ascorbic acid, vitamin C, (VITAMIN C) 500 mg tablet No No Sig: Take 1 tablet by mouth once daily. aspirin, enteric coated (ASPIRIN, ENTERIC COATED) 81 mg EC tablet Yes Yes Sig: Take 81 mg by mouth once daily. clopidogrel bisulfate(PLAVIX 75 MG TAB) Yes No Sig: Take one(1) tablet daily. Patient not taking: Reported on 11/08/2024 ferrous sulfate 325 mg (65 mg iron) tablet No Yes Sig: Take 1 tablet by mouth once daily. folic acid 1 mg tablet No No Sig: Take 1 tablet by mouth once daily. levothyroxine (SYNTHROID) 112 mcg tablet No Yes Sig: TAKE 1 TABLET BY MOUTH DAILY ON AN EMPTY STOMACH FOR THYROID losartan (COZAAR) 25 mg tablet Yes Yes Sig: Take 1 tablet by mouth once daily. metoprolol tartrate, short acting, (LOPRESSOR) 25 mg tablet Yes Yes Sig: Take 12.5 mg by mouth two times a day. [facility] nitroglycerin(NITROST AT 0.4 MG SUBLINGUAL TAB) Yes Yes Sig: Place one(1) tablet on tongue as needed for chest pain. If no pain relief call 911. pyridoxine, vitamin B6, (VITAMIN B6) 100 mg tablet Yes No Sig: Take 100 mg by mouth once daily. simvastatin (ZOCOR) 40 mg tablet Yes Yes Sig: Take 40 mg by mouth once daily. Taking every other day due to leg cramps tacrolimus (PROTOPIC) 0.1 % ointment Yes No Sig: Apply topically to affected areas on face every evening triamcinolone acetonide (KENALOG) 0.1 % cream No No Sig: Apply 1 application to affected area twice daily. Apply sparingly to area for rash/itching on extremities vibegron (GEMTESA) 75 mg tablet Yes No Sig: Take 75 mg by mouth once daily. Facility-Administered Medications: None ALLERGIES Allergen Reactions Lisinopril Cough Crestor [Rosuvastat* Myalgia muscle aches Lipitor [Atorvastat* Myalgia muscle aches REVIEW OF SYSTEM: GENERAL: No weight loss, malaise or fevers HEENT: Negative for frequent or significant headaches, No changes in hearing or vision, no nose bleeds or other nasal problems NECK: Negative for lumps, goiter, pain and significant neck swelling RESPIRATORY: Negative for cough, hemoptysis, wheezing, COPD, dyspnea or shortness of breath CARDIOVASCULAR: Chest pain, Hypertension GI: No nausea, vomiting, or diarrhea HEMATOLOGY/LYMPHOLOGY : Negative for prolonged bleeding, bruising easily or swollen nodes ENDOCRINE: Negative for cold or heat intolerance, polyuria, polydipsia and goiter NEURO: No history of headaches, syncope, paralysis, seizures or tremors Objective PHYSICAL EXAM: BP 123/57 Pulse 79 Temp (Src) 97.9 (Oral) Resp 14 Ht 5' 4 (1.63m) Wt 155 lb (70.3kg) SpO2 98% BMI 26.59 kg/(m2). O2 Therapy: Room Air Physical Exam Performed: GENERAL: Alert, no distress, cooperative HEAD/SINUSES: No significant finding (more content not included)... Normal [facility] XR CHEST 2V FRONTAL/LATon XR CHEST 2V FRONTAL/LAT * * *Final Repor t* * * DATE OF EXAM: Nov 27 2024 4:22PM [id number] [id number] - XR CHEST 2V FRONTAL/LAT / PROCEDURE REASON: Chest Pain * * * * Physician Interpretation * * * * EXAM: XR CHEST 2V FRONTAL/LAT CLINICAL HISTORY: Chest Pain Chest Pain COMPARISON: No available prior. RESULT: Lines, tubes, and devices: None. Lungs and pleura: Bilateral lung hill are clear. No pneumothorax or obvious pleural effusion. Cardiomediastinal silhouette: Normal cardiomediastinal silhouette. IMPRESSION: No acute cardiopulmonary process. Prep Room Supervisor: PSCB Transcribe Date/Time: Nov 27 2024 4:51P Dictated by : KVNG KIRKPATRICK MD This examination was interpreted and the report reviewed and electronically signed by: KVNG KIRKPATRICK MD on Nov 27 2024 4:51PM EST [id number] Normal [facility]-25-2024 CNPN Telephone (AGVASACC) OCHOA DOUGLAS ([id number]) 1945 F Date Time Provider Department 11/25/24 PETER HAYES During your visit today, we recorded the following information about you: Rikki Garcia MA 11/25/2024 2:04 PM Signed Received 11/24/24 CT Chest without contrast report from [facility]. This was order by our office for CABG workup. Images to be sent electronically to [facility] Rikki Garcia MA 11/28/2024 7:52 AM Signed Images received and uploaded into system Allergies As of Date: 11/25/2024 Noted Allergy Reaction LISINOPRIL 08/19/2019 3 - Cough CRESTOR (ROSUVASTATIN) 03/21/2020 17 - Myalgia Comments: muscle aches LIPITOR (ATORVASTATIN) 03/21/2020 17 - Myalgia Comments: muscle aches Date Reviewed: 11/08/2024 Reviewed by: Ely Ayoub APRN.SCREW MACHINE REPAIRER - Fully Assessed Reason for Visit: Received Outside Medical Records [[id number]] Prescriptions as of 11/28/2024 - REPATHA SURECLICK 140 mg/mL pen injector Inject 140 mg subcutaneously every 2 weeks. - losartan (COZAAR) 25 mg tablet Take 1 tablet by mouth once daily. - folic acid 1 mg tablet Take 1 tablet by mouth once daily. - ferrous sulfate 325 mg (65 mg iron) tablet Take 1 tablet by mouth once daily. - ascorbic acid, vitamin C, (VITAMIN C) 500 mg tablet Take 1 tablet by mouth once daily. - aspirin, enteric coated (ASPIRIN, ENTERIC COATED) 81 mg EC tablet Take 81 mg by mouth once daily. - metoprolol tartrate, short acting, (LOPRESSOR) 25 mg tablet Take 12.5 mg by mouth two times a day. [facility] - tacrolimus (PROTOPIC) 0.1 % ointment Apply topically to affected areas on face every evening - vibegron (GEMTESA) 75 mg tablet Take 75 mg by mouth once daily. - levothyroxine (SYNTHROID) 112 mcg tablet TAKE 1 TABLET BY MOUTH DAILY ON AN EMPTY STOMACH FOR THYROID - triamcinolone acetonide (KENALOG) 0.1 % cream Apply 1 application to affected area twice daily. Apply sparingly to area for rash/itching on extremities - simvastatin (ZOCOR) 40 mg tablet Take 40 mg by mouth once daily. Taking every other day due to leg cramps - pyridoxine, vitamin B6, (VITAMIN B6) 100 mg tablet Take 100 mg by mouth once daily. - Omeprazole 40 mg capsule Take 1 capsule by mouth once daily. (Dr. Rand) - clopidogrel bisulfate(PLAVIX 75 MG TAB) Take one(1) tablet daily. - nitroglycerin(NITROST AT 0.4 MG SUBLINGUAL TAB) Place one(1) tablet on tongue as needed for chest pain. If no pain relief call 911. Facility-Administered Medications as of 11/28/2024 - aspirin, enteric coated 81 mg tab(s) - losartan 25 mg tab(s) (COZAAR) - metoprolol tartrate (short acting) 12.5 mg tab(s) (LOPRESSOR) - simvastatin 40 mg tab(s) (ZOCOR) - pantoprazole DR 40 mg tab(s) (PROTONIX) - levothyroxine 112 mcg tab(s) (SYNTHROID) - ferrous sulfate 325 mg tab(s) - heparin 5,000 Units injection - NaCl 0.9% iv flush bag - nitroglycerin sublingual 0.4 mg tab(s) (NITROQUICK) Problem List As Of Date 11/25/2024 Noted Resolved Hypothyroidism [E03.9] Obesity [E66.9] 03/13/2006 06/01/2023 Family history of ischemic heart disease [Z82.4*08/31/2007 06/01/2023 Mixed hyperlipidemia [E78.2] 03/13/2008 Cardiovascular disease [I25.10] 12/14/2008 Anemia [D64.9] 04/06/2009 Myocardial infarction, old [I25.2] 02/19/2010 Family history of cardiovascular disease [Z82.4*02/19/2010 06/01/2023 Essential hypertension [I10] 2020 Encounter Status:Closed by ESTELLE GARCIA on 11/28/24 Normal [facility] CBC panel Auto (Bld)on 11-24 Erythrocyte distribution width (RBC) [Ratio] 13.5 % Normal 11.5-15.0 [facility] Comment on above: Order Comment: Speci men Type: BLOOD SPECIMEN [facility] Address: [address] [place] [address] Performed By: #### 5 8410-2 #### [facility] [id number] [address] [place] [address] [place] Hematocrit (Bld) [Volume fraction] 31.6 % Low 36.0-46.0 [facility] Comment on above: Order Comment: Speci men Type: BLOOD SPECIMEN [facility] Address: [address] [place] [address] Performed By: #### 5 8410-2 #### [facility] [id number] [address] [place] [address] [place] Hemoglobin (Bld) [Mass/Vol] 10.4 g/dL Low 11.5-15.5 [facility] Comment on above: Order Comment: Speci men Type: BLOOD SPECIMEN [facility] Address: [address] [place] [address] Performed By: #### 5 8410-2 #### [facility] [id number] [address] [place] [address] [place] MCH (RBC) [Entitic mass] 30.7 pg Normal 26.0-34.0 [facility] Comment on above: Order Comment: Speci men Type: BLOOD SPECIMEN [facility] Address: [address] [place] [address] Performed By: #### 5 8410-2 #### [facility] [id number] [address] [place] [address] [place] MCHC (RBC) [Mass/Vol] 32.9 g/dL Normal 30.5-36.0 [facility] Comment on above: Order Comment: Speci men Type: BLOOD SPECIMEN [facility] Address: [address] [place] [address] Performed By: #### 5 8410-2 #### [facility] CLIA [id number] [address] [place] [address] [place] MCV (RBC) [Entitic vol] 93.2 fL Normal 80.0-100.0 [facility] Comment on above: Order Comment: Speci men Type: BLOOD SPECIMEN [facility] Address: [address] [place] [address] Performed By: #### 5 8410-2 #### [facility] [id number] [address] [place] [address] [place] Nucleated RBC (Bld) [#/Vol] 10*3/uL Normal <0.01 [facility] Comment on above: Order Comment: Speci men Type: BLOOD SPECIMEN [facility] Address: [address] [place] [address] Performed By: #### 5 8410-2 #### [facility] CLIA [id number] [address] [place] [address] [place] Platelet mean volume (Bld) [Entitic vol] 11.2 fL Normal 9.0-12.7 [facility] Comment on above: Order Comment: Speci men Type: BLOOD SPECIMEN [facility] Address: [address] [place] [address] Performed By: #### 5 8410-2 #### [facility] CLIA [id number] [address] [place] [address] [place] Platelets (Bld) [#/Vol] 237 10*3/uL Normal 150-400 [facility] Comment on above: Order Comment: Speci men Type: BLOOD SPECIMEN [facility] Address: [address] [place], [place] [address] Performed By: #### 5 8410-2 #### [facility] CLIA [id number] [address] [place] [address] [place] RBC (Bld) [#/Vol] 3.39 10*6/uL Low 3.90-5.20 [facility] Comment on above: Order Comment: Speci men Type: BLOOD SPECIMEN [facility] Address: [address] [place], [place] [address] Performed By: #### 5 8410-2 #### [facility] CLIA [id number] [address] [place] [address] [place] WBC (Bld) [#/Vol] 7.83 10*3/uL Normal 3.70-11.00 [facility] Comment on above: Order Comment: Speci men Type: BLOOD SPECIMEN [facility] Address: [address] [place], [place] [address] Performed By: #### 5 8410-2 #### [facility] CLIA [id number] [address] [place] [address] [place] Chest without Contraston Chest without Contrast [facility] [address] [place] [address] Chest without Contrast MR#: [id number] Acct: [id number] Name: OCHOA DOUGLAS Rep #: [id number] : 1945 F 79 From: Ben severino MD PCP: Dr. Bora Marie, DO Status: REG CLI Study: Chest without Contrast Date of Exam: 11/24/24 Exam# [id number] Ordering Dr: ELY AYOUB PROCEDURE: CHEST WITHOUT CONTRAST 11/24/2024 REASON FOR EXAM: ZULETA Scheduled for triple cardiac bypass surgery. History of breast cancer. TECHNIQUE: Chest CT without contrast. Coronal and Sagittal reconstruction series were provided. One or more dose reduction techniques were used (e.g., Automated exposure control, adjustment of the mA and/or kV according to patient size, use of iterative reconstruction technique RADIATION DOSE SUMMARY: CTDlvol: 6.43 mGy DLP: 218.89 mGycm COMPARISON: Prior chest radiograph dated October 24, 2024. FINDINGS: Hardware: None Lymph nodes: Unremarkable Heart and Vasculature: The heart is nonenlarged. Atherosclerotic calcifications of the thoracic aorta. Thoracic aorta and pulmonary arteries have normal contours; noncontrast technique limits evaluation. Coronary Artery Calcifications: Present Lungs and Airways: Lungs are clear. No mass lesion or nodule seen. Pleura: No evidence of pleural effusion. Upper Abdomen: Unremarkable Bones: Degenerative changes of the thoracic spine. CT/Chest without Contrast IMPRESSION: Coronary artery calcification (CAC) is is present No acute abnormality is seen. Reading Location: [place] [address] CC: Dr. Bora Marie, DO; ELY AYOUB Prep Room Supervisor: Signed Normal [facility] Comprehensive metabolic 2000 panelon 11-24-2024 Albumin [Mass/Vol] 4.3 g/dL Normal 3.9-4.9 [facility] Comment on above: Order Comment: Speci men Type: BLOOD SPECIMEN [facility] Address: [address] [place] [address] Performed By: #### T SCR30 #### [facility] CLIA [id number] [address] [place] [address] [place] ALP [Catalytic activity/Vol] 70 U/L Normal 34-123 [facility] Comment on above: Order Comment: Speci men Type: BLOOD SPECIMEN [facility] Address: [address] [place] [address] Performed By: #### T SCR30 #### [facility] CLIA [id number] [address] [place] [address] [place] ALT [Catalytic activity/Vol] 20 U/L Normal 7-38 [facility] Comment on above: Order Comment: Speci men Type: BLOOD SPECIMEN [facility] Address: [address] [place] [address] Performed By: #### T SCR30 #### [facility] CLIA [id number] [address] [place] [address] [place] Anion gap [Moles/Vol] 13 mmol/L Normal 8-15 [facility] Comment on above: Order Comment: Speci men Type: BLOOD SPECIMEN [facility] Address: [address] [place] [address] Performed By: #### T SCR30 #### [facility] CLIA [id number] [address] [place] [address] [place] AST [Catalytic activity/Vol] 30 U/L Normal 13-35 [facility] Comment on above: Order Comment: Speci men Type: BLOOD SPECIMEN [facility] Address: [address] [place] [address] Performed By: #### T SCR30 #### [facility] CLIA [id number] [address] [place] [address] [place] Bilirubin [Mass/Vol] 0.2 mg/dL Normal 0.2-1.3 [facility] Comment on above: Order Comment: Speci men Type: BLOOD SPECIMEN [facility] Address: [address] [place] [address] Performed By: #### T SCR30 #### [facility] CLIA [id number] [address] [place] [address] [place] Calcium [Mass/Vol] 9.7 mg/dL Normal 8.5-10.2 [facility] Comment on above: Order Comment: Speci men Type: BLOOD SPECIMEN [facility] Address: [address] [place] [address] Performed By: #### T SCR30 #### [facility] CLIA [id number] [address] [place] [address] [place] Chloride [Moles/Vol] 103 mmol/L Normal 98-107 [facility] Comment on above: Order Comment: Speci men Type: BLOOD SPECIMEN [facility] Address: [address] [place] [address] Performed By: #### T SCR30 #### [facility] CLIA [id number] [address] [place] [address] [place] CO2 [Moles/Vol] 23 mmol/L Normal 22-30 [facility] Comment on above: Order Comment: Speci men Type: BLOOD SPECIMEN [facility] Address: [address] [place] [address] Performed By: #### T SCR30 #### [facility] CLIA [id number] [address] [place] [address] [place] Creatinine [Mass/Vol] 0.94 mg/dL Normal 0.58-0.96 [facility] Comment on above: Order Comment: Speci men Type: BLOOD SPECIMEN [facility] Address: [address] [place] [address] Performed By: #### T SCR30 #### [facility] CLIA [id number] [address] [place] [address] [place] Creatinine and Glomerular filtration rate.predicted panel (S/P/Bld) 62 mL/min/1.73m??? Normal >=60 [facility] Comment on above: Order Comment: Speci men Type: BLOOD SPECIMEN [facility] Address: [address] [place] [address] Result Comment: Zully mated Glomerular Filtration Rate (eGFR) is calculated using the 2020 CKD-EPI creatinine equation. This equation utilizes serum creatinine, sex, and age as parameters. The creatinine assay has traceable calibration to isotope dilution-mass spectrometry. Refer to KDIGO guidelines for clinical interpretation. In patients with unstable renal function, e.g. those with acute kidney injury, the eGFR may not accurately reflect actual GFR. Performed By: #### T SCR30 #### [facility] CLIA [id number] [address] [place] [address] [place] Glucose [Mass/Vol] 90 mg/dL Normal 74-99 [facility] Comment on above: Order Comment: Speci men Type: BLOOD SPECIMEN Ordering Facility: [facility] Address: [address] [place] [address] Result Comment: The [place] Diabetes Association (ADA) provides guidance for cutoff values for fasting glucose and random glucose. The ADA defines fasting as no caloric intake for at least 8 hours. Fasting plasma glucose results between 100 to 125 mg/dL indicate increased risk for diabetes (prediabetes). Fasting plasma glucose results greater than or equal to 126 mg/dL meet the criteria for diagnosis of diabetes. In the absence of unequivocal hyperglycemia, results should be confirmed by repeat testing. In a patient with classic symptoms of hyperglycemia or hyperglycemic crisis, random plasma glucose results greater than or equal to 200 mg/dL meet the criteria for diagnosis of diabetes. Reference: Standards of Medical Care in Diabetes 2016, [place] Diabetes Association. Diabetes Care. 2016.39(Suppl 1). Performed By: #### T SCR30 #### [facility] [place] [id number] [address] [place] [address] [place] Potassium [Moles/Vol] 4.9 mmol/L Normal 3.7-5.1 [facility] Comment on above: Order Comment: Meche murray Type: BLOOD SPECIMEN Ordering Facility: [facility] Address: [address] [place] [address] Performed By: #### T SCR30 #### [facility] CLIA [id number] [address] [place] [address] [place] Protein [Mass/Vol] 7.7 g/dL Normal 6.3-8.0 [facility] Comment on above: Order Comment: Speci men Type: BLOOD SPECIMEN Ordering Facility: [facility] Address: [address] [place] [address] Performed By: #### T SCR30 #### [facility] CLIA [id number] [address] [place] [address] [place] Sodium [Moles/Vol] 139 mmol/L Normal 136-144 [facility] Comment on above: Order Comment: Lathai men Type: BLOOD SPECIMEN Ordering Facility: [facility] Address: [address] [place] [address] Performed By: #### T SCR30 #### [facility] CLIA [id number] [address] [place] [address] [place] Urea nitrogen [Mass/Vol] 25 mg/dL High 7-21 [facility] Comment on above: Order Comment: Lathai men Type: BLOOD SPECIMEN Ordering Facility: [facility] Address: [address] [place] [address] Performed By: #### T SCR30 #### [facility] CLIA [id number] [address] [place] [address] [place] HbA1c (Bld)on 11-24-2024 Average glucose Estimated from glycated hemoglobin (Bld) [Mass/Vol] 111 mg/dL Normal [facility] Comment on above: Order Comment: Meche men Type: BLOOD SPECIMEN Ordering Facility: [facility] Address: [address] [place] [address] Result Comment: eAG: (Estimated average glucose) is a calculated value from HgbA1c and is contact representative of the average blood glucose level in the last 2-3 month period. Performed By: #### 5 8410-2 #### [id number] [address] [place] [address] [place] HbA1c (Bld) [Mass fraction] 5.5 % Normal 4.3-5.6 [facility] Comment on above: Order Comment: Lathai men Type: BLOOD SPECIMEN Ordering Facility: [facility] Address: [address] [place] [address] Result Comment: [place] Diabetes Association guidelines indicate that patients with HgbA1c in the range 5.7-6.4% are at increased risk for development of diabetes, and intervention by lifestyle modification may be beneficial. HgbA1c greater or equal to 6.5% is considered diagnostic of diabetes. Performed By: #### 5 8410-2 #### [facility] CLIA [id number] [address] [place], [place] [id number] [place] Magnesium SerPl-mCncon 11-24 Magnesium [Mass/Vol] 2.1 mg/dL Normal 1.7-2.3 [facility] Comment on above: Order Comment: Meche murray Type: BLOOD SPECIMEN Ordering Facility: [facility] Address: [address] [place] [address] Performed By: #### T SCR30 #### [facility] CLIA [id number] [address] [place], [place] [address] [address] [place] PT panel Coag (PPP)on 2024 INR Coag (PPP) [Relative time] 1.0 {INR} Normal 0.9-1.3 [facility] Comment on above: Order Comment: Meche murray Type: BLOOD SPECIMEN Ordering Facility: [facility] Address: [address] [place] [address] Result Comment: [place] min K Antagonist (VKA) Therapeutic Range: INR 2 to 3 (Target INR of 2.5) Note: For patients treated with VKA drugs, such as warfarin, the [place] [employer] 2012 Guideline recommends a therapeutic INR range of 2 to 3 (target INR of 2.5). This recommendation includes high-risk patients with antiphospholipid syndrome with previous arterial or venous thromboembolism, current-generation mechanical or bioprosthetic aortic heart valve replacement. Note: Patients with mechanical aortic valve replacement and additional risk factors for thromboembolic events (atrial fibrillation, previous thromboembolism, LV dysfunction, hypercoagulable conditions) or an older generation mechanical AVR (i.e., ball in-Cage) or any mechanical MVR should have a INR therapeutic range of 2.5 to 3.5 (target INR of 3). Hanny GH, et al. Chest 2012, 141:7S-47S Jose GERONIMO et al. [facility] 2017, 70: 252-289 Performed By: #### 5 8410-2 #### [facility] CLIA [id number] [address] [place] [address] [place] PT Coag (PPP) [Time] 10.0 s Normal <13.1 [facility] Comment on above: Order Comment: Speci men Type: BLOOD SPECIMEN Ordering Facility: [facility] Address: [address] [place] [address] Performed By: #### 5 8410-2 #### [facility] CLIA [id number] [address] [place] [address] [place] TSH SerPl-aCncon 11-24-2024 TSH Qn 3.270 m[IU]/L Normal 0.270-4.200 [facility] Comment on above: Order Comment: Speci men Type: BLOOD SPECIMEN Ordering Facility: [facility] Address: [address] [place] [address] Performed By: #### 5 8410-2 #### [facility] CLIA [id number] [address] [place] [address] [place] TYPE AND SCREEN,30 DAYon ABO A Normal [facility] Comment on above: Order Comment: Speci men Type: BLOOD SPECIMEN Ordering Facility: [facility] Address: [address] [place] [address] Performed By: #### T SCR30 #### [facility] CLIA [id number] [address] [place] [address] [place] Rh Nom (Bld) Positive Normal [facility] Comment on above: Order Comment: Speci men Type: BLOOD SPECIMEN Ordering Facility: [facility] Address: [address] [place] [address] Performed By: #### T SCR30 #### [facility] CLIA [id number] [address] [place] [address] [place] Echo Completeon 11-16-2024 Echo Complete [facility] [address] [place] [address] Echo Complete 11/16/24 1057 MR#: [id number] Acct: [id number] Name: OCHOA DOUGLAS Rep #: [id number] : 1945 79 From: Cheng Rand MD Attending Dr: Dr. Cheng Rand MD Status: [facility] [place] Ordering Dr: Cheng Rand MD Date: 11/16/24 Location: [facility] Sex: F C Admitted: Reason For Study : CAD/ASHD Procedure This was a 2D Doppler, Color Flow transthoracic echocardiogram. Exam performed in department. Left Ventricle Normal LV size. The left ventricular ejection fraction is 70 %. No regional wall motion abnormalities noted. Right Ventricle Normal RV size. Normal systolic function. Atria Normal left atrium. Normal right atrium. Mitral Valve There is mild mitral annular calcification. Mild (1+) eccentric mitral valve insufficiency. Tricuspid Valve Normal tricuspid valve. Mild tricuspid valve insufficiency. Pulmonary artery systolic pressure is 34 mmHg. Aortic Valve Trisinus/trileaflet aortic valve. Mild focal aortic valve thickening. Pulmonic Valve Normal pulmonic valve. Great Vessels Normal aortic root. The pulmonary artery is normal size. Inferior vena cava collapse with respiration. Pericardium/Pleural No pericardial effusion. MMode/2D Measurements Calculations LVIDd: 4.6 cm IVSd: 1.1 cm LVOT diam: 2.0 cm LVIDs: 3.1 cm LVPWd: 1.1 cm LVOT area: 3.1 cm2 RVDd: 3.1 cm FS: 32.2 % Ao root diam: 3.3 cm LAV(MOD-bp): 73.9 ml LVAd ap4: 25.4 cm2 LAV(MOD-bp) Indexed: 42.1 ml/m2 LVLd ap4: 7.5 cm LAV(MOD-sp2): 68.2 ml EDV(MOD-sp4): 71.4 ml LAV(MOD-sp4): 68.0 ml EDV(sp4-el): 73.5 ml LVAs ap4: 11.9 cm2 LVLs ap4: 5.8 cm ESV(MOD-sp4): 20.2 ml ESV(sp4-el): 20.6 ml EF(MOD-sp4): 71.7 % EF(sp4-el): 71.9 % LVAd ap2: 24.3 cm2 SV(MOD-sp4): 51.2 ml SV(MOD-sp2): 51.4 ml LVLd ap2: 7.0 cm SI(MOD-sp4): 29.2 ml/m2 SI(MOD-sp2): 29.3 ml/m2 EDV(MOD-sp2): 73.9 ml EDV(sp2-el): 71.7 ml LVAs ap2: 12.2 cm2 LVLs ap2: 5.9 cm ESV(MOD-sp2): 22.5 ml ESV(sp2-el): 21.3 ml EF(MOD-sp2): 69.6 % SV(sp4-el): 52.9 ml LA dimension(2D): 3.9 cm LA A4 area: 20.5 cm2 RA A4 area: 14.4 cm2 TAPSE: 2.0 cm Time Measurements MV dec time: 0.19 sec Doppler Measurements Calculations MV E max ricki: 93.2 cm/sec Lat Peak E' Ricki: 10.3 cm/sec Med Peak E' Ricki: 8.3 cm/sec MV A max ricki: 73.0 cm/sec E/E' lat: 9.0 E/E' med: 11.3 MV E/A: 1.3 MV V2 max: 92.2 cm/sec MV P1/2t max ricki: 96.0 cm/sec Ao V2 max: 117.5 cm/sec MV max P.4 mmHg MV P1/2t: 62.6 msec Ao max P.5 mmHg MV V2 mean: 55.5 cm/sec Ao V2 mean: 77.2 cm/sec MV mean P.4 mmHg MV dec slope: 448.9 cm/sec2 Ao mean P.7 mmHg MV V2 VTI: 25.6 cm MVA(P1/2t): 3.5 cm2 Ao V2 VTI: 25.1 cm AV (velocity ratio): 0.84 MVA(VTI): 2.5 cm2 TYLOR(I,D): 2.6 cm2 TYLOR(V,D): 2.6 cm2 LV V1 max: 100.0 cm/sec SV(LVOT): 65.3 ml PA V2 max: 72.3 cm/sec LV V1 max P.0 mmHg PA V2 mean: 51.0 cm/sec LV V1 mean P.0 mmHg PA V2 VTI: 15.8 cm LV V1 mean: 67.9 cm/sec LV V1 VTI: 21.0 cm TR max ricki: 268.9 cm/sec TR max P.9 mmHg ECHO/Echo Complete Interpretation Summary Normal LV size. The left ventricular ejection fraction is 70 %. Pulmonary artery systolic pressure is 34 mmHg. There is mild mitral annular calcification. Ordering Physician: Cheng Rand Referring Physician: Bora Marie Performed By: Yaima Martínez RVT, RDCS and Student 11/16/24 1246 Date Cheng Rand MD CC: Dr. Cheng Rand MD; Dr. Bora Marie DO Date Dictated: 11/16/24 1057 Date Transcribed: 11/16/24 1244 Prep Room Supervisor: Signed [facility] Echocardiogram study reportO rdered By: Cheng Rand on 11-16-2024 Study report [facility] [address] [place] [address] Echo Complete 11/16/24 1057 MR#: [id number] Acct: [id number] Name: OCHOA DOUGLAS Rep #:[id number] : 1945 79 From: Cheng Faith Attending Dr: Dr. Cheng Rand MD S tatus: REG CLI Ordering Dr: Cheng Rand MD Date: 07/12 Location: [facility] Sex: F C Admitted: Reason For Study : CAD/ASHD Procedure This was a 2D Doppler, Color Flow transthoracic echocardiogram. Exam performed in department. Left Ventricle Normal LV size. The left ventricular ejection fraction is 70 %. No regional wallmotion abnormalities noted. Right Ventricle Normal RV size. Normal systolic function. Atria Normal left atrium. Normal right atrium. Mitral Valve There is mild mitral annular calcification. Mild (1+) eccentric mitral valve insufficiency. Tricuspid Valve Normal tricuspid valve. Mild tricuspid valve insufficiency. Pulmonary artery systolic pressure is 34 mmHg. Aortic Valve Trisinus/trileaflet aortic valve. Mild focal aortic valve thickening. Pulmonic Valve Normal pulmonic valve. Great Vessels Normal aortic root. The pulmonary artery is normal size. Inferior vena cava collapse with respiration. Pericardium/Pleural No pericardial effusion. MMode/2D Measurements & Calculations LVIDd: 4.6 cm IVSd: 1.1 cm LVOT diam: 2.0 cm LVIDs: 3.1 cm LVPWd: 1.1 cm LVOT area: 3.1 cm2 RVDd: 3.1 cm FS: 32.2 % Ao root diam: 3.3 cm LAV(MOD-bp): 73.9 ml LVAd ap4: 25.4 cm2 LAV(MOD-bp) Indexed: 42.1 ml/m2 LVLd ap4: 7.5 cm LAV(MOD-sp2): 68.2 ml EDV(MOD-sp4): 71.4 ml LAV(MOD-sp4): 68.0 ml EDV(sp4-el): 73.5 ml LVAs ap4: 11.9 cm2 LVLs ap4: 5.8 cm ESV(MOD-sp4): 20.2 ml ESV(sp4-el): 20.6 ml EF(MOD-sp4): 71.7 % EF(sp4-el): 71.9 % LVAd ap2: 24.3 cm2 SV(MOD-sp4): 51.2 ml SV(MOD-sp2): 51.4 ml LVLd ap2: 7.0 cm SI(MOD-sp4): 29.2 ml/m2 SI(MOD-sp2): 29.3 ml/m2 EDV(MOD-sp2): 73.9 ml EDV(sp2-el): 71.7 ml LVAs ap2: 12.2 cm2 LVLs ap2: 5.9 cm ESV(MOD-sp2): 22.5 ml ESV(sp2-el): 21.3 ml EF(MOD-sp2): 69.6 % SV(sp4-el): 52.9 ml LA dimension(2D): 3.9 cm LA A4 area: 20.5 cm2 RA A4 area: 14.4 cm2 TAPSE: 2.0 cm Time Measurements MV dec time: 0.19 sec Doppler Measurements & Calculations MV E max ricki: 93.2 cm/sec Lat Peak E' Ricki: 10.3 cm/sec Med Peak E' Ricki: 8.3 cm/sec MV A max ricki: 73.0 cm/sec E/E' lat: 9.0 E/E' med: 11.3 MV E/A: 1.3 MV V2 max: 92.2 cm/sec MV P1/2t max ricki: 96.0 cm/sec Ao V2 max: 117.5 cm/sec MV max P.4 mmHg MV P1/2t: 62.6 msec Ao max P.5 mmHg MV V2 mean: 55.5 cm/sec Ao V2 mean: 77.2 cm/sec MV mean P.4 mmHg MV dec slope: 448.9 cm/sec2 Ao mean P.7 mmHg MV V2 VTI: 25.6 cm MVA(P1/2t): 3.5 cm2 Ao V2 VTI: 25.1 cm AV (velocity ratio): 0.84 MVA(VTI): 2.5 cm2 TYLOR(I,D): 2.6 cm2 TYLOR(V,D): 2.6 cm2 LV V1 max: 100.0 cm/sec SV(LVOT): 65.3 ml PA V2 max: 72.3 cm/sec LV V1 max P.0 mmHg PA V2 mean: 51.0 cm/sec LV V1 mean P.0 mmHg PA V2 VTI: 15.8 cm LV V1 mean: 67.9 cm/sec LV V1 VTI: 21.0 cm TR max ricki: 268.9 cm/sec TR max P.9 mmHg ECHO/Echo Complete Interpretation Summary Normal LV size. The left ventricular ejection fraction is 70 %. Pulmonary artery systolic pressure is 34 mmHg. There is mild mitral annular calcification. Ordering Physician: Cheng Rand Referring Physician: Bora Marie Performed By: Yaima Martínez RVT, RDCS and Student 11/16/24 1246 Date _ Cheng Rand MD CC: Dr. Cheng Rand MD; Dr. Bora Marie DO ~ Date Dictated: 11/16/24 1057 Date Transcribed: 11/16/24 1244 Prep Room Supervisor: Dru [facility] Work Phone: CNPNon 11-09-2024 CNPN Telephone (AGVASACC) OCHOA DOUGLAS ([id number]) 1945 F Date Time Provider Department 11/09/24 PETER HAYES KETTYPAUL During your visit today, we recorded the following information about you: Allergies As of Date: 11/09/2024 Noted Allergy Reaction LISINOPRIL 08/19/2019 3 - Cough CRESTOR (ROSUVASTATIN) 03/21/2020 17 - Myalgia Comments: muscle aches LIPITOR (ATORVASTATIN) 03/21/2020 17 - Myalgia Comments: muscle aches Date Reviewed: 11/08/2024 Reviewed by: Ely Ayoub APRN.SCREW MACHINE REPAIRER - Fully Assessed Primary Visit Diagnosis:Coronary artery disease involving alutiiq coronary artery of alutiiq heart without angina pectoris [I25.10] Other Visit Diagnoses:Preoperativ e testing [Z01.818] Cardiovascular disease [I25.10] Other specified symptoms and signs involving the circulatory and respiratory systems [R09.89] Abnormal finding of blood chemistry, unspecified [R79.9] Dyspnea, unspecified type [R06.00] Order(s):SURGICAL REQUEST - ELECTIVE (12/2019) [[id number]] Order #: [id number]: 1 TYPE AND SCREEN,30 DAY [TZMOII45] Order #: [id number] FUTURE COMPLETE BLOOD COUNT [SQCBC] Order #: [id number] FUTURE COMPREHENSIVE METABOLIC PANEL [SQCMP] Order #: [id number] FUTURE HEMOGLOBIN A1C [CWFJH6I] Order #: [id number] FUTURE MAGNESIUM [SQMG1] Order #: [id number] FUTURE PROTHROMBIN TIME [SQPT] Order #: [id number] FUTURE THYROID STIMULATING HORMONE [SQTSH] Order #: [id number] FUTURE XR CHEST 2V FRONTAL/LAT [[id number]] Order #: [id number] FUTURE URINALYSIS (WITH MICROSCOPIC) WITH CULTURE IF INDICATED [SQUACII] Order #: [id number] FUTURE US CAROTID ARTERIES TRUNG [facility]AS [facility] [0036505] Order #: [id number] FUTURE Prescriptions as of 11/09/2024 - aspirin, enteric coated (ASPIRIN, ENTERIC COATED) 81 mg EC tablet Take 81 mg by mouth once daily. - metoprolol tartrate, short acting, (LOPRESSOR) 25 mg tablet [facility] - tacrolimus (PROTOPIC) 0.1 % ointment Apply topically to affected areas on face every evening - vibegron (GEMTESA) 75 mg tablet Take 75 mg by mouth once daily. - levothyroxine (SYNTHROID) 112 mcg tablet TAKE 1 TABLET BY MOUTH DAILY ON AN EMPTY STOMACH FOR THYROID - triamcinolone acetonide (KENALOG) 0.1 % cream Apply 1 application to affected area twice daily. Apply sparingly to area for rash/itching on extremities - simvastatin (ZOCOR) 40 mg tablet Take 40 mg by mouth once daily. Taking every other day due to leg cramps - pyridoxine, vitamin B6, (VITAMIN B6) 100 mg tablet Take 100 mg by mouth once daily. - ferrous gluconate 256 mg (28 mg iron) tab Take 1 tablet by mouth every other day. - Omeprazole 40 mg capsule Take 1 capsule by mouth once daily. (Dr. Rand) - clopidogrel bisulfate(PLAVIX 75 MG TAB) Take one(1) tablet daily. - nitroglycerin(NITROST AT 0.4 MG SUBLINGUAL TAB) Place one(1) tablet on tongue as needed for chest pain. If no pain relief call 911. Problem List As Of Date 11/09/2024 Noted Resolved Hypothyroidism [E03.9] Obesity [E66.9] 03/13/2006 06/01/2023 Family history of ischemic heart disease [Z82.4*08/31/2007 06/01/2023 Mixed hyperlipidemia [E78.2] 03/13/2008 Cardiovascular disease [I25.10] 12/14/2008 Anemia [D64.9] 04/06/2009 Myocardial infarction, old [I25.2] 02/19/2010 Family history of cardiovascular disease [Z82.4*02/19/2010 06/01/2023 Essential hypertension [I10] 2020 Encounter Status:Closed by LILA BUSTOS on 11/09/24 [facility] CNOVon 11-08-2024 CNOV Office Visit (AGVASACC) OCHOA DOUGLAS ([id number]) 1945 F Date Time Provider Department 11/08/24 3:30 PM PETER HAYESVASRENETTA During your visit today, we recorded the following information about you: Pulse Blood pressure Weight Height 77/minute 138/70 70.5 kg 1.6 m Eli Alfred LPN 11/08/2024 4:43 PM Signed [facility] 5 METER WALK TEST SERVICE DATE: 11/08/2024 SERVICE TIME: 3:22pm 4.03 sec 3.49 sec 3.61 sec ASSESSMENT: SIGNATURE: Eil Alfred LPN PATIENT NAME: Ochoa Douglas DATE: November 08, 2024 TIME: 3:27 PM PAGER/CONTACT #: [id number] Ely Ayoub APRN.SCREW MACHINE REPAIRER 11/08/2024 4:43 PM Signed Procedure Type: Isolated CABG Perioperative Outcome Estimate % Operative Mortality 1.39% Morbidity AND Mortality 5.24% Stroke 0.86% Renal Failure 0.933% Reoperation 1.82% Prolonged Ventilation 2.62% Deep Sternal Wound Infection 0.133% Long Hospital Stay (>14 days) 2.56% Short Hospital Stay (<6 days)* 45.5% Clinical Summary Planned Surgery: Isolated CABG, First cardiovascular surgery Demographics: 78 year old, White, female, 67.1kg, 160cm, BMI: 26.2 kg/m? Lab Values: Creatinine: 0.98 mg/dL, Hematocrit: 35.1%, WBC Count: 7.14 10?/?L, Platelet Count: 650008 cells/?L Substance Abuse: Former smoker Risk Factors / Comorbidities: Hypertension, Family Hx of CAD Cardiac Status: Ejection Fraction = 50% Coronary Artery Disease: 3 vessels diseased, Stable Angina, PA: > 21 Days Prev. Cardiac Interv: Previous PCI: Not at this facility > 6 hours Ely Ayoub APRN.CNP 11/08/2024 4:22 PM Addendum You came in to see Dr. Hayes today for surgical evaluation of multivessel coronary disease, by reviewing your images/clinical data, Dr. Hayes recommend the following: Reviewed your history and imaging with today Discussed your recent new symptoms with you Recommend moving forward with heart surgery Will need to have a few other tests done prior to surgery. Our staff will schedule these for you. The tests that we need are carotid ultrasound, chest ct scan and echo (ultrasound of your heart). Once these are completed. We will review them and look for a surgery date for you. Prior to your surgery date you will need to be seen by one of the nurse practitioner for pre op education. The camp housekeeper will update you with all these dates and times soon Thanks for coming in to see us today. Please call us if you have any concerns/questions: [phone] Ely Ayoub APRN.CNP Cardiothoracic surgery Peter Joyce MD 11/08/2024 4:43 PM Signed CARDIOTHORACIC SURGERY CONSULT / HANDP SERVICE DATE: 11/08/2024 SERVICE TIME: 4:36 PM Subjective PRIMARY SERVICE: Cardiothoracic Surgery CHIEF COMPLAINT: Symptomatic severe multivessel coronary artery disease HPI: This is a 78 year old woman referred for evaluation of symptomatic severe multivessel coronary artery disease and for consideration for bypass surgery. She has a history of coronary artery disease. 2008 she suffered a myocardial infarction and underwent multivessel PCI by Dr. Bailey. She had a good result with this and has had not had any events in the interim years, denying PA, CHF, or repeat intervention. She is not experiencing profound fatigue, possibly some exertional dyspnea, occasional chest vague discomfort. She denies edema, orthopnea etc. Stress testing revealed abnormal EKG response consistent with ischemia.. Thus left heart catheterization performed revealing severe multivessel disease including severe disease involving ostial LAD; ostial circumflex; and mid to distal right coronary with patent stents. There is mild left ventricular systolic dysfunction noted on left ventriculography. Risk factors for coronary disease include family history, hypertension, hyperlipidemia. She is not a smoker. She is not diabetic. She has no history of other vascular disease such as stroke or renal sufficiency. : She stopped taking Plavix at the time of her catheterization. PAST MEDICAL HISTORY Diagnosis Date ASCVD (arteriosclerotic cardiovascular disease) Family history of cardiovascular disease 02/19/2010 Family history of ischemic heart disease 08/31/2007 Myocardial infarction, old 02/19/2010 Dr. Rand manages Obesity 03/13/2006 S/P drug eluting coronary stent placement 3 vessesl Unspecified hypothyroidism PAST SURGICAL HISTORY Procedure Laterality Date COLONOSCOPY FLX DX W/COLLJ SPEC WHEN PFRMD 05/18/1994 Colonoscopy--PATIENT DOES NOT RECALL HAVING ONE DONE LEFT HEART CATH,PERCUTANEOUS 11/07/2024 [facility] LIG/TRNSXJ FLP TUBE ABDL/VAG APPR UNI/BI 05/18/1987 Tubal ligation PAST SURGICAL HISTORY OF breast lumpectomy PAST SURGICAL HISTORY OF 04/15/2010 left septal mass excision (Brayan Ball) FAMILY HISTORY Problem Relation Age of Onset Thyroid Sister 2 sisters and (more content not included)... Normal [facility] Absolute lymphocyte countOrd ered By: Linwood Vasquez on 10-24-2024 Lymphocytes Auto (Unsp spec) [#/Vol] 2.68 10*3/uL 0.83-4.51 [facility] Absolute neutrophil countOrd ered By: Linwoodsalina Vasquez on 10-24-2024 Neutrophils (Bld) [#/Vol] 3.7 10*3/uL 2.0-7.7 [facility] Anion gap in Serum or Plasma Ordered By: Linwood Vasquez on 10-24-2024 Anion gap [Moles/Vol] 10 mmol/L 5-15 [facility] Automated lymphocyte count a s percentage of total leukocytesOrdered By: Linwood Vasquez on 10-24-2024 Lymphocytes/100 WBC Auto (Unsp spec) 35.8 % 19-41 [facility] BUN/creatinine ratioOrdered By: Linwood Vasquez on 10-24-2024 Urea nitrogen/Creatinine [Mass ratio] 19.1 mg/mg 10-20 [facility] Basic Metabolic Profile (BMP )on 10-24-2024 BUN/CRE 19.1 RATIO Normal 10-20 [facility] Comment on above: Performed By: #### L 100.0100, L300.3900, L500.2500 ####[facility] [address] [place], [address] Calcium [Mass/Vol] 9.2 mg/dL Normal 7.6-11.0 [facility] Comment on above: Performed By: #### L 100.0100, L300.3900, L500.2500 ####[facility] [address] [place], [address] Chloride [Moles/Vol] 105 mmol/L Normal 98-108 [facility] Comment on above: Performed By: #### L 100.0100, L300.3900, L500.2500 ####[facility] [address] [place], [address] CO2 [Moles/Vol] 24.7 mmol/L Normal 21.0-32.0 [facility] Comment on above: Performed By: #### L 100.0100, L300.3900, L500.2500 ####[facility] [address] [place], [address] Creatinine [Mass/Vol] 0.98 mg/dL Normal 0.70-1.20 [facility] Comment on above: Performed By: #### L 100.0100, L300.3900, L500.2500 ####[facility] [address] [place], [address] GAP 10 Normal 5-15 [facility] Comment on above: Performed By: #### L 100.0100, L300.3900, L500.2500 ####[facility] [address] [place], [address] GFR/1.73 sq M.predicted among non-blacks MDRD (S/P/Bld) [Vol rate/Area] 59 mL/min/{1.73_m2} Low >60 [facility] Comment on above: Result Comment: mL/m in/1.73m2 CKD-EPI Creatinine Equation (2020) Performed By: #### L 100.0100, L300.3900, L500.2500 ####[facility] [address] [place], [address] Glucose [Mass/Vol] 120 mg/dL High 70-99 [facility] Comment on above: Performed By: #### L 100.0100, L300.3900, L500.2500 ####[facility] [address] [place], [address] Potassium [Moles/Vol] 4.7 mmol/L Normal 3.3-5.1 [facility] Comment on above: Result Comment: Hemo lysis present, Results??could be affected. ?? Performed By: #### L 100.0100, L300.3900, L500.2500 ####[facility] [address] [place], [address] Sodium [Moles/Vol] 139 mmol/L Normal 133-145 [facility] Comment on above: Performed By: #### L 100.0100, L300.3900, L500.2500 ####[facility] [address] [place], [address] Urea nitrogen [Mass/Vol] 19 mg/dL Normal 4-19 [facility] Comment on above: Performed By: #### L 100.0100, L300.3900, L500.2500 ####[facility] [address] [place], [address] Basophil percentageOrdered B y: Linwood Vasquez on 10-24-2024 Basophils/100 WBC (Bld) 0.9 % 0-1 [facility] CBC W/Diff, Automatedon Absolute Lymph 2.68 X10 3/uL Normal 0.83-4.51 [facility] Comment on above: Performed By: #### L 100.0100, L300.3900, L500.2500 #### [facility] [address] [place], [address] Absolute Neut 3.7 X10 3/uL Normal 2.0-7.7 [facility] Comment on above: Performed By: #### L 100.0100, L300.3900, L500.2500 #### [facility] [address] [place], [address] Basophils/100 WBC (Bld) 0.9 % Normal 0-1 [facility] Comment on above: Performed By: #### L 100.0100, L300.3900, L500.2500 #### [facility] [address] [place], [address] Eosinophils/100 WBC (Bld) 4.4 % Normal 0-5 [facility] Comment on above: Performed By: #### L 100.0100, L300.3900, L500.2500 #### [facility] [address] [place], [address] Erythrocyte distribution width (RBC) [Ratio] 13.6 % Normal 11.6-14.6 [facility] Comment on above: Performed By: #### L 100.0100, L300.3900, L500.2500 #### [facility] [address] [place], [address] Hematocrit (Bld) [Volume fraction] 31.6 % Low 37-47 [facility] Comment on above: Performed By: #### L 100.0100, L300.3900, L500.2500 #### [facility] [address] [place], [address] Hemoglobin (Bld) [Mass/Vol] 10.3 g/dL Low 12.0-15.0 [facility] Comment on above: Performed By: #### L 100.0100, L300.3900, L500.2500 #### [facility] [address] [place], [address] IG% 0.300 Normal 0.0-0.9 [facility] Comment on above: Result Comment: IG% - Immature Granulocytes (promyelocytes, myelocytes and metamyelocytes) > 1% indicates that a LEFT SHIFT is Present. Performed By: #### L 100.0100, L300.3900, L500.2500 #### [facility] [address] [place], [address] Lymphocytes/100 WBC (Bld) 35.8 % Normal 19-41 [facility] Comment on above: Performed By: #### L 100.0100, L300.3900, L500.2500 #### [facility] [address] [place], [address] MCH (RBC) [Entitic mass] 30.7 pg Normal 27.0-32.0 [facility] Comment on above: Performed By: #### L 100.0100, L300.3900, L500.2500 #### [facility] [address] [place], [address] MCHC (RBC) [Mass/Vol] 32.6 g/dL Normal 32-36 [facility] Comment on above: Performed By: #### L 100.0100, L300.3900, L500.2500 #### [facility] [address] [place], [address] MCV (RBC) [Entitic vol] 94.3 fL Normal 81-99 [facility] Comment on above: Performed By: #### L 100.0100, L300.3900, L500.2500 #### [facility] [address] [place], [address] Monocytes/100 WBC (Bld) 8.9 % Normal 0-10 [facility] Comment on above: Performed By: #### L 100.0100, L300.3900, L500.2500 #### [facility] [address] [place], [address] Neutrophils/100 WBC (Bld) 49.7 % Normal 47-70 [facility] Comment on above: Performed By: #### L 100.0100, L300.3900, L500.2500 #### [facility] [address] [place], [address] Nucleated RBC (Bld) [#/Vol] 0 10*3/uL Normal 0-5 [facility] Comment on above: Performed By: #### L 100.0100, L300.3900, L500.2500 #### [facility] [address] [place], [address] Platelet mean volume (Bld) [Entitic vol] 11.8 fL Normal 6.2-12.0 [facility] Comment on above: Performed By: #### L 100.0100, L300.3900, L500.2500 #### [facility] [address] [place], [address] Platelets (Bld) [#/Vol] 247 10*3/uL Normal 150-450 [facility] Comment on above: Performed By: #### L 100.0100, L300.3900, L500.2500 #### [facility] [address] [place], [address] RBC (Bld) [#/Vol] 3.35 10*6/uL Low 4.2-5.4 [facility] Comment on above: Performed By: #### L 100.0100, L300.3900, L500.2500 #### [facility] [address] [place], [address] RDW SD 46.7 fl High 35.1-43.9 [facility] Comment on above: Performed By: #### L 100.0100, L300.3900, L500.2500 #### [facility] [address] [place], [address] WBC (Bld) [#/Vol] 7.5 10*3/uL Normal 4.4-11.0 [facility] Comment on above: Performed By: #### L 100.0100, L300.3900, L500.2500 #### [facility] [address] [place], [address] Carbon dioxide, total [Moles /volume] in Central venous bloodOrdered By: Linwood Vasquez on 10-24-2024 CO2 [Moles/Vol] 24.7 mmol/L 21.0-32.0 [facility] Cardiology Visit Reporton Cardiology Visit Report [facility] [address] [place] [address] OFFICE VISIT Date of Service: 10/24/24 MR#: [id number] Acct: [id number] Name: OCHOA DOUGLAS Rep #: [id number] : 1945 Provider: JOAN Azar Age/Sex: 78/F Location: [facility] Status: Signed HPI HPI History of Present Illness Details: Ochoa Douglas is a 78-year-old female who presents to office today for preprocedure visit. Patient is scheduled to undergo left heart catheterization 11/07/2024 to assess for coronary artery disease as she previously underwent stress test that demonstrated abnormal EKG changes 09/29/2024. Patient has a history of coronary artery disease, hypertension, hyperlipidemia. Patient underwent angioplasty and stenting to her LAD, circumflex artery and RCA around 2008. Patient presented to the emergency department in June 2021 with chest discomfort and ruled out for myocardial infarction. Patient underwent stress test in September 2021 with EKG changes suggestive of ischemia noted at the moderate workload. At this time patient was managed medically and monitored and appeared to have resolution of symptoms. Patient was seen approximately 8 weeks ago in which she reported noticing increase in fatigue. Patient underwent stress test 09/29/2024 that demonstrated abnormal EKG changes suggestive of ischemia. Upon presentation today, patient reports ongoing fatigue; however, has noticed a very slight improvement and is now taking vitamin D. She reports that she continues to notice fatigue and has to sit and rest when doing any activities such as gardening, playing with her grandson, yard work. She again reports that she does not sleep well at night secondary to waking up and having difficulties returning to sleep, leg pains at times, 4-year-old she is raising occasionally waking her up. She reports noticing an increase in palpitations with activity. Further ROS below. Intake Vital Signs 08/31/24 07:30 10/24/24 07:02 Height 5 ft 4 in 5 ft 4 in Weight: 156 lb 157 lb BMI 26.7 26.9 BP 127/70 H 131/72 H Blood Pressure Location Lt brachial Lt brachial Position Sitting Sitting Respiration 18 18 Pulse 74 67 Pulse Source Monitor Monitor Pulse Oximetry (%) 100 98 Intake Visit Reasons: UPDATE H P Industrial Engineering Manager Required: No Is patient in pain?: No Allergies atorvastatin (From Lipitor) Adverse Reaction (Severe, Verified 10/24/24 13:57) mylagias rosuvastatin (From Crestor) Adverse Reaction (Severe, Verified 10/24/24 13:57) mylagias lisinopril Adverse Reaction (Intermediate, Verified 10/24/24 13:57) Cough Medications ???Medication ???Instructions ???Recorded ???Confirmed ???Type levothyroxine 112 mcg tablet 112 mcg PO DAILY thyroid 03/09/17 10/24/24 History nitroglycerin 0.4 mg sublingual 0.4 mg sublingual Q5M PRN Chest 10/24/24 Rx tablet Pain #1 BOTTLE pyridoxine (vitamin B6) 100 mg 100 mg PO DAILY 06/22/21 10/24/24 History tablet (Vitamin B-6) evolocumab 140 mg/mL subcutaneous 140 mg subcut Q2W #2 mL 02/15/24 10/24/24 Rx pen injector (Regine Saab) clopidogrel 75 mg tablet 75 mg PO DAILY antiplatelet/stents 05/16/24 10/24/24 Rx #90 tabs simvastatin 40 mg tablet 40 mg PO .QOD #45 tabs 08/10/24 Rx omeprazole 40 mg capsule,delayed 40 mg PO DAILY #90 caps 08/11/24 0 10/24/24 Rx release losartan 25 mg tablet 25 mg PO DAILY #90 tabs 09/13/24 0 10/24/24 Rx metoprolol tartrate 25 mg tablet See Rx Instructions .Route 5 10/24/24 Rx .COMPLEX #90 tabs ferrous fumarate 89 mg (29 mg 28 mg PO ONCE anemia 10/24/2402/09 History iron) tablet Ejection fraction %: 65 Have you fallen in the past year?: No Nurse's Note: patient is on vitamin d3 but does not know dosage. PFSH Medical History Anemia Atherosclerotic heart disease of alutiiq coronary artery without angina pectoris Palpitations Old myocardial infarction Hyperlipidemia Hypothyroidism Former smoker Surgical History History of left heart catheterization (2010) History of nasal surgery (2010) History of tubal ligation Hx of breast surgery History of open reduction and internal fixation (ORIF) procedure History of coronary artery stent placement (07/2008) Family History Sister Heart disease Brother CAD (coronary artery disease) Myocardial infarction Sudden cardiac Daughter Thyroid disorder Social History Smoking Status: Never smoker alcohol intake: never substance use type: does not use ROS Const Const: Positive for fatigue; Negative for weakness, headache(s) or frequent falls Eyes (more content not included)... Normal [facility] Chest PA and Lateralon 10-24 Chest PA and Lateral [facility] [address] [place], [place] [id number] Chest PA and Lateral MR#: [id number] Acct: [id number] Name: STELLAOCHOA Emily Rep #: [id number] : 1945 F 78 From: Jun Faith PCP: Dr. Bora Marie DO Status: PRE SDC Study: Chest PA and Lateral Date of Exam: 10/24/24 Exam# [id number] Ordering Dr: Linwood Vasquez PROCEDURE: CHEST PA AND LATERAL 10/24/2024 REASON FOR EXAM: PRE-OPERATIVE FOR [facility] TECHNIQUE: Frontal and lateral views of the chest. COMPARISON: 06/22/2021 FINDINGS: No focal consolidations. No pleural effusion or pneumothorax. Cardiac silhouette is within normal limits. No acute fractures. Atherosclerotic aortic arch. RAD/Chest PA and Lateral IMPRESSION: No focal consolidations. Reading Location: [id number] CC: Dr. Bora Marie DO; JOAN Azar Prep Room Supervisor: Signed Normal [facility] Chloride assayOrdered By: Sury Vasquez on 10-24-2024 Chloride [Moles/Vol] 105 mmol/L 98-108 [facility] Eosinophil percentageOrdered By: Linwood Vasquez on 10-24-2024 Eosinophils/100 WBC (Bld) 4.4 % 0-5 [facility] Erythrocyte distribution wid th ratioOrdered By: Linwood Vasquez on 10-24-2024 Erythrocyte distribution width (RBC) [Ratio] 13.6 % 11.6-14.6 [facility] Erythrocyte distribution wid th standard deviationOrdered By: Linwood Vasquez on 10-24-2024 Erythrocyte distribution width (RBC) [Ratio] 46.7 fl High 35.1-43.9 [facility] Glomerular filtration rate ( GFR) estimation/1.73 sq m using serum, plasma, or whole bOrdered By: Linwood Vasquez on 10-24-2024 GFR/1.73 sq M.predicted among non-blacks MDRD (S/P/Bld) [Vol rate/Area] 59 mL/min/{1.73_m2} Low >60 [facility] Comment on above: mL/min/1.73m2 CKD-EP I Creatinine Equation (2020) Hematocrit Auto (Bld) [Volum e fraction]Ordered By: Linwood Vasquez on 10-24-2024 Hematocrit (Bld) [Volume fraction] 31.6 % Low 37-47 [facility] Hemoglobin measurementOrdere d By: Linwood Vasquez on 10-24-2024 Hemoglobin (Bld) [Mass/Vol] 10.3 g/dL Low 12.0-15.0 [facility] Immature granulocytes/100 WB C Auto (Bld)Ordered By: Linwood Vasquez on 10-24-2024 Immature granulocytes/100 WBC (Bld) 0.300 % 0.0-0.9 [facility] Comment on above: IG% - Immature Granu locytes (promyelocytes, myelocytes and metamyelocytes) > 1% indicates that a LEFT SHIFT is Present. International normalized rat io (INR) calculationOrdered By: Linwood Vasquez on 10-24-2024 INR Coag (Bld) [Relative time] 0.9 {INR} [facility] MCV (mean corpuscular volume ) determinationOrdered By: Linwood Vasquez on 10-24-2024 MCV (RBC) [Entitic vol] 94.3 fL 81-99 [facility] Mean corpuscular hemoglobin (MCH) determinationOrdered By: Linwoodsalina Vasquez on 10-24-2024 MCH (RBC) [Entitic mass] 30.7 pg 27.0-32.0 [facility] Mean corpuscular hemoglobin concentration (MCHC) determinationOrdered By: Linwood Vasquez on 10-24-2024 MCHC (RBC) [Mass/Vol] 32.6 g/dL 32-36 [facility] Mean platelet volume determi nationOrdered By: Linwood Vasquez on 10-24-2024 Platelet mean volume (Bld) [Entitic vol] 11.8 fL 6.2-12.0 [facility] Monocyte percentageOrdered B y: Linwood Vasquez on 10-24-2024 Monocytes/100 WBC (Bld) 8.9 % 0-10 [facility] Neutrophil percentageOrdered By: Linwood Vasquez on 10-24-2024 Neutrophils/100 WBC (Bld) 49.7 % 47-70 [facility] Nucleated red blood cell per centageOrdered By: Linwood Vasquez on 10-24-2024 Nucleated RBC/100 WBC (Bld) [Ratio] 0 % 0-5 [facility] Platelet countOrdered By: Sury Vasquez on 10-24-2024 Platelets (Bld) [#/Vol] 247 10*3/uL 150-450 [facility] Potassium measurement (mass/ volume)Ordered By: Linwood Vasquez on 10-24-2024 Potassium (Unsp spec) [Mass/Vol] 4.7 mmol/L 3.3-5.1 [facility] Comment on above: Hemolysis present, R esults could be affected. Prothrombin Time w/INRon INR Coag (PPP) [Relative time] 0.9 {INR} Normal [facility] Comment on above: Performed By: #### L 100.0100, L300.3900, L500.2500 #### [facility] [address] [place], [address] PT Coag (PPP) [Time] 12.0 s Normal 11.7-14.9 [facility] Comment on above: Performed By: #### L 100.0100, L300.3900, L500.2500 #### [facility] [address] [place], [address] Prothrombin timeOrdered By: Linwood Vasquez on 10-24-2024 PT Coag (PPP) [Time] 12.0 s 11.7-14.9 [facility] RBC Auto (Bld) [#/Vol]Ordere d By: Linwood Vasquez on 10-24-2024 RBC (Bld) [#/Vol] 3.35 10*6/uL Low 4.2-5.4 [facility] Serum creatinine measurement (mass/volume)Ordered By: Linwood Vasquez on 10-24-2024 Creatinine [Mass/Vol] 0.98 mg/dL 0.70-1.20 [facility] Serum glucose measurement (m ass/volume)Ordered By: Linwood Vasquez on 10-24-2024 Glucose [Mass/Vol] 120 mg/dL High 70-99 [facility] Serum or plasma calcium julissa urement (mass/volume)Ordered By: Linwood Vasquez on 10-24-2024 Calcium [Mass/Vol] 9.2 mg/dL 7.6-11.0 [facility] Serum or plasma urea nitroge n measurement (mass/volume)Ordered By: Linwood Vasquez on 10-24-2024 Urea nitrogen [Mass/Vol] 19 mg/dL 4-19 [facility] Sodium levelOrdered By: Daphne Vasquez on 10-24-2024 Sodium [Moles/Vol] 139 mmol/L 133-145 [facility] White blood cell (WBC) count Ordered By: Linwood Vasquez on 10-24-2024 WBC (Bld) [#/Vol] 7.5 10*3/uL 4.4-11.0 [facility] Cardiovascular stress test r eportOrdered By: Cheng Rand on 09-29-[address] [facility] [address] [place] [address] MR#: [id number] Acct: [id number] Name: OCHOA DOUGLAS Rep #: [id number] : 1945 78 From: Cheng Rand MD Primary Care: Dr. Bora Marie, Statu s: REG CLI Referring Dr: Linwood Vasquez Sex: F C Stress Test Report Exercise myocardial perfusion stress test. 78-year-old lady with a history of chest pain Stress protocol: Resting EKG demonstrates normal sinus rhythm with a rate of 76 bpm resting bloodpressure is 132/68 mmHg. The patient exercised according to the regular Tyrese protocol for a total duration of 5 minutes and 15 seconds attaining a maximum heart rate of 151 bpm which was 106% of maximum predicted heart rate; the maximum workload was 7 metabolic equivalents. At rest there were no ST or T wave changes noted to suggest ischemia and at peak exercise [address] depression were noted in leads II, III and aVF and V6 suggestive of ischemia. Upsloping ST changes only were noted which did not meet the criteria for ischemia. No clinical angina was noted the test was terminated due to the target heart rate being achieved/fatigue. The peak blood pressure was 164/70 mmHg. Rate-pressure product was 24,700. Myocardial perfusion protocol. 11.8 mCi of technetium 99m sestamibi was injected at rest. The patient exercised according to regular Tyrese protocol for total duration of 5 minutes and 15 and at peak exercise 34.5 mCi of technetium 99m sestamibi was injected stress images were obtained stress and rest images were reconstructed in comparing the short axis vertical long and horizontal long axis. Gated images were also obtained. Perfusion SPECT analysis: Review of the stress images demonstrate normal uptake of tracer noted in all areas of the myocardium. The resting images similarly demonstrate normal uptakeof tracer noted in all areas of the myocardium. No areas of reversibility are noted to suggest ischemia no previous infarct was noted. Gated SPECT analysis: The gated ejection fraction is 77%. Conclusion: Normal exercise myocardial perfusion stress test at a moderate work Preserved ejection fraction. EKG changes suggestive of ischemia but unchanged from the stress test in September 2021. 09/29/24 1332 Date _ Cheng Rand MD CC: Dr. Bora Marie DO; JOAN Azar ~ Date Dictated: 09/29/24 1322 Date Transcribed: 09/29/241321 Prep Room Supervisor: [place] Signed [facility] Work Phone: Stress Reporton 09-29-2024 Stress Report [facility] [address] [place] [address] MR#: [id number] Acct: [id number] Name: OCHOA DOUGLAS Rep #: [id number] : 1945 78 From: Cheng Rand MD Primary Care: Dr. Bora Marie DO Status: REG CLI Referring Dr: Linwood Vasquez Sex: F C Stress Test Report Exercise myocardial perfusion stress test. 78-year-old lady with a history of chest pain Stress protocol: Resting EKG demonstrates normal sinus rhythm with a rate of 76 bpm resting blood pressure is 132/68 mmHg. The patient exercised according to the regular Tyrese protocol for a total duration of 5 minutes and 15 seconds attaining a maximum heart rate of 151 bpm which was 106% of maximum predicted heart rate; the maximum workload was 7 metabolic equivalents. At rest there were no ST or T wave changes noted to suggest ischemia and at peak exercise [address] depression were noted in leads II, III and aVF and V6 suggestive of ischemia. Upsloping ST changes only were noted which did not meet the criteria for ischemia. No clinical angina was noted the test was terminated due to the target heart rate being achieved/fatigue. The peak blood pressure was 164/70 mmHg. Rate- pressure product was 24,700. Myocardial perfusion protocol. 11.8 mCi of technetium 99m sestamibi was injected at rest. The patient exercised according to regular Tyrese protocol for total duration of 5 minutes and 15 and at peak exercise 34.5 mCi of technetium 99m sestamibi was injected stress images were obtained stress and rest images were reconstructed in comparing the short axis vertical long and horizontal long axis. Gated images were also obtained. Perfusion SPECT analysis: Review of the stress images demonstrate normal uptake of tracer noted in all areas of the myocardium. The resting images similarly demonstrate normal uptake of tracer noted in all areas of the myocardium. No areas of reversibility are noted to suggest ischemia no previous infarct was noted. Gated SPECT analysis: The gated ejection fraction is 77%. Conclusion: Normal exercise myocardial perfusion stress test at a moderate work Preserved ejection fraction. EKG changes suggestive of ischemia but unchanged from the stress test in September 2021. 09/29/24 1332 Date Cheng Rand MD CC: Dr. Bora Marie, DO; JOAN Azar Date Dictated: 09/29/24 132 Date Transcribed: 09/29/241321 Prep Room Supervisor: [place] Signed Normal [facility] Absolute lymphocyte countOrd ered By: Linwood Vasquez on 08-31-2024 Lymphocytes Auto (Unsp spec) [#/Vol] 2.65 10*3/uL 0.83-4.51 [facility] Absolute neutrophil countOrd ered By: Linwood Vasquez on 08-31-2024 Neutrophils (Bld) [#/Vol] 4.1 10*3/uL 2.0-7.7 [facility] Automated lymphocyte count a s percentage of total leukocytesOrdered By: Linwood Demiter on 08-31-2024 Lymphocytes/100 WBC Auto (Unsp spec) 34.6 % 19-41 [facility] Basophil percentageOrdered B y: Linwood Demiter on 08-31-2024 Basophils/100 WBC (Bld) 0.9 % 0-1 [facility] CBC W/Diff, Automatedon 08-16 Absolute Lymph 2.65 X10 3/uL Normal 0.83-4.51 [facility] Comment on above: Performed By: #### L 100.0100, L506.1001, L501.9520 #### [facility] [address] [place], [address] Absolute Neut 4.1 X10 3/uL Normal 2.0-7.7 [facility] Comment on above: Performed By: #### L 100.0100, L506.1001, L501.9520 #### [facility] [address] [place], [address] Basophils/100 WBC (Bld) 0.9 % Normal 0-1 [facility] Comment on above: Performed By: #### L 100.0100, L506.1001, L501.9520 #### [facility] [address] [place], [address] Eosinophils/100 WBC (Bld) 2.7 % Normal 0-5 [facility] Comment on above: Performed By: #### L 100.0100, L506.1001, L501.9520 #### [facility] [address] [place], [address] Erythrocyte distribution width (RBC) [Ratio] 12.9 % Normal 11.6-14.6 [facility] Comment on above: Performed By: #### L 100.0100, L506.1001, L501.9520 #### [facility] [address] [place], [address] Hematocrit (Bld) [Volume fraction] 32.1 % Low 37-47 [facility] Comment on above: Performed By: #### L 100.0100, L506.1001, L501.9520 #### [facility] [address] [place], [address] Hemoglobin (Bld) [Mass/Vol] 10.3 g/dL Low 12.0-15.0 [facility] Comment on above: Performed By: #### L 100.0100, L506.1001, L501.9520 #### [facility] [address] [place], [address] IG% 0.100 Normal 0.0-0.9 [facility] Comment on above: Result Comment: IG% - Immature Granulocytes (promyelocytes, myelocytes and metamyelocytes) > 1% indicates that a LEFT SHIFT is Present. Performed By: #### L 100.0100, L506.1001, L501.9520 #### [facility] [address] [place], [address] Lymphocytes/100 WBC (Bld) 34.6 % Normal 19-41 [facility] Comment on above: Performed By: #### L 100.0100, L506.1001, L501.9520 #### [facility] [address] [place], [address] MCH (RBC) [Entitic mass] 30.1 pg Normal 27.0-32.0 [facility] Comment on above: Performed By: #### L 100.0100, L506.1001, L501.9520 #### [facility] [address] [place], [address] MCHC (RBC) [Mass/Vol] 32.1 g/dL Normal 32-36 [facility] Comment on above: Performed By: #### L 100.0100, L506.1001, L501.9520 #### [facility] [address] [place], [address] MCV (RBC) [Entitic vol] 93.9 fL Normal 81-99 [facility] Comment on above: Performed By: #### L 100.0100, L506.1001, L501.9520 #### [facility] [address] [place], [address] Monocytes/100 WBC (Bld) 8.2 % Normal 0-10 [facility] Comment on above: Performed By: #### L 100.0100, L506.1001, L501.9520 #### [facility] [address] [place], [address] Neutrophils/100 WBC (Bld) 53.5 % Normal 47-70 [facility] Comment on above: Performed By: #### L 100.0100, L506.1001, L501.9520 #### [facility] [address] [place], [address] Nucleated RBC (Bld) [#/Vol] 0 10*3/uL Normal 0-5 [facility] Comment on above: Performed By: #### L 100.0100, L506.1001, L501.9520 #### [facility] [address] [place], [address] Platelet mean volume (Bld) [Entitic vol] 11.3 fL Normal 6.2-12.0 [facility] Comment on above: Performed By: #### L 100.0100, L506.1001, L501.9520 #### [facility] [address] [place], [address] Platelets (Bld) [#/Vol] 274 10*3/uL Normal 150-450 [facility] Comment on above: Performed By: #### L 100.0100, L506.1001, L501.9520 #### [facility] [address] [place], [address] RBC (Bld) [#/Vol] 3.42 10*6/uL Low 4.2-5.4 [facility] Comment on above: Performed By: #### L 100.0100, L506.1001, L501.9520 #### [facility] [address] [place], [address] RDW SD 44.1 fl High 35.1-43.9 [facility] Comment on above: Performed By: #### L 100.0100, L506.1001, L501.9520 #### [facility] [address] [place], [address] WBC (Bld) [#/Vol] 7.7 10*3/uL Normal 4.4-11.0 [facility] Comment on above: Performed By: #### L 100.0100, L506.1001, L501.9520 #### [facility] [address] [place], [address] Cardiology Visit Reporton Cardiology Visit Report [facility] [address] [place] [address] OFFICE VISIT Date of Service: 08/31/24 MR#: [id number] Acct: [id number] Name: OCHOA DOUGLAS Rep #: [id number] : 1945 Provider: JOAN Azar Age/Sex: 78/F [place] [facility] [place] Status: Signed HPI HPI History of Present Illness Details: Ochoa Douglas is a 78-year-old female who presents to office today for follow-up monitoring of her cardiovascular disease. Patient has a history of coronary artery disease, hypertension, hyperlipidemia. Patient underwent angioplasty and stenting to her LAD, circumflex artery and RCA around 2008. Patient presented to the emergency department in June 2021 with chest discomfort and ruled out for myocardial infarction. Patient underwent stress test in September 2021 with EKG changes suggestive of ischemia noted at the moderate workload. At this time patient was managed medically and monitored and appeared to have resolution of symptoms. Patient was seen in September and December of last year with adjustments made to antihypertensive medications and Repatha was added. Since last seen, approximately 8 months ago, patient reports doing well. Patient's only concern today is fatigue that she has noticed over the last 2-3 months in which she describes as she feels she can sit down several times a day and nap. Patient does note that she is raising a 4-year-old and reports that could be contributing to her fatigue. Patient does not sleep well at night secondary to being woken up by the 4-year-old; however, reports that has been going on for a few years now. At time of previous PA, patient experienced near-syncope and felt like pop fizzing in my throat and experienced chest pain days prior. Patient denies any recurrence of similar symptoms since hospitalization in September of 2021. Further ROS below. 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 Is patient in pain?: No Allergies atorvastatin (From Lipitor) Adverse Reaction (Severe, Verified 08/31/24 13:22) mylagias rosuvastatin (From Crestor) Adverse Reaction (Severe, Verified 08/31/24 13:22) mylagias lisinopril Adverse Reaction (Intermediate, Verified 08/31/24 13:22) Cough Medications ???Medication ???Instructions ???Recorded ???Confirmed ???Type ferrous fumarate 89 mg (29 mg 28 mg PO QODAY anemia 03/09/17 History iron) tablet levothyroxine 112 mcg tablet 112 mcg PO DAILY thyroid 03/09/17 08/31/24 History nitroglycerin 0.4 mg sublingual 0.4 mg sublingual Q5M PRN Chest 08/31/24 Rx tablet Pain #1 BOTTLE pyridoxine (vitamin B6) 100 mg 100 mg PO DAILY 06/22/21 08/31/24 History tablet (Vitamin B-6) metoprolol tartrate 25 mg tablet See Rx Instructions .Route 4 08/31/24 Rx .COMPLEX #90 tabs losartan 25 mg tablet 25 mg PO DAILY #90 tabs 09/23/23 0 08/31/24 Rx evolocumab 140 mg/mL subcutaneous 140 mg subcut Q2W #2 mL 02/15/24 08/31/24 Rx pen injector (Repricky Chapinick) clopidogrel 75 mg tablet 75 mg PO DAILY antiplatelet/stents 05/16/24 08/31/24 Rx #90 tabs simvastatin 40 mg tablet 40 mg PO .QOD #45 tabs 08/10/24 Rx omeprazole 40 mg capsule,delayed 40 mg PO DAILY #90 caps 08/11/24 0 08/31/24 Rx release Ejection fraction %: 65 Have you fallen in the past year?: Yes PFSH Medical History Anemia Atherosclerotic heart disease of alutiiq coronary artery without angina pectoris Palpitations Old myocardial infarction Hyperlipidemia Hypothyroidism Former smoker Surgical History History of left heart catheterization (2010) History of nasal surgery (2010) History of tubal ligation Hx of breast surgery History of open reduction and internal fixation (ORIF) procedure History of coronary artery stent placement (07/2008) Family History Sister Heart disease Brother CAD (coronary artery disease) Myocardial infarction Sudden cardiac Daughter Thyroid disorder Social History Smoking Status: Never smoker alcohol intake: never substance use type: does not use ROS Const Const: Positive for fatigue; Negative for weakness, headache(s) or frequent falls Eyes Eyes: Negative for blurry vision ENT ENT: Negative for headache(s), dizziness or Nosebleed/epistaxis Cardio Chest Pain: No Palpitations: No Edema: None Muscle aches with walking: None Resp (more content not included)... Normal [facility] Eosinophil percentageOrdered By: Linwood Vasquez on 08-31-2024 Eosinophils/100 WBC (Bld) 2.7 % 0-5 [facility] Erythrocyte distribution wid th (RBC) [Ratio]Ordered By: Linwood Vasquez on 08-31-2024 Erythrocyte distribution width (RBC) [Entitic vol] 44.1 fL High 35.1-43.9 [facility] Erythrocyte distribution wid th ratioOrdered By: Linwood Demiter on 08-31-2024 Erythrocyte distribution width (RBC) [Ratio] 12.9 % 11.6-14.6 [facility] Erythrocyte distribution wid th standard deviationOrdered By: Linwood Demiter on 08-31-2024 Erythrocyte distribution width (RBC) [Ratio] 44.1 fl High 35.1-43.9 [facility] Hematocrit Auto (Bld) [Volum e fraction]Ordered By: Linwoodsalina Vasquez on 08-31-2024 Hematocrit (Bld) [Volume fraction] 32.1 % Low 37-47 [facility] Hemoglobin measurementOrdere d By: Linwood Vasquez on 08-31-2024 Hemoglobin (Bld) [Mass/Vol] 10.3 g/dL Low 12.0-15.0 [facility] Immature granulocytes/100 WB C Auto (Bld)Ordered By: Linwood Vasquez on 08-31-2024 Immature granulocytes/100 WBC (Bld) 0.100 % 0.0-0.9 [facility] Comment on above: IG% - Immature Granu locytes (promyelocytes, myelocytes and metamyelocytes) > 1% indicates that a LEFT SHIFT is Present. Lymphocytes Auto (Unsp spec) [#/Vol]Ordered By: Linwood Christina on 08-31-2024 Lymphocytes (Bld) [#/Vol] 2.65 10*3/uL 0.83-4.51 [facility] Lymphocytes/100 WBC Auto (Un sp spec)Ordered By: Linwood Vasquez on 08-31-2024 Lymphocytes/100 WBC (Bld) 34.6 % 19-41 [facility] MCV (mean corpuscular volume ) determinationOrdered By: Linwood Vasquez on 08-31-2024 MCV (RBC) [Entitic vol] 93.9 fL 81-99 [facility] Mean corpuscular hemoglobin (MCH) determinationOrdered By: Linwood Vasquez on 08-31-2024 MCH (RBC) [Entitic mass] 30.1 pg 27.0-32.0 [facility] Mean corpuscular hemoglobin concentration (MCHC) determinationOrdered By: Linwood Vasquez on 08-31-2024 MCHC (RBC) [Mass/Vol] 32.1 g/dL 32-36 [facility] Mean platelet volume determi nationOrdered By: Linwood Vasquez on 08-31-2024 Platelet mean volume (Bld) [Entitic vol] 11.3 fL 6.2-12.0 [facility] Monocyte percentageOrdered B y: Linwood Vasquez on 08-31-2024 Monocytes/100 WBC (Bld) 8.2 % 0-10 [facility] Neutrophil percentageOrdered By: Linwood Vasquez on 08-31-2024 Neutrophils/100 WBC (Bld) 53.5 % 47-70 [facility] Nucleated red blood cell per centageOrdered By: Linwood Vasquez on 08-31-2024 Nucleated RBC/100 WBC (Bld) [Ratio] 0 % 0-5 [facility] Platelet countOrdered By: Sury Vasquez on 08-31-2024 Platelets (Bld) [#/Vol] 274 10*3/uL 150-450 [facility] RBC Auto (Bld) [#/Vol]Ordere d By: Linwood Vasquez on 08-31-2024 RBC (Bld) [#/Vol] 3.42 10*6/uL Low 4.2-5.4 [facility] TSH DL <= 0.005 mIU/L QnOrde red By: Linwood Vasquez on 08-31-2024 Thyroid Stimulating Hormone (TSH) 3.430 uIU/mL 0.300-4.200 [facility] TSH Qn 3.430 uIU/mL 0.300-4.200 [facility] Thyroid Stim Hormone (TSH)on 08-31-2024 TSH 3.430 uIU/mL Normal 0.300-4.200 [facility] Comment on above: Performed By: #### L 100.0100, L506.1001, L501.9520 #### [facility] [address] [place], [place] [address], [place], [id number] Vitamin D, 25-hydroxyOrdered By: Linwood Vasquez on 08-31-2024 Vitamin D 25-Hydroxy 23.1 ng/mL Low 30-100 [facility] Comment on above: Vitamin D StatusDefi ciency: <20 ng/mL (50nmol/L)Insufficiency: 20-30 ng/mL (50-75 nmol/L)Sufficiency: 30-100 ng/mL (75-250 nmol/L)Toxicity: >100 ng/mL (>250 nmol/L) Vitamin D,25 Hydroxyon 08-31 Vitamin D 25-OH 23.1 ng/mL Low 30-100 [facility] Comment on above: Result Comment: [place] min D Status Deficiency: <20 ng/mL (50nmol/L) Insufficiency: 20-30 ng/mL (50-75 nmol/L) Sufficiency: 30-100 ng/mL (75-250 nmol/L) Toxicity: >100 ng/mL (>250 nmol/L) Performed By: #### L 100.0100, L506.1001, L501.9520 #### [facility] [address] [place] [address], [address] White blood cell (WBC) count Ordered By: Linwood Vasquez on 08-31-2024 WBC (Bld) [#/Vol] 7.7 10*3/uL 4.4-11.0 [facility] Bilirubin directOrdered By: Allyssa Smalls on 08-26-2024 Bilirubin.direct [Mass/Vol] 0.14 mg/dL 0.00-0.30 [facility] Bilirubin, totalOrdered By: Allyssa Smalls on 08-26-2024 Bilirubin [Mass/Vol] 0.29 mg/dL 0.00-1.30 [facility] Calculated very low density lipoprotein (VLDL) cholesterol measurementOrdered By: Allyssa Smalls on 08-26-2024 Calculated very low density lipoprotein (VLDL) cholesterol measurement 9 mg/dL [facility] VLDL Cholesterol 9 mg/dL [facility] LDL calc ser/plasOrdered By: Allyssa Smalls on 08-26-2024 Cholesterol in LDL [Mass/Vol] 66 mg/dL [facility] Comment on above: Appvpuhein=127-488 m g/dL & Higher Hwfd=231 mg/dL or greater LDL Cholesterol, Calculated 66 mg/dL [facility] Comment on above: Urbolkkujj=295-057 m g/dL & Higher Rstt=658 mg/dL or greater Laboratory - Chemistry and C hemistry - challengeOrdered By: Allyssa Smalls on 08-26-2024 AST [Catalytic activity/Vol] 32 U/L <32 [facility] Lipid Profileon 08-26-2024 CHOL:HDL 2.04 Normal [facility] Comment on above: Performed By: #### L 500.3400, L500.4100 ####[facility] [address] [place], [address] Cholesterol [Mass/Vol] 147 mg/dL Normal <=200 [facility] Comment on above: Result Comment: Chol esterol level, Desirable <200 mg/dL Borderline high cholesterol 200-239 mg/dL High cholesterol >=240 mg/dL Recommendations of the NCEP Adult Treatment Panel for the following risk-cutoff thresholds for the [place] population. Performed By: #### L 500.3400, L500.4100 ####[facility] [address] [place], [place], [phone] Cholesterol in HDL [Mass/Vol] 72 mg/dL Normal [facility] Comment on above: Result Comment: Janene onal Cholesterol Education Program (NCEP) guidelines: <40 mg/dL: Low HDL-cholesterol (major risk factor for CHD) >= 60 mg/dL: High HDL-cholesterol (negative risk factor for CHD) HDL-cholesterol is affected by a number of factors, e.g. smoking, exercise, hormones, sex and age. Performed By: #### L 500.3400, L500.4100 ####[facility] [address] [place], [address] Cholesterol in LDL [Mass/Vol] 66 mg/dL Normal [facility] Comment on above: Result Comment: Bord zkjpnu=923-755 mg/dL Higher Vucv=144 mg/dL or greater Performed By: #### L 500.3400, L500.4100 ####[facility] [address] [place], [address] Cholesterol in VLDL [Mass/Vol] 9 mg/dL Normal 5-40 [facility] Comment on above: Performed By: #### L 500.3400, L500.4100 ####[facility] [address] [place], [address] Triglyceride [Mass/Vol] 45 mg/dL Normal [facility] Comment on above: Result Comment: The drugs N-Acetylcysteine and Metamizole may falsely depress this assay. Normal range: <150 mg/dL Borderline High: 150-199 mg/dL High: 200-499 mg/dL Very High: >500 mg/dL Performed By: #### L 500.3400, L500.4100 ####[facility] [address] [place], [address] Liver Profileon 08-26-2024 Albumin [Mass/Vol] 3.9 g/dL Normal 3.4-4.8 [facility] Comment on above: Performed By: #### L 500.3400, L500.4100 ####[facility] [address] [place], [address] ALK PHOS 80 U/L Normal 35-104 [facility] Comment on above: Performed By: #### L 500.3400, L500.4100 ####[facility] [address] [place], [address] ALT [Catalytic activity/Vol] 21 U/L Normal <=34 [facility] Comment on above: Performed By: #### L 500.3400, L500.4100 ####[facility] [address] [place], [address] AST [Catalytic activity/Vol] 32 U/L Normal <=31 [facility] Comment on above: Performed By: #### L 500.3400, L500.4100 ####[facility] [address] [place], [address] Bilirubin [Mass/Vol] 0.29 mg/dL Normal 0.00-1.30 [facility] Comment on above: Performed By: #### L 500.3400, L500.4100 ####[facility] [address] [place], [address] Bilirubin.direct [Mass/Vol] 0.14 mg/dL Normal 0.00-0.30 [facility] Comment on above: Performed By: #### L 500.3400, L500.4100 ####[facility] [address] [place], [address] Globulin (S) [Mass/Vol] 3.5 g/dL Normal 2.2-4.2 [facility] Comment on above: Performed By: #### L 500.3400, L500.4100 ####[facility] [address] [place], [address] T PROT 7.5 g/dL Normal 5.9-8.4 [facility] Comment on above: Performed By: #### L 500.3400, L500.4100 ####[facility] [address] [place], [address] Screening total cholesterol/ high density lipoprotein (HDL) cholesterol ratioOrdered By: Allyssa Smalls on 08-26-2024 Cholesterol.total/Choles terol in HDL [Mass ratio] 2.04 {ratio} [facility] Serum globulin measurementOr dered By: Allyssa Smalls on 08-26-2024 Globulin (S) [Mass/Vol] 3.5 g/dL 2.2-4.2 [facility] Serum or plasma alanine pederson otransferase (ALT) measurementOrdered By: Allyssa Smalls on 08-26-2024 ALT [Catalytic activity/Vol] 21 U/L <35 [facility] Serum or plasma albumin julissa urement (mass/volume)Ordered By: Allyssa Smalls on 08-26-2024 Albumin [Mass/Vol] 3.9 g/dL 3.4-4.8 [facility] Serum or plasma alkaline roxanne sphatase measurementOrdered By: Allyssa Smalls on 08-26-2024 ALP [Catalytic activity/Vol] 80 U/L 35-104 [facility] Serum or plasma cholesterol in HDL measurement (mass/volume)Ordered By: Allyssa Smalls on 08-26-2024 Cholesterol in HDL [Mass/Vol] 72 mg/dL >40 [facility] Comment on above: National Cholesterol Education Program (NCEP) guidelines:<40 mg/dL: Low HDL-cholesterol (major risk factor for CHD)>= 60 mg/dL: High HDL-cholesterol (negative risk factor for CHD)HDL-cholesterol is affected by a number of factors, e.g. smoking, exercise, hormones, sex and age. Serum or plasma cholesterol measurement (mass/volume)Ordered By: Allyssa Smalls on 08-26-2024 Cholesterol [Mass/Vol] 147 mg/dL <201 [facility] Comment on above: Cholesterol level, D esirable <200 mg/dLBorderline high cholesterol 200-239 mg/dLHigh cholesterol >=240 mg/dLRecommendations of the NCEP Adult Treatment Panel for the following risk-cutoff thresholds for the [place] population. Total proteinOrdered By: Sam Smalls on 08-26-2024 Protein [Mass/Vol] 7.5 g/dL 5.9-8.4 [facility] Triglycerides measurementOrd ered By: Allyssa Smalls on 08-26-2024 Triglyceride [Mass/Vol] 45 mg/dL <199 [facility] Comment on above: The drugs N-Acetylcy steine and Metamizole may falsely depress this assay. Normal range: <150 mg/dLBorderline High: 150-199 mg/dLHigh: 200-499 mg/dLVery High: >500 mg/dL Basophil percentageon 2021 Bilirubin [Mass/Vol] 0.30 mg/dL 0.20-1.00 [facility] Work Phone: Comment on above: For patients on eltr ombopag therapy, use of Dimension [place] TBIL is not recommended. Cholesterol [Mass/Vol] 211 mg/dL <200 [facility] Work Phone: Comment on above: <200 mg/dL Desirable 200-240 mg/dL Borderline >240 mg/dL High Risk Protein [Mass/Vol] 7.5 g/dL 6.4-8.2 [facility] Work Phone: Triglyceride [Mass/Vol] 60 mg/dL [facility] Work Phone: Comment on above: The drugs N-Acetylcy steine and Metamizole may falsely depress this assay.Serum Triglycerides Reference Interval Normal <150 mg/dL Borderline high 150 - 199 mg/dL High 200 - 499 mg/dL Very High > or = 500 mg/dL Direct bilirubinon 2 Bilirubin.direct [Mass/Vol] 0.07 mg/dL 0.00-0.30 [facility] Work Phone: Laboratory - Chemistry and C hemistry - challengeon 08-20-2021 ALP [Catalytic activity/Vol] 68 U/L 45-117 [facility] Work Phone: ALT [Catalytic activity/Vol] 25 U/L 13-56 [facility] Work Phone: Globulin (S) [Mass/Vol] 4.1 g/dL 2.2-4.2 [facility] Work Phone: Serum or plasma albumin julissa urement (mass/volume)on 08-20-2021 Albumin [Mass/Vol] 3.4 g/dL 3.2-5.0 [facility] Work Phone: Serum or plasma cholesterol in HDL measurement (mass/volume)on 08-20-2021 Cholesterol in HDL [Mass/Vol] 59 mg/dL [facility] Work Phone: Comment on above: The drugs N-Acetylcy steine and Metamizole may falsely depress this assay. Reference Range HDL <40 mg/dL Low HDL Cholesterol HDL >or= 60 mg/dL High HDL Cholesterol Serum or plasma cholesterol in VLDL measurement (mass/volume)on 08-20-2021 Cholesterol in VLDL [Mass/Vol] 12 mg/dL 5-40 [facility] Work Phone: Serum or plasma low density lipoprotein (LDL) cholesterol measurement (mass/volume)on 08-20-2021 Cholesterol in LDL [Mass/Vol] 140 mg/dL 0-130 [facility] Work Phone: Thin prep Papanicolaou smear with manual screeningon 08-20-2021 Thin prep Papanicolaou smear with manual screening 24 U/L 15-37 [facility] Work Phone: Absolute lymphocyte counton 06-22-2021 Lymphocytes Auto (Unsp spec) [#/Vol] 2.15 10*3/uL 0.83-4.51 [facility] Work Phone: Basophil percentageon 2021 Basophils/100 WBC (Bld) 0.3 % 0-1 [facility] Work Phone: Chloride [Moles/Vol] 104 mmol/L 98-107 [facility] Work Phone: [phone] Eosinophils/100 WBC (Bld) 0.1 % 0-5 [facility] Work Phone: Glucose [Mass/Vol] 84 mg/dL 74-106 [facility] Work Phone: Neutrophils (Bld) [#/Vol] 4.6 10*3/uL 2.0-7.7 [facility] Work Phone: Neutrophils/100 WBC (Bld) 61.3 % 47-70 [facility] Work Phone: [phone] Potassium [Moles/Vol] 4.0 mmol/L 3.5-5.1 [facility] Work Phone: [phone] Sodium [Moles/Vol] 136 mmol/L 136-145 [facility] Work Phone: [phone] WBC (Bld) [#/Vol] 7.5 10*3/uL 4.4-11.0 [facility] Work Phone: Blood erythrocytes count (nu mber/volume)on 06-22-2021 RBC (Bld) [#/Vol] 3.97 10*6/uL 4.2-5.4 [facility] Work Phone: Blood hemoglobin measurement (mass/volume)on 06-22-2021 Hemoglobin (Bld) [Mass/Vol] 12.2 g/dL 12.0-15.0 [facility] Work Phone: Blood lymphocytes/100 leukoc yteson 06-22-2021 Lymphocytes/100 WBC (Bld) 28.6 % 19-41 [facility] Work Phone: Blood monocytes/100 leukocyt eson 06-22-2021 Monocytes/100 WBC (Bld) 9.3 % 0-10 [facility] Work Phone: Blood platelet mean volumeon 06-22-2021 Platelet mean volume (Bld) [Entitic vol] 10.6 fL 6.2-12.0 [facility] Work Phone: Determination of erythrocyte mean corpuscular volume (MCV)on 06-22-2021 MCV (RBC) [Entitic vol] 93.5 fL 81-99 [facility] [place] [facility] Work Phone: Hematocrit Auto (Bld) [Volum e fraction]on 06-22-2021 Hematocrit (Bld) [Volume fraction] 37.1 % 37-47 [facility] Work Phone: INR in Blood by Coagulation assayon 06-22-2021 INR Coag (Bld) [Relative time] 1.0 {INR} [facility] Work Phone: Laboratory - Chemistry and C hemistry - challengeon 06-22-2021 CO2 [Moles/Vol] 29.0 mmol/L 21.0-32.0 [facility] Work Phone: Urea nitrogen/Creatinine [Mass ratio] 21.1 mg/mg 10-20 [facility] Work Phone: Laboratory - Coagulationon 0 06-22-2021 PT Coag (PPP) [Time] 12.6 s 11.7-14.9 [facility] Work Phone: Laboratory - Hematology and Cell countson 06-22-2021 Erythrocyte distribution width (RBC) [Entitic vol] 44.5 fL 35.1-43.9 [facility] Work Phone: Erythrocyte distribution width (RBC) [Ratio] 12.9 % 11.6-14.6 [facility] Work Phone: Immature granulocytes/100 WBC (Bld) 0.400 % 0.0-0.9 [facility] Work Phone: Comment on above: IG% - Immature Granu locytes (promyelocytes, myelocytes and metamyelocytes) > 1% indicates that a LEFT SHIFT is Present. MCH (RBC) [Entitic mass] 30.7 pg 27.0-32.0 [facility] Work Phone: Nucleated RBC/100 WBC (Bld) [Ratio] 0 % 0-5 [facility] Work Phone: MCHC Auto (RBC) [Mass/Vol]on 06-22-2021 MCHC (RBC) [Mass/Vol] 32.9 g/dL 32-36 [facility] Work Phone: No Panel Informationon 06-22 Troponin I High Sensitivity 8 pg/mL 3.0-54.0 [facility] Work Phone: Comment on above: Please Note: [place] t Units and Gender Specific Reference Ranges. For more information see Policy Stat Procedure [place] High Sensitivity Troponin (TNIH) and attachments. Estimated Creatinine Clearance Calc 46.64 ml/min [facility] Work Phone: Estimated GFR (MDRD) Amer 78 mL/min >60 [facility] Work Phone: Comment on above: GFR Calc Estimated GFR (MDRD) Non-Af Amer 65 mL/min >60 [facility] Work Phone: Comment on above: Non- GFR Calc Platelets bldon 06-22-2021 Platelets (Bld) [#/Vol] 231 10*3/uL 150-450 [facility] Work Phone: Serum or plasma calcium julissa urement (mass/volume)on 06-22-2021 Calcium [Mass/Vol] 8.4 mg/dL 8.5-10.1 [facility] Work Phone: Serum or plasma creatinine m easurement (mass/volume)on 06-22-2021 Creatinine [Mass/Vol] 0.90 mg/dL 0.55-1.02 [facility] Work Phone: Comment on above: The validity of the calculated GFR & GFRAA in patients over 70 years has not been determined. Clinical correlation is essential. Serum or plasma urea nitroge n measurement (mass/volume)on 06-22-2021 Urea nitrogen [Mass/Vol] 19 mg/dL 7-18 [facility] Work Phone: Thin prep Papanicolaou smear with manual screeningon 06-22-2021 Thin prep Papanicolaou smear with manual screening 3 5-15 [facility] Work Phone: MRI ANKLE W/O CONTRAST LEFTo n 11-11-2019 MRI ANKLE W/O CONTRAST LEFT ORIGINAL MRI ANKLE W/O CONTRAST LEFT CLINICAL STATEMENT posterior tibial tendon tear, medial pain and swelling COMPARISON: None FINDINGS: There is moderate tenosynovitis of the tibialis posterior tendon extending proximally and distally to the medial malleolus without intrinsic tendon abnormality or tear. The other flexor tendons are normal. There is thickening and some increased signal in the peroneus brevis tendon just distal to the retromalleolar groove. No tendon tear is seen. The peroneus longus tendon is normal. No significant peroneal tenosynovitis. The extensor tendons are unremarkable. The Achilles tendon is normal. There is plantar calcaneal enthesopathy and mild thickening of the medial band of the plantar fascia. There is some edema in the overlying heel pad fat pad. The ankle tibiotalar joint shows no focal or high-grade articular cartilage defects. There is a small subchondral cystic area in the tibial plafond and mild degenerative changes in the medial tibiotalar articulation. 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 Cellulitis and small amount of fluid in the tibiotalar and talonavicular joints. No other significant fluid collections in the ankle/hindfoot. The musculature of the hindfoot is normal. The medial and lateral ligaments at the ankle show no evidence of recent or high-grade sprain. Mild thickening and slightly increased signal in the anterior talo fibular ligament may be from remote healed sprain. The ligaments in the sinus Tarsi are also normal. IMPRESSION: Posterior tibial tenosynovitis without tendinopathy or tear. Tendinopathy of the peroneus brevis without obvious tear. Small plantar calcaneal spur and findings suggestive of plantar fasciitis. Mild degenerative changes in the ankle and subtalar joints. Interpreted By: Sebastián Manrique MD Preliminary Report By: Sebastián Manrique MD Electronically Signed By: Sebastián Manrique MD Dictated Date: 11/11/2019 1:41:07 PM Prelim Date: 11/11/2019 1:41:07 PM Sign Date: 11/11/2019 2:00:37 PM Ordering Provider:Ramesh Turner [facility] ([place]) Vital Signs Date Time Vital Sign Value Performing Clinician Facility 01-24-2025 08:21-0400 Body height 162.[address] Bora Marie DO Work Phone: [facility] 01-24-2025 08:21-0400 Body weight 68.[address] Bora Marie DO Work Phone: [facility] 01-18-2025 06:45-0400 Body mass index (BMI) [Ratio] 25.9 kg/m2 Dr. Bora Marie DO Work Phone: [facility] 01-18-2025 06:45-0400 Body weight 68.[address] Bora Marie DO Work Phone: [facility] 01-18-2025 06:45-0400 Heart rate 70 /min Dr. Bora Marie DO Work Phone: [facility] 01-18-2025 06:45-0400 Respiratory rate 16 /min Dr. Bora Marie DO Work Phone: [facility] 01-18-2025 06:45-0400 SaO2% (BldA) [Mass fraction] 100 % Dr. Bora Marie DO Work Phone: [facility] 01-12-2025 12:53-0400 Body height 161.3 cm Lila Bustos APRN.SCREW MACHINE REPAIRER Work Phone: [facility] 01-12-2025 12:53-0400 Body mass index (BMI) [Ratio] 26.57 kg/m2 Lila Bustos APRN.SCREW MACHINE REPAIRER Work Phone: [facility] 01-12-2025 12:53-0400 Body weight 69.13 kg Lila Bustos APRN.SCREW MACHINE REPAIRER Work Phone: [facility] 01-12-2025 12:53-0400 Diastolic blood pressure 64 mm[Hg] Lila Bustos APRN.SCREW MACHINE REPAIRER Work Phone: [facility] 01-12-2025 12:53-0400 Heart rate 72 /min Lila Bustos APRN.SCREW MACHINE REPAIRER Work Phone: [facility] 01-12-2025 12:53-0400 Respiratory rate 16 /min Lila Bustos APRN.SCREW MACHINE REPAIRER Work Phone: [facility] 01-12-2025 12:53-0400 SaO2% (BldA) [Mass fraction] 100 % Lila Bustos APRN.SCREW MACHINE REPAIRER Work Phone: [facility] 01-12-2025 12:53-0400 Systolic blood pressure 124 mm[Hg] Lila Bustos APRN.SCREW MACHINE REPAIRER Work Phone: [facility] 12-27-2024 13:21-0400 Body mass index (BMI) [Ratio] 26.1 kg/m2 Dr. Bora Marie DO Work Phone: [facility] 12-27-2024 13:11-0400 Body height 162.[address] Bora Marie DO Work Phone: [facility] 12-27-2024 13:11-0400 Body weight 68.[address] Bora Marie DO Work Phone: [facility] 12-27-2024 13:06-0400 Diastolic blood pressure 68 mm[Hg] Dr. Bora weber DO Work Phone: [facility] 12-27-2024 13:06-0400 Heart rate 72 /min Dr. Bora Marie DO Work Phone: [facility] 12-27-2024 13:06-0400 SaO2% (BldA) [Mass fraction] 98 % Dr. Bora Marie DO Work Phone: [facility] 12-27-2024 13:06-0400 Systolic blood pressure 122 mm[Hg] Dr. Bora younger DO Work Phone: [facility] 12-14-2024 12:56-0400 Body height 161.3 cm Lila Bustos APRN.SCREW MACHINE REPAIRER Work Phone: [facility] 12-14-2024 12:56-0400 Body mass index (BMI) [Ratio] 26.64 kg/m2 Lila Bustos APRN.SCREW MACHINE REPAIRER Work Phone: [facility] 12-14-2024 12:56-0400 Body weight 69.31 kg Lila Bustos APRN.SCREW MACHINE REPAIRER Work Phone: [facility] 12-14-2024 12:56-0400 Diastolic blood pressure 68 mm[Hg] Lila Bustos APRN.SCREW MACHINE REPAIRER Work Phone: [facility] 12-14-2024 12:56-0400 Heart rate 72 /min Lila Bustos APRN.SCREW MACHINE REPAIRER Work Phone: [facility] 12-14-2024 12:56-0400 Respiratory rate 16 /min Lila Bustos APRN.SCREW MACHINE REPAIRER Work Phone: [facility] 12-14-2024 12:56-0400 SaO2% (BldA) [Mass fraction] 98 % Lila Bustos APRN.SCREW MACHINE REPAIRER Work Phone: [facility] 12-14-2024 12:56-0400 Systolic blood pressure 122 mm[Hg] Lila Bustos [employer].SCREW MACHINE REPAIRER Work Phone: [facility] 12-08-2024 07:52-0400 Body height 160 cm Lizzie Hylton [employer].SCREW MACHINE REPAIRER Work Phone: [facility] 11-30-2024 04:10-0400 SaO2% (BldA) [Mass fraction] 98 % [facility] Comment on above: Order Comment: Specimen Type: ARTERIAL B LOOD SPECIMENOrdering Facility: [facility] Address: [address] [place] [address] Performed By: #### A LLBG ####[facility] LABORATORYCLIA [id number] [address] 11-29-2024 18:39-0400 SaO2% (BldA) [Mass fraction] 99 % [facility] Comment on above: Order Comment: Specimen Type: ARTERIAL B LOOD SPECIMENOrdering Facility: [facility] Address: [address] [place] [address] Performed By: #### A LLBG ####[facility] LABORATORYCLIA [id number] [address] 11-08-2024 15:23-0400 Body height 160 cm Peter Hayes MD Work Phone: [facility] Comment on above: patient reports 11-08-2024 15:23-0400 Body mass index (BMI) [Ratio] 27.53 kg/m2 Peter Hayes MD Work Phone: [facility] 11-08-2024 15:23-0400 Body weight 70.49 kg Peter Hayes MD Work Phone: [facility] Comment on above: fully clothed with shoes on 11-08-2024 15:23-0400 Diastolic blood pressure 70 mm[Hg] Peter Hayes MD Work Phone: [facility] 11-08-2024 15:23-0400 Heart rate 77 /min Peter Hayes MD Work Phone: [facility] 11-08-2024 15:23-0400 SaO2% (BldA) [Mass fraction] 98 % Peter Hayes MD Work Phone: [facility] 11-08-2024 15:23-0400 Systolic blood pressure 138 mm[Hg] Peter Faith Work Phone: [facility] 11-07-2024 07:46-0400 Body height 162.[address] Bora Marie DO Work Phone: [facility] 11-07-2024 07:46-0400 Body weight 70.[address] Bora Marie DO Work Phone: [facility] 11-04-2024 09:02-0400 Body mass index (BMI) [Ratio] 26.6 kg/m2 Dr. Bora Marie DO Work Phone: [facility] 10-24-2024 07:02-0400 Body mass index (BMI) [Ratio] 26.9 kg/m2 Dr. Bora Marie DO Work Phone: [facility] 10-24-2024 07:02-0400 Body weight 71.[address] Bora Marie DO Work Phone: [facility] 10-24-2024 07:02-0400 Diastolic blood pressure 72 mm[Hg] Dr. Bora weber DO Work Phone: [facility] 10-24-2024 07:02-0400 Heart rate 67 /min Dr. Bora Marie DO Work Phone: [facility] 10-24-2024 07:02-0400 Respiratory rate 18 /min Dr. Bora Marie DO Work Phone: [facility] 10-24-2024 07:02-0400 SaO2% (BldA) [Mass fraction] 98 % Dr. Bora Marie DO Work Phone: [facility] 10-24-2024 07:02-0400 Systolic blood pressure 131 mm[Hg] Dr. Bora younger DO Work Phone: [facility] 08-31-2024 07:30-0400 Body mass index (BMI) [Ratio] 26.7 kg/m2 Dr. Bora Marie DO Work Phone: [facility] 08-31-2024 07:30-0400 Body weight 70.[address] Bora Marie DO Work Phone: [facility] 08-31-2024 07:30-0400 Diastolic blood pressure 70 mm[Hg] Dr. Bora weber DO Work Phone: [facility] 08-31-2024 07:30-0400 Heart rate 74 /min Dr. Bora Marie DO Work Phone: [facility] 08-31-2024 07:30-0400 Respiratory rate 18 /min Dr. Bora Marie DO Work Phone: [facility] 08-31-2024 07:30-0400 SaO2% (BldA) [Mass fraction] 100 % Dr. Bora Marie DO Work Phone: [facility] 08-31-2024 07:30-0400 Systolic blood pressure 127 mm[Hg] Dr. Bora younger DO Work Phone: [facility] 09-25-2022 10:29-0400 Body height 160 cm Chano Baltazar [employer]INSURANCE PLAN SPECIALIST Work Phone: [facility] 09-25-2022 10:29-0400 Body weight 66.68 kg Chano Baltazar [employer].INSURANCE PLAN SPECIALIST Work Phone: [facility] 09-25-2022 10:29-0400 Diastolic blood pressure 72 mm[Hg] Chano Baltazar [employer].INSURANCE PLAN SPECIALIST Work Phone: [facility] 09-25-2022 10:29-0400 Heart rate 72 /min Chano Baltazar [employer].INSURANCE PLAN SPECIALIST Work Phone: [facility] 09-25-2022 10:29-0400 Respiratory rate 16 /min Chano Baltazar [employer].INSURANCE PLAN SPECIALIST Work Phone: [facility] 09-25-2022 10:29-0400 SaO2% (BldA) [Mass fraction] 100 % Chano Baltazar [employer].INSURANCE PLAN SPECIALIST Work Phone: [facility] 09-25-2022 10:29-0400 Systolic blood pressure 137 mm[Hg] Chano Gaffneys [employer].INSURANCE PLAN SPECIALIST Work Phone: [facility] 11-25-2021 08:26-0400 Diastolic blood pressure 66 mm[Hg] Vero Faith Work Phone: [facility] 11-25-2021 08:26-0400 Systolic blood pressure 126 mm[Hg] Vero Garcia MD Work Phone: [facility] 11-25-2021 08:01-0400 Body weight 66.22 kg Vero Garcia MD Work Phone: [facility] 11-25-2021 08:01-0400 Heart rate 60 /min Vero Garcia MD Work Phone: [facility] 11-25-2021 08:01-0400 SaO2% (BldA) [Mass fraction] 99 % Vero Garcia MD Work Phone: [facility] 08-21-2021 13:13-0400 Body height 162.[address] Vero Garcia Work Phone: [facility] Work Phone: 08-21-2021 13:13-0400 Body mass index (BMI) [Ratio] 25.5 kg/m2 Dr. Vero Garcia Work Phone: [facility] Work Phone: 08-21-2021 13:13-0400 Body weight 67.[address] Vero Garcia Work Phone: [facility] Work Phone: 08-21-2021 13:13-0400 Diastolic blood pressure 78 mm[Hg] Dr. Vero terry Work Phone: [facility] Work Phone: 08-21-2021 13:13-0400 Heart rate 70 /min Dr. Vero Garcia Work Phone: [facility] Work Phone: 08-21-2021 13:13-0400 Respiratory rate 18 /min Dr. Vero Garcia Work Phone: [facility] Work Phone: 08-21-2021 13:13-0400 SaO2% (BldA) [Mass fraction] 100 % Dr. Vero Garcia Work Phone: [facility] Work Phone: 08-21-2021 13:13-0400 Systolic blood pressure 149 mm[Hg] Dr. Vero castillo Work Phone: [facility] Work Phone: 06-22-2021 12:52-0500 Diastolic blood pressure 99 mm[Hg] Dr. Vero terry Work Phone: [facility] Work Phone: 06-22-2021 12:52-0500 Heart rate 68 /min Dr. Vero Garcia Work Phone: [facility] Work Phone: 06-22-2021 12:52-0500 Respiratory rate 12 /min Dr. Vero Garcia Work Phone: [facility] Work Phone: 06-22-2021 12:52-0500 SaO2% (BldA) [Mass fraction] 99 % Dr. Vero Garcia Work Phone: [facility] Work Phone: 06-22-2021 12:52-0500 Systolic blood pressure 137 mm[Hg] Dr. Vero castillo Work Phone: [facility] Work Phone: 06-22-2021 09:56-0500 Body mass index (BMI) [Ratio] 25.9 kg/m2 Dr. Vero Garcia Work Phone: [facility] Work Phone: 06-22-2021 09:56-0500 Body temperature 98.5 [degF] Dr. Vero Garcia Work Phone: [facility] Work Phone: 06-22-2021 09:56-0500 Body weight 68.[address] Vero Garcia Work Phone: [facility] Work Phone: Encounters Encounter Date Encounter Type Care Provider Facility Start: 03-27-2025 ambulatory [facility] Facility :[facility] Start: 03-17-2025 End: 03-17-2025 ambulatory [facility] Facility:[facility] Start: 02-15-[address] Jhonatan Hayes MD -Cardiac Rehab Work Phone: Start: 02-13-2025 End: 02-14-[address] Bora Marie DO Work Phone: -Cardiac Rehab Start: 02-13-2025 End: 02-14-[address] Peter Hayes MD -Cardiac Rehab Work Phone: Start: 01-18-2025 End: 01-18-2025 Patient encounter procedure Linwood FRANCO -[facility] Work Phone: Start: 01-18-2025 End: 01-18-[address] Bora Marie DO Work Phone: -[facility] Start: 01-12-2025 End: 01-12-2025 Patient encounter procedure Lila Bustos APRN.CNP Work Phone: [facility] Comment on above: S/P CABG (coronary a rtery bypass graft) (Primary Dx); Multiple vessel coronary artery disease; Postoperative anemia due to acute blood loss; Essential hypertension Start: 01-12-2025 End: 01-12-2025 ambulatory BORA LASSITERMAN [facility] Start: 01-10-2025 ambulatory LILA BUSTOS Facility:[facility] Start: 01-10-2025 End: 01-10-2025 Subsequent hospital visit by physician [facility] Work Phone: Radiology Comment on above: S/P CABG (coronary a rtery bypass graft) [Z95.1] Start: 12-27-2024 End: 12-27-[address] Bora Marie DO Work Phone: -Cardiac Rehab Start: 12-27-2024 End: 12-27-[address] ePter Hayes MD -Cardiac Rehab Work Phone: Start: 12-27-2024 End: 12-27-2024 ambulatory Peter Hayes Facility:[facility] Start: 12-16-2024 End: 12-16-20[address] [facility] Start: 12-14-2024 End: 12-14-2024 Telephone encounter Peter Hayes MD Work Phone: [facility] Comment on above: Cardiac Rehab (Refer ral info ) Start: 12-14-2024 End: 12-14-2024 Patient encounter procedure Lila Bustos SCREW MACHINE REPAIRER Work Phone: [facility] Comment on above: S/P CABG (coronary a rtery bypass graft) (Primary Dx); Multiple vessel coronary artery disease; Hypervolemia, unspecified hypervolemia type; Acute post-operative pain Start: 12-14-2024 End: 12-14-2024 ambulatory LILA BUSTOS [facility] Start: 12-14-2024 End: 12-14-2024 Nursing evaluation of patient and report Nurse [employer] Work Phone: Urology Comment on above: Urine retention (Cyndy panda Dx) Start: 12-14-2024 End: 12-14-2024 ambulatory BORA MARIE [facility] Start: 12-09-2024 End: 12-13-2024 Telephone encounter Lizzie Hylton APRN.SCREW MACHINE REPAIRER Work Phone: Urology Comment on above: Patient Update Start: 12-08-2024 End: 12-08-2024 Nursing evaluation of patient and report Nurse [employer] Work Phone: Urology Comment on above: Urine retention (Cyndy panda Dx) Start: 12-08-2024 End: 12-08-2024 ambulatory [facility] Facility:[facility] Start: 12-08-2024 End: 12-08-2024 ambulatory LIZZIE HYLTON Facility:[facility] Start: 12-08-2024 End: 12-08-2024 Office outpatient new 30 minutes Lizzie Hylton APRN.SCREW MACHINE REPAIRER Work Phone: Urology Comment on above: Urinary retention (P rimary Dx); Encounter for Ramesh catheter removal Start: 12-06-2024 End: 12-06-2024 Telephone encounter Dolly Buckley RN Work Phone: [facility] Comment on above: Home Usp Care (FYI: Pt r efused Home care with [facility] she is going with a different company) Start: 12-04-2024 End: 12-05-2024 Telephone encounter Ely Díaz LPN Work Phone: [facility] Comment on above: Home Care (Confirmat ion Call ) Home Care ( to [facility]) Start: 12-02-2024 ambulatory [facility] Facility: [facility] Start: 11-29-2024 Encounter for preprocedural respiratory examination [facility] Start: 11-28-2024 End: 11-28-2024 Telephone encounter Peter Hayes MD Work Phone: [facility] Comment on above: Request [facility] Start: 11-27-2024 End: 12-05-2024 Evaluation and management of inpatient PETER HAYES Facility:[facility] Start: 11-25-2024 End: 01-25-2025 Follow-up encounter Elykiara Ayoub APRN.CNP Work Phone: [facility] Start: 11-25-2024 End: 11-28-2024 Telephone encounter Peter Hayes MD Work Phone: [facility] Comment on above: Received Outside [facility] Records Start: 11-24-2024 [facility] Start: 11-24-2024 End: 11-24-[address] Bora Marie DO Work Phone: -Cat [facility] Start: 11-24-2024 End: 11-24-[address] Bora Marie DO Work Phone: -Cat Scan [facility] Work Phone: Start: 11-24-2024 End: 11-24-2024 ambulatory [facility] Facility:[facility] Start: 11-21-2024 Non-patient / Non-visit Vivian ALMAZAN -[facility] Work Phone: Start: 11-21-2024 ambulatory [facility] Facility: [facility] Start: 11-16-2024 Non-patient / Non-visit Dr. Juan RAM -[facility] Start: 11-16-2024 End: 11-16-[address] Bora Marie DO Work Phone: -Cardiovascular Services Start: 11-16-2024 End: 11-16-[address] Cheng Rand MD -Cardiovascular Services Work Phone: Start: 11-16-2024 End: 11-16-2024 ambulatory [facility] Facility:[facility] Start: 11-15-2024 Non-patient / Non-visit Dr. Florence gray MD -[facility] Work Phone: Start: 11-10-2024 End: 11-23-2024 Admission to same day surgery center Peter Hayes MD Work Phone: [facility] Comment on above: Test & Surgery appoi ntments Start: 11-10-2024 End: 11-23-2024 E-mail encounter from caregiver Peter Hayes MD Work Phone: [facility] Start: 11-09-2024 End: 11-09-2024 Patient encounter status Peter Hayes MD Work Phone: [facility] Start: 11-09-2024 End: 11-09-2024 Telephone encounter Peter Hayes MD Work Phone: [facility] Start: 11-08-2024 End: 11-08-2024 Patient encounter procedure Peter Hayes MD Work Phone: [facility] Comment on above: Pre-op chest exam (P rimary Dx); 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 (HCC); Other specified symptoms and signs involving the circulatory and respiratory systems Start: 11-08-2024 End: 11-08-2024 Patient encounter status Peter Hayes MD Work Phone: [facility] Start: 11-08-2024 End: 11-08-2024 ambulatory PETER HAYES Facility:[facility] Start: 11-08-2024 Encounter for preprocedural respiratory examination PETER HAYES [facility] Start: 11-07-2024 End: 11-07-2024 Admission to same day surgery center Dr. Cheng Rand MD -[employer]/Special Procedures Work Phone: Start: 11-07-2024 End: 11-07-[address] Bora Marie DO Work Phone: [facility] Work Phone: Start: 10-24-2024 End: 10-24-2024 Patient encounter procedure Linwood FRANCO -[facility] Work Phone: Start: 10-24-2024 End: 10-24-[address] Bora Marie DO Work Phone: [facility] Work Phone: Start: 09-29-2024 ambulatory Linwoodsalina Vasquez [place] Start: 09-29-2024 Non-patient / Non-visit Dr. Juan RAM -[facility] Start: 09-29-2024 End: 09-29-[address] Bora Marie DO Work Phone: [facility] Work Phone: Start: 09-29-2024 End: 09-29-2024 Patient encounter procedure Linwoodsalina Vasquez PA -Cardiovascular Services Work Phone: Start: 09-29-2024 End: 09-29-2024 ambulatory Linwoodsalina Vasquez Facility:[facility] Start: 08-31-2024 End: 08-31-2024 Patient encounter procedure Linwood Vasquez PA -Laboratory Work Phone: Start: 08-31-2024 End: 08-31-[address] Bora Marie DO Work Phone: [facility] Work Phone: Start: 08-31-2024 End: 08-31-2024 ambulatory Linwood Vasquez Facility:[facility] Start: 08-26-2024 End: 08-26-[address] Bora Marie DO Work Phone: [facility] Work Phone: Start: 08-26-2024 End: 08-26-2024 Patient encounter procedure Allyssa Smalls PA -Laboratory Work Phone: Start: 08-26-2024 End: 08-26-2024 ambulatory Bora Marie Facility:[facility] Start: 06-17-2023 End: 06-17-2023 ambulatory [facility] Work Phone: Start: 06-17-2023 End: 06-17-2023 Discharged Recurring [facility]-Physical Therapy Work Phone: Start: 09-25-2022 End: 09-25-2022 Office outpatient visit 25 minutes Chano Baltazar [employer].INSURANCE PLAN SPECIALIST Work Phone: Internal Medicine [place] Comment on above: Acquired hypothyroid ism (Primary Dx); Acute pain of left knee; Essential hypertension; Mixed hyperlipidemia; Anemia, unspecified type Start: 09-03-2022 [facility]ulatory [facility] [place] [facility] Comment on above: Population Health vigation Outreach ([facility]) Start: 05-08-2022 ambulatory Parisa Tre Rosenberg MA [facility] [place] Comment on above: Population Health vigation Outreach ([facility]) Start: 11-25-2021 End: 11-25-2021 Office outpatient visit 25 minutes Vero Garcia MD Work Phone: Internal Medicine [place] Comment on above: Acquired hypothyroid ism (Primary Dx); Essential hypertension; Medication management Start: 09-17-2021 Non-patient / Non-visit Dr. Angelica Garcia Work Phone: [facility] Start: 09-17-2021 End: 09-17-[address] Vero Garcia Work Phone: [facility]-Cardiovascula r Services Start: 08-21-2021 End: 08-21-[address] Vero Garcia Work Phone: [facility] Start: 08-20-2021 End: 08-20-[address] Vero Garcia Work Phone: [facility]-Laboratory Start: 06-22-2021 End: 06-22-2021 Emergency department patient visit Dr. Vero Garcia Work Phone: [facility]-Emergency Department Procedures Date Procedure Procedure Detail Performing Clinician Start: 12-04-2024 History of coronary artery bypass grafting S/P CABG (coronary artery bypass graft) Ely Díaz LPN Work Phone: Start: 11-24-2024 Antibody screen LILA MATIAS Comment on above: Order Comment: Speci men Type: BLOOD SPECIMEN Ordering Facility: [facility] Address: [address] [place] [address] Performed By: #### T [id number] #### [facility] CLIA [id number] [address] [place] [address] [place] Start: 11-24-2024 CT of chest without contrast Dr. Bora Marie DO Work Phone: Start: 10-24-2024 X-ray of chest, PA a nd lateral views Dr. Bora Marie DO Work Phone: Start: 09-29-2024 Radionuclide imaging of perfusion of myocardium under exercise stress Dr. Bora Marie DO Work Phone: Start: 08-31-2024 Vitamin D, 25-hydrox y measurement Dr. Bora Marie DO Work Phone: Comment on above: Vitamin D StatusDefi ciency: <20 ng/mL (50nmol/L)Insufficiency: 20-30 ng/mL (50-75 nmol/L)Sufficiency: 30-100 ng/mL (75-250 nmol/L)Toxicity: >100 ng/mL (>250 nmol/L) Start: 11-25-2021 Adult depression screening assessment Vero Garcia MD Work Phone: Start: 09-17-2021 Radionuclide imaging of perfusion of myocardium under exercise stress Dr. Vero Garcia Work Phone: Start: 06-22-2021 Plain chest X-ray Dr. Tre Garcia Work Phone: Start: 07-16-2008 History of placement of stent for coronary artery disease History of coronary artery stent placement Linwood FRANCO Comment on above: BDZ-AOR-Else LAD, DE S-Prox LCx, KOKO-Distal RCA, POBA-OM1 07/2008 History of coronary artery bypass grafting S/P CABG (coronary artery bypass graft) Lila Bustos APRN.SCREW MACHINE REPAIRER Work Phone: History of coronary artery bypass grafting S/P CABG (coronary artery bypass graft) [employer] Work Phone: History of coronary artery bypass grafting S/P CABG (coronary artery bypass graft) Lila Bustos APRN.CNP Work Phone: Plan of Treatment Date Care Activity Detail Author Start: 03-23-2028 Urine microalbumin profile [facility] Start: 12-17-2027 Diabetes Screening Diabetes Screenin g [facility] Start: 12-06-2027 Diabetes Screening Diabetes Screenin g [facility] Start: 12-05-2027 Diabetes Screening Diabetes Screenca g [facility] Start: 11-29-2027 Diabetes Screening Diabetes Screenca g [facility] Start: 06-01-2026 Diabetes Screening Diabetes Screenin g [facility] Start: 09-06-2025 DIABETES SCREEN DIABETES SCREEN [facility] Start: 01-16-2025 Influenza vaccination [facility] Start: 01-12-2025 End: 04-13-2025 CBC panel - Blood by Automated count COMPLETE BLOOD COUNT Lab Routine Postoperative anemia due to acute blood loss Expected: 01/12/2025, Expires: 04/13/2025 [facility] Work Phone: Comment on above: Expected: 01/12/2025 , Expires: 04/13/2025 Start: 01-12-2025 End: 01-12-2025 Patient encounter procedure [facility] Comment on above: f/u - s/p cabg w/ Dr Mary Carmen Hayes 3-4 week f/u with CX R prior - s/p cabg w/ Dr. Hayes Start: 12-21-2024 End: 12-21-2024 Admission to same day surgery center 12/21/2024 9:00 AM EDT - 12/21/2024 4:35 PM EDT Surgery [address] [address] Peter Hayes MD 1 [facility] [address] [place], [place] [id number] BYPASS GRAFT ARTERY CORONARY ON-PUMP THREE CORONARY ARTERIAL GRAFTS [facility] Comment on above: BYPASS GRAFT ARTERY CORONARY ON-PUMP THREE CORONARY ARTERIAL GRAFTS Start: 12-21-2024 End: 12-21-2024 Cabg w/arterial graft three arterial grafts BYPASS GRAFT ARTERY CORONARY ON-PUMP THREE CORONARY ARTERIAL GRAFTS Coronary artery disease involving alutiiq coronary artery of alutiiq heart without angina pectoris 12/21/2024 9:00 AM EDT [place] Start: 12-21-2024 Subsequent hospital visit by physician 12/21/2024 9:00 AM EDT Hospital Encounter [facility] [address] [place] [address] Peter Hayes MD 1 [facility] [address] [place] [address] Coronary artery disease involving alutiiq coronary artery of alutiiq heart without angina pectoris [I25.10] [facility] Comment on above: Coronary artery dise ase involving alutiiq coronary artery of alutiiq heart without angina pectoris [I25.10] Start: 12-14-2024 End: 12-14-2024 Patient encounter procedure [facility] Comment on above: PAT 12/21/24 CABG 1 week PO F/up - s/p cabg w/ Dr. Hayes Start: 12-14-2024 End: 12-14-2024 Nursing evaluation of patient and report 12/14/2024 11:00 AM EDT Nurse Visit Urology [address] [place] [address] Exchange, Nurse Urol [address] [place] [address] PVR via straight cath Urology Comment on above: PVR via straight cat h Start: 12-08-2024 End: 12-08-2024 Nursing evaluation of patient and report 12/08/2024 2:00 PM EDT Nurse Visit Urology [address] [place] [address] Exchange, Nurse Urol [address] [place] [address] pvr Urology Comment on above: pvr Start: 12-08-2024 End: 12-08-2024 Patient encounter procedure 12/08/2024 7:30 AM EDT Office Visit Urology [address] [place] [address] Lizzie Hylton APRN.SCREW MACHINE REPAIRER [address] [place] [address] TOV, hospital follow up; voiding trial Urology Comment on above: TOV, hospital follow up; voiding trial Start: 12-07-2024 End: 12-07-2024 Patient encounter procedure 12/07/2024 10:00 AM EDT Appointment Cat Scan [address] [place] [address] Pre-op chest exam [Z01.811]; 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 (HCC) [I25.110] [facility] Comment on above: Pre-op chest exam [Z 01.811]; 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 (HCC) [I25.110] Start: 11-29-2024 End: 11-29-2024 Coronary artery bypass 3 coronary venous grafts BYPASS GRAFT ARTERY CORONARY ON-PUMP THREE CORONARY VENOUS GRAFTS Coronary artery disease involving alutiiq coronary artery of alutiiq heart with angina pectoris 11/29/2024 1:30 PM EDT [facility] Start: 11-29-2024 End: 11-29-2024 Evaluation and management of inpatient 11/29/2024 1:30 PM EDT - 11/29/2024 8:30 PM EDT Surgery [facility] [address] [place] [address] Peter Hayes MD 1 [facility] [address] [place] [address] BYPASS GRAFT ARTERY CORONARY ON-PUMP THREE CORONARY VENOUS GRAFTS [facility] Comment on above: BYPASS GRAFT ARTERY CORONARY ON-PUMP THREE CORONARY VENOUS GRAFTS Start: 11-28-2024 End: 02-27-2025 CBC panel - Blood by Automated count COMPLETE BLOOD COUNT Lab Routine Coronary artery disease involving alutiiq coronary artery of alutiiq heart without angina pectoris Preoperative testing Expected: 11/28/2024, Expires: 02/27/2025 [facility] Comment on above: Expected: 11/28/2024 , Expires: 02/27/2025 Start: 11-28-2024 End: 02-27-2025 Comprehensive metabolic 2000 panel - Serum or Plasma COMPREHENSIVE METABOLIC PANEL Lab Routine Coronary artery disease involving alutiiq coronary artery of alutiiq heart without angina pectoris Preoperative testing Expected: 11/28/2024, Expires: 02/27/2025 [facility] Comment on above: Expected: 11/28/2024 , Expires: 02/27/2025 Start: 11-28-2024 End: 02-27-2025 Hemoglobin A1c in Blood HEMOGLOBIN A1C Lab Routine Coronary artery disease involving alutiiq coronary artery of alutiiq heart without angina pectoris Preoperative testing Abnormal finding of blood chemistry, unspecified Expected: 11/28/2024, Expires: 02/27/2025 [facility] Comment on above: Expected: 11/28/2024 , Expires: 02/27/2025 Start: 11-28-2024 End: 02-27-2025 Magnesium [Mass/volume] in Serum or Plasma MAGNESIUM Lab Routine Coronary artery disease involving alutiiq coronary artery of alutiiq heart without angina pectoris Preoperative testing Expected: 11/28/2024, Expires: 02/27/2025 [facility] Comment on above: Expected: 11/28/2024 , Expires: 02/27/2025 Start: 11-28-2024 End: 02-27-2025 PT panel - Platelet poor plasma by Coagulation assay PROTHROMBIN TIME Lab Routine Coronary artery disease involving alutiiq coronary artery of alutiiq heart without angina pectoris Preoperative testing Expected: 11/28/2024, Expires: 02/27/2025 [facility] Comment on above: Expected: 11/28/2024 , Expires: 02/27/2025 Start: 11-28-2024 End: 02-27-2025 Thyrotropin [Units/volume] in Serum or Plasma THYROID STIMULATING HORMONE Lab Routine Coronary artery disease involving alutiiq coronary artery of alutiiq heart without angina pectoris Preoperative testing Dyspnea, unspecified type Expected: 11/28/2024, Expires: 02/27/2025 [facility] Comment on above: Expected: 11/28/2024 , Expires: 02/27/2025 Start: 11-28-2024 End: 02-27-2025 TYPE AND SCREEN,30 DAY TYPE AND SCREEN,30 DAY Blood Bank Routine Coronary artery disease involving alutiiq coronary artery of alutiiq heart without angina pectoris Preoperative testing Expected: 11/28/2024, Expires: 02/27/2025 [facility] Work Phone: Comment on above: Expected: 11/28/2024 , Expires: 02/27/2025 Start: 11-28-2024 End: 02-27-2025 Urinalysis complete panel - Urine URINALYSIS (WITH MICROSCOPIC) WITH CULTURE IF INDICATED Lab Routine Coronary artery disease involving alutiiq coronary artery of alutiiq heart without angina pectoris Preoperative testing Expected: 11/28/2024, Expires: 02/27/2025 [facility] Comment on above: Expected: 11/28/2024 , Expires: 02/27/2025 Start: 11-08-2024 Patient discharge [facility] Start: 10-24-2024 End: 10-24-2024 Evaluation of diagnostic study results [facility] Start: 06-26-2024 DIABETES SCREEN DIABETES SCREEN [facility] Start: 06-01-2024 Annual PCP Team Client Solutions Specialist amie Disease Visit Annual PCP Team Chronic Disease Visit [facility] Start: 06-01-2024 Hepatitis B surface antibody level LDL Cholesterol [facility] Start: 03-16-2023 End: 09-18-2023 CBC W Auto Differential panel - Blood CBC + DIFF Lab Routine Essential hypertension Anemia, unspecified type Expected: 03/16/2023 (Approximate), Expires: 09/18/2023 [facility] Work Phone: Comment on above: Expected: 03/16/2023 (Approximate), Expires: 09/18/2023 Start: 03-16-2023 End: 09-18-2023 Comprehensive metabolic 2000 panel - Serum or Plasma COMP METABOLIC PANEL Lab Routine Acquired hypothyroidism Essential hypertension Mixed hyperlipidemia Expected: 03/16/2023 (Approximate), Expires: 09/18/2023 [facility] Work Phone: Comment on above: Expected: 03/16/2023 (Approximate), Expires: 09/18/2023 Start: 03-16-2023 End: 09-18-2023 Lipid 1996 panel - Serum or Plasma LIPID PANEL BASIC Lab Routine Mixed hyperlipidemia Expected: 03/16/2023 (Approximate), Expires: 09/18/2023 [facility] Work Phone: Comment on above: Expected: 03/16/2023 (Approximate), Expires: 09/18/2023 Start: 03-16-2023 End: 09-18-2023 Thyrotropin [Units/volume] in Serum or Plasma TSH BLD Lab Routine Acquired hypothyroidism Expected: 03/16/2023 (Approximate), Expires: 09/18/2023 [facility] Work Phone: Comment on above: Expected: 03/16/2023 (Approximate), Expires: 09/18/2023 Start: 01-16-2023 Influenza vaccination INFLUENZ A (Season Ended) [facility] Start: 11-25-2022 Adult depression screening assessment DEPRESSION SCREENING [facility] Start: 11-25-2022 ANNUAL PCP TEAM MINE GEOLOGIST AMIE DISEASE VISIT ANNUAL PCP TEAM CHRONIC DISEASE VISIT [facility] Start: 11-25-2022 BP CONTROLLED (<130/80) BP CONTROLLE D (<130/80) [facility] Start: 11-25-2022 PNEUMOCOCCAL: 65+ (1 - PCV) PNEUMOCOCCAL: 65+ (1 - PCV) [facility] Comment on above: Postponed from 11/12 (Declined at this time) Start: 11-25-2022 SHINGRIX VACCINE (1 of 2) FALK GRIX VACCINE (1 of 2) [facility] Comment on above: Postponed from 11/12 (Declined at this time) Start: 09-05-2022 End: 11-05-2022 CBC W Auto Differential panel - Blood CBC + DIFF Lab Routine Encounter for therapeutic drug monitoring Anemia, unspecified type Expected: 09/05/2022, Expires: 11/05/2022 [facility] Work Phone: Comment on above: Expected: 09/05/2022 , Expires: 11/05/2022 Start: 09-05-2022 End: 11-05-2022 Comprehensive metabolic 2000 panel - Serum or Plasma COMP METABOLIC PANEL Lab Routine Encounter for therapeutic drug monitoring Expected: 09/05/2022, Expires: 11/05/2022 [facility] Work Phone: Comment on above: Expected: 09/05/2022 , Expires: 11/05/2022 Start: 09-05-2022 End: 11-05-2022 Lipid 1996 panel - Serum or Plasma LIPID PANEL BASIC Lab Routine Encounter for therapeutic drug monitoring Mixed hyperlipidemia Expected: 09/05/2022, Expires: 11/05/2022 [facility] Work Phone: Comment on above: Expected: 09/05/2022 , Expires: 11/05/2022 Start: 09-05-2022 End: 11-05-2022 Magnesium [Mass/volume] in Serum or Plasma MAGNESIUM BLD Lab Routine Encounter for therapeutic drug monitoring Expected: 09/05/2022, Expires: 11/05/2022 [facility] Work Phone: Comment on above: Expected: 09/05/2022 , Expires: 11/05/2022 Start: 09-05-2022 End: 11-05-2022 Thyrotropin [Units/volume] in Serum or Plasma TSH BLD Lab Routine Encounter for therapeutic drug monitoring Acquired hypothyroidism Expected: 09/05/2022, Expires: 11/05/2022 [facility] Work Phone: Comment on above: Expected: 09/05/2022 , Expires: 11/05/2022 Start: 09-05-2022 End: 11-05-2022 Thyroxine (T4) free [Mass/volume] in Serum or Plasma T4 FREE/FREE THYROX Lab Routine Encounter for therapeutic drug monitoring Acquired hypothyroidism Expected: 09/05/2022, Expires: 11/05/2022 [facility] Work Phone: Comment on above: Expected: 09/05/2022 , Expires: 11/05/2022 Start: 09-05-2022 End: 11-05-2022 Triiodothyronine (T3) Free [Mass/volume] in Serum or Plasma T3 FREE BLD Lab Routine Encounter for therapeutic drug monitoring Acquired hypothyroidism Expected: 09/05/2022, Expires: 11/05/2022 [facility] Work Phone: Comment on above: Expected: 09/05/2022 , Expires: 11/05/2022 Start: 07-09-2022 BP CONTROLLED (<130/80) BP CONTROLLE D (<130/80) [facility] Start: 05-28-2022 End: 07-28-2022 Basic metabolic 2000 panel - Serum or Plasma BASIC METABOLIC PNL Lab Routine Essential hypertension Medication management Expected: 05/28/2022 (Approximate), Expires: 07/28/2022 [facility] Work Phone: Comment on above: Expected: 05/28/2022 (Approximate), Expires: 07/28/2022 Start: 05-28-2022 End: 07-28-2022 CBC panel - Blood by Automated count CBC Lab Routine Essential hypertension Medication management Expected: 05/28/2022 (Approximate), Expires: 07/28/2022 [facility] Work Phone: Comment on above: Expected: 05/28/2022 (Approximate), Expires: 07/28/2022 Start: 05-28-2022 End: 07-28-2022 Thyrotropin [Units/volume] in Serum or Plasma TSH BLD Lab Routine Acquired hypothyroidism Expected: 05/28/2022 (Approximate), Expires: 07/28/2022 [facility] Work Phone: Comment on above: Expected: 05/28/2022 (Approximate), Expires: 07/28/2022 Start: 05-18-2022 [facility] Start: 01-16-2022 Influenza vaccination INFLUENZA (#1) [facility] Start: 05-18-2021 DEPRESSION ASSESSMENT [facility] Start: 2020 RSV Vaccine (1 - 1-d ose 75+ series) RSV Vaccine (1 - 1-dose 75+ series) [facility] Start: 10-16-2010 Medicare Annual Well ness Visit Medicare Annual Wellness Visit [facility] Start: 11-13-1995 Pneumococcal Vaccine : 50+ (1 of 1 - PCV) Pneumococcal Vaccine: 50+ (1 of 1 - PCV) [facility] Start: 11-13-1995 Shingrix Vaccine (1 of 2) Falk grix Vaccine (1 of 2) [facility] Start: 11-13-1963 Anxiety Screening Anxiety Screening [facility] Start: 11-13-1963 Depression Screening Depression Scre ening [facility] Basic metabolic 2008 panel with ionized calcium - Serum or Plasma [facility] [place]ARDIAC [place] BIC Routine S/P CABG (coronary artery bypass graft) Ordered: 12/14/2024 [facility] Comment on above: Ordered: 12/14/2024 CBC W Auto Different ial panel - Blood [facility] End: 12-08-2025 CT Chest WO contrast CT CHEST WO IVCON Radiology Routine Pre-op chest exam 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 (HCC) 1 Occurrences starting 11/08/2024 until 12/08/2025 [facility] Comment on above: 1 Occurrences starti ng 11/08/2024 until 12/08/2025 End: 11-08-2025 Echocardiography ECHO Cardiology Routine Pre-op chest exam 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 (HCC) 1 Occurrences starting 11/08/2024 until 11/08/2025 [facility] Comment on above: 1 Occurrences starti ng 11/08/2024 until 11/08/2025 End: 12-14-2025 EXERCISE STRESS ECG (WITHOUT IMAGING) EXERCISE STRESS ECG (WITHOUT IMAGING) Cardiology Routine S/P CABG (coronary artery bypass graft) 1 Occurrences starting 12/14/2024 until 12/14/2025 [facility] Comment on above: 1 Occurrences starti ng 12/14/2024 until 12/14/2025 Patient Education ED Chest Pain, Noncardiac [facility] Work Phone: Patient referral [facility] Work Phone: Prothrombin time [facility] Radionuclide imaging of perfusion of myocardium under exercise stress [facility] End: 12-08-2025 US Carotid arteries - bilateral US CAROTID BILATERAL Radiology Routine Pre-op chest exam 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 (HCC) Other specified symptoms and signs involving the circulatory and respiratory systems 1 Occurrences starting 11/08/2024 until 12/08/2025 [facility] Work Phone: Comment on above: 1 Occurrences starti ng 11/08/2024 until 12/08/2025 End: 11-09-2025 US Carotid arteries - bilateral US CAROTID ARTERIES TRUNG VAS LAB Vascular Lab Routine Coronary artery disease involving alutiiq coronary artery of alutiiq heart without angina pectoris Preoperative testing Cardiovascular disease Other specified symptoms and signs involving the circulatory and respiratory systems 1 Occurrences starting 11/09/2024 until 11/09/2025 [facility] Comment on above: 1 Occurrences starti ng 11/09/2024 until 11/09/2025 XR Chest PA and Lateral [facility] End: 12-09-2025 XR Chest PA and Lateral XR CHEST 2V FRONTAL/LAT Radiology Routine Coronary artery disease involving alutiiq coronary artery of alutiiq heart without angina pectoris Preoperative testing 1 Occurrences starting 11/09/2024 until 12/09/2025 [facility] Comment on above: 1 Occurrences starti ng 11/09/2024 until 12/09/2025 End: 01-12-2026 XR Chest PA and Lateral XR CHEST 2V FRONTAL/LAT Radiology Routine S/P CABG (coronary artery bypass graft) 1 Occurrences starting 12/14/2024 until 01/12/2026 [facility] Work Phone: Comment on above: 1 Occurrences starti ng 12/14/2024 until 01/12/2026 XR Chest PA and Lateral XR CHEST 2V FRONTAL/LAT Radiology Routine S/P CABG (coronary artery bypass graft) 01/10/2025 10:03 AM EDT [facility] Work Phone: End: 10-25-2023 XR KNEE GENERAL 4V AP BOTH/PA BOTH/LAT/MERC LEFT XR KNEE GENERAL 4V AP BOTH/PA BOTH/LAT/MERC LEFT Radiology Routine Acute pain of left knee 1 Occurrences starting 09/25/2022 until 10/25/2023 [facility] Work Phone: Comment on above: 1 Occurrences starti ng 09/25/2022 until 10/25/2023 [facility] Immunizations Immunization Date Immunization Notes Care Provider Tony rankin 03-23-2018 tetanus toxoid, redu nano diphtheria toxoid, and acellular pertussis vaccine, adsorbed Dr. Vero Garcia Work Phone: [facility] 02-23-2018 influenza virus vacc ine, unspecified formulation Peter Hayes MD Work Phone: [facility] Payers Date Payer Category Payer Self-pay [id number] 2018 Private Health Insurance [employer] MEDICARE SUPPLEMENT [id number] 2018-Present [phone] [address] [address] [place] [address] Indemnity [id number] 2018 Private Health Insurance [id number] 2018 Private Health Insurance [facility] [id number] 2016 Unknown [id number] 2010 Medicare MEDICARE MEDICAR E A AND B [id number] 2010-Present [phone] [address] [address] [place] [address] Medicare [id number] 2010 Medicare [id number] 2010 Medicare [id number] 2010 Private Health Insurance [id number] Unknown [id number] Unknown [id number] .2.462 Unknown [id number] 2.16840.1.932325.3.579 .2.462 Unknown [id number] 2.16840.1.482607.3.579 .2.462 Unknown [id number] 2.16840.1.036155.3.579 .2.462 Unknown [id number] 2.16840.1.184058.3.579 .2.462 Unknown [id number] 2.16.840.1.276337.3.579 .2.462 Unknown [id number] 2.16.840.1.149804.3.579 .2.462 Unknown [id number] 2.16.840.1.607437.3.579 .2.462 Unknown [id number] 2.16.840.1.601146.3.579 .2.462 Unknown [id number] 2.16.840.1.397345.3.579 .2.462 Unknown [id number] 2.16.840.1.587389.3.579 .2.462 Unknown [id number] 2.16.840.1.642734.3.579 .2.462 Unknown [id number] 2.16.840.1.855302.3.579 .2.462 Unknown [id number] 2.16.840.1.627439.3.579 .2.462 Unknown [id number] 2.16.840.1.716946.3.579 .2.462 Unknown [id number] 2.16.840.1.322554.3.579 .2.462 Unknown [id number] 2.16.840.1.396223.3.579 .2.462 Social History Date Type Detail Facility Start: 08-21-2021 End: 09-18-2022 Tobacco smoking status NHIS Unknown if ever smoked [facility] Start: 03-09-2017 Rare [facility] Start: 03-09-2017 None [facility] Start: 03-09-2017 Spouse/ Signif icant Other [facility] Start: 03-09-2017 Non-smoker [facility] Start: 1945 Sex Assigned At Female C [facility] Start: 06-23-2017 End: 12-27-2024 Tobacco smoking status NHIS Never smoked tobacco [facility] Work Phone: Start: 11-25-2021 End: 11-08-2024 Alcohol intake Current non-drinker of alcohol (finding) [facility] Start: 07-08-2021 End: 05-22-2022 History SDOH Social Connections Phone 98 [facility] Start: 07-08-2021 End: 05-22-2022 History SDOH Social Connections Living 3 [facility] Start: 07-08-2021 History SDOH Housing Places Lived 1 [facility] Start: 07-08-2021 History SDOH Housing Homeless Last Year 2 [facility] Start: 03-19-2020 Education 12 [facility] Start: 11-15-2021 End: 11-25-2021 Exposure to SARS-CoV-2 (event) Not sure [facility] Start: 06-23-2017 End: 09-25-2022 Tobacco use and exposure Smokeless tobacco non-user [facility] Start: 09-01-2024 End: 09-05-2024 Sex Female (finding) [facility] Start: 09-25-2022 End: 05-30-2023 History of Social function [facility] Start: 09-25-2022 End: 05-30-2023 Smart Destinations [employer] [facility] Has the [employer], [employer], or water [employer] threatened to shut off services in your home in past 12Mo No [facility] Start: 04-18-2012 How often do you get together with friends or relatives? Patient declined [facility] Are you now , , , , never or living with a partner? [facility] Do you feel stress - tense, restless, nervous, or anxious, or unable to sleep at night because your mind is troubled all the time - these days [OSQ] To some extent [facility] (I/We) worried wheth er (my/our) food would run out before (I/we) got money to buy more. Never true [facility] Start: 03-17-2020 Gender identity Identifies as female gender (finding) [facility] Medical Equipment Procedure Code Equipment Code Equipment Original Text Equipment Identifier Dates [place] Thk1.65mm Rectangle Ptfe 4.5x6mm Cardiovascular [place] - [id number] Start: 11-29-2024 [place] Thk1.65mm Rectangle Ptfe 4.5x6mm Cardiovascular [place] - [id number] Start: 11-29-2024 Sensor Cdi Hepar in Shunt 1.2ml System 500 Sterile Disposable - [id number] Start: 11-29-2024 Plate Titanium X 1.8mm Bone 8 Hole Mini Sternotomy Sternal - [id number] Start: 11-29-2024 Screw Drill-Free Maxdrive 2.3mm Titanium 13mm Bone Self Retaining Lock - [id number] Start: 11-29-2024 Goals Date Patient Goal Desired Activity /State Personal health goal Functional Status Date Assessment Result Facility 06-16-2014 Are you deaf, or do you have serious difficulty hearing No 06/16/2014 8:08 AM ANIKET Andrew MccabeKerry [facility] 06-16-2014 Are you blind, or do you have serious difficulty seeing, even when wearing glasses No 06/16/2014 8:08 AM ANIKET Morales EstelleKerry [facility] 06-16-2014 Do you have serious difficulty walking or climbing stairs No 06/16/2014 8:08 AM ANIKET Andrew MccabeAngely [facility] 06-16-2014 Do you have difficul ty dressing or bathing No 06/16/2014 8:08 AM Kerry No Cma [facility] 06-16-2014 Because of a physica l, mental, or emotional condition, do you have difficulty doing errands alone such as visiting a physician's office or shopping No 06/16/2014 8:08 AM ANIKET Morales EstelleKerry No [facility] Mental Status Date Assessment Result Facility 06-22-2021 Cognitive function Voice/Name [facility] Work Phone: 06-16-2014 Because of a physica l, mental, or emotional condition, do you have serious difficulty concentrating, remembering, or making decisions No 06/16/2014 8:08 AM ANIKET Morales Cma Kerry No [facility] Clinical Notes 11-25-2021 to 01-12-2025 Patient InstructionsLila Bustos APRN.SCREW MACHINE REPAIRER - 01/12/2025 1:00 PM Stacey Myers RT([place]) - 01/10/2025 10:00 AM EDTTelephone Encounter - Rikki Garcia MA - 12/14/2024 3:39 PM EDT Note Date & Type Note Facility 01-12-2025 Instructions Lila Bustos APRN.CNP - 01/12/2025 1:21 PM EDT You have done a great job recovering from you surgery, moving forward, here are the recommendations: Medications: please continue taking Aspirin (please decrease to 81 mg daily no longer need 162 mg daily), beta matilde (metoprolol) and statin for coronary artery disease. Please avoid taking NSAIDs (Aleve, Ibuprofen, Motrin, Advil, Mobic etc) Driving: Ok to drive now! Vest: ok to stop using Cardiac Rehab: Proceed as scheduled You will have a EKG stress test before and after the cardiac rehab, which will be arranged by rehab center. Restrictions: slowly increase weight bearing in a gradual fashion (5-10 lbs increment each month) over the next 2-3 months to allow further healing, then gradually resume your normal activities depending on how you feel. 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 You can follow up with cardiac surgery team on as needed basis. Please have your labs drawn next week to recheck anemia. Please don't hesitate to contact us if you have any concerns/questions: [phone] Thanks for coming in to see me today. Lila Bustos APRN.NICOLA documented in this encounter [facility] 01-12-2025 History of Presen t illness Narrative HPI: Ochoa Douglas is a 79 year old female w/ PMHx of CAD, PA w/PCI in 2008, hypothyroidism, anemia and GERD who presented to [facility] on 11/28/24 w/ active chest pain. Patient states that developed ongoing chest pain for the past 2 days. Pain was worse w/exertion that has radiated up the left side of her neck. She denies any further associated symptoms. Pain had resolved at rest. States her pain is likely related to her daughter visited and her daughter's current living situation. Currently patient has custody of her daughter's 4 y/o son. Patient was previously seen by Dr. Hayes in the office on 11/08/24 for evaluation for CABG surgery. She was previously worked up by her Cardiologists, Dr. Bailey at [facility]. Patient been c/o exertional fatigue, dyspnea, occasional chest discomfort for some time. Stress test was abnormal which prompted LHC. LHC from [facility]: LM Mild dz w/ 20-30% ostial stenosis, LAD patent stent w/ 80-90% ostial stenosis, mid segment 70% followed by another long mid segment stenosis, Cx previously stented, ostial stenosis at 80%, 1st OM no dz, RCA previously stented, prox 50%, mid area w/ 70% stenosis and distal stent patent. At that time she was deemed a candidate for surgery pending further work up. Patient underwent CABG x 3 (CHAN-LAD, SVG-OM, SVG-PDA) with Dr. Hayes on 11/29/24. Patient was transferred to CVICU in stable condition on minimal pressor support. Patient was extubated on time per early extubation protocol. She was weaned off jean and became hypertensive on POD#1 requiring BB and nitro gtt. Patient also had episodes of brief hypotension and nausea/emesis on standing up that would immediately self resolve within ~1 minute. Pt had difficulty urinating and required straight cath x 1 for ~340 cc on AM of POD2 and ultimately required ramesh replaced. Cr bump on POD#2 also, which resolved with IV fluids. POD#3 improvement in N/V. POD#4 ramesh removed, patient able to void, does have some PVR ~500s without discomfort, plan to consult urology. On POD5, urology recommended replacement of ramesh given elevated PVRs. US kidney revealed normal kidneys. OK per urology for pt to go home w/ramesh and f/u in office later in the week. Pt discharged home with [facility] POD#6 (12/05/24) with order for lasix 40 mg daily x 3 days then 20 mg daily x 3 days then PRN weight gain. Patient was seen for one week post discharge follow up on 12/14/24 doing well, below pre op weight, appearing quite euvolemic with trace BLE edema, MSI healing. Patient returns to the office today for one month post-discharge follow up. Interval events: On encounter, pt reports the following: Fever/chills: denies Dizziness/lightheadedness/syncop e: denies Chest pain/palpitations: none Incisional pain: none Any drainage from site: none SOB/cough: denies Shortness of Breath, little nonproductive cough Activity/Ambulation/Stairs: tolerating without angina/SOB Appetite: ok N/V/D/C/abdominal pain: none : no issues Leg swelling: none Sleep: good Energy: improving Weights: stable ~ 152# BP & HR log reviewed: SBP 140s but pt questions accuracy of home cuff; she states when [facility] checks BP is always good in 120s as is today at OV. She also admits to occasionally missing mid-day metoprolol dose; HR 60-70s Subjective: Current Outpatient Medications Medication Sig furosemide (LASIX) 20 mg tablet Take 20 mg by mouth once daily. 2 tabs for 3 days then 1 tab for 3 days acetaminophen (TYLENOL) 500 mg tablet Take 2 tablets by mouth daily at bedtime. furosemide (LASIX) 20 mg tablet Please take for wt gain of 3# in a day or 5# in a week Patient should start on December 06, 2024. magnesium oxide (MAG-OX) 400 mg (241.3 mg magnesium) tablet Take 1 tablet by mouth once daily. metoprolol tartrate, short acting, (LOPRESSOR) 25 mg tablet Take 1 tablet by mouth every 8 hours. aspirin, enteric coated (ASPIRIN, ENTERIC COATED) 81 mg EC tablet Take 2 tablets by mouth once daily. Bifidobacterium infantis (ALIGN, B.INFANTIS,) 10.5 mg (10 million cell) chew Take 1 tablet by mouth once daily. REPATHA SURECLICK 140 mg/mL pen injector Inject 140 mg subcutaneously every 2 weeks. losartan (COZAAR) 25 mg tablet Take 1 tablet by mouth once daily. folic acid 1 mg tablet Take 1 tablet by mouth once daily. ferrous sulfate 325 mg (65 mg iron) tablet Take 1 tablet by mouth once daily. ascorbic acid, vitamin C, (VITAMIN C) 500 mg tablet Take 1 tablet by mouth once daily. tacrolimus (PROTOPIC) 0.1 % ointment As needed levothyroxine (SYNTHROID) 112 mcg tablet TAKE 1 TABLET BY MOUTH DAILY ON AN EMPTY STOMACH FOR THYROID simvastatin (ZOCOR) 40 mg tablet Take 40 mg by mouth once daily. Taking every other day due to leg cramps pyridoxine, vitamin B6, (VITAMIN B6) 100 mg tablet Take 100 mg by mouth once daily. Omeprazole 40 mg capsule Take 1 capsule by mouth once daily. (Dr. Rand) No current facility-administered medications for this visit. Lisinopril, Crestor [Rosuvastatin], and Lipitor [Atorvastatin] PAST MEDICAL HISTORY Diagnosis Date ASCVD (arteriosclerotic cardiovascular disease) Coronary artery disease Family history of cardiovascular disease 02/19/2010 Family history of ischemic heart disease 08/31/2007 Hypertension Myocardial infarction, old 02/19/2010 Dr. Rand manages Obesity 03/13/2006 S/P CABG x 3 11/29/2024 CABG x 3 (CHAN-LAD, SVG-OM, SVG-PDA) with Dr. Hayes on 11/29/24. S/P drug eluting coronary stent placement 3 vessesl Unspecified hypothyroidism PAST SURGICAL HISTORY Procedure Laterality Date CABG (3) VEIN GRAFTS & ARTERIAL GRAFT(S) 11/29/2024 CABG x 3 (CHAN-LAD, SVG-OM, SVG-PDA) with Dr. Hayes on 11/29/24. COLONOSCOPY FLX DX W/COLLJ SPEC WHEN PFRMD 05/18/1994 Colonoscopy--PATIENT DOES NOT RECALL HAVING ONE DONE LEFT HEART CATH,PERCUTANEOUS 11/07/2024 [facility] LIG/TRNSXJ FLP TUBE ABDL/VAG APPR UNI/BI 05/18/1987 Tubal ligation PAST SURGICAL HISTORY OF breast lumpectomy PAST SURGICAL HISTORY OF 04/15/2010 left septal mass excision (Brayan Ball) FAMILY HISTORY Problem Relation Age of Onset Thyroid Sister 2 sisters and one brother Coronary Artery Disease Sister Coronary Artery Disease Brother SOCIAL HISTORY[1] ROS - see HPI Objective: CXR 01/10/25: RESULT: Lines, tubes, and devices: Mediastinal wires are noted. Lungs and pleura: No consolidation. No lung mass. Pleural effusions have resolved .No pneumothorax. Cardiomediastinal silhouette: Normal cardiomediastinal silhouette. Bones and soft tissues: Degenerative changes throughout the spine. Physical Examination: Vitals:BP 124/64 Pulse 72 Resp 16 Ht 5' 3.5 (1.61m) Wt 152 lb 6.4 oz (69.1kg) SpO2 100% BMI 26.57 kg/(m^2). Last 2 Encounter Wt Readings: Date: Wt: 12/14/2024 152 lb 12.8 oz (69.3 kg) 11/27/2024 155 lb 6.4 oz (70.5 kg) Physical Exam Vitals and nursing note reviewed. Constitutional: General: She is not in acute distress. Appearance: Normal appearance. She is not ill-appearing or toxic-appearing. HENT: Mouth/Throat: Mouth: Mucous membranes are moist. Eyes: Extraocular Movements: Extraocular movements intact. Conjunctiva/sclera: Conjunctivae normal. Cardiovascular: Rate and Rhythm: Normal rate and regular rhythm. Pulses: Normal pulses. Heart sounds: Normal heart sounds. No murmur heard. No friction rub. No gallop. Pulmonary: Effort: Pulmonary effort is normal. No respiratory distress. Breath sounds: Normal breath sounds. No stridor. No wheezing, rhonchi or rales. Abdominal: General: Bowel sounds are normal. There is no distension. Palpations: Abdomen is soft. Tenderness: There is no abdominal tenderness. Musculoskeletal: Right lower leg: No edema. Left lower leg: No edema. Skin: General: Skin is warm and dry. Comments: MSI, CT sites and L SVG sites healed, LUISITO, no s/x of infection + sternal stability with cough Neurological: General: No focal deficit present. Mental Status: She is alert and oriented to person, place, and time. Psychiatric: Mood and Affect: Mood normal. Behavior: Behavior normal. Assessment and Plan: MV CAD - S/p CABG x 3; (CHAN to LAD, SVG to OM, SVG to PDA) w/ Dr. Hayes on 11/29/24 - Discharged POD #6 (12/05/24) - EF 66% - Medical management with 81 mg daily, Simvastatin 40 mg q 48 hours (not on high intensity statin due to previous intolerance), Repatha injections, and metoprolol 25 mg TID (discussed changing to once daily long acting by cardiology once tartrate supply out/near end) - Pain controlled with nightly Tylenol - Heart healthy diet; - Home regimen: plavix due to previous PA with stent placement; per JAL no need to resume - Can dc post thorax vest - Extend sternal precautions to no pushing/pulling/lifting more than 15-20# this month then add 5-10# every month thereafter as tolerated - Ok to drive - Encourage ambulation, C/DB - Ok to proceed with Phase II cardiac rehab at [place] 01/23/25 Acute Blood Loss Anemia Hx of anemia - Most recent H&H 7.6/24.2 from 12/16/24 (had stabilized by discharge) - Continue ferrous sulfate, folic acid, and vit c - Repeat CBC next week to trend - Further monitoring/management per PCP Hx of HTN - Suspect home cuff inaccurate; Advised patient to check her BP cuff against that of [facility] reading during next visit - 124/64 with HR 72 today during OV - Continue metoprolol 25 mg TID with hold parameters, losartan 25mg daily Hx of HLD - Home regimen: Repatha SQ q 2wks - Continue zocor 40mg q 2 days - Resumed Repatha at ri Hypothyroidism - TSH 3.270 on 11/24/24 - Continue home regimen: synthroid 112 mcg daily Good post-op recovery for 1 month follow up Ok to start driving and return to work and gradually resume normal ADLs as tolerated. Cardiac rehabilitation: ordered placed previously, proceed as scheduled. Jewel Hole Driller follow up appointment: next week in [place] PCP follow up appointment: seen this past week CTS follow up: as needed Electronically signed by Lila Bustos APRN.CNP on January 12, 2025, 1:37 PM [1] Social History Tobacco Use Smoking status: Never Smokeless tobacco: Never Vaping Use Vaping status: Never Used Substance Use Topics Alcohol use: No Drug use: No documented in this encounter [facility] 01-12-2025 Note HNO ID: [id number] Author: LILA BUSTOS APRN.CNP Service: ? Author Type: Nurse Practitioner Type: Progress Notes Filed: 01/12/2025 13:39 Note Text: HPI: Ochoa Douglas is a 79 year old female w/ PMHx of CAD, PA w/PCI in 2008, hypothyroidism, anemia and GERD who presented to [facility] on 11/28/24 w/ active chest pain. Patient states that developed ongoing chest pain for the past 2 days. Pain was worse w/exertion that has radiated up the left side of her neck. She denies any further associated symptoms. Pain had resolved at rest. States her pain is likely related to her daughter visited and her daughter's current living situation. Currently patient has custody of her daughter's 4 y/o son. Patient was previously seen by Dr. Hayes in the office on 11/08/24 for evaluation for CABG surgery. She was previously worked up by her Cardiologists, Dr. Bailey at [facility]. Patient been c/o exertional fatigue, dyspnea, occasional chest discomfort for some time. Stress test was abnormal which prompted LHC. LHC from [facility]: LM Mild dz w/ 20-30% ostial stenosis, LAD patent stent w/ 80-90% ostial stenosis, mid segment 70% followed by another long mid segment stenosis, Cx previously stented, ostial stenosis at 80%, 1st OM no dz, RCA previously stented, prox 50%, mid area w/ 70% stenosis and distal stent patent. At that time she was deemed a candidate for surgery pending further work up. Patient underwent CABG x 3 (CHAN-LAD, SVG-OM, SVG-PDA) with Dr. Hayes on 11/29/24. Patient was transferred to CVICU in stable condition on minimal pressor support. Patient was extubated on time per early extubation protocol. She was weaned off jean and became hypertensive on POD#1 requiring BB and nitro gtt. Patient also had episodes of brief hypotension and nausea/emesis on standing up that would immediately self resolve within ~1 minute. Pt had difficulty urinating and required straight cath x 1 for ~340 cc on AM of POD2 and ultimately required ramesh replaced. Cr bump on POD#2 also, which resolved with IV fluids. POD#3 improvement in N/V. POD#4 ramesh removed, patient able to void, does have some PVR ~500s without discomfort, plan to consult urology. On POD5, urology recommended replacement of ramesh given elevated PVRs. US kidney revealed normal kidneys. OK per urology for pt to go home w/ramesh and f/u in office later in the week. Pt discharged home with [facility] POD#6 (12/05/24) with order for lasix 40 mg daily x 3 days then 20 mg daily x 3 days then PRN weight gain. Patient was seen for one week post discharge follow up on 12/14/24 doing well, below pre op weight, appearing quite euvolemic with trace BLE edema, MSI healing. Patient returns to the office today for one month post-discharge follow up. Interval events: On encounter, pt reports the following: Fever/chills: denies Dizziness/lightheadedness/syncop e: denies Chest pain/palpitations: none Incisional pain: none Any drainage from site: none SOB/cough: denies Shortness of Breath, little nonproductive cough Activity/Ambulation/Stairs: tolerating without angina/SOB Appetite: ok N/V/D/C/abdominal pain: none : no issues Leg swelling: none Sleep: good Energy: improving Weights: stable ~ 152# BP AND HR log reviewed: SBP 140s but pt questions accuracy of home cuff; she states when [facility] checks BP is always good in 120s as is today at OV. She also admits to occasionally missing mid-day metoprolol dose; HR 60-70s Subjective: Current Outpatient Medications Medication Sig furosemide (LASIX) 20 mg tablet Take 20 mg by mouth once daily. 2 tabs for 3 days then 1 tab for 3 days acetaminophen (TYLENOL) 500 mg tablet Take 2 tablets by mouth daily at bedtime. furosemide (LASIX) 20 mg tablet Please take for wt gain of 3# in a day or 5# in a week Patient should start on December 06, 2024. magnesium oxide (MAG-OX) 400 mg (241.3 mg magnesium) tablet Take 1 tablet by mouth once daily. metoprolol tartrate, short acting, (LOPRESSOR) 25 mg tablet Take 1 tablet by mouth every 8 hours. aspirin, enteric coated (ASPIRIN, ENTERIC COATED) 81 mg EC tablet Take 2 tablets by mouth once daily. Bifidobacterium infantis (ALIGN, B.INFANTIS,) 10.5 mg (10 million cell) chew Take 1 tablet by mouth once daily. REPATHA SURECLICK 140 mg/mL pen injector Inject 140 mg subcutaneously every 2 weeks. losartan (COZAAR) 25 mg tablet Take 1 tablet by mouth once daily. folic acid 1 mg tablet Take 1 tablet by mouth once daily. ferrous sulfate 325 mg (65 mg iron) tablet Take 1 tablet by mouth once daily. ascorbic acid, vitamin C, (VITAMIN C) 500 mg tablet Take 1 tablet by mouth once daily. tacrolimus (PROTOPIC) 0.1 % ointment As needed levothyroxine (SYNTHROID) 112 mcg tablet TAKE 1 TABLET BY MOUTH DAILY ON AN EMPTY STOMACH FOR THYROID simvastatin (ZOCOR) 40 mg tablet Take 40 mg by mouth once daily. Taking every other day due to leg cramps pyridoxine, vitamin B6 (more content not included)... [facility] 01-10-2025 History of Presen t illness Narrative Radiology Service Progress Note PATIENT NAME: Ochoa Douglas DATE OF SERVICE: January 10, 2025 TIME: 12:59 PM PATIENT IDENTITY VERIFICATION COMPLETED USING TWO (2) IDENTIFIERS: Name and Date of confirmed by patient verbally. FALL SCREENING: Has the patient had 2 falls in the last year or 1 fall with injury or currently using an Ambulatory Assistive Device (Walker, Cane, Wheelchair, Crutches, etc.)? No PATIENT GENDER DATA: Assigned female at . status: : No status: NO. PATIENT RELEVANT IMPLANT DATA REVIEWED: Not Applicable PATIENT PRESENTS WITH AN IMPLANTABLE OR ATTACHED MICROARRAY SPECIALIST: No RADIOLOGY DEPARTMENT: General X-ray: Exam(s) Completed: Chest X-Ray PERIPHERAL IV DATA: Not applicable SIGNED BY: RT Dc([place]) January 10, 2025 12:59 PM documented in this encounter [facility] 01-10-2025 Note HNO ID: [id number] Author: STACEY CARRILLO RT([place]) Service: ? Author Type: Technologist Type: Progress Notes Filed: 01/10/2025 12:59 Note Text: Radiology Service Progress Note PATIENT NAME: Ochoa Douglas DATE OF SERVICE: January 10, 2025 TIME: 12:59 PM PATIENT IDENTITY VERIFICATION COMPLETED USING TWO (2) IDENTIFIERS: Name and Date of confirmed by patient verbally. FALL SCREENING: Has the patient had 2 falls in the last year or 1 fall with injury or currently using an Ambulatory Assistive Device (Walker, Cane, Wheelchair, Crutches, etc.)? No PATIENT GENDER DATA: Assigned female at . status: : No status: NO. PATIENT RELEVANT IMPLANT DATA REVIEWED: Not Applicable PATIENT PRESENTS WITH AN IMPLANTABLE OR ATTACHED MICROARRAY SPECIALIST: No RADIOLOGY DEPARTMENT: General X-ray: Exam(s) Completed: Chest X-Ray PERIPHERAL IV DATA: Not applicable SIGNED BY: Stacey Carrillo RT([place]) January 10, 2025 12:59 PM [facility] 12-14-2024 Telephone encounter Note [facility] Cardiac Rehab phone [phone] fax [phone] Faxed order, 12/14/24 office encounter and 11/29/24 operative report on 12/14/24. They'll contact pt for scheduling. [facility] 12-14-2024 Miscellaneous Notes [facility] phone [phone] fax [phone] Faxed order, 12/14/24 office encounter and 11/29/24 operative report on 12/14/24. They'll contact pt for scheduling. documented in this encounter [facility] 12-14-2024 Instructions Lila Bustos APRN.SCREW MACHINE REPAIRER - 12/14/2024 1:38 PM EDT Weight: Please continue monitoring daily weight; Please continue your lasix as discussed. Call us if you gain more than 3# in one day or more than 5# in one week. Activity:Continue gradual increase in activities as tolerated; Diet: Heart healthy diet with good protein intake; green leafy vegetable, low salt, and 2 L fluid daily Devices: Wear supportive stockings until leg swelling improved; posthorax vest (up to 1 month) during daytime and off at nighttime; Restrictions: Continue the weight limit to less than 10 lbs (for one month), and no driving until cleared by your providers; Advice: please change position slowly to prevent fall due to dizziness; Please have your labs done by the end of this week. No need for chest x-ray at this time but will need one in 3-4 weeks. Upcoming appointments: Please follow up back here in 3-4 weeks with chest x-ray prior to that appointment Please make cardiology appointment in 4-6 weeks Please make primary care appointment in 4-6 weeks Please make urology appointment as needed Thanks for coming in to see me today. Please call us if you have any concerns/questions: [phone] Lila Bustos APRN.SCREW MACHINE REPAIRER documented in this encounter [facility] 12-14-2024 History of Presen t illness Narrative HPI: Ochoa Douglas is a 79 year old female w/ PMHx of CAD, PA w/PCI in 2008, hypothyroidism, anemia and GERD who presented to [facility] on 11/28/24 w/ active chest pain. Patient states that developed ongoing chest pain for the past 2 days. Pain was worse w/exertion that has radiated up the left side of her neck. She denies any further associated symptoms. Pain had resolved at rest. States her pain is likely related to her daughter visited and her daughter's current living situation. Currently patient has custody of her daughter's 4 y/o son. Patient was previously seen by Dr. Hayes in the office on 11/08/24 for evaluation for CABG surgery. She was previously worked up by her Cardiologists, Dr. Bailey at [facility]. Patient been c/o exertional fatigue, dyspnea, occasional chest discomfort for some time. Stress test was abnormal which prompted LHC[facility] LM Mild dz w/ 20-30% ostial stenosis, LAD patent stent w/ 80-90% ostial stenosis, mid segment 70% followed by another long mid segment stenosis, Cx previously stented, ostial stenosis at 80%, 1st OM no dz, RCA previously stented, prox 50%, mid area w/ 70% stenosis and distal stent patent. At that time she was deemed a candidate for surgery pending further work up. Patient underwent CABG x 3 (CHAN-LAD, SVG-OM, SVG-PDA) with Dr. Hayes on 11/29/24. Patient was transferred to CVICU in stable condition on minimal pressor support. Patient was extubated on time per early extubation protocol. She was weaned off jean and became hypertensive on POD#1 requiring BB and nitro gtt. Patient also had episodes of brief hypotension and nausea/emesis on standing up that would immediately self resolve within ~1 minute. Pt had difficulty urinating and required straight cath x 1 for ~340 cc on AM of POD2 and ultimately required ramesh replaced. Cr bump on POD#2 also, which resolved with IV fluids. POD#3 improvement in N/V. POD#4 ramesh removed, patient able to void, does have some PVR ~500s without discomfort, plan to consult urology. On POD5, urology recommended replacement of ramesh given elevated PVRs. US kidney revealed normal kidneys. OK per urology for pt to go home w/ramesh and f/u in office later in the week. Pt discharged home with [facility] POD#6 (12/05/24) with order for lasix 40 mg daily x 3 days then 20 mg daily x 3 days then PRN weight gain. Patient returns to the office today for one week post-discharge follow up. Interval events: On encounter, pt reports the following: Fever/chills: denies Dizziness/lightheadedness/syncop e: denies Chest pain/palpitations: denies Incisional pain: starting to get itchy Any drainage from site: none SOB/cough: no Shortness of Breath, + little nonproductive cough every morning but thinks it's from losartan Activity/Ambulation/Stairs: tolerating Appetite: good N/V/D/C/abdominal pain: none : no issues, reports voiding ok, feels like she's emptying bladder Leg swelling: none; initially had some swelling, didn't take the prn lasix, start lasix 40 mg daily x 3 days then 20 mg daily on 12/11/24 Sleep: wonderfully in a recliner Energy: getting better Weights: below pre op weight and stable for few days BP & HR log reviewed: SBP 120s, HR 90-low 100s Subjective: Current Outpatient Medications Medication Sig furosemide (LASIX) 20 mg tablet Please take for wt gain of 3# in a day or 5# in a week Patient should start on December 06, 2024. polyethylene glycol 3350 17 gram packet Take 1 packet by mouth once daily. Dissolve dose in 4 - 8 ounces of liquid and take as directed. lidocaine (SALONPAS) 4 % patch Apply 1 patch as directed once daily. acetaminophen (TYLENOL) 500 mg tablet 2 tablets by ORAL/FEEDING TUBE route every 6 hours. magnesium oxide (MAG-OX) 400 mg (241.3 mg magnesium) tablet Take 1 tablet by mouth once daily. metoprolol tartrate, short acting, (LOPRESSOR) 25 mg tablet Take 1 tablet by mouth every 8 hours. aspirin, enteric coated (ASPIRIN, ENTERIC COATED) 81 mg EC tablet Take 2 tablets by mouth once daily. Bifidobacterium infantis (ALIGN, B.INFANTIS,) 10.5 mg (10 million cell) chew Take 1 tablet by mouth once daily. REPATHA SURECLICK 140 mg/mL pen injector Inject 140 mg subcutaneously every 2 weeks. losartan (COZAAR) 25 mg tablet Take 1 tablet by mouth once daily. folic acid 1 mg tablet Take 1 tablet by mouth once daily. ferrous sulfate 325 mg (65 mg iron) tablet Take 1 tablet by mouth once daily. ascorbic acid, vitamin C, (VITAMIN C) 500 mg tablet Take 1 tablet by mouth once daily. tacrolimus (PROTOPIC) 0.1 % ointment As needed levothyroxine (SYNTHROID) 112 mcg tablet TAKE 1 TABLET BY MOUTH DAILY ON AN EMPTY STOMACH FOR THYROID simvastatin (ZOCOR) 40 mg tablet Take 40 mg by mouth once daily. Taking every other day due to leg cramps pyridoxine, vitamin B6, (VITAMIN B6) 100 mg tablet Take 100 mg by mouth once daily. Omeprazole 40 mg capsule Take 1 capsule by mouth once daily. (Dr. Rand) No current facility-administered medications for this visit. Lisinopril, Crestor [Rosuvastatin], and Lipitor [Atorvastatin] PAST MEDICAL HISTORY Diagnosis Date ASCVD (arteriosclerotic cardiovascular disease) Coronary artery disease Family history of cardiovascular disease 02/19/2010 Family history of ischemic heart disease 08/31/2007 Hypertension Myocardial infarction, old 02/19/2010 Dr. Rand manages Obesity 03/13/2006 S/P CABG x 3 11/29/2024 CABG x 3 (CHAN-LAD, SVG-OM, SVG-PDA) with Dr. Hayes on 11/29/24. S/P drug eluting coronary stent placement 3 vessesl Unspecified hypothyroidism PAST SURGICAL HISTORY Procedure Laterality Date CABG (3) VEIN GRAFTS & ARTERIAL GRAFT(S) 11/29/2024 CABG x 3 (CHAN-LAD, SVG-OM, SVG-PDA) with Dr. Hayes on 11/29/24. COLONOSCOPY FLX DX W/COLLJ SPEC WHEN PFRMD 05/18/1994 Colonoscopy--PATIENT DOES NOT RECALL HAVING ONE DONE LEFT HEART CATH,PERCUTANEOUS 11/07/2024 [facility] LIG/TRNSXJ FLP TUBE ABDL/VAG APPR UNI/BI 05/18/1987 Tubal ligation PAST SURGICAL HISTORY OF breast lumpectomy PAST SURGICAL HISTORY OF 04/15/2010 left septal mass excision (Brayan Ball) FAMILY HISTORY Problem Relation Age of Onset Thyroid Sister 2 sisters and one brother Coronary Artery Disease Sister Coronary Artery Disease Brother Social History Tobacco Use Smoking status: Never Smokeless tobacco: Never Vaping Use Vaping status: Never Used Substance Use Topics Alcohol use: No Drug use: No ROS - see HPI Objective: Physical Examination: Vitals:BP 122/68 Pulse 72 Resp 16 Ht 5' 3.5 (1.61m) Wt 152 lb 12.8 oz (69.3kg) SpO2 98% BMI 26.64 kg/(m^2). Last 2 Encounter Wt Readings: Date: Wt: 11/27/2024 155 lb 6.4 oz (70.5 kg) 11/08/2024 155 lb 6.4 oz (70.5 kg) Physical Exam Constitutional: General: She is not in acute distress. Appearance: Normal appearance. She is not ill-appearing or toxic-appearing. HENT: Mouth/Throat: Mouth: Mucous membranes are moist. Pharynx: Oropharynx is clear. Eyes: Extraocular Movements: Extraocular movements intact. Conjunctiva/sclera: Conjunctivae normal. Cardiovascular: Rate and Rhythm: Normal rate and regular rhythm. Pulses: Normal pulses. Heart sounds: Normal heart sounds. No murmur heard. No friction rub. No gallop. Pulmonary: Effort: Pulmonary effort is normal. No respiratory distress. Breath sounds: Normal breath sounds. No stridor. No wheezing, rhonchi or rales. Abdominal: General: Abdomen is flat. Bowel sounds are normal. There is no distension. Palpations: Abdomen is soft. There is no mass. Tenderness: There is no abdominal tenderness. Musculoskeletal: Right lower leg: No edema. Left lower leg: Edema (trace) present. Comments: BLE raul hose not on Skin: General: Skin is warm and dry. Comments: MSI healing, some peeling glue removed with some thin layer glue remaining in places. No s/sx of infection, LUISITO. CT sites healing, LUISITO, no s/sx of infection with steri strips intact - let pt know ok to remove in shower L SVG site healing, scabbed, LUISITO, no s/sx of infection Neurological: General: No focal deficit present. Mental Status: She is alert and oriented to person, place, and time. Psychiatric: Mood and Affect: Mood normal. Behavior: Behavior normal. Assessment and Plan: MV CAD - S/p CABG x 3; (CHAN to LAD, SVG to OM, SVG to PDA) w/ Dr. Hayes on 11/29/24 - Discharged POD #6 (12/05/24) - EF 66% - Medical management with ASA 162mg x1 month then decrease to 81 mg, Simvastatin 40 mg q 48 hours (not on high intensity statin due to previous intolerance), metoprolol 25 mg TID - Pain controlled with nightly Tylenol - Heart healthy diet; - Home regimen: plavix due to previous PA with stent placement; per JAL no need to resume - Strict sternal precautions, thorax vest, no driving - Encourage ambulation, C/DB - Phase II cardiac rehab ordered today to start at [facility] in 3-4 weeks once cleared by CTS Volume Overload - resolved Admission weight: 68.1 kg, discharge weight: 72.1 kg, current weight: 69.3 kg - Appears quite euvolemic - Continues on lasix 40 mg daily x 3 days then 20 mg daily x 3 days then PRN weight gain - BMP to be done by end-of-the week - Daily weights with parameters Urinary Retention - resolved - Required ramesh reinsertion POD#2 - Discharged home with ramesh - Seen by urology after discharge at which time ramesh removed 12/08/24 - Has been voiding on own without issues - Follow up with urology PRN Post Op Respiratory Insufficiency - resolved - Extubated on time per the extubation protocol - Currently on RA 98% - Encourage IS/ deep breathing/ cough - No need for CXR at this time but will get one in 3-4 weeks Acute Blood Loss Anemia Hx of anemia - Current H&H at discharge was 7.3/23.4 (7.2/22.8), stabilized - Continue ferrous sulfate, folic acid, and vit c - Repeat labs by end-of-week LAMAR - Creatinine improving, 1.02 (1.12) at discharge - Avoid nephrotoxins as able, per pharmacy okay to restart losartan with improving LAMAR - Repeat labs due by end-of-week Hx of HTN - Continue metoprolol 25 mg TID with hold parameters, losartan 25mg daily Hx of HLD - Home regimen: Repatha SQ q 2wks - Continue zocor 40mg q 2 days - Resumed Repatha at dc Hx of overactive bladder - Hold Vibegron for now, can reassess later for resuming (given issue with post op urinary retention) Hypothyroidism - TSH 3.270 on 11/24/24 - Continue home regimen: synthroid 112 mcg daily - 1 week post discharge follow up visit: doing very well -Continue aspirin 162 mg for 1 month then taper down to 81 mg daily, metoprolol, statin -Continue ambulation, IS use and VNS at home -Return in 3 to 4 weeks with chest x-ray prior -Continue 10 pound weight limit and no driving until further notice at 1 month follow-up -Follow-up with [facility]: Encouraged to schedule -Cardiac rehab order placed today, to start in 3 to 4 weeks at [place] PCP follow up appointment: encouraged to schedule Electronically signed by Lila Bustos APRN.CNP on December 14, 2024, 1:54 PM documented in this encounter [facility] 12-14-2024 Note HNO ID: [id number] Author: LILA BUSTOS APRN.CNP Service: ? Author Type: Nurse Practitioner Type: Progress Notes Filed: 12/14/2024 13:57 Note Text: HPI: Ochoa Douglas is a 79 year old female w/ PMHx of CAD, PA w/PCI in 2008, hypothyroidism, anemia and GERD who presented to [facility] on 11/28/24 w/ active chest pain. Patient states that developed ongoing chest pain for the past 2 days. Pain was worse w/exertion that has radiated up the left side of her neck. She denies any further associated symptoms. Pain had resolved at rest. States her pain is likely related to her daughter visited and her daughter's current living situation. Currently patient has custody of her daughter's 4 y/o son. Patient was previously seen by Dr. Hayes in the office on 11/08/24 for evaluation for CABG surgery. She was previously worked up by her Cardiologists, Dr. Bailey at [facility]. Patient been c/o exertional fatigue, dyspnea, occasional chest discomfort for some time. Stress test was abnormal which prompted LHC. LHC from [facility]: LM Mild dz w/ 20-30% ostial stenosis, LAD patent stent w/ 80-90% ostial stenosis, mid segment 70% followed by another long mid segment stenosis, Cx previously stented, ostial stenosis at 80%, 1st OM no dz, RCA previously stented, prox 50%, mid area w/ 70% stenosis and distal stent patent. At that time she was deemed a candidate for surgery pending further work up. Patient underwent CABG x 3 (CHAN-LAD, SVG-OM, SVG-PDA) with Dr. Hayes on 11/29/24. Patient was transferred to CVICU in stable condition on minimal pressor support. Patient was extubated on time per early extubation protocol. She was weaned off jean and became hypertensive on POD#1 requiring BB and nitro gtt. Patient also had episodes of brief hypotension and nausea/emesis on standing up that would immediately self resolve within ~1 minute. Pt had difficulty urinating and required straight cath x 1 for ~340 cc on AM of POD2 and ultimately required ramesh replaced. Cr bump on POD#2 also, which resolved with IV fluids. POD#3 improvement in N/V. POD#4 ramesh removed, patient able to void, does have some PVR ~500s without discomfort, plan to consult urology. On POD5, urology recommended replacement of ramesh given elevated PVRs. US kidney revealed normal kidneys. OK per urology for pt to go home w/ramesh and f/u in office later in the week. Pt discharged home with [facility] POD#6 (12/05/24) with order for lasix 40 mg daily x 3 days then 20 mg daily x 3 days then PRN weight gain. Patient returns to the office today for one week post-discharge follow up. Interval events: On encounter, pt reports the following: Fever/chills: denies Dizziness/lightheadedness/syncop e: denies Chest pain/palpitations: denies Incisional pain: starting to get itchy Any drainage from site: none SOB/cough: no Shortness of Breath, + little nonproductive cough every morning but thinks it's from losartan Activity/Ambulation/Stairs: tolerating Appetite: good N/V/D/C/abdominal pain: none : no issues, reports voiding ok, feels like she's emptying bladder Leg swelling: none; initially had some swelling, didn't take the prn lasix, start lasix 40 mg daily x 3 days then 20 mg daily on 12/11/24 Sleep: wonderfully in a recliner Energy: getting better Weights: below pre op weight and stable for few days BP AND HR log reviewed: SBP 120s, HR 90-low 100s Subjective: Current Outpatient Medications Medication Sig furosemide (LASIX) 20 mg tablet Please take for wt gain of 3# in a day or 5# in a week Patient should start on December 06, 2024. polyethylene glycol 3350 17 gram packet Take 1 packet by mouth once daily. Dissolve dose in 4 - 8 ounces of liquid and take as directed. lidocaine (SALONPAS) 4 % patch Apply 1 patch as directed once daily. acetaminophen (TYLENOL) 500 mg tablet 2 tablets by ORAL/FEEDING TUBE route every 6 hours. magnesium oxide (MAG-OX) 400 mg (241.3 mg magnesium) tablet Take 1 tablet by mouth once daily. metoprolol tartrate, short acting, (LOPRESSOR) 25 mg tablet Take 1 tablet by mouth every 8 hours. aspirin, enteric coated (ASPIRIN, ENTERIC COATED) 81 mg EC tablet Take 2 tablets by mouth once daily. Bifidobacterium infantis (ALIGN, B.INFANTIS,) 10.5 mg (10 million cell) chew Take 1 tablet by mouth once daily. REPATHA SURECLICK 140 mg/mL pen injector Inject 140 mg subcutaneously every 2 weeks. losartan (COZAAR) 25 mg tablet Take 1 tablet by mouth once daily. folic acid 1 mg tablet Take 1 tablet by mouth once daily. ferrous sulfate 325 mg (65 mg iron) tablet Take 1 tablet by mouth once daily. ascorbic acid, vitamin C, (VITAMIN C) 500 mg tablet Take 1 tablet by mouth once daily. tacrolimus (PROTOPIC) 0.1 % ointment As needed levothyroxine (SYNTHROID) 112 mcg tablet TAKE 1 TABLET BY MOUTH DAILY ON AN EMPTY STOMACH FOR THYROID simvastatin (ZOCOR) 40 mg tablet Take 40 mg by mouth once daily. Taking every (more content not included)... [facility] 12-14-2024 Note HNO ID: [id number] Author: SUZIE CONWAY RN Service: ? Author Type: Registered Nurse Type: Progress Notes Filed: 12/14/2024 11:42 Note Text: Patient is voiding well without any difficulty. Straight cath using a 12 azerbaijani catheter done using sterile technique. Drained 10 ml of clear urine. Patient was started on Lasix by her cardiac team. She states that she has not noticed a difference in the amount that she urinates. Told her to let her doctor know. She knows that she needs to let us know in the future if she is having any difficulties emptying or thinks she may be retaining urine. Verbalized understanding. Suzie Conway RN [facility] 12-14-2024 History of Presen t illness Narrative Patient is voiding well without any difficulty. Straight cath using a 12 azerbaijani catheter done using sterile technique. Drained 10 ml of clear urine. Patient was started on Lasix by her cardiac team. She states that she has not noticed a difference in the amount that she urinates. Told her to let her doctor know. She knows that she needs to let us know in the future if she is having any difficulties emptying or thinks she may be retaining urine. Verbalized understanding. Suzie Conway RN documented in this encounter [facility] 12-09-2024 Telephone encounter Note Spoke with patient today. : she is voiding without difficulty and does not feel any discomfort or fullness. She will let us know if she has any difficulty. She has to check her schedule and call back to schedule a PVR. The PVR needs to be done by straight cath. Patient seems to have fluid in her abdomen that is showing up on the bladder scan. Suzie Conway RN [facility] Work Phone: 12-09-2024 Miscellaneous Notes Spoke with patient today. : she is voiding without difficulty and does not feel any discomfort or fullness. She will let us know if she has any difficulty. She has to check her schedule and call back to schedule a PVR. The PVR needs to be done by straight cath. Patient seems to have fluid in her abdomen that is showing up on the bladder scan. Suzie Conway RN documented in this encounter [facility] 12-08-2024 History of Presen t illness Narrative Patient in for pvr. Patient states that she is urinating without difficulty and does not feel any retention. PVR per bladder scan is 556 ml. Placed a 16 azerbaijani ramesh using sterile technique. Immediate return of clear light yellow urine. Only 40 cc. Attempted to reposition the catheter and flushed and checked but no other fluid out. Spoke with Dr. Young and he stated that if urine is clear than the ultrasound is picking up other fluid. Recommended a straight cath pvr next week. Removed ramesh without difficulty. Instructed patient if she has issues urinating or becomes uncomfortable to let us know. Patient's sister and niece are RN's and could cath her if she can't go at all. Sent home straight cath supplies with patient in case of an issue but told her this is to avoid the ED and we need to know if she is having issues. Verbalized understanding. Need to set up PVR appointment. Check with patient tomorrow to see how she did. Suzie Conway RN Discussed with Irma Hylton this morning. documented in this encounter [facility] 12-08-2024 Note HNO ID: [id number] Author: SUZIE CONWAY RN Service: ? Author Type: Registered Nurse Type: Progress Notes Filed: 12/09/2024 11:29 Note Text: Patient in for pvr. Patient states that she is urinating without difficulty and does not feel any retention. PVR per bladder scan is 556 ml. Placed a 16 azerbaijani ramesh using sterile technique. Immediate return of clear light yellow urine. Only 40 cc. Attempted to reposition the catheter and flushed and checked but no other fluid out. Spoke with Dr. Young and he stated that if urine is clear than the ultrasound is picking up other fluid. Recommended a straight cath pvr next week. Removed ramesh without difficulty. Instructed patient if she has issues urinating or becomes uncomfortable to let us know. Patient's sister and niece are RN's and could cath her if she can't go at all. Sent home straight cath supplies with patient in case of an issue but told her this is to avoid the ED and we need to know if she is having issues. Verbalized understanding. Need to set up PVR appointment. Check with patient tomorrow to see how she did. Suzie Conway RN Discussed with Irma Hylton this morning. [facility] 12-08-2024 Note HNO ID: [id number] Author: JANET DUARTE RN Service: ? Author Type: Registered Nurse Type: Progress Notes Filed: 12/08/2024 08:00 Note Text: RN deflated 10cc balloon and removed catheter with no difficulty. Pt scheduled for appt in the afternoon for bladder scan at the exchange office. RN encouraged pt to drink plenty of fluids, pt verbalized understanding. Janet Duarte RN [facility] 12-08-2024 History of Presen t illness Narrative RN deflated 10cc balloon and removed catheter with no difficulty. Pt scheduled for appt in the afternoon for bladder scan at the exchange office. RN encouraged pt to drink plenty of fluids, pt verbalized understanding. Janet Duarte RN Images from the original note were not included. [facility] NEW PATIENT UROLOGY VISIT 12/08/2024 7:31 AM PATIENT NAME: Ochoa Douglas DATE OF : 1945 TODAY'S DATE: 12/08/2024 Referring Provider: No Chief Complaint: urinary retention History of Present Illness: Ms. Douglas is a 79 year old female who presents to the office regarding urinary retention, ramesh catheter in place. Patient went to [facility] ER regarding chest pain, was inpatient 11/27 - 12/05/2024 Underwent CABG x3 on 11/29 In the course of her care, was found to be in urinary retention, ramesh catheter placed She is here today for TOV. She has not had problems with the catheter. Patient has seen Urology before [facility], sees Dr Ireland Was previously taking Gemtessa but stopped about a year ago Also went to [facility], which helped her symptoms Patient plans to follow up there for continuing care after her TOV today Review of Systems Constitutional: Negative for fever. Genitourinary: Positive for difficulty urinating. Negative for dysuria, flank pain, frequency, hematuria and urgency. See HPI Past Medical History: PAST MEDICAL HISTORY Diagnosis Date ASCVD (arteriosclerotic cardiovascular disease) Coronary artery disease Family history of cardiovascular disease 02/19/2010 Family history of ischemic heart disease 08/31/2007 Hypertension Myocardial infarction, old 02/19/2010 Dr. Rand manages Obesity 03/13/2006 S/P CABG x 3 11/29/2024 CABG x 3 (CHAN-LAD, SVG-OM, SVG-PDA) with Dr. Hayes on 11/29/24. S/P drug eluting coronary stent placement 3 vessesl Unspecified hypothyroidism Past Surgical History: PAST SURGICAL HISTORY Procedure Laterality Date CABG (3) VEIN GRAFTS & ARTERIAL GRAFT(S) 11/29/2024 CABG x 3 (CHAN-LAD, SVG-OM, SVG-PDA) with Dr. Hayes on 11/29/24. COLONOSCOPY FLX DX W/COLLJ SPEC WHEN PFRMD 05/18/1994 Colonoscopy--PATIENT DOES NOT RECALL HAVING ONE DONE LEFT HEART CATH,PERCUTANEOUS 11/07/2024 [facility] LIG/TRNSXJ FLP TUBE ABDL/VAG APPR UNI/BI 05/18/1987 Tubal ligation PAST SURGICAL HISTORY OF breast lumpectomy PAST SURGICAL HISTORY OF 04/15/2010 left septal mass excision (Brayan Ball) Social History: Social History Tobacco Use Smoking status: Never Smokeless tobacco: Never Vaping Use Vaping status: Never Used Substance Use Topics Alcohol use: No Drug use: No Medications: Prior to Admission medications : Medication furosemide (LASIX) 20 mg tablet, Sig Please take for wt gain of 3# in a day or 5# in a week Patient should start on December 06, 2024., Start Date 12/06/24, End Date , Taking? , Authorizing Provider Ely Ayoub APRN.SCREW MACHINE REPAIRER Medication polyethylene glycol 3350 17 gram packet, Sig Take 1 packet by mouth once daily. Dissolve dose in 4 - 8 ounces of liquid and take as directed., Start Date 12/05/24, End Date , Taking? , Authorizing Provider Jessie Díaz PA-C Medication lidocaine (SALONPAS) 4 % patch, Sig Apply 1 patch as directed once daily., Start Date 12/04/24, End Date , Taking? , Authorizing Provider Jessie Díaz PA-C Medication acetaminophen (TYLENOL) 500 mg tablet, Sig 2 tablets by ORAL/FEEDING TUBE route every 6 hours., Start Date 12/04/24, End Date , Taking? , Authorizing Provider Jessie Díaz PA-C Medication magnesium oxide (MAG-OX) 400 mg (241.3 mg magnesium) tablet, Sig Take 1 tablet by mouth once daily., Start Date 12/05/24, End Date , Taking? , Authorizing Provider Jessie Díaz PA-C Medication metoprolol tartrate, short acting, (LOPRESSOR) 25 mg tablet, Sig Take 1 tablet by mouth every 8 hours., Start Date 12/04/24, End Date , Taking? , Authorizing Provider Jessie Díaz PA-C Medication aspirin, enteric coated (ASPIRIN, ENTERIC COATED) 81 mg EC tablet, Sig Take 2 tablets by mouth once daily., Start Date 12/05/24, End Date , Taking? , Authorizing Provider Jessie Díaz PA-C Medication Bifidobacterium infantis (ALIGN, B.INFANTIS,) 10.5 mg (10 million cell) chew, Sig Take 1 tablet by mouth once daily., Start Date , End Date , Taking? , Authorizing Provider Elisabeth Jimenez Medication REPATHA SURECLICK 140 mg/mL pen injector, Sig Inject 140 mg subcutaneously every 2 weeks., Start Date 10/31/24, End Date , Taking? , Authorizing Provider Provider, [facility] Medication losartan (COZAAR) 25 mg tablet, Sig Take 1 tablet by mouth once daily., Start Date 09/13/24, End Date , Taking? , Authorizing Provider Provider, [facility] Medication folic acid 1 mg tablet, Sig Take 1 tablet by mouth once daily., Start Date 11/25/24, End Date 02/23/25, Taking? , Authorizing Provider Ely Ayoub APRN.SCREW MACHINE REPAIRER Medication ferrous sulfate 325 mg (65 mg iron) tablet, Sig Take 1 tablet by mouth once daily., Start Date 11/25/24, End Date 02/23/25, Taking? , Authorizing Provider Ely Ayoub APRN.SCREW MACHINE REPAIRER Medication ascorbic acid, vitamin C, (VITAMIN C) 500 mg tablet, Sig Take 1 tablet by mouth once daily., Start Date 11/25/24, End Date 02/23/25, Taking? , Authorizing Provider Ely Ayoub APRN.SCREW MACHINE REPAIRER Medication tacrolimus (PROTOPIC) 0.1 % ointment, Sig As needed, Start Date 04/29/23, End Date , Taking? , Authorizing Provider Provider, [facility] Medication levothyroxine (SYNTHROID) 112 mcg tablet, Sig TAKE 1 TABLET BY MOUTH DAILY ON AN EMPTY STOMACH FOR THYROID, Start Date 11/25/22, End Date 11/27/24, Taking? , Authorizing Provider Chano Baltazar APRN.INSURANCE PLAN SPECIALIST Medication simvastatin (ZOCOR) 40 mg tablet, Sig Take 40 mg by mouth once daily. Taking every other day due to leg cramps , Start Date , End Date , Taking? , Authorizing Provider Provider, [facility] Medication pyridoxine, vitamin B6, (VITAMIN B6) 100 mg tablet, Sig Take 100 mg by mouth once daily., Start Date , End Date , Taking? , Authorizing Provider Provider, [facility] Medication Omeprazole 40 mg capsule, Sig Take 1 capsule by mouth once daily. (Dr. Rand), Start Date 01/01/16, End Date , Taking? , Authorizing Provider Vero Garcia MD ALLERGIES Allergen Reactions Lisinopril Cough Crestor [Rosuvastat* Myalgia muscle aches Lipitor [Atorvastat* Myalgia muscle aches Problem List Reviewed: Yes Vitals: Ht 160 cm (5' 3) BMI 27.53 kg/m Recent Labs: Creatinine Date Value Ref Range Status 12/05/2024 1.02 (H) 0.58 - 0.96 mg/dL Final No results found for: PSA Color (no units) Date Value 11/28/2024 Colorless 12/08/2013 Yellow Clarity (no units) Date Value 11/28/2024 Clear 12/08/2013 Cloudy Glucose, Urine Date Value 11/28/2024 Negative 08/13/2016 neg mg/dL Bilirubin, Urine (no units) Date Value 11/28/2024 Negative 08/13/2016 neg Ketones, Urine (no units) Date Value 11/28/2024 Negative 08/13/2016 neg Specific [place], Ur (no units) Date Value 11/28/2024 1.008 08/13/2016 1.005 Hemoglobin/Blood,Ur (no units) Date Value 11/28/2024 Negative 08/13/2016 trace pH, Urine (no units) Date Value 11/28/2024 5.5 08/13/2016 6.0 Protein, Urine Date Value 11/28/2024 Negative 08/13/2016 neg mg/dL Urobilinogen (no units) Date Value 11/28/2024 Normal 12/08/2013 Normal Nitrites (no units) Date Value 11/28/2024 Negative 08/13/2016 neg Leukest (no units) Date Value 12/08/2013 3+ Leuk Esterase (no units) Date Value 11/28/2024 Negative 24HR Urine Studies: No results for input(s): LUPH, LUCAL, LUCIT, LUOXA, LUURIC, LUVOL, LSCAO, LSCAP, LSURIC, LUCL, DENISE, AQUILES, LUUREA, LUAM, LUMAG, LUPHOS, LUPCR, LUCREA, LUCRKBW, LUCAKBW, LUCACREA, LUCREACL, LWK, LUSUL in the last 32791 hours. Physical Exam Vitals and nursing note reviewed. Constitutional: General: She is not in acute distress. Appearance: Normal appearance. She is not ill-appearing or toxic-appearing. Comments: Patient in NAD, speaking in full sentences, and breathing is not labored HENT: Head: Normocephalic and atraumatic. Pulmonary: Effort: Pulmonary effort is normal. Skin: General: Skin is warm and dry. Coloration: Skin is not jaundiced or pale. Neurological: Mental Status: She is alert and oriented to person, place, and time. Assessment and Plan: 1. Urinary retention - ICD9: 788.20, ICD10: R33.9 (primary diagnosis) 2. Encounter for Ramesh catheter removal - ICD9: V53.6, ICD10: Z46.6 Patient is seen as a new patient today regarding urinary retention. She is here for TOV. Nurse removed the ramesh catheter without difficulty. Patient encouraged to drink plenty of water today and to try to void at home. She has an appt this afternoon for PVR check with nursing staff. Discussed possible CIC vs ramesh catheter replacement if not able to pass TOV today. We would repeat TOV in 2 weeks if ramesh catheter placed this afternoon. Patient plans to follow-up with Dr Ireland for ongoing care. Lizzie Hylton APRN.SCREW MACHINE REPAIRER Recording using U-NOTE software for draft documentation of the visit was discussed with the patient/authorized contact representative; all questions welcomed and answered. Patient/authorized contact representative agreed to proceed documented in this encounter [facility] 12-08-2024 Note HNO ID: [id number] Author: LIZZIE HYLTON APRN.SCREW MACHINE REPAIRER Service: ? Author Type: Nurse Practitioner Type: Progress Notes Filed: 12/08/2024 08:22 Note Text: [facility] NEW PATIENT UROLOGY VISIT 12/08/2024 7:31 AM PATIENT NAME: Ochoa Douglas DATE OF : 1945 TODAY'S DATE: 12/08/2024 Referring Provider: No Chief Complaint: urinary retention History of Present Illness: Ms. Douglas is a 79 year old female who presents to the office regarding urinary retention, ramesh catheter in place. Patient went to [facility] ER regarding chest pain, was inpatient 11/27 - 12/05/2024 Underwent CABG x3 on 11/29 In the course of her care, was found to be in urinary retention, ramesh catheter placed She is here today for TOV. She has not had problems with the catheter. Patient has seen Urology before [facility], sees Dr Ireland Was previously taking Gemtessa but stopped about a year ago Also went to [facility], which helped her symptoms Patient plans to follow up there for continuing care after her TOV today Review of Systems Constitutional: Negative for fever. Genitourinary: Positive for difficulty urinating. Negative for dysuria, flank pain, frequency, hematuria and urgency. See HPI Past Medical History: PAST MEDICAL HISTORY Diagnosis Date ASCVD (arteriosclerotic cardiovascular disease) Coronary artery disease Family history of cardiovascular disease 02/19/2010 Family history of ischemic heart disease 08/31/2007 Hypertension Myocardial infarction, old 02/19/2010 Dr. Rand manages Obesity 03/13/2006 S/P CABG x 3 11/29/2024 CABG x 3 (CHAN-LAD, SVG-OM, SVG-PDA) with Dr. Hayes on 11/29/24. S/P drug eluting coronary stent placement 3 vessesl Unspecified hypothyroidism Past Surgical History: PAST SURGICAL HISTORY Procedure Laterality Date CABG (3) VEIN GRAFTS AND ARTERIAL GRAFT(S) 11/29/2024 CABG x 3 (CHAN-LAD, SVG-OM, SVG-PDA) with Dr. Hayes on 11/29/24. COLONOSCOPY FLX DX W/COLLJ SPEC WHEN PFRMD 05/18/1994 Colonoscopy--PATIENT DOES NOT RECALL HAVING ONE DONE LEFT HEART CATH,PERCUTANEOUS 11/07/2024 [facility] LIG/TRNSXJ FLP TUBE ABDL/VAG APPR UNI/BI 05/18/1987 Tubal ligation PAST SURGICAL HISTORY OF breast lumpectomy PAST SURGICAL HISTORY OF 04/15/2010 left septal mass excision (Brayan Ball) Social History: Social History Tobacco Use Smoking status: Never Smokeless tobacco: Never Vaping Use Vaping status: Never Used Substance Use Topics Alcohol use: No Drug use: No Medications: Prior to Admission medications : Medication furosemide (LASIX) 20 mg tablet, Sig Please take for wt gain of 3# in a day or 5# in a week Patient should start on December 06, 2024., Start Date 12/06/24, End Date , Taking? , Authorizing Provider Ely Ayoub APRN.SCREW MACHINE REPAIRER Medication polyethylene glycol 3350 17 gram packet, Sig Take 1 packet by mouth once daily. Dissolve dose in 4 - 8 ounces of liquid and take as directed., Start Date 12/05/24, End Date , Taking? , Authorizing Provider Jessie Díaz PA-C Medication lidocaine (SALONPAS) 4 % patch, Sig Apply 1 patch as directed once daily., Start Date 12/04/24, End Date , Taking? , Authorizing Provider Jessie Díaz PA-C Medication acetaminophen (TYLENOL) 500 mg tablet, Sig 2 tablets by ORAL/FEEDING TUBE route every 6 hours., Start Date 12/04/24, End Date , Taking? , Authorizing Provider Jessie Díaz PA-C Medication magnesium oxide (MAG-OX) 400 mg (241.3 mg magnesium) tablet, Sig Take 1 tablet by mouth once daily., Start Date 12/05/24, End Date , Taking? , Authorizing Provider Jessie Díaz PA-C Medication metoprolol tartrate, short acting, (LOPRESSOR) 25 mg tablet, Sig Take 1 tablet by mouth every 8 hours., Start Date 12/04/24, End Date , Taking? , Authorizing Provider Jessie Díaz PA-C Medication aspirin, enteric coated (ASPIRIN, ENTERIC COATED) 81 mg EC tablet, Sig Take 2 tablets by mouth once daily., Start Date 12/05/24, End Date , Taking? , Authorizing Provider Jessie Díaz PA-C Medication Bifidobacterium infantis (ALIGN, B.INFANTIS,) 10.5 mg (10 million cell) chew, Sig Take 1 tablet by mouth once daily., Start Date , End Date , Taking? , Authorizing Provider Provider, [facility] Medication REPATHA SURECLICK 140 mg/mL pen injector, Sig Inject 140 mg subcutaneously every 2 weeks., Start Date 10/31/24, End Date , Taking? , Authorizing Provider Provider, [facility] Medication losartan (COZAAR) 25 mg tablet, Sig Take 1 tablet by mouth once daily., Start Date 09/13/24, End Date , Taking? , Authorizing Provider Provider, [facility] Medication folic acid 1 mg tablet, Sig Take 1 tablet by mouth once daily., Start Date 11/25/24, End Date 02/23/25, Taking? , Authorizing Provider Ely Ayoub APRN.SCREW MACHINE REPAIRER Medication ferrous sulfate 325 mg (65 mg iron) tablet, Sig Take 1 tablet by mouth once daily., Start Date 11/25/24, End Date 02/23/25, Taking? , Authoriz (more content not included)... [facility] 12-06-2024 Telephone encounter Note Patient declined home health start of care (SOC) for 12/07/24. Patient declined all home health visits [facility] Work Phone: 12-06-2024 Miscellaneous Notes Patient declined home health start of care (SOC) for 12/07/24. Patient declined all home health visits documented in this encounter [facility] 12-05-2024 Telephone encounter Note PT confirmed [facility] 12-05-2024 Miscellaneous Notes PT confirmed Called and left vox re: scheduling voiding trial BLAYNE: December 08, 2024 at 7:30 am, stow Nurse: December 08, 2024 at 2:00 pm Thank you Vik documented in this encounter [facility] 12-05-2024 Telephone encounter Note Called and left vox re: scheduling voiding trial BLAYNE: December 08, 2024 at 7:30 am, stow Nurse: December 08, 2024 at 2:00 pm Thank you Vik [facility] 12-05-2024 Note HNO ID: [id number] Author: ELY AYOUB APRN.CNP Service: Cardiovascular Surgery Author Type: Nurse Practitioner Type: Progress Notes Filed: 12/05/2024 12:18 Note Text: CARDIOTHORACIC SURGERY POSTOP PROGRESS NOTE SERVICE DATE: 12/05/2024 SERVICE TIME: 7:25 AM Subjective S/P SURGERY: Procedure(s) (LRB): CABG x 3 (CHAN-LAD, SVG-OM, SVG-PDA) DATE OF SURGERY: 11/29/2024 POSTOP DAY #6 LOS: 8 HPI (Ely Ayoub SCREW MACHINE REPAIRER 11/28/24): Ochoa Douglas is a 79 year old female w/ PMHx of CAD, PA w/PCI in 2008, hypothyroidism, anemia and GERD who presented to [facility] on 11/28/24 w/ active chest pain. Patient states that developed ongoing chest pain for the past 2 days. Pain was worse w/exertion that has radiated up the left side of her neck. She denies any further associated symptoms. Pain had resolved at rest. States her pain is likely related to her daughter visited and her daughter's current living situation. Currently patient has custody of her daughter's 4 y/o son. Patient was previously seen by Dr. Hayes in the office on 11/08/24 for evaluation for CABG surgery. She was previously worked up by her Cardiologists, Dr. Bailey at [facility]. Patient been c/o exertional fatigue, dyspnea, occasional chest discomfort for some time. Stress test was abnormal which prompted LHC. LHC from [facility]: LM Mild dz w/ 20-30% ostial stenosis, LAD patent stent w/ 80-90% ostial stenosis, mid segment 70% followed by another long mid segment stenosis, Cx previously stented, ostial stenosis at 80%, 1st OM no dz, RCA previously stented, prox 50%, mid area w/ 70% stenosis and distal stent patent. At that time she was deemed a candidate for surgery pending further work up. INTERVAL EVENTS / PERTINENT ROS: Patient underwent CABG x 3 (CHAN-LAD, SVG-OM, SVG-PDA) with Dr. Hayes on 11/29/24. Patient was transferred to CVICU in stable condition on minimal pressor support. Patient was extubated on time per early extubation protocol. She was weaned off jean and became hypertensive on POD#1 requiring BB and nitro gtt. Patient also had episodes of brief hypotension and nausea/emesis on standing up that would immediately self resolve within ~1 minute. Pt had difficulty urinating and required straight cath x 1 for ~340 cc on AM of POD2 and ultimately required ramesh replaced. Cr bump on POD#2 also, which resolved with IV fluids. POD#3 improvement in N/V. POD#4 ramesh removed, patient able to void, does have some PVR ~500s without discomfort, plan to consult urology. On POD5, urology recommended replacement of ramesh given elevated PVRs. US kidney revealed normal kidneys. OK per urology for pt to go home w/ramesh and f/u in office this week. POD6 plan for pt to dc to home w/HHC today (12/05/24) 12/05 POD#6: Patient seen and examined on 4200. States she had an uneventful night. Pt is currently resting in recliner, hoping to go home today. Overnight systolic blood pressures in the 110-120s and HR in the 70/80s and w/ sinus rhythm on monitor. Saturating well on RA 95-100%. Pain is controled with acetaminophen. States she is ready to go home. Denies issues w/ramesh catheter, wishes she did not have togo home with it, but understands why. Denies cardiac chest pain, shortness of breath, abdominal pain, nausea, vomiting, syncope, dizziness or lightheadedness. Patient states she is tolerating PO intake. All pertinent labs and imaging reviewed. Objective Admission Weight: 70.3 kg (155 lb) BP 108/53 Pulse 80 Temp 36.2 ?C (97.1 ?F) (Temporal) Resp 18 Ht 162.6 cm (5' 4.02) Wt 70.5 kg (155 lb 6.4 oz) SpO2 96% BMI 26.66 kg/m? Body surface area is 1.78 meters squared. Min/Max/Average Temperature AND Blood Pressure: Temp (24hrs), Av.8 ?C (98.2 ?F), Min:36.2 ?C (97.1 ?F), Max:37.1 ?C (98.7 ?F) Systolic (24hrs), Av , Min:101 , Max:135 Diastolic (24hrs), Av, Min:50, Max:69 Intake/Output Summary (Last 24 hours) at 12/05/2024 1216 Last data filed at 12/05/2024 1127 Gross per 24 hour Intake 240 ml Output 3675 ml Net -3435 ml TELEMETRY: normal sinus rhythm PHYSICAL EXAM: General Appearance: Awake, sitting upright in chair, no acute distress Skin: Midsternal incision dry AND intact without surrounding erythema or edema, ecchymosis surrounding upper portion of chest tube sites improved, and SVG incision dry AND intact without drainage Neck: previous R IJ site TRANSFER ENGINEER, supple Lungs: Clear to auscultation bilaterally, decreased at bilateral bases without crackles or wheezes, normal respiratory effort on RA Heart: regular rate and rhythm and no murmur Peripheral Vascular/Arteries: radial 2+ bilaterally, DP 2+ bilaterally Abdomen: soft and non-tender, non-distended, bowel sounds present, +post op BM Neurologic/Psychiatric: alert and oriented. Pediatric Assistant strength 5/5 bilaterally, no gross focal neuro deficits Extremities: trace to no edema BLE Lines, Drains, and Airways Line Duration (more content not included)... [facility] 12-05-2024 Note HNO ID: [id number] Author: KYLE MALIK DO Service: Urology Author Type: Resident Type: Plan of Care Filed: 12/05/2024 05:28 Note Text: Urology Plan of Care Patient with increasing PVRs yesterday afternoon; ramesh replaced by RN. Cr prev elevated from baseline; no recent imaging. INGA obtained showing no hydro. Cr continues to improve. Plan for home with ramesh today. Office will call for outpatient void trial. Please call/text or Epic message with non-urgent questions/concerns and otherwise page the resident custom van converter if needed. Kyle Malik DO Urology PGY-2 December 05, 2024 5:27 AM [facility] 12-04-2024 Note HNO ID: [id number] Author: ZAIDA TERRY LSW Service: Care Management Author Type: Enamel Pulverizer Type: Care Mgt Progress Note Filed: 12/04/2024 14:33 Note Text: CARE MANAGEMENT DISCHARGE NOTE SERVICE DATE: December 04, 2024 SERVICE TIME: 2:32 PM Admission Date: 11/27/2024 LOS: 7 days Discharge Arrangement Discharge Arrangement: Home with Home Health Services Arranged Medical Services: Skilled Home Health Care Type: Nursing Home Provider Name: [facility] Caregiver Assessment Caregiver is ready, willing and able to meet the patient's needs as recommended by the inter-professional team: Yes Name of Caregiver: [facility], family Transportation Arrangements Transportation Arrangements: Car Handoff Communication: Handoff to: Other Caregiver Other Caregiver Name/Phone: [facility] [phone] Additional Information: n/a Discharge Information Row Name ED to Hosp-Admission (Current) from 11/27/2024 in [facility] Home Care Discharge orders complete. Pt has been accepted by [facility], discussed with pt. Pt is aware and agreeable. Home care orders are in. Family to transport pt home. SIGNATURE: BENNY Lopez PATIENT NAME: Ochoa Douglas DATE: December 04, 2024 TIME: 2:32 PM [facility] 12-04-2024 Telephone encounter Note Date/Time: 12/04/2024 2:02 PM Spoke with Susan @ phone #: [phone] - Preferred # for contact: [phone] Have you received help from a home care company in the last 60 days? No Are you agreeable to [facility] services? Yes What address will we be seeing you at? [address] [place] [address] Do you have any upcoming appointments or things we need to schedule around? No Do you have a teachable CG or can you manage your care independently? Yes Who? Spouse [facility] Work Phone: 12-04-2024 Miscellaneous Notes Date/Time: 12/04/2024 2:02 PM Spoke with Susan @ phone #: [phone] - Preferred # for contact: [phone] Have you received help from a home care company in the last 60 days? No Are you agreeable to HHC services? Yes What address will we be seeing you at? [id number] [place] [address] Do you have any upcoming appointments or things we need to schedule around? No Do you have a teachable CG or can you manage your care independently? Yes Who? Spouse documented in this encounter [facility] 12-04-2024 Telephone encounter Note Please advise if you are agreeable to signing and following for HHC services? Our Clinicians will be sending the Plan of Care to you for review and approval. They will reach out for any appropriate orders required to provide home care services for the patient. We are not able to initiate HHC services without a following provider. Home care clinicians may also obtain orders from [facility] Virtualist Providers Thank you and we would be happy to answer any questions. Ely Díaz LPN 12/04/2024 1:51 PM [facility] Work Phone: 12-04-2024 Miscellaneous Notes Please advise if you are agreeable to signing and following for HHC services? Our Clinicians will be sending the Plan of Care to you for review and approval. They will reach out for any appropriate orders required to provide home care services for the patient. We are not able to initiate HHC services without a following provider. Home care clinicians may also obtain orders from [facility] Virtualist Providers Thank you and we would be happy to answer any questions. Ely Díaz LPN 12/04/2024 1:51 PM documented in this encounter [facility] 12-04-2024 Note HNO ID: [id number] Author: ZAIDA TERRY LSW Service: Care Management Author Type: Enamel Pulverizer Type: Care Mgt Progress Note Filed: 12/04/2024 13:43 Note Text: CARE MANAGEMENT PROGRESS NOTE SERVICE DATE: 12/04/2024 SERVICE TIME: 1:43 PM LOS: 7 days [place] of Choice Given: Yes Level of Care Discussed: Home Care Financial Disclosure Provided: Yes Financial Disclosure Comments: Disclosed [facility] affiliation Provider List: Other: See Comment (Declined list, no preference) SW met with pt at bedside to discuss home care. Pt is agreeable. Referrals sent, awaiting acceptance. SIGNATURE: BENNY Lopez PATIENT NAME: Ochoa Douglas DATE: December 04, 2024 TIME: 1:43 PM [facility] 12-04-2024 Note HNO ID: [id number] Author: JESSIE DÍAZ PA-C Service: Cardiovascular Surgery Author Type: Physician Lead Vulcanizing Operator Type: Progress Notes Filed: 12/04/2024 18:06 Note Text: CARDIOTHORACIC SURGERY POSTOP PROGRESS NOTE SERVICE DATE: 12/04/2024 SERVICE TIME: 8:17 AM Subjective S/P SURGERY: Procedure(s) (LRB): CABG x 3 (CHAN-LAD, SVG-OM, SVG-PDA) DATE OF SURGERY: 11/29/2024 POSTOP DAY #5 LOS: 7 HPI (Ely Ayoub [facility] 11/28/24): Ochoa Douglas is a 79 year old female w/ PMHx of CAD, PA w/PCI in 2008, hypothyroidism, anemia and GERD who presented to [facility] on 11/28/24 w/ active chest pain. Patient states that developed ongoing chest pain for the past 2 days. Pain was worse w/exertion that has radiated up the left side of her neck. She denies any further associated symptoms. Pain had resolved at rest. States her pain is likely related to her daughter visited and her daughter's current living situation. Currently patient has custody of her daughter's 4 y/o son. Patient was previously seen by Dr. Hayes in the office on 11/08/24 for evaluation for CABG surgery. She was previously worked up by her Cardiologists, Dr. Bailey at [facility]. Patient been c/o exertional fatigue, dyspnea, occasional chest discomfort for some time. Stress test was abnormal which prompted LHC. LHC from [facility]: LM Mild dz w/ 20-30% ostial stenosis, LAD patent stent w/ 80-90% ostial stenosis, mid segment 70% followed by another long mid segment stenosis, Cx previously stented, ostial stenosis at 80%, 1st OM no dz, RCA previously stented, prox 50%, mid area w/ 70% stenosis and distal stent patent. At that time she was deemed a candidate for surgery pending further work up. INTERVAL EVENTS / PERTINENT ROS: Patient underwent CABG x 3 (CHAN-LAD, SVG-OM, SVG-PDA) with Dr. Hayes on 11/29/24. Patient was transferred to CVICU in stable condition on minimal pressor support. Patient was extubated on time per early extubation protocol. She was weaned off jean and became hypertensive on POD#1 requiring BB and nitro gtt. Patient also had episodes of brief hypotension and nausea/emesis on standing up that would immediately self resolve within ~1 minute. Pt had difficulty urinating and required straight cath x 1 for ~340 cc on AM of POD2 and ultimately required ramesh replaced. Cr bump on POD#2 also, which resolved with IV fluids. POD#3 improvement in N/V. POD#4 ramesh removed, patient able to void, does have some PVR ~500s without discomfort, plan to consult urology. 12/04 POD#5: Patient seen on 4200. Patient remains HDS, SBP ~110s this AM, HR in 80s in NSR and no arrhythmia per tele review, saturating well on RA. Patient reports minimal mid sternal pain, controlled with PO tylenol. Pt denies Shortness of Breath at rest or on ambulation. Appetite improving daily. Good UOP to ramesh prior to removal, since pull able to void larger amounts with some post void residual but no discomfort or suprapubic pain, + BM and shower on 12/03. Ambulating well independently. Patient denies lightheadedness, dizziness, nausea, vomiting, or abdominal pain. All relevant labs and imaging. Objective Admission Weight: 70.3 kg (155 lb) BP 134/65 Pulse 89 Temp 36.8 ?C (98.3 ?F) (Oral) Resp 18 Ht 162.6 cm (5' 4.02) Wt 77.9 kg (171 lb 11.8 oz) SpO2 96% BMI 29.46 kg/m? Body surface area is 1.88 meters squared. Min/Max/Average Temperature AND Blood Pressure: Temp (24hrs), Av ?C (98.6 ?F), Min:36.8 ?C (98.3 ?F), Max:37.2 ?C (98.9 ?F) Systolic (24hrs), Av , Min:101 , Max:135 Diastolic (24hrs), Av, Min:50, Max:69 Intake/Output Summary (Last 24 hours) at 12/04/2024 0817 Last data filed at 12/04/2024 0508 Gross per 24 hour Intake -- Output 1860 ml Net -1860 ml TELEMETRY: normal sinus rhythm PHYSICAL EXAM: General Appearance: Awake, sitting upright in chair, no acute distress Skin: Midsternal incision dry AND intact without surrounding erythema or edema, ecchymosis surrounding upper portion of chest tube sites improved, and SVG incision dry AND intact without drainage Neck: previous R IJ site with clean dressing Lungs: Clear to auscultation bilaterally, decreased at bilateral bases without crackles or wheezes, normal respiratory effort on RA Heart: regular rate and rhythm and no murmur Peripheral Vascular/Arteries: radial 2+ bilaterally, DP 2+ bilaterally Abdomen: soft and non-tender, non-distended, bowel sounds present Neurologic/Psychiatric: alert and oriented. Pediatric Assistant strength 5/5 bilaterally, no gross focal neuro deficits Extremities: trace pitting edema BLE Lines, Drains, and Airways Line Duration Peripheral 11/27/24 1546 [facility] Left Antecubital 20 Gauge 6 days Peripheral 11/29/24 1336 [facility] Short Right Hand 18 Gauge 4 days DATA: Diagnostic tests reviewed for today's visit: Significant Lab Results: See below Recent Labs 12/04/24 0605 (more content not included)... [facility] 12-03-2024 Note HNO ID: [id number] Author: JESSIE DÍAZ PA-C Service: Cardiovascular Surgery Author Type: Physician Lead Vulcanizing Operator Type: Progress Notes Filed: 12/03/2024 15:20 Note Text: CARDIOTHORACIC SURGERY POSTOP PROGRESS NOTE SERVICE DATE: 12/03/2024 SERVICE TIME: 3:08 PM Subjective S/P SURGERY: Procedure(s) (LRB): CABG x 3 (CHAN-LAD, SVG-OM, SVG-PDA) DATE OF SURGERY: 11/29/2024 POSTOP DAY #4 LOS: 6 HPI (Ely Ayoub SCREW MACHINE REPAIRER 11/28/24): Ochoa Douglas is a 79 year old female w/ PMHx of CAD, PA w/PCI in 2008, hypothyroidism, anemia and GERD who presented to [facility] on 11/28/24 w/ active chest pain. Patient states that developed ongoing chest pain for the past 2 days. Pain was worse w/exertion that has radiated up the left side of her neck. She denies any further associated symptoms. Pain had resolved at rest. States her pain is likely related to her daughter visited and her daughter's current living situation. Currently patient has custody of her daughter's 4 y/o son. Patient was previously seen by Dr. Hayes in the office on 11/08/24 for evaluation for CABG surgery. She was previously worked up by her Cardiologists, Dr. Bailey at [facility]. Patient been c/o exertional fatigue, dyspnea, occasional chest discomfort for some time. Stress test was abnormal which prompted LHC. LHC from [facility]: LM Mild dz w/ 20-30% ostial stenosis, LAD patent stent w/ 80-90% ostial stenosis, mid segment 70% followed by another long mid segment stenosis, Cx previously stented, ostial stenosis at 80%, 1st OM no dz, RCA previously stented, prox 50%, mid area w/ 70% stenosis and distal stent patent. At that time she was deemed a candidate for surgery pending further work up. INTERVAL EVENTS / PERTINENT ROS: Patient underwent CABG x 3 (CHAN-LAD, SVG-OM, SVG-PDA) with Dr. Hayes on 11/29/24. Patient was transferred to CVICU in stable condition on minimal pressor support. Patient was extubated on time per early extubation protocol. She was weaned off jean and became hypertensive on POD#1 requiring BB and nitro gtt. Patient also had episodes of brief hypotension and nausea/emesis on standing up that would immediately self resolve within ~1 minute. Pt had difficulty urinating and required straight cath x 1 for ~340 cc on AM of POD2 and ultimately required ramesh replaced. Cr bump on POD#2 also, which resolved with IV fluids. POD#3 improvement in N/V. 12/03 POD#4: Patient seen on 4200. Patient remains HDS, SBP 130s-150s this AM, HR in 90s in NSR and no arrhythmia per tele review, saturating well on RA. Patient reports minimal mid sternal pain, controlled with PO tylenol. Pt denies Shortness of Breath at rest or on ambulation. Patient reports first day of good appetite, tolerating PO intake. Excellent UOP to ramesh, + BM this afternoon. Showered this afternoon. Ambulating well with staff. Patient denies lightheadedness, dizziness, nausea, vomiting, or abdominal pain. All relevant labs and imaging. Objective Admission Weight: 70.3 kg (155 lb) BP 110/55 Pulse 93 Temp 37 ?C (98.6 ?F) (Oral) Resp 16 Ht 162.6 cm (5' 4.02) Wt 77.9 kg (171 lb 11.8 oz) SpO2 97% BMI 29.46 kg/m? Body surface area is 1.88 meters squared. Min/Max/Average Temperature AND Blood Pressure: Temp (24hrs), Av.1 ?C (98.7 ?F), Min:36.1 ?C (96.9 ?F), Max:37.5 ?C (99.5 ?F) Systolic (24hrs), Av , Min:101 , Max:156 Diastolic (24hrs), Av, Min:55, Max:78 Intake/Output Summary (Last 24 hours) at 12/03/2024 1508 Last data filed at 12/03/2024 1430 Gross per 24 hour Intake -- Output 3785 ml Net -3785 ml TELEMETRY: normal sinus rhythm PHYSICAL EXAM: General Appearance: Awake, sitting upright in chair, NAD, family member at bedside Skin: Midsternal incision dry AND intact without surrounding erythema or edema, ecchymosis surrounding upper portion of chest tube sites improved, and SVG incision dry AND intact without drainage Neck: previous R IJ site with clean dressing Lungs: Clear to auscultation bilaterally, decreased at bilateral bases without crackles or wheezes Heart: regular rate and rhythm and no murmur Peripheral Vascular/Arteries: radial 2+ bilaterally, DP 2+ bilaterally Abdomen: soft and non-tender, non-distended, bowel sounds present Neurologic/Psychiatric: alert and oriented. Pediatric Assistant strength 5/5 bilaterally, no gross focal neuro deficits Extremities: trace to 1+ pitting edema BLE Lines, Drains, and Airways Line Duration Peripheral 11/27/24 1546 [facility] Left Antecubital 20 Gauge 5 days Peripheral 11/29/24 1336 [facility] Short Right Hand 18 Gauge 4 days DATA: Diagnostic tests reviewed for today's visit: Significant Lab Results: See below Chest X-RAY: IMPRESSION: Status post removal of right-sided central venous catheter. Otherwise, no significant change since 12/02/2024. Recent Labs 12/03/24 0359 12/03/24 0358 12/02/24 1324 12/02/24 (more content not included)... [facility] 12-02-2024 Note HNO ID: [id number] Author: JUANIS MAY RN Service: Care Management Author Type: Registered Nurse Type: Care Mgt Progress Note Filed: 12/02/2024 15:20 Note Text: CARE MANAGEMENT PROGRESS NOTE SERVICE DATE: 12/02/2024 SERVICE TIME: 3:18 PM LOS: 5 days Needs Prior to Discharge: To Be Determined, Discharge Prescriptions IMM Follow Up Copy Given: Yes Copy given to:: Patient Method: By Phone Chart reviewed. Per medical record- No skilled needs at this time, plan to transfer to [facility]. to follow. SIGNATURE: Juanis Mya RN PATIENT NAME: Ochoa Douglas DATE: December 02, 2024 TIME: 3:18 PM [facility] 12-02-2024 Note HNO ID: [id number] Author: JLUIS MON PA-C Service: Cardiovascular Surgery Author Type: Physician Lead Vulcanizing Operator Type: Progress Notes Filed: 12/02/2024 10:21 Note Text: CARDIOTHORACIC SURGERY POSTOP PROGRESS NOTE SERVICE DATE: 12/02/2024 SERVICE TIME: 0730 Subjective S/P SURGERY: Procedure(s) (LRB): BYPASS GRAFT ARTERY CORONARY OFF PUMP SINGLE CORONARY VENOUS GRAFT (N/A) BYPASS GRAFT ARTERY CORONARY OFF PUMP VENOUS GRAFT(S) AND ARTERIAL GRAFT(S) TWO VENOUS GRAFTS (N/A) ENDOSCOPIC HARVEST VEIN FOR CORONARY ARTERY BYPASS PROCEDURE (N/A) DATE OF SURGERY: 11/29/2024 POSTOP DAY #3 LOS: 5 HPI (Ely Ayoub SCREW MACHINE REPAIRER 11/28/24): Ochoa Douglas is a 79 year old female w/ PMHx of CAD, PA w/PCI in 2008, hypothyroidism, anemia and GERD who presented to [facility] on 11/28/24 w/ active chest pain. Patient states that developed ongoing chest pain for the past 2 days. Pain was worse w/exertion that has radiated up the left side of her neck. She denies any further associated symptoms. Pain had resolved at rest. States her pain is likely related to her daughter visited and her daughter's current living situation. Currently patient has custody of her daughter's 4 y/o son. Patient was previously seen by Dr. Hayes in the office on 11/08/24 for evaluation for CABG surgery. She was previously worked up by her Cardiologists, Dr. Bailey at [facility]. Patient been c/o exertional fatigue, dyspnea, occasional chest discomfort for some time. Stress test was abnormal which prompted LHC. LHC from [facility]: LM Mild dz w/ 20-30% ostial stenosis, LAD patent stent w/ 80-90% ostial stenosis, mid segment 70% followed by another long mid segment stenosis, Cx previously stented, ostial stenosis at 80%, 1st OM no dz, RCA previously stented, prox 50%, mid area w/ 70% stenosis and distal stent patent. At that time she was deemed a candidate for surgery pending further work up. INTERVAL EVENTS / PERTINENT ROS: Patient underwent CABG x 3 (CHAN-LAD, SVG-OM, SVG-PDA) with Dr. Hayes on 11/29/24. Patient was transferred to CVICU in stable condition on minimal pressor support. Patient was extubated on time per early extubation protocol. She was weaned off jean and became hypertensive on POD#1 requiring BB and nitro gtt. Patient also had episodes of brief hypotension and nausea/emesis on standing up that would immediately self resolve within ~1 minute. Pt had difficulty urinating and required straight cath x 1 for ~340 cc on AM of POD2. Cr bump on POD#2 also, which resolved with IV fluids. 12/02 POD#3: Patient seen in CVICU this AM. Patient HDS, SBP 140s this AM. Chest tubes were removed yesterday. Urine output ~1225 cc in the past 24 hours. Her creatinine has improved, 1.18 this AM. Patient required ramesh to be inserted due to retention yesterday after being straight cath'd. Patient notes feeling well today. She notes minimal chest pain (3/10 at rest). She has been up and walking. She is saturating well on room air. Her nausea has improved, patient notes it is gone today. She denies abdominal pain or shortness of breath. She still has decreased appetite, but is going to try and eat. All relevant labs and imaging. Objective Admission Weight: 70.3 kg (155 lb) BP 122/92 Pulse 72 Temp 36.9 ?C (98.4 ?F) (Oral) Resp 16 Ht 162.6 cm (5' 4.02) Wt 76.6 kg (168 lb 14 oz) SpO2 94% BMI 28.97 kg/m? Body surface area is 1.86 meters squared. Min/Max/Average Temperature AND Blood Pressure: Temp (24hrs), Av.6 ?C (97.9 ?F), Min:36.3 ?C (97.3 ?F), Max:36.9 ?C (98.4 ?F) Systolic (24hrs), Av , Min:94 , Max:141 Diastolic (24hrs), Av, Min:44, Max:92 Intake/Output Summary (Last 24 hours) at 12/02/2024 0828 Last data filed at 12/02/2024 0500 Gross per 24 hour Intake 670 ml Output 1495 ml Net -825 ml TELEMETRY: normal sinus rhythm PHYSICAL EXAM: General Appearance: Awake, sitting upright in chair, NAD Skin: Midsternal incision dry AND intact without surrounding erythema or edema, ecchymosis surrounding upper portion of chest tube sites, and SVG incision dry AND intact without drainage Neck: R IJ line intact with clean dressing Lungs: Clear to auscultation bilaterally, good expansion of lungs Heart: regular rate and rhythm and no murmur Peripheral Vascular/Arteries: radial 2+ bilaterally, DP 2+ bilaterally Abdomen: soft and non-tender, non-distended, bowel sounds present Neurologic/Psychiatric: alert and oriented. Pediatric Assistant strength 5/5 bilaterally, no gross focal neuro deficits Extremities: trace to 1+ pitting edema BLE Lines, Drains, and Airways Line Duration Peripheral 11/27/24 1546 [facility] Left Antecubital 20 Gauge 4 days Central Line Quadruple Lumen 11/29/24 1358 2 days Peripheral 11/29/24 1336 [facility] Short Right Hand 18 Gauge 2 days Drain Duration Indwelling Urinary Catheter 12/01/24 1524 [facility] Ramesh 16 (more content not included)... [facility] 12-01-2024 Note HNO ID: [id number] Author: ?, ?, ? Service: ? Author Type: Chemical Engineering Technician Type: Plan of Care Filed: 12/01/2024 11:32 Note Text: PHARMACY MEDICATION REVIEW Patient Name: Ochoa Douglas : 1945 The following medications were updated within the [facility] medication list: Medications ADDED to [facility] medication list Bifidobacterium infantis (ALIGN, B.INFANTIS,) 10.5 mg (10 million cell) chew Patient Yes Yes Medications CHANGED on [facility] medication list clopidogrel bisulfate(PLAVIX 75 MG TAB) 11/07/2024 Patient Yes No tacrolimus (PROTOPIC) 0.1 % ointment Patient Yes Yes Medications REMOVED from [facility] medication list triamcinolone acetonide (KENALOG) 0.1 % cream Adjust Sig - Block E-Cancel vibegron (GEMTESA) 75 mg tablet Adjust Sig - Block E-Cancel Additional comments: I was able to talk with pt. and her Susan about home medications. They were able to confirm the 14 medications recorded below on the [facility] list. I have added 1 supplement/ medication to the [facility] list and removed 2 medications (not taking. See above. I have noted a change to 1 medication- plavix. Pt. states this medication is on hold and she does not know if she will be instructed to continue. Last home dose was indicated below. Pt. states [facility] is her preferred pharmacy. Medication history completed by historian. No nursing follow up needed. The below information represents the best possible medication history: Yes Medication history completed by: Chemical Engineering Technician: Sherif Shaw (Vocational Childcare Teacher) Source of history: Patient: Reliability of source: Appears reliable, clearly identified: Medication name, Medication dose, Medication route, and Medication frequency, Pharmacy records: Epic e-script [facility], and Medication nonadherence identified: No barriers noted Reconciliation completed: No, pharmacist not yet reviewed Patient interested in Bedside Delivery Services or using OP Pharmacy at discharge? No Preferred outpatient pharmacy: [facility] [place] [address] - [address] [phone] Allergies: Lisinopril Cough Crestor [Rosuvastat* Myalgia Comment:muscle aches Lipitor [Atorvastat* Myalgia Comment:muscle aches Prior to Admission Medications Prescriptions Last Dose Informant Patient Reported? Taking? Bifidobacterium infantis (ALIGN, B.INFANTIS,) 10.5 mg (10 million cell) chew Patient Yes Yes Sig: Take 1 tablet by mouth once daily. Omeprazole 40 mg capsule No Yes Sig: Take 1 capsule by mouth once daily. (Dr. Rand) REPATHA SURECLICK 140 mg/mL pen injector Yes Yes Sig: Inject 140 mg subcutaneously every 2 weeks. ascorbic acid, vitamin C, (VITAMIN C) 500 mg tablet No Yes Sig: Take 1 tablet by mouth once daily. aspirin, enteric coated (ASPIRIN, ENTERIC COATED) 81 mg EC tablet Yes Yes Sig: Take 81 mg by mouth once daily. clopidogrel bisulfate(PLAVIX 75 MG TAB) 11/07/2024 Patient Yes No Sig: Take 75 mg by mouth once daily. ferrous sulfate 325 mg (65 mg iron) tablet No Yes Sig: Take 1 tablet by mouth once daily. folic acid 1 mg tablet No Yes Sig: Take 1 tablet by mouth once daily. levothyroxine (SYNTHROID) 112 mcg tablet No Yes Sig: TAKE 1 TABLET BY MOUTH DAILY ON AN EMPTY STOMACH FOR THYROID losartan (COZAAR) 25 mg tablet Yes Yes Sig: Take 1 tablet by mouth once daily. metoprolol tartrate, short acting, (LOPRESSOR) 25 mg tablet Yes Yes Sig: Take 12.5 mg by mouth two times a day. [facility] nitroglycerin(NITROSTAT 0.4 MG SUBLINGUAL TAB) Yes Yes Sig: Place one(1) tablet on tongue as needed for chest pain. If no pain relief call 911. pyridoxine, vitamin B6, (VITAMIN B6) 100 mg tablet Yes Yes Sig: Take 100 mg by mouth once daily. simvastatin (ZOCOR) 40 mg tablet Yes Yes Sig: Take 40 mg by mouth once daily. Taking every other day due to leg cramps tacrolimus (PROTOPIC) 0.1 % ointment Patient Yes Yes Sig: As needed Facility-Administered Medications: None Sherif Shaw (Vocational Childcare Teacher) phone [phone] 12/01/2024 [facility] 12-01-2024 Note HNO ID: [id number] Author: JESSIE DÍAZ PA-C Service: Cardiovascular Surgery Author Type: Physician Lead Vulcanizing Operator Type: Progress Notes Filed: 12/01/2024 12:03 Note Text: CARDIOTHORACIC SURGERY POSTOP PROGRESS NOTE SERVICE DATE: 12/01/2024 SERVICE TIME: 10:19 AM Subjective S/P SURGERY: Procedure(s) (LRB): CABG x 3 (CHAN-LAD, SVG-OM, SVG-PDA) DATE OF SURGERY: 11/29/2024 POSTOP DAY #2 LOS: 4 HPI per (Ely Ayoub SCREW MACHINE REPAIRER 11/28/24): Ochoa Douglas is a 79 year old female w/ PMHx of CAD, PA w/PCI in 2008, hypothyroidism, anemia and GERD who presented to [facility] on 11/28/24 w/ active chest pain. Patient states that developed ongoing chest pain for the past 2 days. Pain was worse w/exertion that has radiated up the left side of her neck. She denies any further associated symptoms. Pain had resolved at rest. States her pain is likely related to her daughter visited and her daughter's current living situation. Currently patient has custody of her daughter's 4 y/o son. Patient was previously seen by Dr. Hayes in the office on 11/08/24 for evaluation for CABG surgery. She was previously worked up by her Cardiologists, Dr. Bailey at [facility]. Patient been c/o exertional fatigue, dyspnea, occasional chest discomfort for some time. Stress test was abnormal which prompted LHC. LHC from [facility]: LM Mild dz w/ 20-30% ostial stenosis, LAD patent stent w/ 80-90% ostial stenosis, mid segment 70% followed by another long mid segment stenosis, Cx previously stented, ostial stenosis at 80%, 1st OM no dz, RCA previously stented, prox 50%, mid area w/ 70% stenosis and distal stent patent. At that time she was deemed a candidate for surgery pending further work up. INTERVAL EVENTS / PERTINENT ROS: Patient underwent CABG x 3 (CHAN-LAD, SVG-OM, SVG-PDA) with Dr. Hayes on 11/29/24. Patient was transferred to CVICU in stable condition on minimal pressor support. Patient was extubated on time per early extubation protocol. She was weaned off jean and became hypertensive on POD#1 requiring BB and nitro gtt. Patient also had episodes of brief hypotension and nausea/emesis on standing up that would immediately self resolve within ~1 minute. Pt had difficulty urinating and required straight cath x 1 for ~340 cc on AM of POD2. Cr bump on POD#2 also. 17 POD#2: Patient seen in CVICU this AM. Pt remains hemodynamically stable and hypertensive with SBP 120s-140s on a-line, cuff ~ 20 points different in SBP, HR in 70s in NSR, and SpO2 95% on RA. Patient reports 4/10 lower mid sternal pain this AM well controlled with current regimen. Denies shortness of breath at rest. Patient did have nausea and emesis ~200 cc this AM, not on standing but stated her stomach didn't feel right prior, comes on quick. Had very tiny bit of dizziness when getting up earlier this AM, but was able to ambulate full lap with staff. Unable to tolerate food, able to drink water. + belching, - flatus, - BM. Unable to void this AM, monitoring on bladder scans. CT output ~400 cc in last 24 hours. UOP ~1305 in last 24 hours between voiding and straight cath. Patient denies lightheadedness, dizziness, abdominal pain, ornumbness/tingling. All labs and imaging reviewed. Of note, HgB 7.1 and Cr 1.41 Repeat labs ordered for 1200. Objective Admission Weight: 70.3 kg (155 lb) BP (!) 94/44 Pulse 74 Temp 36.7 ?C (98.1 ?F) Resp 20 Ht 162.6 cm (5' 4.02) Wt 76.2 kg (167 lb 15.9 oz) SpO2 95% BMI 28.82 kg/m? Body surface area is 1.86 meters squared. Min/Max/Average Temperature AND Blood Pressure: Temp (24hrs), Av.8 ?C (98.3 ?F), Min:36.6 ?C (97.9 ?F), Max:37 ?C (98.6 ?F) Systolic (24hrs), Av , Min:94 , Max:184 Diastolic (24hrs), Av, Min:44, Max:59 Intake/Output Summary (Last 24 hours) at 12/01/2024 1019 Last data filed at 12/01/2024 0920 Gross per 24 hour Intake 3424.8 ml Output 2165 ml Net 1259.8 ml TELEMETRY: normal sinus rhythm PHYSICAL EXAM: General Appearance: Awake, sitting upright in chair, appears to be in no acute distress Skin: Midsternal incision dry AND intact without surrounding erythema or edema, ecchymosis surrounding upper portion of chest tube sites, and SVG incision dry AND intact without drainage Neck: R IJ line intact with clean dressing Lungs: clear to auscultation bilaterally without crackles, wheezes, or rhonchi, normal respiratory effort on RA Heart: regular rate and rhythm and no murmur Peripheral Vascular/Arteries: radial 2+ bilaterally, DP 2+ bilaterally Abdomen: soft and non-tender, non-distended, hypoactive bowel sounds Neurologic/Psychiatric: alert and seed mill superintendent strength 5/5 bilaterally, no gross focal neuro deficits Extremities: trace pitting edema BLE Lines, Drains, and Airways Line Duration Peripheral 11/27/24 1546 [facility] Left Antecubital 20 Gauge 3 days Central Line Quadruple Lumen 11/29/24 1358 1 day Peripheral 11/29/24 1 (more content not included)... [facility] 11-30-2024 Note HNO ID: [id number] Author: DONOVAN JEAN, OFELIA Service: Care Management Author Type: Registered Nurse Type: Care Mgt Initial Assessment Filed: 11/30/2024 12:27 Note Text: CARE MANAGEMENT: ASSESSMENT AND DISCHARGE PLAN SERVICE DATE: November 30, 2024 SERVICE TIME: 12:26 PM PCP: Bora Marie DO Primary Contact: Extended Emergency Contact Information Primary Emergency Contact: Susan Douglas Address: [address] [place] [address] Mobile Relation: Spouse Admission Status: Inpatient Insurance Provider: MEDICARE A AND B Discharge Planning requested by: Per Department Practice Potential Transition Plans To Be Determined, Home Advance Directives Current Advance Directive: None Medical Practice Manager Attempted to Assist with AD Completion: Yes Action: Education Provided Current Living Arrangements and Support Lives with: Spouse/significant other, Family members Type of Residence: Private Residence (House) Does the patient have to climb stairs at home?: No Support: Family members, Friends/neighbors, Spouse/significant other, Children How do you manage to accomplish the following: Independent: Ambulation, Bathe/Shower, Dress, Meals/Meal Prep, Going to the bathroom, Medication Management, Transportation to appointments/community Current Services/Equipment Current Post-Acute Service(s): None Discharge Planning Patient Goal(s): Independent living, Less pain, General wellness, Be able to go home [place] of Choice Explained: [place] of Choice Given: No Reason Not Given: No placements necessary Are you interested in bedside delivery of your medications? No Discharge Planning Participant(s): Patient Patient/Family Comments: Caregiver Assessment: Caregiver is ready, willing and able to meet the patient's needs as recommended by the inter-professional team: No Caregiver needed Transport at Discharge: Transportation Arrangements: To Be Determined Needs Prior to Discharge: Needs Prior to Discharge: To Be Determined, Discharge Prescriptions Post-Acute Discharge Plan: Patient is from home with her spouse and grandson. No steps in the home. 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 +Driving. Room air at baseline. Uses [facility] for scripts. Has AD's, not on file. Patient is retired. Family can provide discharge transportation at this time. Will follow for transitional care planning. SIGNATURE: Donovan Jean RN PATIENT NAME: Ochoa Douglas DATE: November 30, 2024 TIME: 12:26 PM [facility] 11-30-2024 Note HNO ID: [id number] Author: CHLOE DOBBS MD Service: Critical Care Author Type: Physician Type: Progress Notes Filed: 11/30/2024 11:40 Note Text: MICU PROGRESS NOTE Admission Date: 11/27/2024 Hospital Day # 3 ICU day # 0 HPI This is a 79 years old female with a PMH significant for CAD, hypothyroidism and HLP who presented to the hospital with chest pain and found to have multivessel disease. Underwent CABG x 3 on . SUBJECTIVE Interval Events: Patient was seen and examined at bedside. He extubation. Comfortable in bed on Precedex and pressors. OBJECTIVE Vital Signs (last filed) Range in last 24h Temp: 37 ?C (98.6 ?F) (11/30/24 1045) Temp Min: 35.5 ?C (95.9 ?F) Max: 37.4 ?C (99.3 ?F) Pulse: 88 (11/30/24 1137) Pulse Min: 0 Max: 160 Resp: 15 (11/30/24 1137) Resp Min: 12 Max: 20 BP: (!) 139/46 (11/30/24 1050) BP Min: 114/57 Max: 184/59 MAP Non Invasive (Mean Arterial Pressure) Min: 74 Max: 103 Arterial BP 1: 169/50 (11/30/24 1137) Arterial BP 1 Min: 56/51 Max: 179/56 SpO2: 94 % (11/30/24 1137) SpO2 Min: 92 % Max: 100 % Pain Level: 0 (11/30/24 1100) Fluid Balance: Intake/Output Summary (Last 24 hours) at 11/30/2024 0659 Last data filed at 11/30/2024 0611 Gross per 24 hour Intake 6523 ml Output 1160 ml Net 5363 ml Last Weight: 68.1 kg (150 lb 2.1 oz) (11/29/24 0022) Admit Weight: 70.3 kg (155 lb) (11/27/24 1520) DIET HEART HEALTHY Lines, Drains, and Airways Line Duration Peripheral 11/27/24 1546 [facility] Left Antecubital 20 Gauge 2 days Central Line Quadruple Lumen 11/29/24 1358 <1 day Peripheral 11/29/24 1336 [facility] Short Right Hand 18 Gauge <1 day Drain Duration Chest Tube [facility] Mediastinal 32 Fr Tube #1 -- days Chest Tube 11/29/24 [facility] Pleural 28 Fr 1 day Chest Tube 11/29/24 [facility] Pleural 28 Fr Tube #3 1 day VENTILATOR INFORMATION: Settings: Invasive Ventilator Mode (Select One): (S) Pressure Support, CPAP (PC-CSVs) (11/29/242047) %FIO2: 35 Set Ventilator Respiratory Rate (BPM): 14 Invasive Ventilator Tidal Volume Set (mL): 420 PEEP/CPAP (cm H2O): 5 Patient Data: Peak Inspiratory Pressure (cm H2O): 10 Plateau Pressure (cm H2O): 14 Weaning Data: Infusion Medications lactated ringers, Last Rate: 50 mL/hr (11/30/24 0886) nitroglycerin in 5 % dextrose, Last Rate: 10 mcg/min (11/30/24 1137) Diagnostic tests reviewed today: Most recent labs and imaging results. ICU Checklist A= Assess, Prevent, Manage Pain C= Choice of Sedation and Analgesia B= Both Spontaneous Awakening and Breathing Trials D= Delirium: Assess, Prevent and Manage E= Early Mobility/Excercise ICU Mobility: F= Family Engagement and Empowerment ICU Disposition: Prevention: VTE Prophylaxis: No Patient Care Coordination Note on file. Recent Labs 11/30/24 0410 11/29/24 1839 11/28/24 0515 WBC 13.95* 12.90* 6.02 HB 8.7* 7.8* 9.8* HCT 27.3* 24.1* 31.2* PLT 153 141* 224 NA 138 139 140 K 4.8 4.0 4.4 CHLOR 108* 109* 106 CO2 21* 21* 26 CREAT 0.79 0.95 0.93 BUN 17 13 18 GLUC 130* 86 79 P -- 2.7 -- TPROT -- 5.1* 6.5 ALB -- 3.2* 3.7* MG -- 2.8* 2.0 CA 8.5 8.4* 8.8 ALKPHOS -- 40 61 TBILI -- 0.3 0.3 AST -- 26 33 ALT -- 11 14 Assessment: Critical Care Documentation: The patient has the following organ/system impairment(s): Anticipated postoperative respiratory insufficiency. Anticipated postoperative respiratory insufficiency. Anticipated postoperative hypotension. Anticipated postoperative acidosis. CAD s/p CABG x 3 with CHAN to M LAD, SVG to PDA and SVG to OM1. POD #0. Hypothyroidism Principal Problem: Angina pectoris Active Problems: Hypothyroidism Mixed hyperlipidemia Essential hypertension CAD (coronary artery disease) PLAN: - Extubated without issues, doing well on NC, discussed IS, will sign off, call us with further questions -Incentive spirometer and flutter valve postextubation early mobility. Remaining management as per primary team. Code status: Full code This patient has a high probability of sudden, clinically significant deterioration, which requires the highest level of physician preparedness to intervene urgently. I managed/supervised life or organ supporting interventions that required frequent physician assessment. I devoted my full attention to the direct care of this patient for the amount of time indicated below. Time I spent with family or surrogate(s) is included only if the patient was incapable of providing the necessary information or participating in medical decision making. Time devoted to teaching and to any procedures I billed separately is not included. Total critical care time with this patient was 30 minutes. SIGNATURE: Chloe Norris (more content not included)... [facility] 11-30-2024 Note HNO ID: [id number] Author: JESSIE DÍAZ PA-C Service: Cardiovascular Surgery Author Type: Physician Lead Vulcanizing Operator Type: Progress Notes Filed: 11/30/2024 16:40 Note Text: CARDIOTHORACIC SURGERY POSTOP PROGRESS NOTE SERVICE DATE: 11/30/2024 SERVICE TIME: 7:00 am Subjective S/P SURGERY: Procedure(s) (LRB): BYPASS GRAFT ARTERY CORONARY ON-PUMP THREE CORONARY VENOUS GRAFTS: CABG X3 CHAN TO LAD, SVG TO OM, SVG TO PDA, EVH OF LEFT LEG DATE OF SURGERY: 11/29/2024 POSTOP DAY #1 LOS: 3 HPI per (Ely Ayoub SCREW MACHINE REPAIRER 11/28/24): Ochoa Douglas is a 79 year old female w/ PMHx of CAD, PA w/PCI in 2008, hypothyroidism, anemia and GERD who presented to [facility] on 11/28/24 w/ active chest pain. Patient states that developed ongoing chest pain for the past 2 days. Pain was worse w/exertion that has radiated up the left side of her neck. She denies any further associated symptoms. Pain had resolved at rest. States her pain is likely related to her daughter visited and her daughter's current living situation. Currently patient has custody of her daughter's 4 y/o son. Patient was previously seen by Dr. Hayes in the office on 11/08/24 for evaluation for CABG surgery. She was previously worked up by her Cardiologists, Dr. Bailey at [facility]. Patient been c/o exertional fatigue, dyspnea, occasional chest discomfort for some time. Stress test was abnormal which prompted LHC. LHC from [facility]: LM Mild dz w/ 20-30% ostial stenosis, LAD patent stent w/ 80-90% ostial stenosis, mid segment 70% followed by another long mid segment stenosis, Cx previously stented, ostial stenosis at 80%, 1st OM no dz, RCA previously stented, prox 50%, mid area w/ 70% stenosis and distal stent patent. At that time she was deemed a candidate for surgery pending further work up. INTERVAL EVENTS / PERTINENT ROS: Patient underwent CABG x 3 (CHAN-LAD, SVG-OM, SVG-PDA) with Dr. Hayes on 11/29/24. Patient was transferred to CVICU in stable condition on minimal pressor support. Patient was extubated on time per early extubation protocol. She was weaned off jean this AM. POD 1: 11/30/24 Patient was seen and examined in CVICU this AM. Patient is sitting up in chair in no acute distress. Patient's SBP has been labile throughout the night. Patient was weaned off jean this AM. She is currently hypertensive with SBP in 170s. HR is in 80s in NSR. She was extubated on time per the early extubation protocol. She is on 4L NC oxygenating at 100%. CT output since OR was 295 mL. UOP in last 12 hours was 460 mL. She is alert and oriented. She states her pain is a 3/10, tolerable with her current pain regimen. She states the majority of her pain is on her left side near the chest insertion site. Patient was nauseous this AM, likely due to pain medication but has since resolved. Patient is currently denying N/V/D, SOB, lightheadedness, diaphoresis, or palpitations. All relevant labs and imaging were reviewed. Patient reevaluated this afternoon. Found to be nauseous only when attempting to stand. SBP has improved to 130s. Objective Admission Weight: 70.3 kg (155 lb) BP 146/72 Pulse 89 Temp 37.1 ?C (98.8 ?F) Resp 14 Ht 162.6 cm (5' 4.02) Wt 68.1 kg (150 lb 2.1 oz) SpO2 100% BMI 25.76 kg/m? Body surface area is 1.75 meters squared. Min/Max/Average Temperature AND Blood Pressure: Temp (24hrs), Av.5 ?C (97.7 ?F), Min:35.5 ?C (95.9 ?F), Max:37.4 ?C (99.3 ?F) Systolic (24hrs), Av , Min:114 , Max:166 Diastolic (24hrs), Av, Min:57, Max:84 Intake/Output Summary (Last 24 hours) at 11/30/2024 0759 Last data filed at 11/30/2024 0611 Gross per 24 hour Intake 6523 ml Output 1160 ml Net 5363 ml TELEMETRY: normal sinus rhythm PHYSICAL EXAM: General Appearance: Well appearing and sitting upright in chair; in NAD Skin: Midsternal incision dry AND intact without surrounding erythema, warmth, drainage and left SVG covered by LINH wrap without evidence of drainage Neck: no JVD and RIJ intact with clean and dry dressing Lungs: Decreased at the bases without wheezing, crackles, rhonchi; normal respiratory effort Heart: regular rhythm and S1, S2 normal Peripheral Vascular/Arteries: pulses intact, dorsalis pedis 2+ and left radial art line in place, right radial 2+ Abdomen: soft, non-tender and bowel sounds present Neurologic/Psychiatric: oriented to time, place and person, 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 Lines, Drains, and Airways Line Duration Peripheral 11/27/24 1546 [facility] Left Antecubital 20 Gauge 2 days Central Line Quadruple Lumen 11/29/24 1358 <1 day Peripheral 11/29/24 1336 [facility] Short Right Hand 18 Gauge <1 day Drain Duration Chest Tube [facility] Mediastinal 32 Fr Tube #1 -- days Chest Tube 11/15 (more content not included)... [facility] 11-29-2024 Note HNO ID: [id number] Author: RUTH MCMAHON MD Service: Critical Care Author Type: Physician Type: Progress Notes Filed: 11/29/2024 19:54 Note Text: MICU PROGRESS NOTE Admission Date: 11/27/2024 Hospital Day # 2 ICU day # 0 HPI This is a 79 years old female with a PMH significant for CAD, hypothyroidism and HLP who presented to the hospital with chest pain and found to have multivessel disease. Underwent CABG x 3 on . SUBJECTIVE Interval Events: Patient was seen and examined at bedside. He extubation. Comfortable in bed on Precedex and pressors. OBJECTIVE Vital Signs (last filed) Range in last 24h Temp: (!) 35.5 ?C (95.9 ?F) (11/29/241944) Temp Min: 35.5 ?C (95.9 ?F) Max: 36.6 ?C (97.9 ?F) Pulse: (!) 57 (11/29/241944) Pulse Min: 0 Max: 160 Resp: 14 (11/29/241944) Resp Min: 14 Max: 18 BP: 146/72 (11/29/24 1238) BP Min: 114/57 Max: 166/76 MAP Non Invasive (Mean Arterial Pressure): 105 (11/29/24 1131) MAP Non Invasive (Mean Arterial Pressure) Min: 73 Max: 105 Arterial BP 1: 126/56 (11/29/241944) Arterial BP 1 Min: 56/51 Max: 156/70 SpO2: 100 % (11/29/241944) SpO2 Min: 96 % Max: 100 % Pain Level: 2 (11/29/24 1238) Fluid Balance: No intake or output data in the 24 hours ending 11/29/24 0659 Last Weight: 68.1 kg (150 lb 2.1 oz) (11/29/24 0022) Admit Weight: 70.3 kg (155 lb) (11/27/24 1520) DIET NPO Lines, Drains, and Airways Line Duration Peripheral 11/27/24 1546 [facility] Left Antecubital 20 Gauge 2 days Central Line Quadruple Lumen 11/29/24 1358 <1 day Peripheral 11/29/24 1336 [facility] Short Right Hand 18 Gauge <1 day Drain Duration Chest Tube [facility] Mediastinal 32 Fr Tube #1 -- days Chest Tube 11/29/24 [facility] Pleural 28 Fr <1 day Chest Tube 11/29/24 [facility] Pleural 28 Fr Tube #3 <1 day Indwelling Urinary Catheter 11/29/24 [facility] Temperature Monitoring 18 Fr <1 day Airway Duration Airway Endotracheal Tube 11/29/24 <1 day Airway Endotracheal Tube 11/29/24 1329 <1 day VENTILATOR INFORMATION: Settings: Invasive Ventilator Mode (Select One): SIMV PRVC or VC+ or APVimv (PC-IMV(1)a,s) (11/29/241927) %FIO2: 40 Set Ventilator Respiratory Rate (BPM): 14 Invasive Ventilator Tidal Volume Set (mL): 420 PEEP/CPAP (cm H2O): 5 Patient Data: Peak Inspiratory Pressure (cm H2O): 11 Plateau Pressure (cm H2O): 14 Weaning Data: Infusion Medications insulin regular, Last Rate: 1 Units/hr (11/29/241899) lactated ringers, Last Rate: 50 mL/hr (11/29/241844) EPINEPHrine 4 mg in NaCl 0.9% 250 mL, Last Rate: 0 mcg/min (11/29/241899) PHENYLephrine, Last Rate: 10 mcg/min (11/29/241944) dexmedeTOMIDine, Last Rate: 0.3 mcg/kg/hr (11/29/241945) Diagnostic tests reviewed today: Most recent labs and imaging results. ICU Checklist A= Assess, Prevent, Manage Pain C= Choice of Sedation and Analgesia B= Both Spontaneous Awakening and Breathing Trials D= Delirium: Assess, Prevent and Manage E= Early Mobility/Excercise ICU Mobility: F= Family Engagement and Empowerment ICU Disposition: Prevention: VTE Prophylaxis: No Patient Care Coordination Note on file. Recent Labs 11/29/24 1839 11/28/24 0515 11/27/24 1546 WBC 12.90* 6.02 7.83 HB 7.8* 9.8* 10.3* HCT 24.1* 31.2* 33.0* PLT 141* 224 254 NA 139 140 141 K 4.0 4.4 4.5 CHLOR 109* 106 105 CO2 21* 26 25 CREAT 0.95 0.93 0.90 BUN 13 18 22* GLUC 86 79 88 P 2.7 -- -- TPROT 5.1* 6.5 -- ALB 3.2* 3.7* -- MG 2.8* 2.0 -- CA 8.4* 8.8 9.2 ALKPHOS 40 61 -- TBILI 0.3 0.3 -- AST 26 33 -- ALT 11 14 -- Assessment: Critical Care Documentation: The patient has the following organ/system impairment(s): Anticipated postoperative respiratory insufficiency. Anticipated postoperative respiratory insufficiency. Anticipated postoperative hypotension. Anticipated postoperative acidosis. CAD s/p CABG x 3 with CHAN to M LAD, SVG to PDA and SVG to OM1. POD #0. Hypothyroidism Principal Problem: Angina pectoris Active Problems: Hypothyroidism Mixed hyperlipidemia Essential hypertension CAD (coronary artery disease) PLAN: --Wean off FiO2 as tolerated to maintain SpO2> 90% and extubate per CVICU protocol. -Wean off pressors as tolerated. -Chest tubes per primary CTS team. -Pain management as per primary team - Chest x-ray in the morning. -Insulin per CVICU protocol. -Incentive spirometer and flutter valve postextubation early mobility. Remaining management as per primary team. Discussed with staff. Additionally, discussed with - RN Code status: Full code This patient has a high probability of sudden, clinically significant deterioration, which requires the highest level of physician preparedness to intervene urg (more content not included)... [facility] 11-29-2024 Note HNO ID: [id number] Author: CHRISTOS ZAYAS, OFELIA Service: Nursing Author Type: Registered Nurse Type: Nursing Progress Note Filed: 11/29/2024 15:07 Note Text: Report called to Barb in CVICU [facility] 11-29-2024 Note HNO ID: [id number] Author: ARELI CROOK DO Service: Anesthesiology Author Type: Resident Type: Anesthesia Procedure Notes Filed: 11/29/2024 13:58 Note Text: Attestation signed by Britni Fontaine MD at 11/29/2024 3:01 PM For this procedure, I was physically present for this entire procedure. 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 Indication: central venous access and CVP monitoring Staffing Resident: Areli Crook DO Performed by: resident Preparation Sterility Preparation: hand hygiene performed prior to procedure, sterile gloves, drapes, and procedure tray, gown used during line insertion, surgical cap used, mask used, sterile drape used during line insertion, skin prep agent completely dried prior to procedure Sterility Technique Not Completely Performed Due to Extreme Emergency: No Site Prep: Chloraprep Procedure Details Patient Position: Supine Laterality: Right Site: Internal jugular Catheter Type: Standard CVL Catheter Size: 8.5 Fr Catheter Length (cm): 16 Number of Lumens: Quad lumen Ultrasound Guided: Yes Image in Chart: No Sites: potential access sites evaluated, selected vessel patent, concurrent real time ultrasound visualization of vascular needle entry Vessel: target vessel identified and guidewire advanced into vessel Needle advanced into vein and blood aspirated: Yes Transduced prior to dilation: Yes Number of Attempts: 1 Number of Guidewires Used: 1 Number of Guidewires Removed Intact: 1 Chest X-ray Ordered: No Post Insertion Ports and Catheter: all ports aspirate easily, all ports flush easily and ports flushed with saline Catheter Secured: suture(s) and central line dressing applied Events Events: patient tolerated procedure well with no complications SIGNATURE: Areli Crook DO PATIENT NAME: Ochoa Douglas DATE: November 29, 2024 TIME: 1:56 PM CSN: [id number] [facility] 11-29-2024 Note HNO ID: [id number] Author: ROME MURPHY APRN.CRNA Service: Anesthesiology Author Type: Nurse Blister Pack Operator Type: Anesthesia Procedure Notes Filed: 11/29/2024 13:47 Note Text: ANESTHESIOLOGY PROCEDURE NOTE Airway General Information Procedure Start Time/Medication Administration: 11/29/2024 1:29 PM Procedure End Time: 11/29/2024 1:29 PM Patient location during procedure: OR Timeout Performed Pre-procedure: timeout performed Consent Obtained: Yes Patient identity confirmed: arm band Staffing SRNA: Grospitch, Ada, SRNA Performed by: WILLY Indications and Patient Condition Indications for airway management: anesthesia Preoxygenated: yes anesthesia circuit Patient position: sniffing Method: asleep Cricoid Pressure: No Manual In-Line Stabilization: No Difficult Mask: No Final Airway Details Final airway type: endotracheal airway Final Endotracheal Airway: ETT Cuffed: yes Successful intubation technique: video laryngoscopy Devices used: [employer] Endotracheal tube insertion site: oral Blade: Jaun Blade size: #3 ETT size (mm): 8.0 Measured from: lips Measurement (cm): 20 Placement verified by: chest auscultation Cormack-Lehane Classification: grade I - full view of glottis Number of attempts at approach: 1 Failed airway: no Unrecognized esophageal intubation: no Airway not difficult SIGNATURE: Rome Murphy APRN.RECORD MAKER PATIENT NAME: Ochoa Douglas DATE: November 29, 2024 TIME: 1:46 PM CSN: [id number] [facility] 11-29-2024 Note HNO ID: [id number] Author: DONATO FRANCES MD Service: Hospital Medicine Author Type: Physician Type: Progress Notes Filed: 11/29/2024 11:24 Note Text: INPATIENT PROGRESS NOTE CHIEF COMPLAINT: chest pain INTERVAL HPI: no new complaints. Has chest pressure at baseline. No Shortness of Breath. Pt scheduled for CABG today PHYSICAL EXAM: BP 144/63 Pulse 70 Temp (Src) 97.6 (Oral) Resp 17 Ht 5' 4.016 (1.63m) Wt 150 lb 2.1 oz (68.1kg) SpO2 97% BMI 25.76 kg/(m2). O2 Therapy: Room Air GENERAL: Alert, no distress, cooperative LUNGS: Lungs clear to auscultation, Good diaphragmatic excursion CARDIAC: Normal S1 and S2; no rubs, murmurs, or gallops ABDOMEN: Abdomen soft, non-tender, BS normal, No masses or organomegaly EXTREMITIES: no edema DATA: Diagnostic tests reviewed for today's visit: CBC, Coags, BMP, Mg, Phos Recent Labs 11/28/24 0515 11/27/24 1546 WBC 6.02 7.83 HB 9.8* 10.3* HCT 31.2* 33.0* PLT 224 254 NA 140 141 K 4.4 4.5 CHLOR 106 105 CO2 26 25 BUN 18 22* CREAT 0.93 0.90 GLUC 79 88 CA 8.8 9.2 MG 2.0 -- Problem List Angina pectoris (POA: Yes) Hypothyroidism (POA: Yes) Mixed hyperlipidemia (POA: Yes) Essential hypertension (POA: Yes) CAD (coronary artery disease) (POA: Yes) Assessment/Plan #multivessel CAD presented with angina- seen by CTS. Plan for CABG today # Hypothyroidism (POA: Yes) Assessment AND Plan: cont with synthroid 112 mcg daily. # Mixed hyperlipidemia (POA: Yes) Assessment AND Plan: cont with simvastatin. #Essential hypertension (POA: Yes) Assessment AND Plan: cont with lopressor. Losartan on hold for surgery Plan of care discussed with: Provider, RN, Patient. SIGNATURE: Donato Frances MD PATIENT NAME: Ochoa Douglas DATE: November 29, 2024 TIME: 11:22 AM PAGER: [facility] 11-28-2024 Note HNO ID: [id number] Author: ELY AYOUB APRN.CNP Service: Cardiovascular Surgery Author Type: Nurse Practitioner Type: Plan of Care Filed: 11/28/2024 17:05 Note Text: CTVS Surgery Pre-Op Open Heart Check List Patient Info: Ochoa Douglas 1945 79 year old STS RISK SCORE: Procedure Type: Isolated CABG PERIOPERATIVE OUTCOME ESTIMATE % Operative Mortality 1.39% Morbidity AND Mortality 5.24% Stroke 0.86% Renal Failure 0.933% Reoperation 1.82% Prolonged Ventilation 2.62% Deep Sternal Wound Infection 0.133% Long Hospital Stay (>14 days) 2.56% Short Hospital Stay (<6 days)* 45.5% Clinical Summary Planned Surgery: Isolated CABG, First cardiovascular surgery Demographics: 78 year old, White, female, 67.1kg, 160cm, BMI: 26.2 kg/m? Lab Values: Creatinine: 0.98 mg/dL, Hematocrit: 35.1%, WBC Count: 7.14 10?/?L, Platelet Count: 635863 cells/?L Substance Abuse: Former smoker Risk Factors / Comorbidities: Hypertension, Family Hx of CAD Cardiac Status: Ejection Fraction = 50% Coronary Artery Disease: 3 vessels diseased, Stable Angina, PA: > 21 Days Prev. Cardiac Interv: Previous PCI: Not at this facility > 6 hours Pre-Op Testing: LABS: CHEMISTRY Sodium (mmol/L) Date Value 11/28/2024 140 11/27/2024 141 11/24/2024 139 06/26/2021 141 03/16/2020 141 02/28/2019 140 Chloride (mmol/L) Date Value 11/28/2024 106 11/27/2024 105 11/24/2024 103 06/26/2021 102 03/16/2020 105 02/28/2019 104 CO2 (mmol/L) Date Value 11/28/2024 26 11/27/2024 25 11/24/2024 23 06/26/2021 27 03/16/2020 29 02/28/2019 25 BUN (mg/dL) Date Value 11/28/2024 18 11/27/2024 22 11/24/2024 25 06/26/2021 17 03/16/2020 20 02/28/2019 19 Creatinine (mg/dL) Date Value 11/28/2024 0.93 11/27/2024 0.90 11/24/2024 0.94 06/26/2021 0.90 03/16/2020 0.84 02/28/2019 0.78 Glucose (mg/dL) Date Value 11/28/2024 79 11/27/2024 88 11/24/2024 90 06/26/2021 87 03/16/2020 76 02/28/2019 85 Magnesium (mg/dL) Date Value 11/28/2024 2.0 11/24/2024 2.1 09/06/2022 2.0 03/16/2020 2.0 02/28/2019 1.9 08/25/2018 2.1 Protein, Total (g/dL) Date Value 11/28/2024 6.5 11/24/2024 7.7 06/01/2023 7.8 03/16/2020 7.2 02/28/2019 7.0 07/01/2016 7.4 T PROT (g/dL) Date Value 08/20/2020 7.4 Calcium (mg/dL) Date Value 06/26/2021 8.8 03/16/2020 9.3 02/28/2019 9.4 Calcium, Total (mg/dL) Date Value 11/28/2024 8.8 11/27/2024 9.2 11/24/2024 9.7 Bilirubin, Total (mg/dL) Date Value 11/28/2024 0.3 11/24/2024 0.2 06/01/2023 0.4 03/16/2020 0.4 02/28/2019 0.4 07/01/2016 0.4 Alkaline Phosphatase (U/L) Date Value 11/28/2024 61 11/24/2024 70 06/01/2023 74 03/16/2020 74 02/28/2019 80 07/01/2016 104 ALT Date Value 11/28/2024 14 U/L 11/24/2024 20 U/L 06/01/2023 18 U/L 08/20/2020 29 03/16/2020 18 U/L 02/28/2019 19 U/L AST Date Value 11/28/2024 33 U/L 11/24/2024 30 U/L 06/01/2023 30 U/L 08/20/2020 24 03/16/2020 29 U/L 02/28/2019 28 U/L Anion Gap (mmol/L) Date Value 11/28/2024 8 11/27/2024 11 11/24/2024 13 06/26/2021 12 03/16/2020 7 02/28/2019 11 { Lipid Panel Cholesterol, Total Date Value Ref Range Status 06/01/2023 222 (H) <200 mg/dL Final Comment: <200 mg/dL, Desirable 200-239 mg/dL, Borderline high >239 mg/dL, High HDL Cholesterol Date Value Ref Range Status 06/01/2023 69 >39 mg/dL Final Comment: 40-59 mg/dL, Acceptable >59 mg/dL, High: Negative risk factor for coronary heart disease <40 mg/dL, Low: Positive risk factor for coronary heart disease LDL Cholesterol, Calculated Date Value Ref Range Status 06/01/2023 141 (H) <100 mg/dL Final Comment: <100 mg/dL, Optimal 100-129 mg/dL, Near optimal/above optimal 130-159 mg/dL, Borderline high 160-189 mg/dL, High >189 mg/dL, Very high Secondary prevention optimal LDL Cholesterol levels are recommended to be < 70 mg/dL Triglyceride Date Value Ref Range Status 06/01/2023 59 <150 mg/dL Final Comment: <150 mg/dL, Normal 150-199 mg/dL, Borderline high 200-499 mg/dL, High >499 mg/dL, Very high NT Pro BNP No results found for: PBNP ENDOCRINE Hemoglobin A1C (%) Date Value 11/24/2024 5.5 01/29/2017 5.6 Lab Results Component Value Date TSH 3.270 11/24/2024 HEMATOLOGY RBC (m/uL) Date Value 11/28/2024 3.26 11/27/2024 3.37 11/24/2024 3.39 06/26/2021 3.61 03/16/2020 3.66 02/28/2019 3.93 Hemoglobin (g/dL) Date Value 11/28/2024 9.8 11/27/2024 10.3 11/24/2024 10.4 06/26/2021 11.0 03/16/2020 11.1 02/28/2019 11.6 Hematocrit (%) Date Value 11/28/2024 31.2 11/27/2024 33.0 11/24/2024 31.6 06/26/2021 33.2 03/16/2020 35.9 02/28/2019 36.7 WBC (k/uL) Date Value 11/28/2024 6.02 11/27/2024 7.83 11/24/2024 7.83 06/26/2021 6.70 03/16/2020 6.56 02/28/2019 6.26 Platelet Count (k/uL) Date Value 11/28/2024 224 11/27/2024 254 11/24/2024 237 06/26/2021 (more content not included)... [facility] 11-28-2024 Note HNO ID: [id number] Author: DONATO FRANCES MD Service: Hospital Medicine Author Type: Physician Type: Progress Notes Filed: 11/28/2024 16:35 Note Text: INPATIENT PROGRESS NOTE CHIEF COMPLAINT: chest pain INTERVAL HPI: Patient admitted for worsening chest pain mainly with exertion. Patient has known multivessel coronary artery disease diagnosed as outpatient and has been following up with CT surgery. She is supposed to have CABG in December. Patient today feels okay as long as she is lying in bed. Denies any palpitations or shortness of breath. Patient had a most of the preop testing done other than carotid Dopplers at this time. PHYSICAL EXAM: BP 148/65 Pulse 89 Temp (Src) 97.9 (Oral) Resp 18 Ht 5' 4 (1.63m) Wt 155 lb (70.3kg) SpO2 100% BMI 26.59 kg/(m2). O2 Therapy: Room Air GENERAL: Alert, no distress, cooperative LUNGS: Lungs clear to auscultation, Good diaphragmatic excursion CARDIAC: Normal S1 and S2; no rubs, murmurs, or gallops ABDOMEN: Abdomen soft, non-tender, BS normal, No masses or organomegaly EXTREMITIES: No leg edema DATA: Diagnostic tests reviewed for today's visit: CBC, Coags, BMP, Mg, Phos Recent Labs 11/28/24 0515 11/27/24 1546 WBC 6.02 7.83 HB 9.8* 10.3* HCT 31.2* 33.0* PLT 224 254 NA 140 141 K 4.4 4.5 CHLOR 106 105 CO2 26 25 BUN 18 22* CREAT 0.93 0.90 GLUC 79 88 CA 8.8 9.2 MG 2.0 -- Problem List Angina pectoris (POA: Yes) Hypothyroidism (POA: Yes) Mixed hyperlipidemia (POA: Yes) Essential hypertension (POA: Yes) CAD (coronary artery disease) (POA: Yes) Assessment/Plan Angina pectoris - Monitor on telemetry for arrhythmia. Trop 04-29-10. Sl NTG if needed. Cardiology and CTS consulted. Cont asa 81 mg daily, zocor 40 mg daily, lopressor 12.5 mg bid, losartan 25 mg daily. Await CTS input CAD (coronary artery disease) (POA: Yes) Assessment AND Plan: plan as above. Hypothyroidism (POA: Yes) Assessment AND Plan: cont with synthroid 112 mcg daily. Mixed hyperlipidemia (POA: Yes) Assessment AND Plan: cont with simvastatin. Essential hypertension (POA: Yes) Assessment AND Plan: cont with lopressor and losartan. Monitor BP trend and adjust as needed for better control. Plan of care discussed with: Provider, RN, Patient. SIGNATURE: Donato Frances MD PATIENT NAME: Ochoa Douglas DATE: November 28, 2024 TIME: 4:33 PM PAGER: [facility] 11-28-2024 Telephone encounter Note Received fax back from [facility] stating no carotid ultrasound found [facility] 11-28-2024 Miscellaneous Notes Received fax back from [facility] stating no carotid ultrasound found [facility] medical records fax [phone] Faxed request for recent carotid ultrasound results. documented in this encounter [facility] 11-28-2024 Telephone encounter Note [facility] medical records fax [phone] Faxed request for recent carotid ultrasound results. [facility] 11-28-2024 Telephone encounter Note Images received and uploaded into system [facility] 11-28-2024 Miscellaneous Notes Images received and uploaded into system Received 11/24/24 CT Chest without contrast report from [facility]. This was order by our office for CABG workup. Images to be sent electronically to [facility] documented in this encounter [facility] 11-25-2024 Telephone encounter Note Received 11/24/24 CT Chest without contrast report from [facility]. This was order by our office for CABG workup. Images to be sent electronically to [facility] 11-25-2024 Radiology Diagnostic study note [facility] Imaging Services [address], [place] [id number] Chest without Contrast MR#: [id number] Acct: [id number] Name: OCHOA DOUGLAS Rep #: [id number] : 1945 F 79 From: Bonifacio Herrera MD PCP: Dr. Bora Marie, DO Status: REG CLI Study:Chest without Contrast Date of Exam: 11/24/24 Exam# [id number] Ordering Dr: ELY AYOUB PROCEDURE: CHEST WITHOUT CONTRAST 11/24/2024 REASON FOR EXAM: ZULETA Scheduled for triple cardiac bypass surgery. History of breast cancer. TECHNIQUE: Chest CT without contrast. Coronal and Sagittal reconstruction series were provided. One or more dose reduction techniques were used (e.g., Automated exposure control, adjustment of the mA and/or kV according to patient size, use of iterative reconstruction technique RADIATION DOSE SUMMARY: CTDlvol: 6.43 mGy DLP: 218.89 mGycm COMPARISON: Prior chest radiograph dated October 24, 2024. FINDINGS: Hardware: None Lymph nodes: Unremarkable Heart and Vasculature: The heart is nonenlarged. Atherosclerotic calcificationsof the thoracic aorta. Thoracic aorta and pulmonary arteries have normal contours; noncontrast technique limits evaluation. Coronary Artery Calcifications: Present Lungs and Airways: Lungs are clear. No mass lesion or nodule seen. Pleura: No evidence of pleural effusion. Upper Abdomen: Unremarkable Bones: Degenerative changes of the thoracic spine. CT/Chest without Contrast IMPRESSION: Coronary artery calcification (CAC) is is present No acute abnormality is seen. Reading Location: [facility] CC: Dr. Bora Marie DO; ELY AYOUB ~ Prep Room Supervisor: Signed [facility] 11-23-2024 Telephone encounter Note Pt schedule CT Chest & Carotid US for 12/02/24 at [facility]. I cancelled 12/07/24 test appt for [facility]. [facility] 11-23-2024 Miscellaneous Notes Pt schedule CT Chest & Carotid US for 12/02/24 at [facility]. I cancelled 12/07/24 test appt for [facility]. Pt called regarding Mychart message and concerned about surgery date being schedule for 12/21/24. I explained due to testing schedule for 12/07/24 at [facility], which was the first available date for carotid ultrasound that is one reason for 12/21/24 surgery date. Second reason is due to Dr. Hayes's schedule since he's going to be out the first two weeks of November 2024, there's not any openings for November. Pt asked what happens if symptoms worsen. I stated she should go to local hospital but preferbly [facility] ED and if she is deemed to be emergent/urgent then Dr. Hayes would cancel pre-schedule surgery to attend emergent/urgent surgery. If he was unavailable then another cardiothoracic surgeon / partner would be consulted. I asked if she would like to try to having CT Chest wo contrast and carotid ultrasound at another facility to see if they have a sooner appt. She agreed and requested [facility] or [facility]. I explained that if testing could be completed sooner and he has a cancellation then her surgery could potentially be sooner as well. I faxed carotid US and CT Chest order to [facility] Scheduling department (fax [phone] phone [phone]) on 11/11/24 per their request. They'll contact pt directly to schedule. documented in this encounter [facility] 11-10-2024 Telephone encounter Note Pt called regarding Mychart message and concerned about surgery date being schedule for 12/21/24. I explained due to testing schedule for 12/07/24 at [facility], which was the first available date for carotid ultrasound that is one reason for 12/21/24 surgery date. Second reason is due to Dr. Hayes's schedule since he's going to be out the first two weeks of November 2024, there's not any openings for November. Pt asked what happens if symptoms worsen. I stated she should go to local hospital but preferbly [facility] ED and if she is deemed to be emergent/urgent then Dr. Hayes would cancel pre-schedule surgery to attend emergent/urgent surgery. If he was unavailable then another cardiothoracic surgeon / partner would be consulted. I asked if she would like to try to having CT Chest wo contrast and carotid ultrasound at another facility to see if they have a sooner appt. She agreed and requested [facility] or [facility]. I explained that if testing could be completed sooner and he has a cancellation then her surgery could potentially be sooner as well. I faxed carotid US and CT Chest order to [facility] Scheduling department (fax [phone] phone [phone]) on 11/11/24 per their request. They'll contact pt directly to schedule. [facility] 11-08-2024 Note HNO ID: [id number] Author: PETER HAYES MD Service: ? Author Type: Physician Type: Progress Notes Filed: 11/08/2024 16:43 Note Text: CARDIOTHORACIC SURGERY CONSULT / HANDP SERVICE DATE: 11/08/2024 SERVICE TIME: 4:36 PM Subjective PRIMARY SERVICE: Cardiothoracic Surgery CHIEF COMPLAINT: Symptomatic severe multivessel coronary artery disease HPI: This is a 78 year old woman referred for evaluation of symptomatic severe multivessel coronary artery disease and for consideration for bypass surgery. She has a history of coronary artery disease. 2008 she suffered a myocardial infarction and underwent multivessel PCI by Dr. Bailey. She had a good result with this and has had not had any events in the interim years, denying PA, CHF, or repeat intervention. She is not experiencing profound fatigue, possibly some exertional dyspnea, occasional chest vague discomfort. She denies edema, orthopnea etc. Stress testing revealed abnormal EKG response consistent with ischemia.. Thus left heart catheterization performed revealing severe multivessel disease including severe disease involving ostial LAD; ostial circumflex; and mid to distal right coronary with patent stents. There is mild left ventricular systolic dysfunction noted on left ventriculography. Risk factors for coronary disease include family history, hypertension, hyperlipidemia. She is not a smoker. She is not diabetic. She has no history of other vascular disease such as stroke or renal sufficiency. : She stopped taking Plavix at the time of her catheterization. PAST MEDICAL HISTORY Diagnosis Date ASCVD (arteriosclerotic cardiovascular disease) Family history of cardiovascular disease 02/19/2010 Family history of ischemic heart disease 08/31/2007 Myocardial infarction, old 02/19/2010 Dr. Rand manages Obesity 03/13/2006 S/P drug eluting coronary stent placement 3 vessesl Unspecified hypothyroidism PAST SURGICAL HISTORY Procedure Laterality Date COLONOSCOPY FLX DX W/COLLJ SPEC WHEN PFRMD 05/18/1994 Colonoscopy--PATIENT DOES NOT RECALL HAVING ONE DONE LEFT HEART CATH,PERCUTANEOUS 11/07/2024 [facility] LIG/TRNSXJ FLP TUBE ABDL/VAG APPR UNI/BI 05/18/1987 Tubal ligation PAST SURGICAL HISTORY OF breast lumpectomy PAST SURGICAL HISTORY OF 04/15/2010 left septal mass excision (Brayan Lizzy) FAMILY HISTORY Problem Relation Age of Onset Thyroid Sister 2 sisters and one brother Coronary Artery Disease Sister Coronary Artery Disease Brother Social History Tobacco Use Smoking status: Never Smokeless tobacco: Never Vaping Use Vaping status: Never Used Substance Use Topics Alcohol use: No Drug use: No (Not in a hospital admission) aspirin, enteric coated (ASPIRIN, ENTERIC COATED) 81 mg EC tablet Take 81 mg by mouth once daily. metoprolol tartrate, short acting, (LOPRESSOR) 25 mg tablet [facility] tacrolimus (PROTOPIC) 0.1 % ointment Apply topically to affected areas on face every evening levothyroxine (SYNTHROID) 112 mcg tablet TAKE 1 TABLET BY MOUTH DAILY ON AN EMPTY STOMACH FOR THYROID triamcinolone acetonide (KENALOG) 0.1 % cream Apply 1 application to affected area twice daily. Apply sparingly to area for rash/itching on extremities simvastatin (ZOCOR) 40 mg tablet Take 40 mg by mouth once daily. Taking every other day due to leg cramps pyridoxine, vitamin B6, (VITAMIN B6) 100 mg tablet Take 100 mg by mouth once daily. ferrous gluconate 256 mg (28 mg iron) tab Take 1 tablet by mouth every other day. Omeprazole 40 mg capsule Take 1 capsule by mouth once daily. (Dr. Rand) nitroglycerin(NITROSTAT 0.4 MG SUBLINGUAL TAB) Place one(1) tablet on tongue as needed for chest pain. If no pain relief call 911. vibegron (GEMTESA) 75 mg tablet Take 75 mg by mouth once daily. clopidogrel bisulfate(PLAVIX 75 MG TAB) Take one(1) tablet daily. (Patient not taking: Reported on 11/08/2024) ALLERGIES Allergen Reactions Lisinopril Cough Crestor [Rosuvastat* Myalgia muscle aches Lipitor [Atorvastat* Myalgia muscle aches REVIEW OF SYSTEMS: Denies stroke, fever, chills, COPD, sleep apnea, hepatic disease, renal insufficiency, cancer, bleeding, thrombosis. Objective PHYSICAL EXAM: BP 138/70 (BP Site: Left Arm, BP Position: Sitting, BP Cuff Size: Large Adult) Pulse 77 Ht 5' 3 (1.6 m) Wt 155 lb 6.4 oz (70.5 kg) SpO2 98% BMI 27.53 kg/m? Body surface area is 1.77 meters squared. On examination, she appears well and is breathing comfortably. Vitals signs are BP 138/70 (BP Site: Left Arm, BP Position: Sitting, BP Cuff Size: Large Adult) Pulse 77 Ht 5' 3 (1.6 m) Wt 155 lb 6.4 oz (70.5 kg) SpO2 98% BMI 27.53 kg/m? . There is no JVD. No cervical or supraclavicular adenopathy is palpated. The chest is symmetrical without deformity. Breath sounds are clear bilaterally. The cardiac rhythm is regular. There are no rubs, gallops, or murmurs. The carotid, (more content not included)... [facility] 11-08-2024 History of Presen t illness Narrative CARDIOTHORACIC SURGERY CONSULT / H&P SERVICE DATE: 11/08/2024 SERVICE TIME: 4:36 PM Subjective PRIMARY SERVICE: Cardiothoracic Surgery CHIEF COMPLAINT: Symptomatic severe multivessel coronary artery disease HPI: This is a 78 year old woman referred for evaluation of symptomatic severe multivessel coronary artery disease and for consideration for bypass surgery. She has a history of coronary artery disease. 2008 she suffered a myocardial infarction and underwent multivessel PCI by Dr. Bailey. She had a good result with this and has had not had any events in the interim years, denying PA, CHF, or repeat intervention. She is not experiencing profound fatigue, possibly some exertional dyspnea, occasional chest vague discomfort. She denies edema, orthopnea etc. Stress testing revealed abnormal EKG response consistent with ischemia.. Thus left heart catheterization performed revealing severe multivessel disease including severe disease involving ostial LAD; ostial circumflex; and mid to distal right coronary with patent stents. There is mild left ventricular systolic dysfunction noted on left ventriculography. Risk factors for coronary disease include family history, hypertension, hyperlipidemia. She is not a smoker. She is not diabetic. She has no history of other vascular disease such as stroke or renal sufficiency. : She stopped taking Plavix at the time of her catheterization. PAST MEDICAL HISTORY Diagnosis Date ASCVD (arteriosclerotic cardiovascular disease) Family history of cardiovascular disease 02/19/2010 Family history of ischemic heart disease 08/31/2007 Myocardial infarction, old 02/19/2010 Dr. Rand manages Obesity 03/13/2006 S/P drug eluting coronary stent placement 3 vessesl Unspecified hypothyroidism PAST SURGICAL HISTORY Procedure Laterality Date COLONOSCOPY FLX DX W/COLLJ SPEC WHEN PFRMD 05/18/1994 Colonoscopy--PATIENT DOES NOT RECALL HAVING ONE DONE LEFT HEART CATH,PERCUTANEOUS 11/07/2024 [facility] LIG/TRNSXJ FLP TUBE ABDL/VAG APPR UNI/BI 05/18/1987 Tubal ligation PAST SURGICAL HISTORY OF breast lumpectomy PAST SURGICAL HISTORY OF 04/15/2010 left septal mass excision (Brayanwing Ball) FAMILY HISTORY Problem Relation Age of Onset Thyroid Sister 2 sisters and one brother Coronary Artery Disease Sister Coronary Artery Disease Brother Social History Tobacco Use Smoking status: Never Smokeless tobacco: Never Vaping Use Vaping status: Never Used Substance Use Topics Alcohol use: No Drug use: No (Not in a hospital admission) aspirin, enteric coated (ASPIRIN, ENTERIC COATED) 81 mg EC tablet Take 81 mg by mouth once daily. metoprolol tartrate, short acting, (LOPRESSOR) 25 mg tablet [facility] tacrolimus (PROTOPIC) 0.1 % ointment Apply topically to affected areas on face every evening levothyroxine (SYNTHROID) 112 mcg tablet TAKE 1 TABLET BY MOUTH DAILY ON AN EMPTY STOMACH FOR THYROID triamcinolone acetonide (KENALOG) 0.1 % cream Apply 1 application to affected area twice daily. Apply sparingly to area for rash/itching on extremities simvastatin (ZOCOR) 40 mg tablet Take 40 mg by mouth once daily. Taking every other day due to leg cramps pyridoxine, vitamin B6, (VITAMIN B6) 100 mg tablet Take 100 mg by mouth once daily. ferrous gluconate 256 mg (28 mg iron) tab Take 1 tablet by mouth every other day. Omeprazole 40 mg capsule Take 1 capsule by mouth once daily. (Dr. Rand) nitroglycerin(NITROSTAT 0.4 MG SUBLINGUAL TAB) Place one(1) tablet on tongue as needed for chest pain. If no pain relief call 911. vibegron (GEMTESA) 75 mg tablet Take 75 mg by mouth once daily. clopidogrel bisulfate(PLAVIX 75 MG TAB) Take one(1) tablet daily. (Patient not taking: Reported on 11/08/2024) ALLERGIES Allergen Reactions Lisinopril Cough Crestor [Rosuvastat* Myalgia muscle aches Lipitor [Atorvastat* Myalgia muscle aches REVIEW OF SYSTEMS: Denies stroke, fever, chills, COPD, sleep apnea, hepatic disease, renal insufficiency, cancer, bleeding, thrombosis. Objective PHYSICAL EXAM: BP 138/70 (BP Site: Left Arm, BP Position: Sitting, BP Cuff Size: Large Adult) Pulse 77 Ht 5' 3 (1.6 m) Wt 155 lb 6.4 oz (70.5 kg) SpO2 98% BMI 27.53 kg/m Body surface area is 1.77 meters squared. On examination, she appears well and is breathing comfortably. Vitals signs are BP 138/70 (BP Site: Left Arm, BP Position: Sitting, BP Cuff Size: Large Adult) Pulse 77 Ht 5' 3 (1.6 m) Wt 155 lb 6.4 oz (70.5 kg) SpO2 98% BMI 27.53 kg/m . There is no JVD. No cervical or supraclavicular adenopathy is palpated. The chest is symmetrical without deformity. Breath sounds are clear bilaterally. The cardiac rhythm is regular. There are no rubs, gallops, or murmurs. The carotid, subclavian, and radial pulses are 2+ and equal bilaterally. The abdomen is soft and non-tender. There are no abdominal masses. There is no hepatojugular reflux. There is no pretibial edema. There is no clubbing or cyanosis. STS RISK CALCULATOR: 1.5 STS Calculator DATA: Diagnostic tests reviewed for today's visit: Left heart catheter; stress test Assessment/Plan Ochoa Douglas is a 78-year-old woman with a history of coronary artery disease and previous PCI who presents with new onset of anginal symptoms marked by exertional fatigue, dyspnea, occasional chest discomfort. Stress test was abnormal. Catheterization confirmed severe multivessel coronary disease. I do agree with the recommendation for multivessel coronary artery bypass grafting. The risks, benefits, and anticipated outcomes of the procedure; the risks and benefits of the alternatives to the procedure; and the roles and tasks of the personnel to be involved were discussed with the patient and she consents to the procedure and agrees to proceed. In preparation for surgery we are requesting a CT of the chest (I think there may be some proximal aortic calcification) and 2D echo. Surgery was scheduled for the near future. The risks, benefits, and anticipated outcomes of the procedure; the risks and benefits of the alternatives to the procedure; and the roles and tasks of the personnel to be involved were discussed with the patient and she consents to the procedure and agrees to proceed. These findings will be communicated back to the requesting provider electronically. SIGNATURE: Peter Hayes MD PATIENT NAME: Ochoa Douglas DATE: November 08, 2024 TIME: 4:36 PM PAGER/CONTACT #: [phone] Procedure Type: Isolated CABG Perioperative Outcome Estimate % Operative Mortality 1.39% Morbidity & Mortality 5.24% Stroke 0.86% Renal Failure 0.933% Reoperation 1.82% Prolonged Ventilation 2.62% Deep Sternal Wound Infection 0.133% Long Hospital Stay (>14 days) 2.56% Short Hospital Stay (<6 days)* 45.5% Clinical Summary Planned Surgery: Isolated CABG, First cardiovascular surgery Demographics: 78 year old, White, female, 67.1kg, 160cm, BMI: 26.2 kg/m Lab Values: Creatinine: 0.98 mg/dL, Hematocrit: 35.1%, WBC Count: 7.14 10 /?L, Platelet Count: 228625 cells/?L Substance Abuse: Former smoker Risk Factors / Comorbidities: Hypertension, Family Hx of CAD Cardiac Status: Ejection Fraction = 50% Coronary Artery Disease: 3 vessels diseased, Stable Angina, PA: > 21 Days Prev. Cardiac Interv: Previous PCI: Not at this facility > 6 hours CARDIAC REHAB 5 METER WALK TEST SERVICE DATE: 11/08/2024 SERVICE TIME: 3:22pm 4.03 sec 3.49 sec 3.61 sec ASSESSMENT: SIGNATURE: Eli Alfred LPN PATIENT NAME: Ochoa Douglas DATE: November 08, 2024 TIME: 3:27 PM PAGER/CONTACT #: [phone] documented in this encounter [facility] 11-08-2024 Instructions Ely Ayoub APRN.NICOLA - 11/08/2024 4:14 PM EDT You came in to see Dr. Hayes today for surgical evaluation of multivessel coronary disease, by reviewing your images/clinical data, Dr. Hayes recommend the following: Reviewed your history and imaging with today Discussed your recent new symptoms with you Recommend moving forward with heart surgery Will need to have a few other tests done prior to surgery. Our staff will schedule these for you. The tests that we need are carotid ultrasound, chest ct scan and echo (ultrasound of your heart). Once these are completed. We will review them and look for a surgery date for you. Prior to your surgery date you will need to be seen by one of the nurse practitioner for pre op education. The camp housekeeper will update you with all these dates and times soon Thanks for coming in to see us today. Please call us if you have any concerns/questions: [phone] Ely Ayoub APRN.NICOLA Cardiothoracic surgery MEDICATION SPECIALIST documented in this encounter [facility] 11-08-2024 Note HNO ID: [id number] Author: ELY AYOUB APRN.NICOLA Service: ? Author Type: Nurse Practitioner Type: Progress Notes Filed: 11/08/2024 16:43 Note Text: Procedure Type: Isolated CABG Perioperative Outcome Estimate % Operative Mortality 1.39% Morbidity AND Mortality 5.24% Stroke 0.86% Renal Failure 0.933% Reoperation 1.82% Prolonged Ventilation 2.62% Deep Sternal Wound Infection 0.133% Long Hospital Stay (>14 days) 2.56% Short Hospital Stay (<6 days)* 45.5% Clinical Summary Planned Surgery: Isolated CABG, First cardiovascular surgery Demographics: 78 year old, White, female, 67.1kg, 160cm, BMI: 26.2 kg/m? Lab Values: Creatinine: 0.98 mg/dL, Hematocrit: 35.1%, WBC Count: 7.14 10?/?L, Platelet Count: 016977 cells/?L Substance Abuse: Former smoker Risk Factors / Comorbidities: Hypertension, Family Hx of CAD Cardiac Status: Ejection Fraction = 50% Coronary Artery Disease: 3 vessels diseased, Stable Angina, PA: > 21 Days Prev. Cardiac Interv: Previous PCI: Not at this facility > 6 hours [facility] 11-08-2024 Note HNO ID: [id number] Author: ELI ALFRED LPN Service: ? Author Type: LICENSED NURSE Type: Progress Notes Filed: 11/08/2024 16:43 Note Text: CARDIAC REHAB 5 METER WALK TEST SERVICE DATE: 11/08/2024 SERVICE TIME: 3:22pm 4.03 sec 3.49 sec 3.61 sec ASSESSMENT: SIGNATURE: Eli Alfred LPN PATIENT NAME: Ochoa Douglas DATE: November 08, 2024 TIME: 3:27 PM PAGER/CONTACT #: [phone] [facility] 10-24-2024 Radiology Diagnostic study note [facility] Imaging Services [address] [place], [place] [address] Chest PA and Lateral MR#: [id number] Acct: [id number] Name: OCHOA DOUGLAS Rep #: [id number] : 1945 F 78 From: Nela Clancy MD PCP: Dr. Bora Marie DO Status: PRE [facility] Study:Chest PA and Lateral Date of Exam: 10/24/24 Exam# [id number] Ordering Dr: Linwood Vasquez PROCEDURE: CHEST PA AND LATERAL 10/24/2024 REASON FOR EXAM: PRE-OPERATIVE FOR [facility] TECHNIQUE: Frontal and lateral views of the chest. COMPARISON: 06/22/2021 FINDINGS: No focal consolidations. No pleural effusion or pneumothorax. Cardiac silhouette is within normal limits. No acute fractures. Atherosclerotic aortic arch. RAD/Chest PA and Lateral IMPRESSION: No focal consolidations. Reading Location: [id number] CC: Dr. Bora Marie DO; JOAN Azar ~ Prep Room Supervisor: Signed [facility] 10-24-2024 Evaluation note Diagnosis Onset Date Resolution Abnormal stress test acute October 24, 2024 1:52pm Essential hypertension acute October 24, 2024 1:52pm Fatigue acute October 24, 2024 1:52pm Atherosclerotic heart disease of alutiiq coronary artery without angina pectoris chronic October 24, 2024 1:52pm History of coronary artery stent placement July, chronic October 24, 2024 1:52pm Hyperlipidemia chronic October 24, 2024 1:52pm [facility] Work Phone: 1(212) 894-350206-09-2025 Evaluation note* Diagnosis Onset Date Resolution Status Admit Date Abnormal stress test acute October 24, 2024 1:52pm Essential hypertension acute Ju 2024 1:52pm Fatigue acute October 24, 2024 1:52pm 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 chronic October 1:52pm History of coronary artery stent placement July, chronic October 24, 2024 1 :52pm Hyperlipidemia chronic October 24, 2024 1:52pm Essential hypertension acute Se pt2024 8:48am 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 chronic Janembe r 2024 8:48am History of coronary artery stent placement July,January 18 8:48am Hyperlipidemia chronic January 18, 2025 8:48am [facility] Work Phone: 1(724) 827-363906-09-2025 Evaluation note* Diagnosis Onset Date Resolution Status Admit Date Abnormal stress test acute October 24, 2024 1:52pm Essential hypertension acute Ju ne 2024 1:52pm Fatigue acute October 24, 2024 1:52pm 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 chronic October 1:52pm History of coronary artery stent placement July,October 24, 2024 1 :52pm Hyperlipidemia chronic October 24, 2024 1:52pm Essential hypertension acute Se ptember 2024 8:48am 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 chronic r 2024 8:48am Hyperlipidemia January 18, 2025 8:48am [facility] Work Phone: 1(525) 139-450204-16-2025 Evaluation note* Diagnosis Onset Date Resolution Status Admit Date Essential hypertension acute Ap ril 2024 1:19pm Fatigue acute August 31 1:19pm 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 chronic August 31, 2024 1:19pm History of coronary artery s tent placement July,August 31, 2024 1:19pm Hyperlipidemia chronic August 1:19pm [facility] Work Phone: 1(963) 766-328704-16-2025 Evaluation note* Diagnosis Onset Date Resolution Status Admit Date Essential hypertension acute Ap ril 2024 1:19pm Fatigue acute August 31 1:19pm 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 chronic August 31, 2024 1:19pm History of coronary artery s tent placement July, chronic August 31, 2024 1:19pm Hyperlipidemia chronic August 1:19pm Essential hypertension acute Ju ne 2024 1:52pm Fatigue acute October 24, 2024 1:52pm 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 chronic October 24, 2024 1 :52pm History of coronary artery s tent placement July,October 24, 2024 1 :52pm Hyperlipidemia chronic October 24, 2024 1:52pm [facility] Work Phone: [phone]) [phone] Evaluation note* Diagnosis Onset Date Resolution Status Admit Date Essential hypertension acute Ap 2024 1:19pm Fatigue acute August 31 1:19pm 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 chronic August 31, 2024 1:19pm History of coronary artery s tent placement July, chronic August 31, 2024 1:19pm Hyperlipidemia chronic August 1:19pm Abnormal stress test acute October 24, 2024 1:52pm Essential hypertension acute 2024 1:52pm Fatigue acute October 24, 2024 1:52pm 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 chronic October 24, 2024 1 :52pm History of coronary artery s tent placement July, chronic October 24, 2024 1 :52pm Hyperlipidemia chronic October 24, 2024 1:52pm [facility] Work Phone: 1(543) 518-288002-14-2024 Discharge summary Author Zoya Teixeira [facility] July 01, 2023 11:32am Note Date/Time July 01, 2023 11:32am [facility] Physical Therapy [facility] [address] [place] [address] [address] [place] [address] / REHABILITATION SERVICES DISCHARGE SUMMARY MR#: [id number] Acct: [id number] Name: OCHOA DOUGLAS Rep #: [id number] : 1945 77 From: Zoya Teixeira PT, Cert. MDT Referring Dr.: Dr. Florence Godfrey MD Status: REG RCR Insurance: MEDICARE PART A B [employer] SR SUPPLEMENT INS Discharge Summary D/C summary: It has been my pleasure to treat OCHOA DOUGLAS referred by Dr. Florence Godfrey MD, with the diagnosis of INCONTINENCE for a total of 10 visit(s). Discharge Date: Please see the following information for a summary of their discharge status. Subjective Subjective: PATIENT STATES SHE FEELS LIKE SHE IS STRONGER AND THERRAPY HAS BEEN VERY HELPFUL. SHE REPORTS SHE PLANS TO CONTINUE WHAT SHE HAS LEARNED IN PT MUCH SHE IS ABLE. SHE STATES SHE WISHES SHE WERE ABLE TO PUT MORE TIME INTO IT BUT SHE DOESWHAT SHE CAN. SHE STATES SHE IS DEALING WITH A LOT WITH HER DAUGHTER AND GRANDSON IN ADDITION TO HER HAVING SURGERY TOMORROW. DESPITE THIS PATIENT REPORTS CONTINUED IMPROVEMENT IN HER SYMPTOMS AND STATES SELDOM DO I EVER HAVE A PROBLEM NOW. I ENJOYED LEARNING ABOUT THESE THINGS I NEVER KNEW ABOUT. Overall Improvement % Improvement: 85 Objective Objective/Function: PATIENT WAS SEEN TODAY FOR RE-ASSESSMENT OF PROGRESS TOWARD THE SET PT GOALS AND THE NEED FOR FURTHER PHYSICAL THERAPY VS READINESS FOR DISCHARGE. PATIENT HAS MET OR MADE GOOD PROGRESS TOWARD ALL PT GOALS AND IS INDEP WITH A HEP. SHE HAS ONLY BEEN ABLE TO BE PARTIALLY COMPLIANT WITH HOME INSTRUCTIONS DUE TO HER HOME SITUATION AND NEEDS TO STOP PT AT THIS TIME DUE TO SAME. FUNCTIONAL SCREEN: Incontinence Impact Questionnaire Score: 4 Urogenital Distress Inventory Score: 5 Goals Goal 1:: DECREASE URINARY LEAKAGE EPISODES TO ONE OR LESS PER DAY Goal Progress: Goal Met Goal 2:: PATIENT WILL SUCCESSFULLY DELAY VOIDING LONG NEEDED WHEN URGENCY OCCURS TO SUCCESSFULLY MAKE IT TO THE BATHROOM. Goal Progress: Goal Met Goal 3:: PATIENT WILL DEMONSTRATE/COMMUNICATE 10 CONSISTENT AND CONSECUTIVE 10 SECOND PELVIC FLOOR MUSCLE CONTRACTIONS TO DEMONSTRATE IMPROVED PELVIC FLOOR ENDURANCE. Goal Progress: Progressing Goal 4:: DEVELOP HEALTHY FLUID INTAKE HABITS WITH FLUID INTAKE OF ? BODY WEIGHT IN OUNCES PER DAY AND 2/3 BEING WATER. Goal Progress: Goal Met Goal 5:: NORMALIZE VOIDING FREQUENCEY TO EVERY 3-4 HOURS. Goal Progress: Goal Met Goal 6:: PATIENT WILL BE INDEP WITH A HEP/HOME INSTRUCTIONS FOR CONTINUED IMPROVEMENT ONCE FORMAL PHYSICAL THERAPY CONCLUDES. Goal Progress: Goal Met Plan Plan: D/C TO HEP. D/C Information d/c sentence: If there are questions or concerns regarding this patient's physical therapy, please feel free to call me at [phone]. Thank you for the referral of thispatient. Sincerely, Zoya Teixeira, PT, Cert MDT Balance/Gait/Functional tests Improvement % Improvement: 85 <Electronically signed by Zoya Teixeira PT, Cert. MDT> 07/01/23 1132 CC: Dr. Florence Godfrey MD; Dr. Vero Garcia MD ~ ALO Signed [facility] Work Phone: 1(253) 212-904405-11-2023 Miscellaneous Notes* Addendum Note - Chano Baltazar APRN.CNS - 09/25/2022 11:06 AM EDTAddended by: CHANO BALTAZAR on: 09/25/2022 11:06 AM Modules accepted: Orders, SmartSet documented in [facility] History of Present illness Narrative* Chano Baltazar APRN.CNS - 09/25/2022 10:40 AM EDT SUBJECTIVE: DEPRESSION ASSESSMENT Never done HPI Ochoa Douglas is a 76 year old female. PMH is significant for ACTIVE PROBLEM LIST Hypothyroidism Obesity Family History of Ischemic Heart Disease Mixed Hyperlipidemia Cardiovascular Disease Anemia Myocardial Infarction, Old Family History of Cardiovascular Disease Essential Hypertension Presents today for routine follow up visit. HPI excerpted from previous visit: Presents today for emergency department follow-up visit. She has history of CAD hyperlipidemia hypertension GERD. Status post cardiac stents in 2008 in [place]. She is followed locally by [facility]. She presented with intermittent sensation of palpitations and chest pressure prior to arrival in [facility] emergency department 06/22/2021. Concern regarding indigestion or heartburn versus cardiac source. She reported lightheadedness not necessarily correlated with chest pain. She had similar vague symptoms prior to coronary artery stents placed in 2008. Exam was unremarkable. EKG showed normal sinus rhythm without ischemic changes or dysrhythmia. Chest x-ray with no acute process. CBC and BMP unremarkable. High-sensitivity troponin was 4.account 8 ACS ruled out. Low suspicion for PE. O2 sats 100%. Impression was noncardiac chest pain and dyspepsia. She was advised to follow-up with Dr. Rand. No treatment provided in ER. No change in medications at discharge. Current symptoms: She continues to note some mild malaise, notes feeling a bit run down, heartburn type symptoms are decreased. Has been taking PPI consistently. Follow-up appointment cardiology: Has not scheduled yet with cardiology Without report of headache, palpitations, dyspnea, peripheral edema, orthopnea, or PND. She notes not walking as much as she used to due to caring for her grandchild at times who is now living in the home. She notes caring for her grandson that is nearly 2-1/2. Notes daughter has behavioral health issues. Cardiology: Dr [facility]. She notes a visit last week, no changes made. Take statinevery other day to decrease myalgias. Continues on Plavix. HTN: Without report of headache, chest pain, palpitations, dyspnea, peripheral edema, orthopnea, fatigue, and PND. Last 14 Encounter BP Readings: Date: BP: 11/25/2021 126/66 07/09/2021 138/72 10/17/2020 138/70 02/28/2019 110/70 09/01/2018 122/72 02/23/2018 122/70 08/18/2017 128/80 06/23/2017 136/82 02/03/2017 118/74 08/13/2016 138/74 07/07/2016 130/72 01/01/2016 122/68 07/20/2015 140/88 06/29/2015 124/56 Hyperlipidemia. Ms. Douglas reports doing well on current therapy. Her most recent lipid panels are: Cholesterol, Total (mg/dL) Date Value 09/06/2022 189 03/16/2020 200 02/28/2019 197 Cholesterol (mg/dL) Date Value 08/20/2020 214 HDL Cholesterol (mg/dL) Date Value 09/06/2022 54 08/20/2020 68 03/16/2020 65 02/28/2019 62 LDL Cholesterol (mg/dL) Date Value 09/06/2022 124 08/20/2020 132 03/16/2020 123 02/28/2019 122 Triglyceride (mg/dL) Date Value 09/06/2022 57 08/20/2020 68 03/16/2020 62 02/28/2019 65 GERD: Without current complaints Taking PPI. Yes Anemia: Taking 28 mg of iron every other day Hypothyroidism. She is doing well on her current dose of Synthroid. TSH Date Value 09/06/2022 4.670 mIU/L 06/26/2021 2.550 uU/mL 03/16/2020 3.800 uU/mL ) She reports left knee pain and swelling about a week ago now resolved. No reported injury. No locking or giving way. Does notice crepitus. Review of Systems Respiratory: Negative. Objective BP 137/72 Pulse 72 Resp 16 Ht 160 cm (5' 3) Wt 66.7 kg (147 lb) SpO2 100% BMI 26.04 kg/m Physical Exam Vitals and nursing note reviewed. Constitutional: Appearance: Normal appearance. HENT: Head: Normocephalic and atraumatic. Eyes: Conjunctiva/sclera: Conjunctivae normal. Neck: Thyroid: No thyromegaly. Vascular: Normal carotid pulses. No JVD. Cardiovascular: Rate and Rhythm: Normal rate and regular rhythm. Pulses: Carotid pulses are 2+ on the right side and 2+ on the left side. Radial pulses are 2+ on the right side and 2+ on the left side. Heart sounds: Normal heart sounds. Pulmonary: Effort: Pulmonary effort is normal. Breath sounds: Normal breath sounds. Abdominal: General: Bowel sounds are normal. Palpations: Abdomen is soft. Musculoskeletal: Right lower leg: No edema. Left lower leg: No edema. Skin: General: Skin is warm and dry. Neurological: General: No focal deficit present. Mental Status: She is alert and oriented to person, place, and time. ALLERGIES Allergen Reactions Crestor [Rosuvastat* Myalgia muscle aches Lipitor [Atorvastat* Myalgia muscle aches Medications triamcinolone acetonide (KENALOG) 0.1 % cream Apply 1 application to affected area twice daily. Apply sparingly to area for rash/itching on extremities simvastatin (ZOCOR) 40 mg tablet Take 40 mg by mouth once daily. Taking every other day due to leg cramps pyridoxine, vitamin B6, (VITAMIN B6) 100 mg tablet Take 100 mg by mouth once daily. ferrous gluconate 256 mg (28 mg iron) tab Take 1 tablet by mouth every other day. Omeprazole 40 mg capsule Take 1 capsule by mouth once daily. (Dr. Rand) metoprolol succinate(TOPROL XL 25 MG 24 HR TAB) Take half tablet twice a day. clopidogrel bisulfate(PLAVIX 75 MG TAB) Take one(1) tablet daily. nitroglycerin(NITROSTAT 0.4 MG SUBLINGUAL TAB) Place one(1) tablet on tongue as needed for chest pain. If no pain relief call 911. [START ON 11/25/2022] levothyroxine (SYNTHROID) 112 mcg tablet TAKE 1 TABLET BY MOUTH DAILY ON AN EMPTY STOMACH FOR THYROID PAST MEDICAL HISTORY Diagnosis Date ASCVD (arteriosclerotic cardiovascular disease) Family history of cardiovascular disease 02/19/2010 Myocardial infarction, old 02/19/2010 Dr. Rand manages S/P drug eluting coronary stent placement 3 vessesl Unspecified hypothyroidism Social History Tobacco Use Smoking status: Never Smokeless tobacco: Never Substance Use Topics Alcohol use: No Drug use: No Component Latest Ref Rng & Units 06/26/2021 09/06/2022 WBC 3.70 - 11.00 k/uL 6.70 6.14 RBC 3.90 - 5.20 m/uL 3.61 (L) 3.28 (L) Hemoglobin 11.5 - 15.5 g/dL 11.0 (L) 9.9 (L) Hematocrit 36.0 - 46.0 % 33.2 (L) 31.7 (L) MCV 80.0 - 100.0 fL 92.0 96.6 MCH 26.0 - 34.0 pg 30.5 30.2 MCHC 30.5 - 36.0 g/dL 33.1 31.2 RDW-CV 11.5 - 15.0 % 12.6 13.0 Platelet Count 150 - 400 k/uL 243 328 MPV 9.0 - 12.7 fL 10.2 11.7 Neut% % 47.7 Abs Neut (ANC) 1.45 - 7.50 k/uL 2.93 Lymph% % 37.1 Abs Lymph 1.00 - 4.00 k/uL 2.28 Pettis% % 9.8 Abs Pettis <0.87 k/uL 0.60 Eosin% % 4.1 Abs Eosin <0.46 k/uL 0.25 Baso% % 1.1 Abs Baso <0.11 k/uL 0.07 Immature Gran % % 0.2 IMMATURE GRANS (ABS) <0.10 k/uL <0.03 NRBC /100 WBC 0.0 Absolute nRBC <0.01 k/uL <0.01 <0.01 DTYPE Auto Protein, Total 6.3 - 8.0 g/dL 7.4 Albumin 3.9 - 4.9 g/dL 4.1 Calcium 8.5 - 10.2 mg/dL 8.8 9.4 Bilirubin, Total 0.2 - 1.3 mg/dL 0.3 Alkaline Phosphatase 34 - 123 U/L 68 AST 13 - 35 U/L 32 ALT 7 - 38 U/L 16 Glucose 74 - 99 mg/dL 87 79 BUN 7 - 21 mg/dL 17 19 Creatinine 0.58 - 0.96 mg/dL 0.90 0.93 Sodium 136 - 144 mmol/L 141 141 Potassium 3.7 - 5.1 mmol/L 4.1 4.4 Chloride 97 - 105 mmol/L 102 105 CO2 22 - 30 mmol/L 27 27 Anion Gap 9 - 18 mmol/L 12 9 eGFR >=60 mL/min/1.73m 64 eGFR- >60 eGFR-All Other Races . >60 Cholesterol, Total <200 mg/dL 189 Triglyceride <150 mg/dL 57 HDL Cholesterol >39 mg/dL 54 Non HDL Cholesterol <130 mg/dL 135 (H) Fasting Time hrs 12 VLDL Cholesterol <30 mg/dL 11 TC:HDL Ratio <5.10 3.50 LDL Cholesterol <100 mg/dL 124 (H) LDL:HDL Ratio <2.54 2.30 TSH 0.270 - 4.200 mIU/L 2.550 4.670 (H) Free T3 2.3 - 4.1 pg/mL 2.7 Free T4 0.9 - 1.7 ng/dL 1.3 Magnesium 1.7 - 2.3 mg/dL 2.0 ASSESSMENT/PLAN: 1. Acquired hypothyroidism - ICD9: 244.9, ICD10: E03.9 (primary diagnosis) - Take on an empty stomach either first thing in the morning or at bedtime. - continue current dose of Synthroid If feeling fatigue or weight gain can increase dose of levothyroxine 2. Acute pain of left knee - ICD9: 719.46, ICD10: M25.562 Now resolved. Consider further evaluation if recurrence. RICE if does recur Tylenol or ibuprofen as needed - XR KNEE GENERAL 4V AP BOTH/PA BOTH/LAT/MERC LEFT - CONSULT TO ORTHOPAEDICS 3. Essential hypertension - ICD9: 401.9, ICD10: I10 controlled - Continue current medication(s) - Encouraged dietary sodium restriction/DASH diet - Recommended regular aerobic exercise. 4. Mixed hyperlipidemia - ICD9: 272.2, ICD10: E78.2 controlled, per cardiology 5. Anemia Chronic, defers additional work up at this time. Consider increasing iron to 325mg QOD Chano Baltazar APRN.CNS Depression screening tool completed and reviewed. Based on score and interview, patient is not at risk for depression. Screening tool discussed with patient, and I recommended no further interventionat this time. 6 mo follow up visit with PCP with labs Medical Decision Making: Problems: Moderate: 2+ stable chronic illnesses Data: Unique test(s) ordered: 3+ Risk: Moderate: Drug management Medical Decision Making Level: 4 - Moderate documented in this encounterBet[facility]04[facility] History of Present illness Narrative* Ana Mccarthy APRN.CNP - 09/03/2022 1:31 PM EDT Ravi Mccauley, lab orders have been placed. * Parisa Rosenberg MA - 09/03/2022 7:45 AM EDT POPULATION HEALTH NAVIGATION OUTREACH Action/I Please order labs. Spoke to Ochoa. Scheduled medicare wellness ANNUAL MEDICARE WELLNESS EXAM Patient Identified by Name and : YES, via phone Outreach Outcome/Action Spoke to patient / parent / legal guardian: Patient scheduled Did you use a PCP flex slot to schedule this appointment? N/A Reason for Outreach Care Gap or Scheduling/Wellness visits Payer: Payor: AETNA / Plan: AETNA MEDICARE SUPPLEMENT / Product Type: Indemnity / Care Gap Reviewed:: Annual Wellness visit Reminder: Reminder note to check Health Maintenance for items below Health Maintenance items due: DEPRESSION ASSESSMENT Never done Navigation Signature: Parisa Rosenberg MA September 03, 2022 7:45 AM documented in this encounterBethesda [facility] Hospital12-22-2022 History of Present illness Narrative* Parisa Rosenberg MA - 05/08/2022 8:06 AM EST POPULATION HEALTH NAVIGATION OUTREACH Action/FYI NOT AVAILABLE [employer] MESSAGE SENT ANNUAL MEDICARE WELLNESS COLONOSCOPY INFLUENZA(1) due on 01/16/2022 Pt identified by name and : NO Outreach Outcome/Action Unable to reach patient: Phone number not valid / voicemail full [employer] message sent Did you use a PCP flex slot to schedule this appointment? N/A Reason for Outreach Care Gap or Scheduling/Wellness visits Payer: Payor: AETNA / Plan: AETNA MEDICARE SUPPLEMENT / Product Type: Indemnity / Care Gap Reviewed:: Annual Wellness visit Colorectal Cancer Screening Flu vaccine Reminder: Reminder note to check Health Maintenance for items below Health Maintenance items due: DEPRESSION ASSESSMENT Never done INFLUENZA(1) due on 01/16/2022 Navigation Signature: Parisa Rosenberg MA May 08, 2022 8:06 AM documented in this encounterBethesda [facility] Hospital07-11-2022 History of Present illness Narrative* Vero Garcia MD - 11/25/2021 8:12 AM EDT This note was created using [email or web address]. Subjective Ochoa Douglas is a 76 year old female. Patient presents with: F/U 6 months SUBJECTIVE: Ochoa Douglas is a 76 year old year old lady here today for 6 month follow up appointment for review of medical conditions. Depression Screening 02/23/2018 02/28/2019 10/17/2020 11/25/2021 PHQ-2 Score 0 0 0 0 PHQ-9 Score - - 0 - Depression screening tool completed and reviewed. Based on score and interview, patient is not at risk for depression. Screening tool discussed with patient, and I recommended no further interventionat this time. PAST MEDICAL HISTORY Diagnosis Date ASCVD (arteriosclerotic cardiovascular disease) Family history of cardiovascular disease 02/19/2010 Myocardial infarction, old 02/19/2010 Dr. Rand manages S/P drug eluting coronary stent placement 3 vessesl Unspecified hypothyroidism Current Outpatient Medications Medication Sig levothyroxine (SYNTHROID) 112 mcg tablet TAKE 1 TABLET BY MOUTH DAILY ON AN EMPTY STOMACH FOR THYROID triamcinolone acetonide (KENALOG) 0.1 % cream Apply 1 application to affected area twice daily. Apply sparingly to area for rash/itching on extremities simvastatin (ZOCOR) 40 mg tablet Take 40 mg by mouth once daily. Taking every other day due to leg cramps pyridoxine, vitamin B6, (VITAMIN B6) 100 mg tablet Take 100 mg by mouth once daily. ferrous gluconate 256 mg (28 mg iron) tab Take 1 tablet by mouth every other day. Omeprazole 40 mg capsule Take 1 capsule by mouth once daily. (Dr. Rand) metoprolol succinate(TOPROL XL 25 MG 24 HR TAB) Take half tablet twice a day. clopidogrel bisulfate(PLAVIX 75 MG TAB) Take one(1) tablet daily. nitroglycerin(NITROSTAT 0.4 MG SUBLINGUAL TAB) Place one(1) tablet on tongue as needed for chest pain. If no pain relief call 911. No current facility-administered medications for this visit. Review of Systems Objective BP 140/80 Pulse 60 Wt 66.2 kg (146 lb) SpO2 99% BMI 25.86 kg/m Last 5 Encounter Wt Readings: Date: Wt: 11/25/2021 66.2 kg (146 lb) 07/09/2021 66.2 kg (146 lb) 10/17/2020 72.6 kg (160 lb) 02/28/2019 73 kg (161 lb) 09/01/2018 79.8 kg (176 lb) No waist measurement recorded Estimated body mass index is 25.86 kg/m as calculated from the following: Height as of 07/20/15: 160 cm (5' 3). Weight as of this encounter: 66.2 kg (146 lb). Last 5 Encounter BP Readings: Date: BP: 11/25/2021 140/80 07/09/2021 138/72 10/17/2020 138/70 02/28/2019 110/70 09/01/2018 122/72 Physical Exam Constitutional: Appearance: Normal appearance. HENT: Head: Normocephalic. Eyes: Conjunctiva/sclera: Conjunctivae normal. Cardiovascular: Rate and Rhythm: Normal rate and regular rhythm. Heart sounds: Normal heart sounds. Pulmonary: Effort: Pulmonary effort is normal. Breath sounds: Normal breath sounds. Skin: General: Skin is warm and dry. Neurological: General: No focal deficit present. Mental Status: She is alert and oriented to person, place, and time. Psychiatric: Attention and Perception: Attention and perception normal. Mood and Affect: Mood normal. Speech: Speech normal. Behavior: Behavior normal. Thought Content: Thought content normal. Cognition and Memory: Cognition normal. Judgment: Judgment normal. Assessment and Plan ASSESSMENT/PLAN: 1. Acquired hypothyroidism - ICD9: 244.9, ICD10: E03.9 (primary diagnosis) - Instructed patient on importance of taking on an empty stomach either first thing in the morning or at bedtime. Clinically euthyroid. TSH fine. Continue to adjust dose of replacement as indicated based on symptoms and labs. - TSH BLD 2. Essential hypertension - ICD9: 401.9, ICD10: I10 - good control - Continue current medication(s) - Recommended regular aerobic exercise. - Recommend home blood pressure monitoring, to bring results in on next visit - Goal of BP <130/80 - CBC - BASIC METABOLIC PNL 3. Medication management - ICD9: V58.69, ICD10: Z79.899 - CBC - BASIC METABOLIC PNL Doing well from cardiac standpoint--follows with Dr. Rand yearly. 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 Hyperlipidemia [facility] Work Phone: Evaluation note* Diagnosis Acquired hypothyroidism- Primary Unspecified hypothyroidism Essential hypertension Unspecified essential hypertension Medication management Encounter for long-term (current) use of other medications documented in this encounter [facility]* Diagnosis Encounter for therapeutic drug monitoring- Primary Mixed hyperlipidemia Acquired hypothyroidism Unspecified hypothyroidism Anemia, unspecified type documented in this encounter [facility] note* Diagnosis Acquired hypothyroidism- Primary Unspecified hypothyroidism Acute pain of left knee Essential hypertension Unspecified essential hypertension Mixed hyperlipidemia Anemia, unspecified type documented in this encounter [facility] noteNo assessment information availableWWayne Hospital Work Phone: Evaluation note* Diagnosis Unspecified hypothyroidism- Primary Myocardial infarction, 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 Family history of cardiovascular disease Family history of other cardiovascular diseases Anemia Anemia, unspecified ASCVD Unspecified cardiovascular disease ASCVD- Primary Unspecified cardiovascular disease HYPERLIPIDEMIA NEC/NOS Other and unspecified hyperlipidemia Anemia Anemia, unspecified HYPOTHYROIDISM NOS Unspecified hypothyroidism Chest pain, unspecified type- Primary Cardiovascular disease Unspecified cardiovascular disease Myocardial infarction, 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 Essential hypertension Unspecified essential hypertension Pre-op chest exam- Primary Pre-operative respiratory examination 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 (HCC) Other specified symptoms and signs involving the circulatory and respiratory systems [facility] Diagnosis Unspecified hypothyroidism- Primary Myocardial infarction, 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 Family history of cardiovascular disease Family history of other cardiovascular diseases Anemia Anemia, unspecified ASCVD Unspecified cardiovascular disease ASCVD- Primary Unspecified cardiovascular disease HYPERLIPIDEMIA NEC/NOS Other and unspecified hyperlipidemia Anemia Anemia, unspecified HYPOTHYROIDISM NOS Unspecified hypothyroidism Chest pain, unspecified type- Primary Cardiovascular disease Unspecified cardiovascular disease Myocardial infarction, 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 Essential hypertension Unspecified essential hypertension Coronary artery disease involving alutiiq coronary artery of alutiiq heart without angina pectoris- Primary Preoperative testing Preoperative examination, unspecified Cardiovascular disease Unspecified cardiovascular disease Other specified symptoms and signs involving the circulatory and respiratory systems Abnormal finding of blood chemistry, unspecified Dyspnea, unspecified type Coronary artery disease involving alutiiq coronary artery of alutiiq heart without angina pectoris documented in this encounter [facility]* Diagnosis Unspecified hypothyroidism- Primary Myocardial infarction, 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 Family history of cardiovascular disease Family history of other cardiovascular diseases Anemia Anemia, unspecified ASCVD Unspecified cardiovascular disease ASCVD- Primary Unspecified cardiovascular disease HYPERLIPIDEMIA NEC/NOS Other and unspecified hyperlipidemia Anemia Anemia, unspecified HYPOTHYROIDISM NOS Unspecified hypothyroidism Chest pain, unspecified type- Primary Cardiovascular disease Unspecified cardiovascular disease Myocardial infarction, 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 Essential hypertension Unspecified essential hypertension Urinary retention- Primary Retention of urine, unspecified Encounter for Ramesh catheter removal Fitting and adjustment of urinary device [facility]* Diagnosis Unspecified hypothyroidism- Primary Myocardial infarction, 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 Family history of cardiovascular disease Family history of other cardiovascular diseases Anemia Anemia, unspecified ASCVD Unspecified cardiovascular disease ASCVD- Primary Unspecified cardiovascular disease HYPERLIPIDEMIA NEC/NOS Other and unspecified hyperlipidemia Anemia Anemia, unspecified HYPOTHYROIDISM NOS Unspecified hypothyroidism Chest pain, unspecified type- Primary Cardiovascular disease Unspecified cardiovascular disease Myocardial infarction, 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 Essential hypertension Unspecified essential hypertension Urine retention- Primary Retention of urine, unspecified [facility] Diagnosis Unspecified hypothyroidism- Primary Myocardial infarction, 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 Family history of cardiovascular disease Family history of other cardiovascular diseases Anemia Anemia, unspecified ASCVD Unspecified cardiovascular disease ASCVD- Primary Unspecified cardiovascular disease HYPERLIPIDEMIA NEC/NOS Other and unspecified hyperlipidemia Anemia Anemia, unspecified HYPOTHYROIDISM NOS Unspecified hypothyroidism Chest pain, unspecified type- Primary Cardiovascular disease Unspecified cardiovascular disease Myocardial infarction, 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 Essential hypertension Unspecified essential hypertension S/P CABG (coronary artery bypass graft)- Primary Postsurgical 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 Coronary atherosclerosis of unspecified type of vessel, alutiiq or graft Hypervolemia, unspecified hypervolemia type Acute post-operative pain [facility] Diagnosis Unspecified hypothyroidism- Primary Myocardial infarction, 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 Family history of cardiovascular disease Family history of other cardiovascular diseases Anemia Anemia, unspecified ASCVD Unspecified cardiovascular disease ASCVD- Primary Unspecified cardiovascular disease HYPERLIPIDEMIA NEC/NOS Other and unspecified hyperlipidemia Anemia Anemia, unspecified HYPOTHYROIDISM NOS Unspecified hypothyroidism Chest pain, unspecified type- Primary Cardiovascular disease Unspecified cardiovascular disease Myocardial infarction, 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 Essential hypertension Unspecified essential hypertension S/P CABG (coronary artery bypass graft) Postsurgical aortocoronary bypass status [facility] Diagnosis Unspecified hypothyroidism- Primary Myocardial infarction, 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 Family history of cardiovascular disease Family history of other cardiovascular diseases Anemia Anemia, unspecified ASCVD Unspecified cardiovascular disease ASCVD- Primary Unspecified cardiovascular disease HYPERLIPIDEMIA NEC/NOS Other and unspecified hyperlipidemia Anemia Anemia, unspecified HYPOTHYROIDISM NOS Unspecified hypothyroidism Chest pain, unspecified type- Primary Cardiovascular disease Unspecified cardiovascular disease Myocardial infarction, 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 Essential hypertension Unspecified essential hypertension S/P CABG (coronary artery bypass graft)- Primary Postsurgical 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 Coronary atherosclerosis of unspecified type of vessel, alutiiq or graft Postoperative anemia due to acute blood loss Acute posthemorrhagic anemia Essential hypertension Unspecified essential hypertension [facility] Diagnosis Unspecified hypothyroidism- Primary Myocardial infarction, 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 Family history of cardiovascular disease Family history of other cardiovascular diseases Anemia Anemia, unspecified ASCVD Unspecified cardiovascular disease ASCVD- Primary Unspecified cardiovascular disease HYPERLIPIDEMIA NEC/NOS Other and unspecified hyperlipidemia Anemia Anemia, unspecified HYPOTHYROIDISM NOS Unspecified hypothyroidism Chest pain, unspecified type- Primary Cardiovascular disease Unspecified cardiovascular disease Myocardial infarction, 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 Essential hypertension Unspecified essential hypertension Anemia, unspecified type- Primary Cardiovascular disease Unspecified cardiovascular disease Essential hypertension Unspecified essential hypertension Myocardial infarction, 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 documented in this encounter [facility] for referral (narrative)No reason for referral information availableWWayne Hospital Work Phone: Summary Purpose Family History No Family History Records Found Relationship Condition Age at Onset Recorded Date/T anibal sister Cardiac disease Unknown brother Coronary artery disease Unknown Myocardial infarction Unknown Sudden cardiac Unknown daughter Disorder of thyroid Unknown Advance Directives No Advanced Directives Records Found Date Activated Date Inactivated Comments 11/27/2024 9:06 PM 12/05/2024 5:51 PM Question Answer Comments Full Code Order Discussed With: Patient Advance Directive Response Recorded Date/ Time Living Will Yes June 22 11:56am Power of Pals Specialist Yes June 22, 2021 11:56am Advance Directive Response Recorded Date/ Time Living Will Yes June 22 10:56am Power of Pals Specialist Yes June 22, 2021 10:56am Advance Directive Response Recorded Date/ Time Advance Directives on File Yes November 07, 2024 7:46am Living Will Yes November 07, 2024 7:46am Do you have a Healthcare Power of Pals Specialist? Yes November 07, 2024 7:46am Name of Medical Power of Pals Specialist Susan Douglas November 07, 2024 7:46am Advance Directives Yes November 07 7:46am Date Activated Date Inactivated Comments 11/27/2024 9:06 PM Date Activated Date Inactivated Comments 11/27/2024 9:06 PM 12/05/2024 5:51 PM Question Answer Comments Full Code Order Discussed With: Patient Advance Directive Response Recorded Date/ Time Advance Directives on File Yes November 07, 2024 7:46am Living Will Yes November 07, 2024 7:46am Do you have a Healthcare Power of Pals Specialist? Yes November 07, 2024 7:46am Name of Medical Power of Pals Specialist Susan Douglas November 07, 2024 7:46am Advance Directives Yes November 07 7:46am Advance Directives on File Yes 2024 1:21pm Living Will Yes December 27 1:21pm Do you have a Healthcare Power of Pals Specialist? Yes December 27, 2024 1:21pm Advance Directive Response Recorded Date/ Time Living Will Yes June 22 11:56am Do you have a Healthcare Power of Pals Specialist? Yes June 22, 2021 11:56am Advance Directives on File Yes November 07, 2024 7:46am Living Will Yes November 07, 2024 7:46am Do you have a Healthcare Power of Pals Specialist? Yes November 07, 2024 7:46am Name of Medical Power of Pals Specialist Susan Douglas November 07, 2024 7:46am Advance Directives Yes November 07 7:46am Advance Directives on File Yes 2024 1:21pm Living Will Yes December 27 1:21pm Do you have a Healthcare Power of Pals Specialist? Yes December 27, 2024 1:21pm Chief Complaint and Reason for Visit Chief Complaint chest pain E ORDER 1 Y FU Reason for Visit Atherosclerotic hear t disease of alutiiq coronary artery without angina pectoris Hyperlipidemia Chief Complaint chest pain E ORDER 1 Y FU CAD CPKEYONA CAD CPKEYONA Reason for Visit Atherosclerotic hear t disease of alutiiq coronary artery without angina pectoris Hyperlipidemia Chief Complaint UI RX HERE Chief Complaint Admit Date E ORDERS August 26, 2024 6:1 4am 6 M FU August 31, 2024 1:1 9pm INT LAB ORDERS August 31, 2024 2:1 1pm Reason for Visit Admit Date Essential hypertension August 31, 2024 1:19pm Fatigue August 31, 2024 1:1 9pm 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 August 31, 2024 1:19pm History of coronary artery stent placeme nt August 31, 2024 1:19pm Hyperlipidemia August 31, 2024 1:1 9pm Chief Complaint Admit Date E ORDERS August 26, 2024 6:1 4am 6 M FU August 31, 2024 1:1 9pm INT LAB ORDERS August 31, 2024 2:1 1pm FATIGUE;CAD September 29, 2024 7:01a m FATIGUE;CAD September 29, 2024 1:22p m Chief Complaint Admit Date E ORDERS August 26, 2024 6:1 4am 6 M FU August 31, 2024 1:1 9pm INT LAB ORDERS August 31, 2024 2:1 1pm FATIGUE;CAD September 29, 2024 7:01a m FATIGUE;CAD September 29, 2024 1:22p m UPDATE H & P October 24, 2024 1:52p m Reason for Visit Admit Date Essential hypertension August 31, 2024 1:19pm Fatigue August 31, 2024 1:1 9pm 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 August 31, 2024 1:19pm History of coronary artery stent placeme nt August 31, 2024 1:19pm Hyperlipidemia August 31, 2024 1:1 9pm Essential hypertension October 24, 2024 1: 52pm Fatigue October 24, 2024 1:52p m 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 October 24, 2024 1:52pm History of coronary artery stent placeme nt October 24, 2024 1:52pm Hyperlipidemia October 24, 2024 1:52p m Chief Complaint Admit Date E ORDERS August 26, 2024 6:1 4am 6 M FU August 31, 2024 1:1 9pm INT LAB ORDERS August 31, 2024 2:1 1pm FATIGUE;CAD September 29, 2024 7:01a m FATIGUE;CAD September 29, 2024 1:22p m UPDATE H & P October 24, 2024 1:52p m ABN STRESS November 07, 2024 7:27 am Reason for Visit Admit Date Essential hypertension August 31, 2024 1:19pm Fatigue August 31, 2024 1:1 9pm 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 August 31, 2024 1:19pm History of coronary artery stent placeme nt August 31, 2024 1:19pm Hyperlipidemia August 31, 2024 1:1 9pm Abnormal stress test October 24, 2024 1:52 pm Essential hypertension October 24, 2024 1: 52pm Fatigue October 24, 2024 1:52p m 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 October 24, 2024 1:52pm History of coronary artery stent placeme nt October 24, 2024 1:52pm Hyperlipidemia October 24, 2024 1:52p m Chief Complaint Admit Date E ORDERS August 26, 2024 6:1 4am 6 M FU August 31, 2024 1:1 9pm INT LAB ORDERS August 31, 2024 2:1 1pm FATIGUE;CAD September 29, 2024 7:01a m FATIGUE;CAD September 29, 2024 1:22p m UPDATE H & P October 24, 2024 1:52p m ABN STRESS November 07, 2024 7:27 am CAD ASHD November 16, 2024 10:41 am Amb Documentation November 21, 2024 10:04 am Chief Complaint Admit Date E ORDERS August 26, 2024 6:1 4am 6 M FU August 31, 2024 1:1 9pm INT LAB ORDERS August 31, 2024 2:1 1pm FATIGUE;CAD September 29, 2024 7:01a m FATIGUE;CAD September 29, 2024 1:22p m UPDATE H & P October 24, 2024 1:52p m ABN STRESS November 07, 2024 7:27 am CAD ASHD November 16, 2024 10:41 am Amb Documentation November 21, 2024 10:04 am ZULETA,PRE OP, CAD/ASHD November 24, 2024 1:0 1pm Chief Complaint Admit Date FATIGUE;CAD September 29, 2024 7:01a m FATIGUE;CAD September 29, 2024 1:22p m UPDATE H & P October 24, 2024 1:52p m ABN STRESS November 07, 2024 7:27 am CAD ASHD November 16, 2024 10:41 am Amb Documentation November 21, 2024 10:04 am ZULETA,PRE OP, CAD/ASHD November 24, 2024 1:0 1pm CABG December 27, 2024 12 :48pm Reason for Visit Admit Date Abnormal stress test October 24, 2024 1:52 pm Essential hypertension October 24, 2024 1: 52pm Fatigue October 24, 2024 1:52p m 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 October 24, 2024 1:52pm History of coronary artery stent placeme nt October 24, 2024 1:52pm Hyperlipidemia October 24, 2024 1:52p m Chief Complaint Admit Date FATIGUE;CAD September 29, 2024 7:01a m FATIGUE;CAD September 29, 2024 1:22p m UPDATE H & P October 24, 2024 1:52p m ABN STRESS November 07, 2024 7:27 am CAD ASHD November 16, 2024 10:41 am Amb Documentation November 21, 2024 10:04 am ZULETA,PRE OP, CAD/ASHD November 24, 2024 1:0 1pm CABG December 27, 2024 12 :48pm 1 Y FU January 18, 2025 8:48am Reason for Visit Admit Date Abnormal stress test October 24, 2024 1:52 pm Essential hypertension October 24, 2024 1: 52pm Fatigue October 24, 2024 1:52p m 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 October 24, 2024 1:52pm History of coronary artery stent placeme nt October 24, 2024 1:52pm Hyperlipidemia October 24, 2024 1:52p m Essential hypertension January 18 8:48am 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 January 18, 2025 8:48am History of coronary artery stent placeme nt January 18, 2025 8:48am Hyperlipidemia January 18, 2025 8:48am Chief Complaint Admit Date UPDATE H & P October 24, 2024 1:52p m ABN STRESS November 07, 2024 7:27 am CAD ASHD November 16, 2024 10:41 am Amb Documentation November 21, 2024 10:04 am ZULETA,PRE OP, CAD/ASHD November 24, 2024 1:0 1pm CABG December 27, 2024 12 :48pm 1 Y FU January 18, 2025 8:48am CABG February 13, 2025 2:15pm CABG February 15, 2025 10 :24am Reason for Visit Admit Date Abnormal stress test October 24, 2024 1:52 pm Essential hypertension October 24, 2024 1: 52pm Fatigue October 24, 2024 1:52p m 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 October 24, 2024 1:52pm History of coronary artery stent placeme nt October 24, 2024 1:52pm Hyperlipidemia Staci 9th, 2025 1:52p m Essential hypertension January 18 8:48am 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 January 18, 2025 8:48am Hyperlipidemia January 18, 2025 8:48am Reason for Referral Specialty Diagnoses / Procedures Referred By Roopa johnson Referred To Contact Orthopedics Diagnoses Acute pain of left knee Procedures CONSULT TO ORTHOPAEDICS OFFICE/OUTPATIENT NEW HIGH MDM 60-74 MINUTES Chano Baltazar, [employer]IST [address] [place] [address] Referral ID Status Reason Start Date Expiration Date Visits Requested Visits Authorized [id number] Authorized PCP Requested Referral 09/25/2022 09/25/2023 1 1 Specialty Diagnoses / Procedures Referred By Roopa johnson Referred To Contact XR IMAGING Diagnoses Acute pain of left knee Procedures XR KNEE GENERAL 4V AP BOTH/PA BOTH/LAT/MERC LEFT RADIOLOGIC EXAM KNEE COMPLETE 4/MORE VIEWS Chano Baltazar, [employer].INSURANCE PLAN SPECIALIST [address] [place] [address] Xr Imaging Referral ID Status Reason Start Date Expiration Date Visits Requested Visits Authorized [id number] Pending Review Auto-Generat ed Referral 09/25/2022 10/25/2023 1 1 Additional Source Comments INFORMATION SOURCE (unrecogn ized section and content) DATE CREATED AUTHOR 12/04/2019 [facility] ([place]) DATE CREATED AUTHOR AUTHOR'S ORGANIZ ATION 01/14/2025 [facility] DATE CREATED AUTHOR AUTHOR'S ORGANIZ ATION 01/19/2025 [facility] DATE CREATED AUTHOR AUTHOR'S ORGANIZ ATION 03/28/2025 [facility] Goals (unrecognized section and content) Goals may be documented in a n alternate sectionGoals may be documented in an alternate sectionGoals may be documented in an alternate sectionGoals may be documented in an alternate sectionGoals may be documented in an alternate sectionGoals may be documented in an alternate sectionGoals may be documented in an alternate sectionGoals may be documented in an alternate sectionGoals may be documented in an alternate sectionGoals may be documented in an alternate sectionGoals may be documented in an alternate sectionGoals may be documented in an alternate sectionGoals may be documented in an alternate section Source Comments (unrecognize d section and content) In the event this informatio n is protected by the Federal Confidentiality of Alcohol and Drug Abuse Patient Records regulations: The Federal rules restrict any use of the information to criminally investigate or prosecute any alcohol or drug abuse patient.[facility] the event this information is protected by the Federal Confidentiality of Alcohol and Drug Abuse Patient Records regulations: The Federal rules restrict any use of the information to criminally investigate or prosecute any alcohol or drug abuse patient.[facility] Hospital[facility] the event this information is protected by the Federal Confidentiality of Alcohol and Drug Abuse Patient Records regulations: The Federal rules restrict any use of the information to criminally investigate or prosecute any alcohol or drug abuse patient.[facility] the event this information is protected by the Federal Confidentiality of Alcohol and Drug Abuse Patient Records regulations: The Federal rules restrict any use of the information to criminally investigate or prosecute any alcohol or drug abuse patient.[facility] the event this information is protected by the Federal Confidentiality of Alcohol and Drug Abuse Patient Records regulations: The Federal rules restrict any use of the information to criminally investigate or prosecute any alcohol or drug abuse patient.[facility] Hospital[facility] the event this information is protected by the Federal Confidentiality of Alcohol and Drug Abuse Patient Records regulations: The Federal rules restrict any use of the information to criminally investigate or prosecute any alcohol or drug abuse patient.[facility] Hospital[facility] the event this information is protected by the Federal Confidentiality of Alcohol and Drug Abuse Patient Records regulations: The Federal rules restrict any use of the information to criminally investigate or prosecute any alcohol or drug abuse patient.[facility] Hospital[facility] the event this information is protected by the Federal Confidentiality of Alcohol and Drug Abuse Patient Records regulations: The Federal rules restrict any use of the information to criminally investigate or prosecute any alcohol or drug abuse patient.[facility] Hospital[facility] the event this information is protected by the Federal Confidentiality of Alcohol and Drug Abuse Patient Records regulations: The Federal rules restrict any use of the information to criminally investigate or prosecute any alcohol or drug abuse patient.[facility] Hospital[facility] the event this information is protected by the Federal Confidentiality of Alcohol and Drug Abuse Patient Records regulations: The Federal rules restrict any use of the information to criminally investigate or prosecute any alcohol or drug abuse patient.[facility] Hospital[facility] the event this information is protected by the Federal Confidentiality of Alcohol and Drug Abuse Patient Records regulations: The Federal rules restrict any use of the information to criminally investigate or prosecute any alcohol or drug abuse patient.[facility] Hospital[facility] the event this information is protected by the Federal Confidentiality of Alcohol and Drug Abuse Patient Records regulations: The Federal rules restrict any use of the information to criminally investigate or prosecute any alcohol or drug abuse patient.[facility] HospitalIn the event this information is protected by the Federal Confidentiality of Alcohol and Drug Abuse Patient Records regulations: The Federal rules restrict any use of the information to criminally investigate or prosecute any alcohol or drug abuse patient.[facility] HospitalIn the event this information is protected by the Federal Confidentiality of Alcohol and Drug Abuse Patient Records regulations: The Federal rules restrict any use of the information to criminally investigate or prosecute any alcohol or drug abuse patient.[facility] HospitalIn the event this information is protected by the Federal Confidentiality of Alcohol and Drug Abuse Patient Records regulations: The Federal rules restrict any use of the information to criminally investigate or prosecute any alcohol or drug abuse patient.[facility] HospitalIn the event this information is protected by the Federal Confidentiality of Alcohol and Drug Abuse Patient Records regulations: The Federal rules restrict any use of the information to criminally investigate or prosecute any alcohol or drug abuse patient.[facility] HospitalIn the event this information is protected by the Federal Confidentiality of Alcohol and Drug Abuse Patient Records regulations: The Federal rules restrict any use of the information to criminally investigate or prosecute any alcohol or drug abuse patient.[facility] HospitalIn the event this information is protected by the Federal Confidentiality of Alcohol and Drug Abuse Patient Records regulations: The Federal rules restrict any use of the information to criminally investigate or prosecute any alcohol or drug abuse patient.[facility] HospitalIn the event this information is protected by the Federal Confidentiality of Alcohol and Drug Abuse Patient Records regulations: The Federal rules restrict any use of the information to criminally investigate or prosecute any alcohol or drug abuse patient.[facility] HospitalIn the event this information is protected by the Federal Confidentiality of Alcohol and Drug Abuse Patient Records regulations: The Federal rules restrict any use of the information to criminally investigate or prosecute any alcohol or drug abuse patient.[facility] HospitalIn the event this information is protected by the Federal Confidentiality of Alcohol and Drug Abuse Patient Records regulations: The Federal rules restrict any use of the information to criminally investigate or prosecute any alcohol or drug abuse patient.[facility] HospitalIn the event this information is protected by the Federal Confidentiality of Alcohol and Drug Abuse Patient Records regulations: The Federal rules restrict any use of the information to criminally investigate or prosecute any alcohol or drug abuse patient.[facility] HospitalIn the event this information is protected by the Federal Confidentiality of Alcohol and Drug Abuse Patient Records regulations: The Federal rules restrict any use of the information to criminally investigate or prosecute any alcohol or drug abuse patient.[facility] Reason for Visit (unrecogniz ed section and content) Reason Comments F/U 6 months Reason Onset Date Comments Population Health Navigation Outreach 05/08/2022 [facility] Reason Onset Date Comments Population Health Navigation Outreach 09/03/2022 O [facility]N [facility]SA Reason Comments Physical Reason Comments New Patient CABG evaluation Reason Comments Received Outside Medical Records Reason Comments Request Outside Medical Records Reason Comments Home Care Confirmation Call Reason Comments Home Care MD to Follow Reason Comments Home Care Reason Comments Home Care FYI: Pt refused Home care with [facility] she is going with a different company Reason Comments Consult hospital follow up, TOV pt will return in afternoon for bladder scan Reason Comments Post Void Residual Reason Comments Patient Update Reason Comments Post Op CABG Reason Comments Cardiac Rehab Referral info Reason Comments Post Op 11/29/24 CABG Care Teams (unrecognized sec tion and content) Cutting Torch Operator Relationship Specialty Start Date End Date Vero Garcia MD [address] [place], [place] [address] PCP - General Internal Medicine 03/25/11 Cutting Torch Operator Relationship Specialty Start Date End Date Vero Garcia MD [address] [place], [place] [address] PCP - General Internal Medicine 03/25/11 Cutting Torch Operator Relationship Specialty Start Date End Date Vero Garcia MD [address] [place], [place] [address] PCP - General Internal Medicine 03/25/11 Cutting Torch Operator Relationship Specialty Start Date End Date Vero Garcia MD [address] [place] [address] PCP - General Internal Medicine 03/25/11 Team Status: Active Member Role Status Dates Dr. Vero Garcia MD Family Provider Active Dr. Vero Garcia MD Primary Care Provider Active Team Status: Inactive Member Role Status Dates Dr. Vero Garcia MD Primary Care Provider Active Dr. Florence Godfrey MD Attending Provider, Referring Kang navarro Active Team Status: Active Member Role Status Dates Dr. Vero Garcia MD Family Provider Active Dr. Bora Marie DO Primary Care Provider Active Team Status: Inactive Member Role Status Dates Dr. Bora Marie DO Primary Care Provider Active Start: August 26, 2024 End: August 26, 2024 Allyssa Smalls PA, PA Attending Provider Active Start: August 26, 2024 End: August 26, 2024 Allyssa Smalls PA, PA Referring Provider Active Start: August 26, 2024 End: August 26, 2024 Team Status: Inactive Member Role Status Dates Dr. Bora Marie DO Primary Care Provider Active Start: August 31, 2024 End: August 31, 2024 Dr. Bora Marie DO Referring Provider Active Start: August 31, 2024 End: August 31, 2024 JOAN Azar Attending Provider Active St art: August 31, 2024 End: August 31, 2024 Team Status: Active Member Role Status Dates Dr. Bora Marie DO Primary Care Provider Active Start: August 31, 2024 JOAN Azar Attending Provider Active St art: August 31, 2024 JOAN Azar Referring Provider Active St art: August 31, 2024 Team Status: Inactive Member Role Status Dates Dr. Bora Marie DO Primary Care Provider Active Start: August 31, 2024 End: August 31, 2024 JOAN Azar Attending Provider Active St art: August 31, 2024 End: August 31, 2024 JOAN Azar Referring Provider Active St art: August 31, 2024 End: August 31, 2024 Team Status: Active Member Role Status Dates Dr. Bora Marie DO Primary Care Provider Active Team Status: Inactive Member Role Status Dates Dr. Bora Marie DO Primary Care Provider Active Start: September 29, 2024 End: September 29, 2024 JOAN Azar Attending Provider Active St art: September 29, 2024 End: September 29, 2024 JOAN Azar Referring Provider Active St art: September 29, 2024 End: September 29, 2024 Team Status: Active Member Role Status Dates Dr. Bora Marie DO Primary Care Provider Active Start: September 29, 2024 JOAN Azar Referring Provider Active St art: September 29, 2024 JOAN Azar Other Provider Active Start: September 29, 2024 Dr. Cheng Rand MD Attending Provider Active S tart: September 29, 2024 Team Status: Inactive Member Role Status Dates Dr. Bora Marie DO Primary Care Provider Active Start: October 24, 2024 End: October 24, 2024 Dr. Bora Marie DO Referring Provider Active Start: October 24, 2024 End: October 24, 2024 JOAN Azar Attending Provider Active St art: October 24, 2024 End: October 24, 2024 Team Status: Inactive Member Role Status Dates Dr. Bora Marie DO Primary Care Provider Active Start: November 07, 2024 End: November 07, 2024 Dr. Cheng Rand MD Attending Provider Active S tart: November 07, 2024 End: November 07, 2024 Dr. Cheng Rand MD Referring Provider Active S tart: November 07, 2024 End: November 07, 2024 Cutting Torch Operator Relationship Specialty Start Date End Date Bora Marie DO [address] [place] [phone] PCP - General Family Medicine 11/08/24 Ana Mccarthy, GREENS PICKER.SCREW MACHINE REPAIRER [address] [place], [place] [address] [facility] 08/09/24 Chano Baltazar, GREENS PICKER.INSURANCE PLAN SPECIALIST [address] [place], [place] [phone] [facility] 10/05/24 Cheng Rand MD [address] [facility] [address] [place], [place] [phone] Cardiology 11/08/24 Cutting Torch Operator Relationship Specialty Start Date End Date Bora Marie DO [address] [place] [phone] PCP - General Family Medicine 11/08/24 Ana Mccarthy, GREENS PICKER.SCREW MACHINE REPAIRER [address] [place], [place] [address] [facility] 08/09/24 Chano Baltazar, GREENS PICKER.INSURANCE PLAN SPECIALIST [address] [place], [place] [phone] [facility] 10/05/24 Cheng Rand MD [address] [facility] [place] [address] Cardiology 11/08/24 Team Status: Active Member Role/Relationship Status Dates Dr. Bora Marie DO Primary Care Provider Active Team Status: Inactive Member Role/Relationship Status Dates Dr. Bora Marie DO Primary Care Provider Active Start: August 26, 2024 End: August 26, 2024 Allyssa FRANCO, PA Attending Provider Active Start: August 26, 2024 End: August 26, 2024 Allyssa FRANCO PA Referring Provider Active Start: August 26, 2024 End: August 26, 2024 Team Status: Inactive Member Role/Relationship Status Dates Dr. Bora Marie DO Primary Care Provider Active Start: August 31, 2024 End: August 31, 2024 Dr. Bora Marie DO Referring Provider Active Start: August 31, 2024 End: August 31, 2024 JOAN Azar Attending Provider Active St art: August 31, 2024 End: August 31, 2024 Team Status: Inactive Member Role/Relationship Status Dates Dr. Bora Marie DO Primary Care Provider Active Start: August 31, 2024 End: August 31, 2024 JOAN Azar Attending Provider Active St art: August 31, 2024 End: August 31, 2024 JOAN Azar Referring Provider Active St art: August 31, 2024 End: August 31, 2024 Team Status: Inactive Member Role/Relationship Status Dates Dr. Bora Marie DO Primary Care Provider Active Start: September 29, 2024 End: September 29, 2024 JOAN Azra Attending Provider Active St art: September 29, 2024 End: September 29, 2024 JOAN Azar Referring Provider Active St art: September 29, 2024 End: September 29, 2024 Team Status: Active Member Role/Relationship Status Dates Dr. Bora Marie DO Primary Care Provider Active Start: September 29, 2024 JOAN Azar Referring Provider Active St art: September 29, 2024 JOAN Azar Other Provider Active Start: September 29, 2024 Dr. Cheng Rand MD Attending Provider Active S tart: September 29, 2024 Team Status: Inactive Member Role/Relationship Status Dates Dr. Bora Marie DO Primary Care Provider Active Start: October 24, 2024 End: October 24, 2024 Dr. Bora Marie DO Referring Provider Active Start: October 24, 2024 End: October 24, 2024 JOAN Azar Attending Provider Active St art: October 24, 2024 End: October 24, 2024 Team Status: Inactive Member Role/Relationship Status Dates Dr. Bora Marie DO Primary Care Provider Active Start: November 07, 2024 End: November 07, 2024 Dr. Cheng Rand MD Attending Provider Active S tart: November 07, 2024 End: November 07, 2024 Dr. Cheng Rand MD Referring Provider Active S tart: November 07, 2024 End: November 07, 2024 Team Status: Inactive Member Role/Relationship Status Dates Dr. Bora Marie DO Primary Care Provider Active Start: November 16, 2024 End: November 16, 2024 Dr. Cheng Rand MD Attending Provider Active S tart: November 16, 2024 End: November 16, 2024 Dr. Cheng Rand MD Referring Provider Active S tart: November 16, 2024 End: November 16, 2024 Team Status: Active Member Role/Relationship Status Dates Dr. Bora Marie DO Primary Care Provider Active Start: November 16, 2024 Dr. Cheng Rand MD Attending Provider Active S tart: November 16, 2024 Team Status: Active Member Role/Relationship Status Dates Dr. Bora Marie DO Primary Care Provider Active Start: November 21, 2024 Vivian Richmond MEDICATION SPECIALIST, MEDICATION SPECIALIST-C Attending Provider Active Start: November 21, 2024 Cutting Torch Operator Relationship Specialty Start Date End Date Bora Marie DO [address] [place] [phone] PCP - General Family Medicine 11/08/24 Ana Mccarthy APRN.SCREW MACHINE REPAIRER [address] [place], [place] [phone] [facility] 08/09/24 Chano Baltazar APRN.INSURANCE PLAN SPECIALIST [address] [place], [place] [address] [facility] 10/05/24 Cheng Rand MD [address] [phone] Cardiology 11/08/24 Cutting Torch Operator Relationship Specialty Start Date End Date Bora Marie DO [address] [place] [phone] PCP - General Family Medicine 11/08/24 Ana Mccarthy APRN.SCREW MACHINE REPAIRER [address] [place] [address] [facility] 08/09/24 Chano Baltazar APRN.INSURANCE PLAN SPECIALIST [address] [place] [address] [facility] 10/05/24 Cheng Rand MD [address] [place] [address] Cardiology 11/08/24 Cutting Torch Operator Relationship Specialty Start Date End Date Bora Marie DO [address] [place] [phone] PCP - General Family Medicine 11/08/24 Ana Mccarthy, GREENS PICKER.SCREW MACHINE REPAIRER [address] [place] [address] [facility] 08/09/24 Chano Baltazar, GREENS PICKER.INSURANCE PLAN SPECIALIST [address] [place] [address] [facility] 10/05/24 Cheng Rand MD [address] [place] [address] Cardiology 11/08/24 Team Status: Inactive Member Role/Relationship Status Dates Dr. Bora Marie DO Primary Care Provider Active Start: November 24, 2024 End: November 24, 2024 ANITRA BALLARD Attending Provider Active Star t: November 24, 2024 End: November 24, 2024 ANITRA BALLARD Referring Provider Active Star t: November 24, 2024 End: November 24, 2024 ALBA LILLY Other Provider Active Start: November 152024 End: November 24, 2024 Cutting Torch Operator Relationship Specialty Start Date End Date Bora Marie DO [address] [place] [phone] PCP - General Family Medicine 11/08/24 Ana Mccarthy, GREENS PICKER.SCREW MACHINE REPAIRER [address] [place], [place] [address] [facility] 08/09/24 Chano Baltazar, GREENS PICKER.INSURANCE PLAN SPECIALIST [address] [place] [address] [facility] 10/05/24 Cheng Rand MD [address] [address] Cardiology 11/08/24 Cutting Torch Operator Relationship Specialty Start Date End Date Bora Marie DO [address] [place] [address] PCP - General Family Medicine 11/08/24 Ana Mccarthy GREENS PICKER.SCREW MACHINE REPAIRER [address] [place], [place] [address] [facility] 08/09/24 Chano Baltazar, GREENS PICKER.INSURANCE PLAN SPECIALIST [address] [place] [address] [facility] Internal Medicine 10/05/24 Cheng Rand MD [address] [phone] Cardiology 11/08/24 Jessie Díaz PAMartyC [address] [place] [address] Referring Cardiovascular Surgery 12/05/24 Peter Hayes MD [address] [place], [place] [phone] Home Care Provider Cardiothoracic Surgery 12/05/24 Juan Miguel Hunt RN [address] [place] [address] Reed Fix[facility] Post Acute Care 12/05/24 Cutting Torch Operator Relationship Specialty Start Date End Date Bora Marie DO [address] [place] [phone] PCP - General Family Medicine 11/08/24 Ana Mccarthy, GREENS PICKER.SCREW MACHINE REPAIRER [address] [place], [place] [phone] [facility] 08/09/24 Chano Baltazar, GREENS PICKER.INSURANCE PLAN SPECIALIST [address] [place], [place] [phone] [facility] 10/05/24 Cheng Rand MD [address] [phone] Cardiology 11/08/24 Jessie Díaz, PA-C [address] [place] [address] Referring Cardiovascular Surgery 12/05/24 Peter Hayes MD [address] [place], [place] [phone] Home Care Provider Cardiothoracic Surgery 12/05/24 Juan Miguel Hunt RN [address] [place] [address] Reed Fixer Post Acute Care 12/05/24 Cutting Torch Operator Relationship Specialty Start Date End Date Frank Bora HassanDO [address] [facility] [place] [phone] PCP - General Family Medicine 11/08/24 Ana Mccarthy APRN.SCREW MACHINE REPAIRER [address] [place], [place] [phone] [facility] 08/09/24 Chano Baltazar APRN.INSURANCE PLAN SPECIALIST [address] [place], [place] [phone] [facility] 10/05/24 Cheng Rand MD [address] [phone] Cardiology 11/08/24 Jessie Díaz PA-C [address] [place], [place] [phone] Referring Cardiovascular Surgery 12/05/24 Peter Hayes MD [address] [place], [place] [phone] Home Care Provider Cardiothoracic Surgery 12/05/24 Cutting Torch Operator Relationship Specialty Start Date End Date Frank Bora HassanDO [address] [facility] [place] [phone] PCP - General Family Medicine 11/08/24 Ana Mccarthy APRN.SCREW MACHINE REPAIRER [address] [place] [address] [facility] 08/09/24 Chano Baltazar APRN.INSURANCE PLAN SPECIALIST [address] [place] [address] [facility] 10/05/24 Cheng Rand MD [address] [facility] [address] [place] [address] Cardiology 11/08/24 Jessie Díaz PA-C [address] [place], [place] [phone] Referring Cardiovascular Surgery 12/05/24 Peter Hayes MD [address] [place], [place] [phone] Home Care Provider Cardiothoracic Surgery 12/05/24 Cutting Torch Operator Relationship Specialty Start Date End Date Bora Marie DO [address] [facility] [place] [phone] PCP - General Family Medicine 11/08/24 Ana Mccarthy, GREENS PICKER.SCREW MACHINE REPAIRER [address] [place] [address] [facility] 08/09/24 Chano Baltazar, GREENS PICKER.INSURANCE PLAN SPECIALIST [address] [place] [address] [facility] 10/05/24 Cheng Rand MD [address] [facility] [place] [address] Cardiology 11/08/24 Jessie Díaz PA-C [address] [place], [place] [phone] Referring Cardiovascular Surgery 12/05/24 Peter Hayes MD [address] [place], [place] [phone] Home Care Provider Cardiothoracic Surgery 12/05/24 Cutting Torch Operator Relationship Specialty Start Date End Date Bora Marie DO [address] [place] [address] PCP - General Family Medicine 11/08/24 Ana Mccarthy, GREENS PICKER.SCREW MACHINE REPAIRER [address] [place], [place] [phone] [facility] 08/09/24 Chano Baltazar, GREENS PICKER.INSURANCE PLAN SPECIALIST [address] [place], [place] [address] [facility] 10/05/24 Cheng Rand MD [address] [facility] [address] [phone] Cardiology 11/08/24 Jessie Díaz, PA-C [address] [place], [place] [phone] Referring Cardiovascular Surgery 12/05/24 Peter Hayes MD [address] [place], [place] [phone] Home Care Provider Cardiothoracic Surgery 12/05/24 Cutting Torch Operator Relationship Specialty Start Date End Date Bora Marie DO [address] [place] [address] PCP - General Family Medicine 11/08/24 Ana Mccarthy, GREENS PICKER.SCREW MACHINE REPAIRER [address] [place] [address] [facility] 08/09/24 Chano Baltazar, GREENS PICKER.INSURANCE PLAN SPECIALIST [address] [place] [address] [facility] 10/05/24 Cheng Rand MD [address] [phone] Cardiology 11/08/24 Jessie Díaz PA-C [address] [place], [place] [phone] Referring Cardiovascular Surgery 12/05/24 Peter Hayes MD [address] [place], [place] [phone] Home Care Provider Cardiothoracic Surgery 12/05/24 Team Status: Inactive Member Role/Relationship Status Dates Dr. Bora Marie DO Primary Care Provider Active Start: September 29, 2024 End: September 29, 2024 JOAN Azar Attending Provider Active St art: September 29, 2024 End: September 29, 2024 JOAN Azar Referring Provider Active St art: September 29, 2024 End: September 29, 2024 Team Status: Active Member Role/Relationship Status Dates Dr. Bora Marie DO Primary Care Provider Active Start: September 29, 2024 JOAN Azar Referring Provider Active St art: September 29, 2024 JOAN Azar Other Provider Active Start: September 29, 2024 Dr. Cheng Rand MD Attending Provider Active S tart: September 29, 2024 Team Status: Inactive Member Role/Relationship Status Dates Dr. Bora Marie DO Primary Care Provider Active Start: October 24, 2024 End: October 24, 2024 Dr. Bora Marie DO Referring Provider Active Start: October 24, 2024 End: October 24, 2024 JOAN Azar Attending Provider Active St art: October 24, 2024 End: October 24, 2024 Team Status: Inactive Member Role/Relationship Status Dates Dr. Bora Marie DO Primary Care Provider Active Start: November 07, 2024 End: November 07, 2024 Dr. Cheng Rand MD Attending Provider Active S tart: November 07, 2024 End: November 07, 2024 Dr. Cheng Rand MD Referring Provider Active S tart: November 07, 2024 End: November 07, 2024 Team Status: Inactive Member Role/Relationship Status Dates Dr. Bora Marie DO Primary Care Provider Active Start: November 15, 2024 Dr. Florence Godfrey MD Attending Provider Active Start: November 15, 2024 Team Status: Inactive Member Role/Relationship Status Dates Dr. Bora Marie DO Primary Care Provider Active Start: November 16, 2024 End: November 16, 2024 Dr. Cheng Rand MD Attending Provider Active S tart: November 16, 2024 End: November 16, 2024 Dr. Cheng Rand MD Referring Provider Active S tart: November 16, 2024 End: November 16, 2024 Team Status: Active Member Role/Relationship Status Dates Dr. Bora Marie DO Primary Care Provider Active Start: November 16, 2024 Dr. Cheng Rand MD Attending Provider Active S tart: November 16, 2024 Team Status: Active Member Role/Relationship Status Dates Dr. Bora Marie DO Primary Care Provider Active Start: November 21, 2024 Vivian Richmond MEDICATION SPECIALIST, MEDICATION SPECIALIST-C Attending Provider Active Start: November 21, 2024 Team Status: Inactive Member Role/Relationship Status Dates Dr. Bora Marie DO Primary Care Provider Active Start: November 24, 2024 End: November 24, 2024 ANITRA BALLARD Attending Provider Active Star t: November 24, 2024 End: November 24, 2024 ANITRA BALLARD Referring Provider Active Star t: November 24, 2024 End: November 24, 2024 ALBA LILLY Other Provider Active Start: November 152024 End: November 24, 2024 Team Status: Inactive Member Role/Relationship Status Dates Dr. Bora Marie DO Primary Care Provider Active Start: December 27, 2024 End: December 27, 2024 Dr. Peter Hayes MD Attending Provider Active Start: December 27, 2024 End: December 27, 2024 Dr. Peter Hayes MD Referring Provider Active Start: December 27, 2024 End: December 27, 2024 Cutting Torch Operator Relationship Specialty Start Date End Date Bora Marie DO [address] [facility] [place] [phone] PCP - General Family Medicine 11/08/24 Ana Mccarthy, GREENS PICKER.SCREW MACHINE REPAIRER [address] [place] [address] [facility] 08/09/24 Chano Baltazar, GREENS PICKER.INSURANCE PLAN SPECIALIST [address] [place], [place] [phone] [facility] 10/05/24 Cheng Rand MD [address] [phone] Cardiology 11/08/24 Jessie Díaz PA-C [address] [place], [place] [phone] Referring Cardiovascular Surgery 12/05/24 Peter Hayes MD [address] [place] [address] Home Care Provider Cardiothoracic Surgery 12/05/24 Team Status: Inactive Member Role/Relationship Status Dates Dr. Bora Marie DO Primary Care Provider Active Start: January 18, 2025 End: January 18, 2025 Dr. Bora Marie DO Referring Provider Active Start: January 18, 2025 End: January 18, 2025 JOAN Azar Attending Provider Active St art: January 18, 2025 End: January 18, 2025 Cutting Torch Operator Relationship Specialty Start Date End Date Bora Marie DO [address] [place] [phone] PCP - General Family Medicine 11/08/24 Ana Mccarthy, GREENS PICKER.SCREW MACHINE REPAIRER [address] [place], [place] [phone] [facility] 08/09/24 01/19/25 Chano Baltazar, GREENS PICKER.INSURANCE PLAN SPECIALIST [address] [place], [place] [phone] [facility] 10/05/24 01/19/25 Cheng Rand MD [address] [phone] Cardiology 11/08/24 Jessie Díaz PA-C [address] [place], [place] [id number] Referring Cardiovascular Surgery 12/05/24 Peter Hayes MD [address] [place] [address] Home Care Provider Cardiothoracic Surgery 12/05/24 Juan Miguel Hunt, RN [address] [place] [address] [facility] 12/05/24 12/06/24 Team Status: Active Member Role/Relationship Status Dates Dr. Bora Marie DO Primary care physician Active Team Status: Inactive Member Role/Relationship Status Dates Dr. Bora Marie DO Primary care physician Active Start: October 24, 2024 End: October 24, 2024 Dr. Bora Marie DO Referring Provider Active Start: October 24, 2024 End: October 24, 2024 JOAN Azar Attending physician Active S tart: October 24, 2024 End: October 24, 2024 Team Status: Inactive Member Role/Relationship Status Dates Dr. Bora Marie DO Primary care physician Active Start: November 07, 2024 End: November 07, 2024 Dr. Cheng Rand MD Attending physician Active Start: November 07, 2024 End: November 07, 2024 Dr. Cheng Rand MD Referring Provider Active S tart: November 07, 2024 End: November 07, 2024 Team Status: Inactive Member Role/Relationship Status Dates Dr. Bora Marie DO Primary care physician Active Start: November 15, 2024 Dr. Florence Godfrey MD Attending physician Active Start: November 15, 2024 Team Status: Inactive Member Role/Relationship Status Dates Dr. Bora Marie DO Primary care physician Active Start: November 16, 2024 End: November 16, 2024 Dr. Cheng Rand MD Attending physician Active Start: November 16, 2024 End: November 16, 2024 Dr. Cheng Rand MD Referring Provider Active S tart: November 16, 2024 End: November 16, 2024 Team Status: Active Member Role/Relationship Status Dates Dr. Bora Marie DO Primary care physician Active Start: November 16, 2024 Dr. Cheng Rand MD Attending physician Active Start: November 16, 2024 Team Status: Active Member Role/Relationship Status Dates Dr. Bora Marie DO Primary care physician Active Start: November 21, 2024 Vivian Richmond MEDICATION SPECIALIST, MEDICATION SPECIALIST-C Attending physician Active Start: November 21, 2024 Team Status: Inactive Member Role/Relationship Status Dates Dr. Bora Marie DO Primary care physician Active Start: November 24, 2024 End: November 24, 2024 ANITRA BALLARD Attending physician Active Sta rt: November 24, 2024 End: November 24, 2024 ANITRA BALLARD Referring Provider Active Star t: November 24, 2024 End: November 24, 2024 ALBA LILLY Nurse Practitioner Active Start: 2024 End: November 24, 2024 Team Status: Inactive Member Role/Relationship Status Dates Dr. Bora Marie DO Primary care physician Active Start: December 27, 2024 End: December 27, 2024 Dr. Peter Hayes MD Attending physician Active Start: December 27, 2024 End: December 27, 2024 Dr. Peter Hayes MD Referring Provider Active Start: December 27, 2024 End: December 27, 2024 Team Status: Inactive Member Role/Relationship Status Dates Dr. Bora Marie DO Primary care physician Active Start: January 18, 2025 End: January 18, 2025 Dr. Bora Marie DO Referring Provider Active Start: January 18, 2025 End: January 18, 2025 JOAN Azar Attending physician Active S tart: January 18, 2025 End: January 18, 2025 Team Status: Inactive Member Role/Relationship Status Dates Dr. Bora Marie DO Primary care physician Active Start: February 13, 2025 End: February 14, 2025 Dr. Peter Hayes MD Attending physician Active Start: February 13, 2025 End: February 14, 2025 Dr. Peter Hayes MD Referring Provider Active Start: February 13, 2025 End: February 14, 2025 Team Status: Active Member Role/Relationship Status Dates Dr. Bora Marie DO Primary care physician Active Start: February 15, 2025 Dr. Peter Hayes MD Attending physician Active Start: February 15, 2025 Dr. Peter Hayes MD Referring Provider Active Start: February 15, 2025 FOR RECORDS PERTAINING TO PATIENTS WHO ARE OR HAVE BEEN ENROLLED IN A CHEMICAL DEPENDENCY/SUBSTANCEABUSE PROGRAM, SOME INFORMATION MAY BE OMITTED. This clinical summary was aggregated from multiple sources. Caution should be exercised in using it in the provision of clinical care. This summary normalizes information from multiple sources, and as a consequence, information in this document may materially change the coding, format and clinical context of patient data. In addition, data may be omitted in some cases. CLINICAL DECISIONS SHOULD BE BASED ON THE PRIMARY CLINICAL RECORDS. [facility]. provides no warranty or guarantee of the accuracy or completeness of information in this document.
[2025-04-27 08:13] LABS: AST(SGOT) 34 U/L (<=31); Alanine Aminotransfer ALT/SGPT 27 U/L (<=34); Albumin, Serum 3.9 g/dL (3.4-4.8); Alkaline Phosphatase 60 U/L (35-104); Bilirubin, Direct 0.14 mg/dL (0.00-0.30); Cholesterol 141 mg/dL (<=200); Globulin 3.2 g/dL (2.2-4.2); Low Density Lipoprotein Calc. 60 mg/dL; Triglycerides 50 mg/dL; Very Low Density Lipoprotein 10 mg/dL (5-40); cholesterol:hdl ratio screen 2.03
== END | disposition home or self-care (01) ==
LOC: LAB 07:02
PROVIDERS: PCP Family Medicine; Referring Provider Physician Assistant Medical; Visit Provider Physician Assistant Medical
DX: E78.00 Pure hypercholesterolemia, unspecified (principal)
CPT/HCPCS: 36415; 80061; 80076